=== PATIENT | female | born 1940 | race Caucasian/White ===

== ENCOUNTER 2019-09-22 11:08 | Emergency (ER) | payer OTHER ==
[2019-09-22] MEDS ORDERED: FLEET ENEMA ADULT PR ONE (12:19)
--- NOTE | 2019-09-22 12:50 | ER ---
Nurse's Notes [facility] Name: Diana Nava Age: 79 yrs Sex: Female : 1940 Arrival Date: 09/22/2019 Time: 11:09 Bed 17 Private MD: Diagnosis: Fecal impaction;Constipation Presentation: 09/22 11:11 Presenting complaint: Patient states: i have had back surgery on the and i have tw2 been taking hydrocodone, maybe twice a day, i had people at the house checking on us and havent been able to take a laxative and now i am bleeding some when i wipe, i am constipated and havent gone since Thursday i believe. Transition of care: patient was not received from another setting of care. Onset of symptoms was September 22, 2019. Risk Assessment: Do you want to hurt yourself or someone else? Patient reports no desire to harm self or others. Initial Sepsis Screen: Does the patient meet any 2 criteria? No. Patient's initial sepsis screen is negative. Does the patient have a suspected source of infection? No. Patient's initial sepsis screen is negative. Care prior to arrival: None. 11:11 Method Of Arrival: Ambulatory tw2 11:11 Acuity: [id number] 3 tw2 Triage Assessment: 11:13 General: Appears uncomfortable, Behavior is cooperative, appropriate for age. Pain: tw2 Complains of pain in abdomen. GI: Reports constipation. Historical: - Allergies: 11:14 Daypro; tw2 11:14 Lodine; tw2 11:14 Plendil; tw2 11:14 Prinivil; tw2 11:14 Procardia; tw2 - Home Meds: 11:27 aspirin 81 mg Oral TbEC 1 tab once daily [Active]; enalapril maleate 20 mg Oral tab 1 tw2 tab once daily [Active]; glimepiride 1 mg Oral tab 1 tab once daily [Active]; lansoprazole 30 mg Oral cpDR 1 cap once daily [Active]; levothyroxine 75 mcg tab 1 tab once daily [Active]; losartan-hydrochlorothiazide 50-12.5 mg Oral tab 1 tab once daily [Active]; metformin 500 mg Oral tr24 1 tab once daily [Active]; moduchol 650 mg daily [Active]; raloxifene 60 mg Oral tab 1 tab once daily [Active]; tolterodine 4 mg Oral cp24 1 cap once daily [Active]; Zetia 10 mg Oral tab 1 tab once daily [Active]; - PMHx: 11:14 Diabetes - NIDDM; Hyperlipidemia; Hypertension; tw2 - PSHx: 11:14 Hysterectomy; Cholecystectomy; hemeroidechtomy; back surgery; tw2 - Immunization history:: Adult Immunizations. - Social history:: Smoking status: . - Ebola Screening: : Patient denies travel to an Ebola-affected area in the 21 days before illness onset. Screenin:40 Abuse screen: Denies threats or abuse. Denies injuries from another. Nutritional ph screening: No deficits noted. Tuberculosis screening: No symptoms or risk factors identified. Fall Risk None identified. Assessment: 11:50 General: Appears in no apparent distress. comfortable, slender, well groomed, Behavior ph is calm, cooperative, appropriate for age. Pain: Complains of pain in buttocks and abdomen. Neuro: Level of Consciousness is awake, alert, obeys commands, Oriented to person, place, time, situation. Cardiovascular: Capillary refill < 3 seconds in bilateral fingers Patient's skin is warm and dry. Respiratory: Airway is patent Respiratory effort is even, unlabored, Respiratory pattern is regular, symmetrical. GI: Abdomen is round non-distended, Bowel sounds present X 4 quads. Abdomen is tender to palpation in abdomen diffusely Reports bloating, constipation, cramping, rectal bleeding, Patient currently denies nausea, vomiting. GI: Rectal exam: Bleeding noted, Hemorrhoids noted. Derm: Skin is intact, Skin is pink, warm \T\ dry. 12:15 Reassessment: Patient appears in no apparent distress at this time. Patient and/or ph family updated on plan of care and expected duration. Pain level reassessed. Patient is alert, oriented x 3, equal unlabored respirations, skin warm/dry/pink. At bedside to administer soap suds enema, flow of water impeded by stool noted in rectum, attempted to digitally remove stool, bleeding noted, ERP notified. 12:20 Reassessment: ERP at bedside to disimpact pt, able to remove moderate amount of stool, ph pt reports some relief in pain, fleet enema administered, pt now sitting on bedside commode. Vital Signs: 11:13 BP 150 / 89; Pulse 96; Resp 18; Temp 97.5(O); Pulse Ox 95% on R/A; Weight 60.78 kg (R); tw2 Height 5 ft. 5 in. (165.10 cm); Pain 10/10; 12:30 BP 138 / 89; Pulse 87; Resp 18; Temp 97.9; Pulse Ox 99% on R/A; Pain 4/10; ph 11:13 Body Mass Index 22.30 (60.78 kg, 165.10 cm) tw2 ED Course: 11:09 Patient arrived in ED. mr 11:13 Triage completed. tw2 11:13 Arm band placed on. tw2 11:20 Al Gomez PA is PHCP. jr8 11:20 Darrel Louie MD is Attending Physician. jr8 11:22 Kinga Zuñiga, RN is Primary Nurse. ph 12:15 Soap suds enema given. Patient tolerated well. ph 12:30 Fleets enema given. Patient tolerated well. ph 12:44 Patient has correct armband on for positive identification. Placed in gown. Bed in low ph position. Call light in reach. Side rails up X 1. 13:12 No provider procedures requiring assistance completed. Patient did not have IV access ph during this emergency room visit. Administered Medications: 12:20 Drug: Fleet Enema 133 ml Route: UT; ph 12:35 Follow up: Response: No adverse reaction ph Outcome: 12:50 Discharge ordered by . jr8 13:12 Patient left the ED. eb 13:12 Discharged to home ambulatory. ph 13:12 Condition: good 13:12 Discharge instructions given to patient, Instructed on discharge instructions, follow up and referral plans. medication usage, Demonstrated understanding of instructions, follow-up care, medications, Prescriptions given X 1. Signatures: JermaineMaryam mr Al Gmoez PA PA jr8 Kinga Zuñiga, RN RN ph Nakia Ford RN RN tw2 Porsche Busch
--- NOTE | 2019-09-22 12:51 | EDPHYS ---
Physician Documentation [facility] Name: Diana Nava Age: 79 yrs Sex: Female : 1940 Arrival Date: 09/22/2019 Time: 11:09 Bed 17 Private MD: Darrel Bustos HPI: 09/22 12:22 This 79 yrs old Female presents to ER via Ambulatory with complaints of jr8 Constipation. 12:22 Patient stated that she is on [place] for recent back surgery. Stated that she had not jr8 been taking her laxatives. Last normal stool was this past Thursday. Stated that she took some this morning but cannot go. Having a lot of rectal pressure. Denies abdominal pain, n/v, or fevers . Severity of symptoms: At their worst the symptoms were moderate. It is unknown whether or not the patient has had similar symptoms in the past. The patient has not recently seen a physician. Historical: - Allergies: 11:14 Daypro; tw2 11:14 Lodine; tw2 11:14 Plendil; tw2 11:14 Prinivil; tw2 11:14 Procardia; tw2 - Home Meds: 11:27 aspirin 81 mg Oral TbEC 1 tab once daily [Active]; enalapril maleate 20 mg Oral tab 1 tw2 tab once daily [Active]; glimepiride 1 mg Oral tab 1 tab once daily [Active]; lansoprazole 30 mg Oral cpDR 1 cap once daily [Active]; levothyroxine 75 mcg tab 1 tab once daily [Active]; losartan-hydrochlorothiazide 50-12.5 mg Oral tab 1 tab once daily [Active]; metformin 500 mg Oral tr24 1 tab once daily [Active]; moduchol 650 mg daily [Active]; raloxifene 60 mg Oral tab 1 tab once daily [Active]; tolterodine 4 mg Oral cp24 1 cap once daily [Active]; Zetia 10 mg Oral tab 1 tab once daily [Active]; - PMHx: 11:14 Diabetes - NIDDM; Hyperlipidemia; Hypertension; tw2 - PSHx: 11:14 Hysterectomy; Cholecystectomy; hemeroidechtomy; back surgery; tw2 - Immunization history:: Adult Immunizations. - Social history:: Smoking status: . - Ebola Screening: : Patient denies travel to an Ebola-affected area in the 21 days before illness onset. ROS: 12:22 Constitutional: Negative for fever, chills, and weight loss. jr8 12:22 Abdomen/GI: Positive for constipation, rectal bleeding, Negative for abdominal pain, nausea, vomiting, and diarrhea. Exam: 12:22 Eyes: Pupils equal round and reactive to light, extra-ocular motions intact. Lids and jr8 lashes normal. Conjunctiva and sclera are non-icteric and not injected. Cornea within normal limits. Periorbital areas with no swelling, redness, or edema. ENT: Nares patent. No nasal discharge, no septal abnormalities noted. Tympanic membranes are normal and external auditory canals are clear. Oropharynx with no redness, swelling, or masses, exudates, or evidence of obstruction, uvula midline. Mucous membranes moist. Neck: Trachea midline, no thyromegaly or masses palpated, and no cervical lymphadenopathy. Supple, full range of motion without nuchal rigidity, or vertebral point tenderness. No Meningismus. Cardiovascular: Regular rate and rhythm with a normal S1 and S2. No gallops, murmurs, or rubs. Normal PMI, no JVD. No pulse deficits. Respiratory: Lungs have equal breath sounds bilaterally, clear to auscultation and percussion. No rales, rhonchi or wheezes noted. No increased work of breathing, no retractions or nasal flaring. Back: No spinal tenderness. No costovertebral tenderness. Full range of motion. Skin: Warm, dry with normal turgor. Normal color with no rashes, no lesions, and no evidence of cellulitis. MS/ Extremity: Pulses equal, no cyanosis. Neurovascular intact. Full, normal range of motion. Neuro: Awake and alert, GCS 15, oriented to person, place, time, and situation. Cranial nerves II-XII grossly intact. Motor strength 5/5 in all extremities. Sensory grossly intact. Cerebellar exam normal. Normal gait. 12:22 Abdomen/GI: Inspection: abdomen appears normal, Bowel sounds: active, all quadrants, Palpation: abdomen is soft and non-tender, in all quadrants, mass, is not appreciated, rebound tenderness, is not appreciated, voluntary guarding, is not appreciated, involuntary guarding, is not appreciated, no appreciated organomegaly, Rectal exam: rectal tone normal, Stool: soft, hemorrhoid(s), external, with associated bleeding, tenderness, that is mild, fecal impaction, that is moderate, the exam is chaperoned by the nurse. Vital Signs: 11:13 BP 150 / 89; Pulse 96; Resp 18; Temp 97.5(O); Pulse Ox 95% on R/A; Weight 60.78 kg (R); tw2 Height 5 ft. 5 in. (165.10 cm); Pain 10/10; 12:30 BP 138 / 89; Pulse 87; Resp 18; Temp 97.9; Pulse Ox 99% on R/A; Pain 4/10; ph 11:13 Body Mass Index 22.30 (60.78 kg, 165.10 cm) tw2 MDM: 11:20 Patient medically screened. jr8 12:22 ED course: No more active rectal bleeding. Rectum disimpacted. Patient feeling much jr8 better. Soap abhijit enema being given now . 12:50 Data reviewed: vital signs, nurses notes, and as a result, I will discharge patient. jr8 Data interpreted: Pulse oximetry: on room air is 95 %. Interpretation: normal. 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 Response to treatment: the patient's symptoms have markedly improved after treatment. Administered Medications: 12:20 Drug: Fleet Enema 133 ml Route: [place]; ph 12:35 Follow up: Response: No adverse reaction ph Disposition: 09/22/19 12:50 Discharged to Home. Impression: Fecal impaction, Constipation. - Condition is Stable. - Discharge Instructions: Constipation, Adult. - Prescriptions for Miralax 17 gram/dose Oral - take 1 packet by ORAL route once daily dilute powder in 8 ounces of water or juice; 1 box. - Medication Reconciliation Form, Thank You Letter, Antibiotic Education, Prescription Opioid Use form. - Follow up: Private Physician; When: 2 - 3 days; Reason: Recheck today's complaints, Continuance of care, Re-evaluation by your physician. - Problem is new. - Symptoms have improved. Addendum: 09/26/2019 10:37 Co-signature as Attending Physician, Darrel Louie MD I agree with the assessment and c vera plan of care. Signatures: Darrel Louie MD MD cha Roszak, Josh, PA PA jr8 Kinga Zuñiga, RN RN Nakia Ford RN RN tw2 Porsche Busch Corrections: (The following items were deleted from the chart) 09/22 13:12 12:50 09/22/2019 12:50 Discharged to Home. Impression: Fecal impaction; Constipation. eb Condition is Stable. Forms are Medication Reconciliation Form, Thank You Letter, Antibiotic Education, Prescription Opioid Use. Follow up: Private Physician; When: 2 - 3 days; Reason: Recheck today's complaints, Continuance of care, Re-evaluation by your physician. Problem is new. Symptoms have improved. jr8
[2019-09-22 13:30] VITALS: BP 150/89; TEMP 97.5; O2SAT 95
== END 2019-09-22 13:12 | disposition home or self-care (01) ==
LOC: ER 11:08
DX: K56.41 Fecal impaction (principal); I10 Essential (primary) hypertension; E78.5 Hyperlipidemia, unspecified; E11.9 Type 2 diabetes mellitus without complications; Z79.82 Long term (current) use of aspirin; Z88.8 Allergy status to other drugs, medicaments and biological substances
CPT/HCPCS: 99284

== ENCOUNTER 2019-09-26 04:56 | Emergency (ER) | payer OTHER ==
[2019-09-26] MEDS ORDERED: LACTULOSE 20 GM/30 ML UCUP ONE (05:29)
--- NOTE | 2019-09-26 06:00 | ER ---
Nurse's Notes [facility] Name: Diana Nava Age: 79 yrs Sex: Female : 1940 Arrival Date: 09/26/2019 Time: 04:57 Bed 8 Private MD: Diagnosis: Constipation Presentation: 09/26 05:08 Presenting complaint: Patient states: Reports she had back surgery on the , was ea prescribed hydrocodone as pain reliever, reports she was seen in the ED for constipation and was prescribed Miralax. Pt reports she has been taking Miralax but has been unable to have a bowel movement since . Transition of care: patient was not received from another setting of care. Onset of symptoms was September 26, 2019. Risk Assessment: Do you want to hurt yourself or someone else? Patient reports no desire to harm self or others. Initial Sepsis Screen: Does the patient meet any 2 criteria? No. Patient's initial sepsis screen is negative. Does the patient have a suspected source of infection? No. Patient's initial sepsis screen is negative. Care prior to arrival: Medication(s) given: Miralax. 05:08 Method Of Arrival: Ambulatory ea 05:08 Acuity: [id number] 4 ea Triage Assessment: 05:12 General: Appears in no apparent distress. Behavior is calm, cooperative, appropriate ea for age. Neuro: No deficits noted. Level of Consciousness is awake, alert, obeys commands. Historical: - Allergies: 05:25 Daypro; ea 05:25 Lodine; ea 05:25 Plendil; ea 05:25 Prinivil; ea 05:25 Procardia; ea - Home Meds: 05:25 Zetia 10 mg Oral tab 1 tab once daily [Active]; Zetia 10 mg Oral tab 1 tab once daily ea [Active]; Zetia 10 mg Oral tab 1 tab once daily [Active]; Zetia 10 mg Oral tab 1 tab once daily [Active]; Zetia 10 mg Oral tab 1 tab once daily [Active]; Zetia 10 mg Oral tab 1 tab once daily [Active]; aspirin 81 mg Oral TbEC 1 tab once daily [Active]; aspirin 81 mg Oral TbEC 1 tab once daily [Active]; aspirin 81 mg Oral TbEC 1 tab once daily [Active]; aspirin 81 mg Oral TbEC 1 tab once daily [Active]; lansoprazole 30 mg Oral cpDR 1 cap once daily [Active]; raloxifene 60 mg Oral tab 1 tab once daily [Active]; - PMHx: 05:25 Hypertension; Hyperlipidemia; Diabetes - NIDDM; ea - PSHx: 05:25 back surgery; hemeroidechtomy; Cholecystectomy; Hysterectomy; ea - Immunization history:: Adult Immunizations up to date. - Social history:: Smoking status: Patient/guardian denies using tobacco. - Ebola Screening: : No symptoms or risks identified at this time. Screenin:09 Abuse screen: Denies threats or abuse. Denies injuries from another. Nutritional rr5 screening: No deficits noted. Tuberculosis screening: No symptoms or risk factors identified. Fall Risk None identified. Total Oneal Fall Scale indicates No Risk (0-24 pts). Assessment: 05:10 General: Appears in no apparent distress. uncomfortable, Behavior is calm, cooperative, rr5 appropriate for age. Pain: Denies pain. Neuro: Level of Consciousness is awake, alert, obeys commands, Oriented to person, place, time, situation. Cardiovascular: Capillary refill < 3 seconds Patient's skin is warm and dry. Respiratory: Airway is patent Respiratory effort is even, unlabored, Respiratory pattern is regular, symmetrical. GI: Abdomen is round Bowel sounds Abd is soft Reports constipated, last BM was . : No signs and/or symptoms were reported regarding the genitourinary system. EENT: No signs and/or symptoms were reported regarding the EENT system. Derm: Skin is intact, is healthy with good turgor, Skin temperature is warm. Musculoskeletal: Circulation, motion, and sensation intact. Capillary refill < 3 seconds. 06:07 Reassessment: Patient and/or family updated on plan of care and expected duration. Pain ea level reassessed. Patient is alert, oriented x 3, equal unlabored respirations, skin warm/dry/pink. Discharge instruction given to patient, verbalized the understanding of instruction. Pt left ED ambulatory accompanied by . . Pt tolerating well. Vital Signs: 05:11 BP 176 / 75; Pulse 85; Resp 16; Temp 97.8; Pulse Ox 100% ; Weight 60.78 kg; Height 5 ea ft. 5 in. (165.10 cm); 05:11 Body Mass Index 22.30 (60.78 kg, 165.10 cm) ea ED Course: 04:57 Patient arrived in ED. ds1 05:04 Todd Monique, RN is Primary Nurse. rr5 05:07 Alex Brewster MD is Attending Physician. tw4 05:11 Triage completed. ea 05:11 Arm band placed on right wrist. Patient placed in an exam room, on a stretcher, on ea pulse oximetry. 05:11 Patient has correct armband on for positive identification. Placed in gown. Bed in low ea position. Call light in reach. Side rails up X 1. 05:23 Served as a certified nurse during rectal exam. ea 06:10 IV discontinued, intact, bleeding controlled, No redness/swelling at site. Pressure ea dressing applied. Administered Medications: 05:31 Drug: Lactulose 20 grams Volume: 30 ml; Route: PO; ea 05:59 Follow up: Response: No adverse reaction ea Outcome: 05:59 Discharge ordered by . tw4 06:08 Discharged to home ambulatory, with family. ea 06:08 Condition: stable 06:08 Discharge instructions given to patient, Instructed on discharge instructions, follow up and referral plans. medication usage, Demonstrated understanding of instructions, follow-up care, medications, Prescriptions given X 1. 06:11 Patient left the ED. ea Signatures: Rosalee Souza ds1 Kamla Bassett, RN RN Alex Perry MD MD tw4 Todd Monique, RN RN rr5
--- NOTE | 2019-09-26 06:00 | EDPHYS ---
Physician Documentation [facility] Name: Diana Nava Age: 79 yrs Sex: Female : 1940 Arrival Date: 09/26/2019 Time: 04:57 Bed 8 Private MD: ED Physician Alex Brwester HPI: 09/26 05:46 This 79 yrs old Female presents to ER via Ambulatory with complaints of tw4 Constipation. 05:46 The patient presents to the emergency department with constipation. Onset: The tw4 symptoms/episode began/occurred today. Context: the patient has no known special context relating to the rectal area complaint(s). Modifying factors: The symptoms are alleviated by nothing, The symptoms are aggravated by nothing. Associate signs and symptoms: The patient has no apparent associated signs or symptoms. The patient has not experienced similar symptoms in the past. Historical: - Allergies: 05:25 Daypro; ea 05:25 Lodine; ea 05:25 Plendil; ea 05:25 Prinivil; ea 05:25 Procardia; ea - Home Meds: 05:25 Zetia 10 mg Oral tab 1 tab once daily [Active]; Zetia 10 mg Oral tab 1 tab once daily ea [Active]; Zetia 10 mg Oral tab 1 tab once daily [Active]; Zetia 10 mg Oral tab 1 tab once daily [Active]; Zetia 10 mg Oral tab 1 tab once daily [Active]; Zetia 10 mg Oral tab 1 tab once daily [Active]; aspirin 81 mg Oral TbEC 1 tab once daily [Active]; aspirin 81 mg Oral TbEC 1 tab once daily [Active]; aspirin 81 mg Oral TbEC 1 tab once daily [Active]; aspirin 81 mg Oral TbEC 1 tab once daily [Active]; lansoprazole 30 mg Oral cpDR 1 cap once daily [Active]; raloxifene 60 mg Oral tab 1 tab once daily [Active]; - PMHx: 05:25 Hypertension; Hyperlipidemia; Diabetes - NIDDM; ea - PSHx: 05:25 back surgery; hemeroidechtomy; Cholecystectomy; Hysterectomy; ea - Immunization history:: Adult Immunizations up to date. - Social history:: Smoking status: Patient/guardian denies using tobacco. - Ebola Screening: : No symptoms or risks identified at this time. ROS: 05:46 Constitutional: Negative for fever, chills, and weight loss, Eyes: Negative for injury, tw4 pain, redness, and discharge, Cardiovascular: Negative for chest pain, palpitations, and edema, Respiratory: Negative for shortness of breath, cough, wheezing, and pleuritic chest pain, Back: Negative for injury and pain, MS/Extremity: Negative for injury and deformity, Skin: Negative for injury, rash, and discoloration, Neuro: Negative for headache, weakness, numbness, tingling, and seizure. 05:46 Abdomen/GI: Positive for constipation, Negative for abdominal pain, nausea and vomiting, nausea, vomiting, and diarrhea, nausea, vomiting, diarrhea, anorexia, dysphagia, hematemesis, black/tarry stool, rectal pain, rectal bleeding, bowel incontinence, flatulence. Exam: 05:46 Constitutional: This is a well developed, well nourished patient who is awake, alert, tw4 and in no acute distress. Head/Face: Normocephalic, atraumatic. Chest/axilla: Normal chest wall appearance and motion. Nontender with no deformity. No lesions are appreciated. Cardiovascular: Regular rate and rhythm with a normal S1 and S2. No gallops, murmurs, or rubs. Normal PMI, no JVD. No pulse deficits. Respiratory: Lungs have equal breath sounds bilaterally, clear to auscultation and percussion. No rales, rhonchi or wheezes noted. No increased work of breathing, no retractions or nasal flaring. Abdomen/GI: Soft, non-tender, with normal bowel sounds. No distension or tympany. No guarding or rebound. No evidence of tenderness throughout. Back: No spinal tenderness. No costovertebral tenderness. Full range of motion. MS/ Extremity: Pulses equal, no cyanosis. Neurovascular intact. Full, normal range of motion. Neuro: Awake and alert, GCS 15, oriented to person, place, time, and situation. Cranial nerves II-XII grossly intact. Motor strength 5/5 in all extremities. Sensory grossly intact. Cerebellar exam normal. Normal gait. 05:58 Abdomen/GI: Rectal exam: is unremarkable, fecal impaction, is not appreciated. tw4 Vital Signs: 05:11 BP 176 / 75; Pulse 85; Resp 16; Temp 97.8; Pulse Ox 100% ; Weight 60.78 kg; Height 5 ea ft. 5 in. (165.10 cm); 05:11 Body Mass Index 22.30 (60.78 kg, 165.10 cm) ea MDM: 05:07 Patient medically screened. tw4 05:50 Differential diagnosis: hemorrhoids, fissure, abscess. Data reviewed: vital signs, tw4 nurses notes. Data interpreted: Pulse oximetry: Interpretation: normal. Counseling: I had a detailed discussion with the patient and/or guardian regarding: the historical points, exam findings, and any diagnostic results supporting the discharge/admit diagnosis. Special discussion: I discussed with the patient/guardian in detail that at this point there is no indication for admission to the hospital. It is understood, however, that if the symptoms persist or worsen the patient needs to return immediately for re-evaluation. Administered Medications: 05:31 Drug: Lactulose 20 grams Volume: 30 ml; Route: PO; ea 05:59 Follow up: Response: No adverse reaction ea Disposition: 09/26/19 05:59 Discharged to Home. Impression: Constipation. - Condition is Stable. - Discharge Instructions: Constipation, Adult. - Prescriptions for Lactulose 10 gram/15 mL Oral Solution - take 30 milliliters by ORAL route once daily; 300 milliliter. - Medication Reconciliation Form, Thank You Letter, Antibiotic Education, Prescription Opioid Use form. - Follow up: Private Physician; When: Upon discharge from the Emergency Department; Reason: Recheck today's complaints, Continuance of care. - Problem is new. - Symptoms have improved. Signatures: Dispatcher [employer] Kamla Peña RN RN ea Wadley, Terrence, MD MD tw4 Corrections: (The following items were deleted from the chart) 06:11 05:59 09/26/2019 05:59 Discharged to Home. Impression: Constipation. Condition is ea Stable. Forms are Medication Reconciliation Form, Thank You Letter, Antibiotic Education, Prescription Opioid Use. Follow up: Private Physician; When: Upon discharge from the Emergency Department; Reason: Recheck today's complaints, Continuance of care. Problem is new. Symptoms have improved. tw4
[2019-09-26 06:16] VITALS: BP 176/75; TEMP 97.8; O2SAT 100
== END 2019-09-26 06:11 | disposition home or self-care (01) ==
LOC: ER 04:56
DX: K59.00 Constipation, unspecified (principal); I10 Essential (primary) hypertension; E78.5 Hyperlipidemia, unspecified; E11.9 Type 2 diabetes mellitus without complications; Z79.82 Long term (current) use of aspirin; Z88.8 Allergy status to other drugs, medicaments and biological substances
CPT/HCPCS: 99284

== ENCOUNTER 2019-10-23 12:00 | Emergency (ER) | payer OTHER ==
--- OUTSIDE RECORDS SUMMARY | 2019-10-23 12:02 | XMS REPORT ---
:1940 Author Organization [facility] Address [address] [place] [address] [address] [place] [address] Care Team Providers Name Role Phone Unavailable Unavailable Unavailable Problems This patient has no known problems. Allergies, Adverse Reactions, Alerts This patient has no known allergies or adverse reactions. Medications This patient has no known medications.
--- NOTE | 2019-10-23 14:17 | RAD REPORT ---
EXAM DESCRIPTION: RAD - Abdomen 1 View (KUB) - 10/23/2019 1:33 pm CLINICAL HISTORY: Abdomen pain. FINDINGS: The bowel gas pattern is unremarkable. A large amount of stool is present throughout the colon. No significant abnormal calcifications seen. Cement has been placed into a T12 compression fracture
--- NOTE | 2019-10-23 15:16 | ER ---
Nurse's Notes [facility] Name: Diana Nava Age: 79 yrs Sex: Female : 1940 Arrival Date: 10/23/2019 Time: 12:04 Bed 5 Private MD: Diagnosis: Constipation, unspecified Presentation: 10/23 12:35 Presenting complaint: Patient states: "I'm constipated and I think i have a fecal ss impaction." Last BM was 1 week ago. Transition of care: patient was not received from another setting of care. Onset of symptoms was October 16, 2019. Risk Assessment: Do you want to hurt yourself or someone else? Patient reports no desire to harm self or others. Initial Sepsis Screen: Does the patient meet any 2 criteria? No. Patient's initial sepsis screen is negative. Does the patient have a suspected source of infection? No. Patient's initial sepsis screen is negative. Care prior to arrival: None. 12:35 Method Of Arrival: Ambulatory ss 12:35 Acuity: [id number] 3 ss Historical: - Allergies: 12:37 Daypro; ss 12:37 Lodine; ss 12:37 Plendil; ss 12:37 Prinivil; ss 12:37 Procardia; ss - Home Meds: 13:18 aspirin 81 mg Oral TbEC 1 tab once daily [Active]; enalapril maleate 20 mg Oral tab 1 tw2 tab once daily [Active]; glimepiride 1 mg Oral tab 1 tab once daily [Active]; lansoprazole 30 mg Oral cpDR 1 cap once daily [Active]; levothyroxine 75 mcg tab 1 tab once daily [Active]; losartan-hydrochlorothiazide 50-12.5 mg Oral tab 1 tab once daily [Active]; metformin 500 mg Oral tr24 1 tab once daily [Active]; moduchol 650 mg daily [Active]; raloxifene 60 mg Oral tab 1 tab once daily [Active]; tolterodine 4 mg Oral cp24 1 cap once daily [Active]; Zetia 10 mg Oral tab 1 tab once daily [Active]; - PMHx: 12:37 Diabetes - NIDDM; Hyperlipidemia; Hypertension; ss - PSHx: 12:37 back surgery; hemeroidectomy; Hysterectomy; Cholecystectomy; ss 13:18 hemeroidechtomy; tw2 - Immunization history:: Adult Immunizations up to date. - Social history:: Smoking status: Patient/guardian denies using tobacco. - Ebola Screening: : Patient denies exposure to infectious person Patient denies travel to an Ebola-affected area in the 21 days before illness onset. Screenin:04 Abuse screen: Denies threats or abuse. Denies injuries from another. Nutritional ca1 screening: No deficits noted. Tuberculosis screening: No symptoms or risk factors identified. Fall Risk None identified. Assessment: 13:04 General: Appears in no apparent distress. uncomfortable, Behavior is calm, cooperative, ca1 appropriate for age. Pain: Complains of pain in gluteal cleft Pain currently is 8 out of 10 on a pain scale. Quality of pain is described as pressure, Pain began this morning. Neuro: Level of Consciousness is awake, alert, obeys commands, Oriented to person, place, time, situation, Appropriate for age. Cardiovascular: Heart tones S1 S2 present Capillary refill < 3 seconds Patient's skin is warm and dry. Respiratory: Airway is patent Respiratory effort is even, unlabored, Respiratory pattern is regular, symmetrical, Breath sounds are clear bilaterally. GI: Abdomen is round non-distended, Bowel sounds present X 4 quads. Abd is soft and non tender X 4 quads. Reports constipation, since a week ago. Pt reported she had the same problem on giving because she was on hydrocodone. BUt after that she stopped taking the hydrocodone. At this time, she takes stool softener and Lactulose daily but still unable to defecate. : No deficits noted. No signs and/or symptoms were reported regarding the genitourinary system. EENT: No deficits noted. No signs and/or symptoms were reported regarding the EENT system. Derm: Skin is intact, is healthy with good turgor, Skin is pink, warm \\T\\ dry. Musculoskeletal: Circulation, motion, and sensation intact. Capillary refill < 3 seconds, Range of motion: intact in all extremities. 13:44 Reassessment: Patient appears in no apparent distress at this time. Patient is alert, ca1 oriented x 3, equal unlabored respirations, skin warm/dry/pink. Xray done. 15:31 Reassessment: Patient appears in no apparent distress at this time. Patient and/or tw2 family updated on plan of care and expected duration. Pain level reassessed. Patient is alert, oriented x 3, equal unlabored respirations, skin warm/dry/pink. Patient states feeling better. Patient states symptoms have improved. Vital Signs: 12:37 BP 165 / 74; Pulse 90; Resp 16; Temp 98.5(TE); Pulse Ox 97% on R/A; Weight 61.69 kg; ss Height 5 ft. 5 in. (165.10 cm); Pain 7/10; 13:44 BP 148 / 61; Pulse 83; Resp 17 S; Pulse Ox 99% on R/A; ca1 15:29 BP 157 / 69; Pulse 79; Resp 17; Pulse Ox 100% on R/A; tw2 12:37 Body Mass Index 22.63 (61.69 kg, 165.10 cm) ED Course: 12:04 Patient arrived in ED. as 12:36 Triage completed. ss 12:37 Arm band placed on right wrist. ss 12:56 Tom Quezada NP is PHCP. pm1 12:56 Darrel Louie MD is Attending Physician. pm1 12:57 Flaquita Richmond RN is Primary Nurse. ca1 13:04 Patient has correct armband on for positive identification. Bed in low position. Call ca1 light in reach. Side rails up X 1. Pulse ox on. NIBP on. Warm blanket given. 13:04 No provider procedures requiring assistance completed. ca1 13:33 XRAY Abdomen 1 View (KUB) In Process Unspecified. EDMS 15:16 digital disimpaction of stool at this time performed by FAITH DíazP, pt tolerated tw2 well, moderate amount of form stool removed, pt feels relief. 15:31 Patient did not have IV access during this emergency room visit. tw2 Administered Medications: No medications were administered Outcome: 15:15 Discharge ordered by MD. pm1 15:30 Discharged to home ambulatory. tw2 15:30 Condition: stable 15:30 Discharge instructions given to patient, Instructed on discharge instructions, follow up and referral plans. Demonstrated understanding of instructions, follow-up care, medications, Prescriptions given X 1. 15:31 Patient left the ED. tw2 Signatures: Dispatcher [employer] Lory Fenton Shelby, RN RN Tom Quezada NP WHEELCHAIR RENTAL CLERK pm1 Nakia Ford RN RN tw2 Acob, Flaquita, RN RN ca1
--- NOTE | 2019-10-23 15:17 | EDPHYS ---
Physician Documentation [facility] Name: Diana Nava Age: 79 yrs Sex: Female : 1940 Arrival Date: 10/23/2019 Time: 12:04 Bed 5 Private MD: SCOTTIE Physician Darrel Louie HPI: 10/23 13:20 This 79 yrs old Female presents to ER via Ambulatory with complaints of pm1 Constipation. 13:20 The patient presents with Constipation. Onset: The symptoms/episode began/occurred 1 pm1 week(s) ago. The symptoms do not radiate. Associated signs and symptoms: Pertinent negatives: nausea, vomiting, and diarrhea, chest pain, dysuria, fever, shortness of breath, abdominal pain. The symptoms are described as Pressure sensation and pain to rectal area. Modifying factors: The symptoms are alleviated by nothing, the symptoms are aggravated by nothing. Severity of pain: in the emergency department the pain is actually worse. The patient has experienced similar episodes in the past, several times. Patient with history of constipation due to use of narcotics from surgery. Patient no longer taking the pain medications. Has been using lactulose and Colace without improvement. Historical: - Allergies: 12:37 Daypro; ss 12:37 Lodine; ss 12:37 Plendil; ss 12:37 Prinivil; ss 12:37 Procardia; ss - Home Meds: 13:18 aspirin 81 mg Oral TbEC 1 tab once daily [Active]; enalapril maleate 20 mg Oral tab 1 tw2 tab once daily [Active]; glimepiride 1 mg Oral tab 1 tab once daily [Active]; lansoprazole 30 mg Oral cpDR 1 cap once daily [Active]; levothyroxine 75 mcg tab 1 tab once daily [Active]; losartan-hydrochlorothiazide 50-12.5 mg Oral tab 1 tab once daily [Active]; metformin 500 mg Oral tr24 1 tab once daily [Active]; moduchol 650 mg daily [Active]; raloxifene 60 mg Oral tab 1 tab once daily [Active]; tolterodine 4 mg Oral cp24 1 cap once daily [Active]; Zetia 10 mg Oral tab 1 tab once daily [Active]; - PMHx: 12:37 Diabetes - NIDDM; Hyperlipidemia; Hypertension; ss - PSHx: 12:37 back surgery; hemeroidectomy; Hysterectomy; Cholecystectomy; ss 13:18 hemeroidechtomy; tw2 - Immunization history:: Adult Immunizations up to date. - Social history:: Smoking status: Patient/guardian denies using tobacco. - Ebola Screening: : Patient denies exposure to infectious person Patient denies travel to an Ebola-affected area in the 21 days before illness onset. ROS: 13:20 Constitutional: Negative for fever, chills, and weight loss, Cardiovascular: Negative pm1 for chest pain, palpitations, and edema, Respiratory: Negative for shortness of breath, cough, wheezing, and pleuritic chest pain. 13:20 Back: Negative for injury and pain, : Negative for injury, bleeding, discharge, and swelling, MS/Extremity: Negative for injury and deformity, Skin: Negative for injury, rash, and discoloration, Neuro: Negative for headache, weakness, numbness, tingling, and seizure. 13:20 Abdomen/GI: Positive for constipation, Negative for abdominal pain, nausea, vomiting, and diarrhea. Exam: 13:20 Constitutional: This is a well developed, well nourished patient who is awake, alert, pm1 and in no acute distress. Head/Face: Normocephalic, atraumatic. Chest/axilla: Normal chest wall appearance and motion. Nontender with no deformity. No lesions are appreciated. Cardiovascular: Regular rate and rhythm with a normal S1 and S2. No gallops, murmurs, or rubs. Normal PMI, no JVD. No pulse deficits. Respiratory: Lungs have equal breath sounds bilaterally, clear to auscultation and percussion. No rales, rhonchi or wheezes noted. No increased work of breathing, no retractions or nasal flaring. 13:20 Back: No spinal tenderness. No costovertebral tenderness. Full range of motion. Skin: Warm, dry with normal turgor. Normal color with no rashes, no lesions, and no evidence of cellulitis. MS/ Extremity: Pulses equal, no cyanosis. Neurovascular intact. Full, normal range of motion. 13:20 Abdomen/GI: Inspection: abdomen appears normal, Bowel sounds: normal, Palpation: abdomen is soft and non-tender, mass, is not appreciated, rebound tenderness, is not appreciated. 13:20 Neuro: Orientation: is normal, Motor: is normal, moves all fours, Gait: is steady, at a normal pace, without difficulty. Vital Signs: 12:37 BP 165 / 74; Pulse 90; Resp 16; Temp 98.5(TE); Pulse Ox 97% on R/A; Weight 61.69 kg; ss Height 5 ft. 5 in. (165.10 cm); Pain 7/10; 13:44 BP 148 / 61; Pulse 83; Resp 17 S; Pulse Ox 99% on R/A; ca1 15:29 BP 157 / 69; Pulse 79; Resp 17; Pulse Ox 100% on R/A; tw2 12:37 Body Mass Index 22.63 (61.69 kg, 165.10 cm) ss Procedures: 15:14 Fecal disimpaction: digital disimpaction was performed, with a moderate amount of stool pm1 expressed. The patient tolerated the intervention well. MDM: 12:57 Patient medically screened. [facility] 13:25 Data reviewed: vital signs. Data interpreted: Pulse oximetry: on room air is 97 %. pm1 Interpretation: normal. 15:14 Counseling: I had a detailed discussion with the patient and/or guardian regarding: the pm1 historical points, exam findings, and any diagnostic results supporting the discharge/admit diagnosis, radiology results, the need for outpatient follow up, to return to the emergency department if symptoms worsen or persist or if there are any questions or concerns that arise at home. 10/23 13:15 Order name: XRAY Abdomen 1 View (KUB); Complete Time: 14:20 pm1 Administered Medications: No medications were administered Disposition: 10/23/19 15:15 Discharged to Home. Impression: Constipation, unspecified. - Condition is Stable. - Discharge Instructions: Constipation, Adult. - Prescriptions for Miralax 17 gram/dose Oral - take 1 packet by ORAL route once daily As needed dilute powder in 8 ounces of water or juice; 7 packet. - Medication Reconciliation Form, Thank You Letter, Antibiotic Education, Prescription Opioid Use form. - Follow up: Emergency Department; When: As needed; Reason: Worsening of condition. Follow up: Private Physician; When: 2 - 3 days; Reason: Recheck today's complaints, Continuance of care, Re-evaluation by your physician. - Problem is new. - Symptoms have improved. Addendum: 10/31/2019 11:05 Co-signature as Attending Physician, Darrel Louie MD I agree with the assessment and c vera plan of care. Signatures: Dispatcher [employer] EDMS Darrel Louie MD MD cha Smirch, Shelby, RN RN ss Tom Quezada, BATCH TESTER BATCH TESTER pm1 Nakia Ford RN RN tw2 Corrections: (The following items were deleted from the chart) 10/23 15:31 15:15 10/23/2019 15:15 Discharged to Home. Impression: Constipation, unspecified. tw2 Condition is Stable. Forms are Medication Reconciliation Form, Thank You Letter, Antibiotic Education, Prescription Opioid Use. Follow up: Emergency Department; When: As needed; Reason: Worsening of condition. Follow up: Private Physician; When: 2 - 3 days; Reason: Recheck today's complaints, Continuance of care, Re-evaluation by your physician. Problem is new. Symptoms have improved. pm1
[2019-10-23 15:41] VITALS: TEMP 98.5
[2019-10-23 15:44] VITALS: BP 157/69; O2SAT 100
== END 2019-10-23 15:31 | disposition home or self-care (01) ==
LOC: ER 12:00
DX: K59.00 Constipation, unspecified (principal); I10 Essential (primary) hypertension; E78.5 Hyperlipidemia, unspecified; E11.9 Type 2 diabetes mellitus without complications; Z79.82 Long term (current) use of aspirin; Z88.8 Allergy status to other drugs, medicaments and biological substances
CPT/HCPCS: 74018; 99283

== ENCOUNTER 2020-12-31 09:05 | Emergency (ER) | payer OTHER ==
--- OUTSIDE RECORDS SUMMARY | 2020-12-31 09:09 | XMS REPORT | Continuity of Care Document ---
:1940 Author Organization [facility] t Address [address] [place] [address] Care Team Providers Name Role Phone SARKIS Attending Clinician Unavailable Problems This patient has no known problems. Allergies, Adverse Reactions, Alerts This patient has no known allergies or adverse reactions. Medications This patient has no known medications. Procedures This patient has no known procedures. Encounters Start End Encounter Admission Attending Care Care Encounter Source Date/Time Date/Time Type Type Clinicians Facility Department ID 2019-11-01 2019-11-01 Outpatient SARKIS [facility] [id number] 00:00:00 00:00:00 [facility] [address] Results This patient has no known results.
--- NOTE | 2020-12-31 10:06 | RAD REPORT ---
EXAM DESCRIPTION: CT - Head Brain Wo Cont - 12/31/2020 9:55 am CLINICAL HISTORY: tremors COMPARISON: HEAD BRAIN W O CONTRAST dated 12/22/2009 TECHNIQUE: Axial 5 mm thick images of the head were obtained without IV contrast. All CT scans are performed using dose optimization technique as appropriate and may include automated exposure control or mA/KV adjustment according to patient size. FINDINGS: No intracranial hemorrhage, mass, edema or shift of mid-line structures. No acute cortical based infarction. No cortical edema or sulcal effacement seen. Patient has mild to moderate atrophy that has progressed since 2009. Chronic ischemic changes are present in the cerebral white matter are also mildly progressive. No abnormal extra-axial fluid collections. Ventricles are in proportion to the volume loss. Arterial calcifications are present. Mastoid air cells and visualized portions of the paranasal sinuses are clear. No acute bony findings. IMPRESSION: No hemorrhage, acute cortical infarction or other acute intracranial process identified. Mild to moderate atrophy and mild chronic ischemic changes showing progression from 2009. Chronic ischemic changes can mask nonhemorrhagic acute infarction. MR brain followup can be obtained if there is ongoing concern for acute ischemia.
[2020-12-31] MEDS ORDERED: NA CHLORIDE 0.9% 500 ML ONE (10:22)
[2020-12-31 10:42] LABS: Absolute Lymphocytes (CBC) 0.6 K/uL (0.7-4.9); Basophils % 0.2 % (0-1.3); Hematocrit 32.3 % (36.0-45.0); Lymphocytes % 21.8 % (15.3-44.8); MPV 9.3 fL (7.6-11.3); RBC Red Blood Cell Count 3.73 M/uL (3.86-4.86)
[2020-12-31 10:53] LABS: ALT/SGPT 18 U/L (12-78); AST/SGOT 17 U/L (15-37); Albumin 3.2 g/dL (3.4-5.0); Alkaline Phosphatase 30 U/L (45-117); BUN Blood Urea Nitrogen 14 mg/dL (7-18); Bicarbonate 31 mmol/L (21-32); Bilirubin Total 0.6 mg/dL (0.2-1.0); Glucose Level 85 mg/dL (74-106); Potassium 3.1 mmol/L (3.5-5.1); Sodium Level 146 mmol/L (136-145)
[2020-12-31 12:00] LABS: SARS-COV-2 RT PCR POSITIVE (NEGATIVE)
--- NOTE | 2020-12-31 12:01 | RAD REPORT ---
EXAM DESCRIPTION: RAD - Chest Single View - 12/31/2020 11:26 am CLINICAL HISTORY: COUGH COMPARISON: Portable November 2009 TECHNIQUE: AP portable chest image was obtained 12/31/2020 11:26 am . FINDINGS: Chronic interstitial lung disease is evident. No peripheral mass or consolidation identifi ed. No acute failure or volume overload. Heart and vasculature are normal. No measurable pleural effu coy and no pneumothorax. Skin fold artifact overlies the right apex. No acute bony abnormality seen. No acute aortic findings suspected. No worrisome change from comparison. IMPRESSION: No acute cardiopulmonary process.
--- NOTE | 2020-12-31 13:56 | EDPHYS ---
Physician Documentation [facility] Name: Diana Nava Age: 80 yrs Sex: Female : 1940 Arrival Date: 12/31/2020 Time: 09:24 Bed 14 Private MD: ED Physician Darrel Louie HPI: 12/31 09:53 This 80 yrs old Female presents to ER via EMS with complaints of "shakes". pm1 09:53 The patient's problem is reported as shaking. Onset: The symptoms/episode pm1 began/occurred yesterday. Duration: The episode is continuous. Context: Possible contributing factors include: onset after taking Delsym for her cough. The symptoms are alleviated by nothing. The symptoms are aggravated by nothing. Associated signs and symptoms: Pertinent positives: Cough, Pertinent negatives: abdominal pain, chest pain, shortness of breath, Fever. Severity of symptoms: in the emergency department the symptoms are unchanged. Patient's baseline: Neuro: alert and fully oriented, Motor: no deficits, Ambulation: walks without assistance, Speech: normal. The patient has not experienced similar symptoms in the past. Historical: - Allergies: 09:36 Daypro; ss 09:36 Lodine; ss 09:36 Plendil; ss 09:36 Prinivil; ss 09:36 Procardia; ss - PMHx: 09:36 Diabetes - NIDDM; Hyperlipidemia; Hypertension; ss - PSHx: 09:36 back surgery; hemeroidectomy; Hysterectomy; Cholecystectomy; hemeroidechtomy; ss - Immunization history:: Adult Immunizations up to date. - Social history:: Smoking status: Patient denies any tobacco usage or history of. ROS: 09:53 Constitutional: Negative for fever, chills, and weight loss, Neck: Negative for injury, pm1 pain, and swelling, Cardiovascular: Negative for chest pain, palpitations, and edema. 09:53 Abdomen/GI: Negative for abdominal pain, nausea, vomiting, diarrhea, and constipation, Back: Negative for injury and pain, MS/Extremity: Negative for injury and deformity, Skin: Negative for injury, rash, and discoloration. 09:53 Respiratory: Positive for cough, Negative for shortness of breath, sputum production. 09:53 Neuro: Positive for shaking to bilateral hands after taking delsym, Negative for altered mental status, dizziness, gait disturbance, headache, numbness, tingling, visual changes, weakness. Exam: 10:36 Radiologist reports: No acute changes pm1 10:36 Constitutional: This is a well developed, well nourished patient who is awake, alert, and in no acute distress. Head/Face: Normocephalic, atraumatic. 10:36 Back: No spinal tenderness. No costovertebral tenderness. Full range of motion. Skin: Warm, dry with normal turgor. Normal color with no rashes, no lesions, and no evidence of cellulitis. MS/ Extremity: Pulses equal, no cyanosis. Neurovascular intact. Full, normal range of motion. 10:36 Neck: Exam negative for acute changes, External neck: is normal, ROM/movement: is normal. 10:36 Cardiovascular: Exam negative for acute changes, Rate: normal, Rhythm: regular, Pulses: no pulse deficits are appreciated, Heart sounds: normal, Edema: is not appreciated. 10:36 Respiratory: Exam negative for acute changes, respiratory distress, shortness of breath, Breath sounds: are clear throughout. 10:36 Abdomen/GI: Exam negative for acute changes, Inspection: abdomen appears normal, Palpation: abdomen is soft and non-tender, in all quadrants. 10:36 Neuro: Exam negative for acute changes, Orientation: is normal, Mentation: is normal, Motor: is normal, moves all fours, Sensation: is normal, no obvious gross deficits. Vital Signs: 09:33 BP 172 / 71; Pulse 83; Resp 18; Temp 98.4(TE); Pulse Ox 98% on R/A; Pain 0/10; ss 11:35 BP 156 / 80; Pulse 79; Resp 15; Pulse Ox 99% on R/A; hb 13:03 BP 139 / 86; Pulse 82; Resp 16; Pulse Ox 95% on R/A; hb MDM: 09:24 Patient medically screened. kaylan 13:35 ED course: I discussed diagnosis and labs with patient and then with her daughter. pm1 Informed daughter that I have spoken to two hospitalist to see if she could be admitted to prevent exposure to her at home who is in hospice. Unfortunately she does not met criteria for admission and cannot be admitted. Daughter organized for her father's hospice care to assist patient with self quarantine at home and will pickle pumper the patient from the ER. 13:47 Data reviewed: vital signs. Data interpreted: Pulse oximetry: on room air is 98 %. pm1 Interpretation: normal. Counseling: I had a detailed discussion with the patient and/or guardian regarding: the historical points, exam findings, and any diagnostic results supporting the discharge/admit diagnosis, lab results, radiology results, the need for outpatient follow up, to return to the emergency department if symptoms worsen or persist or if there are any questions or concerns that arise at home. 12/31 09:39 Order name: Strep; Complete Time: 11:18 pm1 12/31 09:39 Order name: CBC with Diff; Complete Time: 11:08 pm1 12/31 09:39 Order name: CMP; Complete Time: 10:56 pm1 12/31 11:17 Order name: Throat Culture EDMS 12/31 09:39 Order name: CXR XRAY; Complete Time: 12:01 pm1 12/31 09:39 Order name: Droplet/Contact Precautions; Complete Time: 10:25 pm1 12/31 09:39 Order name: Labs collected and sent; Complete Time: 10:25 pm1 12/31 09:39 Order name: O2 Per Protocol; Complete Time: 10:25 pm1 12/31 09:39 Order name: EKG; Complete Time: 09:40 pm1 12/31 09:39 Order name: CT Head Brain wo Cont; Complete Time: 10:36 pm1 12/31 12:00 Order name: COVID-19/FLU A+B; Complete Time: 12:01 EDMS 12/31 09:39 Order name: EKG - Nurse/Tech; Complete Time: 10:25 pm1 Administered Medications: 10:25 Drug: NS 0.9% 500 ml Route: IV; Rate: bolus; Site: right antecubital; hb 11:00 Follow up: Response: No adverse reaction; IV Status: Completed infusion; IV Intake: hb 500ml Disposition: 19:59 Co-signature as Attending Physician, Darrel Louie MD I agree with the assessment and kaylan plan of care. Disposition: 12/31/20 13:55 Discharged to Home. Impression: Coronavirus infection, unspecified, Unspecified adverse effect of drug or medicament, Acute upper respiratory infection, unspecified. - Condition is Stable. - Discharge Instructions: COVID-19. - Medication Reconciliation Form, Thank You Letter, Antibiotic Education, Prescription Opioid Use form. - Follow up: Emergency Department; When: As needed; Reason: Worsening of condition. Follow up: Private Physician; When: 2 - 3 days; Reason: Recheck today's complaints, Continuance of care, Re-evaluation by your physician. - Problem is new. - Symptoms have improved. Signatures: Dispatcher [employer] EDKS Darrel Louie MD MD cha Smirch, Shelby, JENISE RN ss Tom Quezada, DESIGN AND SALES CONSULTANT DESIGN AND SALES CONSULTANT pm1 Nirali Gutierrez RN RN hb Corrections: (The following items were deleted from the chart) 11:00 09:40 Influenza Screen (A \\T\\ B)+BA.LAB.BRZ ordered. EDKS EDKS 11:00 09:40 CORONAVIRUS+MR.LAB.BRZ ordered. [facility] EDKS 13:56 13:55 12/31/2020 13:55 Discharged to Home. Impression: Coronavirus infection, pm1 unspecified; Unspecified adverse effect of drug or medicament. Condition is Stable. Forms are Medication Reconciliation Form, Thank You Letter, Antibiotic Education, Prescription Opioid Use. Follow up: Emergency Department; When: As needed; Reason: Worsening of condition. Follow up: Private Physician; When: 2 - 3 days; Reason: Recheck today's complaints, Continuance of care, Re-evaluation by your physician. Problem is new. Symptoms have improved. pm1 14:24 13:56 12/31/2020 13:55 Discharged to Home. Impression: Coronavirus infection, hb unspecified; Unspecified adverse effect of drug or medicament; Acute upper respiratory infection, unspecified. Condition is Stable. Forms are Medication Reconciliation Form, Thank You Letter, Antibiotic Education, Prescription Opioid Use. Follow up: Emergency Department; When: As needed; Reason: Worsening of condition. Follow up: Private Physician; When: 2 - 3 days; Reason: Recheck today's complaints, Continuance of care, Re-evaluation by your physician. Problem is new. Symptoms have improved. pm1
--- NOTE | 2020-12-31 13:56 | ER ---
Nurse's Notes [facility] Name: Diana Nava Age: 80 yrs Sex: Female : 1940 Arrival Date: 12/31/2020 Time: 09:24 Bed 14 Private MD: Diagnosis: Coronavirus infection, unspecified;Unspecified adverse effect of drug or medicament;Acute upper respiratory infection, unspecified Presentation: 12/31 09:33 Chief complaint: Patient states: tremors or "shakes" that began yesterday after taking ss Delsym for a cough. Denies fever. Coronavirus screen: Client denies travel out of the [place] in the last 14 days. Ebola Screen: Patient denies exposure to infectious person. Patient denies travel to an Ebola-affected area in the 21 days before illness onset. Initial Sepsis Screen: Does the patient meet any 2 criteria? No. Patient's initial sepsis screen is negative. Does the patient have a suspected source of infection? No. Patient's initial sepsis screen is negative. Risk Assessment: Do you want to hurt yourself or someone else? Patient reports no desire to harm self or others. Onset of symptoms was December 30, 2020. 09:33 Method Of Arrival: EMS: [facility] 09:33 Acuity: KRZYSZTOF 3 ss Historical: - Allergies: 09:36 Daypro; ss 09:36 Lodine; ss 09:36 Plendil; ss 09:36 Prinivil; ss 09:36 Procardia; ss - PMHx: 09:36 Diabetes - NIDDM; Hyperlipidemia; Hypertension; ss - PSHx: 09:36 back surgery; hemeroidectomy; Hysterectomy; Cholecystectomy; hemeroidechtomy; ss - Immunization history:: Adult Immunizations up to date. - Social history:: Smoking status: Patient denies any tobacco usage or history of. Screenin:26 Abuse screen: Denies threats or abuse. Denies injuries from another. Nutritional hb screening: No deficits noted. Tuberculosis screening: No symptoms or risk factors identified. Fall Risk Total Oneal Fall Scale indicates Low Risk Score (25-44 pts). Fall prevention measures have been instituted. Side Rails Up X 2 Frequent Obs/Assesments occuring As available Patient and Family Educated on Fall Prevention Program and strategies. Assessment: 10:11 General: Appears in no apparent distress. hb 10:11 Pain: Denies pain. Neuro: Level of Consciousness is awake, alert, obeys commands, hb Oriented to person, place, time, situation. Cardiovascular: Capillary refill < 3 seconds Patient's skin is warm and dry. Respiratory: Reports shortness of breath cough that is Respiratory effort is even, unlabored, Respiratory pattern is regular, symmetrical. GI: No signs and/or symptoms were reported involving the gastrointestinal system. : No signs and/or symptoms were reported regarding the genitourinary system. EENT: No signs and/or symptoms were reported regarding the EENT system. Derm: Skin is pink, warm \\T\\ dry. Musculoskeletal: No signs and/or symptoms reported regarding the musculoskeletal system. 11:25 Reassessment: Point of Contact: Natalie with [facility] [phone]. ss 11:35 Reassessment: Patient appears in no apparent distress at this time. Patient and/or hb family updated on plan of care and expected duration. Pain level reassessed. Patient is alert, oriented x 3, equal unlabored respirations, skin warm/dry/pink. 13:04 Reassessment: Patient appears in no apparent distress at this time. No changes from hb previously documented assessment. Patient and/or family updated on plan of care and expected duration. Pain level reassessed. Vital Signs: 09:33 BP 172 / 71; Pulse 83; Resp 18; Temp 98.4(TE); Pulse Ox 98% on R/A; Pain 0/10; ss 11:35 BP 156 / 80; Pulse 79; Resp 15; Pulse Ox 99% on R/A; hb 13:03 BP 139 / 86; Pulse 82; Resp 16; Pulse Ox 95% on R/A; hb ED Course: 09:24 Patient arrived in ED. ss 09:24 Tom Quezada, SHIELA is PHCP. pm1 09:24 Darrel Louie MD is Attending Physician. pm1 09:32 Nirali Gutierrez, JENISE is Primary Nurse. hb 09:35 Triage completed. ss 09:36 Arm band placed on right wrist. ss 09:43 pt daughter...[phone]. bd 09:55 CT Head Brain wo Cont In Process Unspecified. EDMS 10:19 Inserted saline lock: 20 gauge in right antecubital area, using aseptic technique. hb Blood collected. 10:20 Radiology exam delayed due to lab results not completed at this time. IV insertion sw attempt and/or patient not having appropriate IV at this time. ATTEMPTED CXR BUT RN STARTED IV AND LABS BEFORE WE COULD GET IN. 10:26 Patient has correct armband on for positive identification. Placed in gown. Bed in low hb position. Call light in reach. 11:26 CXR XRAY In Process Unspecified. EDMS Administered Medications: 10:25 Drug: NS 0.9% 500 ml Route: IV; Rate: bolus; Site: right antecubital; hb 11:00 Follow up: Response: No adverse reaction; IV Status: Completed infusion; IV Intake: hb 500ml Intake: 11:00 IV: 500ml; Total: 500ml. hb Outcome: 13:55 Discharge ordered by . pm1 14:24 Patient left the ED. hb Signatures: Dispatcher [employer] EDMS Aurora Ye Shelby, JENISE RN Crista Mccann Patrick, SHIELA [employer] pm1 Nriali Gutierrez RN RN hb
[2020-12-31 14:35] VITALS: TEMP 98.4
[2020-12-31 14:37] VITALS: BP 139/86; O2SAT 95
--- NOTE | 2021-01-02 05:07 | EKG ---
Test Date: 2020-12-31 Test Time: 10:16:54 Management Instructor: TANYA MEASUREMENT RESULTS: Intervals: Rate: 80 RI: 176 QRSD: 144 QT: 450 QTc: 519 [place]: P: 68 RI: 176 QRS: 0 T: 73 INTERPRETIVE STATEMENTS: Normal sinus rhythm Right bundle branch block Abnormal ECG Compared to ECG 03/19/2017 23:07:14 Right bundle-branch block now present Incomplete right bundle-branch block no longer present Prolonged QT interval no longer present Electronically Signed On 01-02-21 05:04:00 JAVA USER INTERFACE DEVELOPER by Alber Adamson
== END 2020-12-31 14:24 | disposition home or self-care (01) ==
LOC: ER 09:05
DX: U07.1 COVID-19 (principal); J98.8 Other specified respiratory disorders; T48.3X5A Adverse effect of antitussives, initial encounter; I10 Essential (primary) hypertension; Z88.5 Allergy status to narcotic agent; Z88.8 Allergy status to other drugs, medicaments and biological substances
CPT/HCPCS: 93005; 87070; 85025; 36415; 87081; 80053; 0240U; 70450; 71045; 96360; 99284; J7040

== ENCOUNTER 2021-12-18 16:25 | Emergency (ER) | payer OTHER ==
--- OUTSIDE RECORDS SUMMARY | 2021-12-18 16:28 | XMS REPORT | Continuity of Care Document ---
:1940 Author Organization [facility] t Address [address] [place] [address] Care Team Providers Name Role Phone Srinath Attending Clinician Unavailable SARKIS Attending Clinician Unavailable Problems This patient has no known problems. Allergies, Adverse Reactions, Alerts This patient has no known allergies or adverse reactions. Medications This patient has no known medications. Procedures This patient has no known procedures. Encounters Start End Encounter Admission Attending Care Care Encounter Source Date/Time Date/Time Type Type Clinicians Facility Department ID 2021-12-10 Outpatient Yo, [facility] [id number] [address] [facility] 2021-12-12 2021-12-12 ambulatory [facility] [id number] [facility] 2021-12-10 2021-12-10 ambulatory [facility] [id number] [facility] 2021-12-10 2021-12-10 ambulatory [facility] [id number] [facility] 2019-11-01 2019-11-01 Outpatient [facility] [id number] [place] 00:00:00 00:00:00 [facility] [address] Results This patient has no known results.
[2021-12-18] MEDS ORDERED: dexAMETHasone 4 MG/ML VIAL ONE (19:59)
[2021-12-18] MEDS ORDERED: MEPERIDINE HCL 25 MG/ML SYR ONE ×2 (20:00→20:08)
--- NOTE | 2021-12-18 20:36 | EDPHYS ---
Physician Documentation [facility] Name: Diana Nava Age: 81 yrs Sex: Female : 1940 Arrival Date: 12/18/2021 Time: 16:27 Bed 17 Private MD: ED Physician Amandeep Maldonado HPI: 12/18 20:08 This 81 yrs old Female presents to ER via Ambulatory with complaints of Leg Pain. rn 20:08 The patient presents with pain, that is chronic. The complaints affect the low back rn area, left leg. Onset: The symptoms/episode began/occurred years ago. Modifying factors: The symptoms are alleviated by remaining still, the symptoms are aggravated by movement. Associated signs and symptoms: Pertinent negatives fever, rash, swelling, warmth, weakness. Severity of symptoms: At their worst the symptoms were moderate, in the emergency department the symptoms are unchanged. The patient has experienced similar episodes in the past. The patient has been recently seen by a physician:. Pt reports pain to LLE for years, no trauma recently, worse over last 2 months, seen by new PCP, started on gabapentin, reports pain to left lower back with radiation down left leg. No fever/swelling/rash. No new changes. Has been told has nerve problems with sciatica.. Historical: - Allergies: 16:55 Daypro; ap3 16:55 Lodine; ap3 16:55 Plendil; ap3 16:55 Prinivil; ap3 16:55 Procardia; ap3 16:55 all calcium channel blockers; ap3 - PMHx: 16:55 Diabetes - NIDDM; Hyperlipidemia; Hypertension; ap3 - Immunization history:: Client reports receiving the 2nd dose of the Covid vaccine, Pneumococcal vaccine is up to date, Flu vaccine is up to date. - Social history:: Smoking status: Patient denies any tobacco usage or history of. - Family history:: not pertinent. - Hospitalizations: : No recent hospitalization is reported. ROS: 20:08 Constitutional: Negative for fever, chills, and weight loss, Eyes: Negative for injury, rn pain, redness, and discharge, Neck: Negative for injury, pain, and swelling, Cardiovascular: Negative for chest pain, palpitations, and edema, Respiratory: Negative for shortness of breath, cough, wheezing, and pleuritic chest pain, Abdomen/GI: Negative for abdominal pain, nausea, vomiting, diarrhea, and constipation, Back: + left lower back pain : Negative for injury, bleeding, discharge, and swelling, MS/Extremity: + left leg pain Skin: Negative for injury, rash, and discoloration, Neuro: Negative for headache, weakness, numbness, tingling, and seizure. Exam: 20:08 Constitutional: This is a well developed, well nourished patient who is awake, alert, rn rotated with pillow between legs. Head/Face: Normocephalic, atraumatic. Eyes: Periorbital areas with no swelling, redness, or edema. Cardiovascular: Regular rate and rhythm. No pulse deficits. Respiratory: No increased work of breathing, no retractions or nasal flaring. Abdomen/GI: Soft, non-tender Back: No spinal tenderness. Skin: Warm, dry, no cyanosis or rashes MS/ Extremity: Pulses equal, no cyanosis. Neurovascular intact. Equal circumference. Neuro: Awake and alert, GCS 15, oriented to person, place, time, and situation. Vital Signs: 16:52 BP 183 / 73; Pulse 81; Resp 17; Temp 98.8(TE); Pulse Ox 95% ; Weight 57.15 kg; Height 5 ap3 ft. 4 in. (162.56 cm); Pain 9/10; 20:05 BP 196 / 71; Pulse 65; Resp 16; Pulse Ox 97% ; Pain 6/10; al4 20:30 BP 199 / 78; Pulse 75; Resp 16; Pulse Ox 98% ; al4 16:52 Body Mass Index 21.63 (57.15 kg, 162.56 cm) ap3 MDM: 19:01 Patient medically screened. rn 20:33 Differential diagnosis: radiculopathy, neuropathy. Data reviewed: vital signs, nurses rn notes, old medical records, and as a result, I will discharge patient. Counseling: I had a detailed discussion with the patient and/or guardian regarding: the historical points, exam findings, and any diagnostic results supporting the discharge/admit diagnosis, the need for outpatient follow up, to return to the emergency department if symptoms worsen or persist or if there are any questions or concerns that arise at home. Response to treatment: the patient's symptoms have mildly improved after treatment, and as a result, I will discharge patient. Special discussion: I discussed with the patient/guardian in detail that at this point there is no indication for admission to the hospital. It is understood, however, that if the symptoms persist or worsen the patient needs to return immediately for re-evaluation. ED course: Reviewed patient's old medical records that daughter had with her, shows xrays and imaging consistent with chronic lower back problems. Has old t12 compression fracture. Will dc home with steroids for acute on chronic radiculopathy and told to f/u with pcp for titration of gabapentin if needed. . Administered Medications: 20:10 Drug: Decadron (dexamethasone) 10 mg Route: IM; Site: left gluteus; tk1 20:54 Follow up: Response: No adverse reaction al4 20:12 Drug: Demerol (meperidine) 12.5 mg Route: IM; Site: right gluteus; tk1 20:54 Follow up: Response: No adverse reaction; RASS: Alert and Calm (0) al4 Disposition Summary: 12/18/21 20:35 Discharge Ordered Location: Home rn Problem: chronic rn Symptoms: have improved rn Condition: Stable rn Diagnosis - Radiculopathy, lumbosacral region rn Followup: rn - With: Private Physician - When: As needed - Reason: Recheck today's complaints, Re-evaluation by your physician Discharge Instructions: - Discharge Summary Sheet rn - Lumbosacral Radiculopathy rn - Neuropathic Pain rn Forms: - Medication Reconciliation Form rn - Thank You Letter rn - Antibiotic safety intern - Prescription Opioid Use rn Prescriptions: - Medrol (Amandeep) 4 mg Oral Tablets, Dose Pack - take 1 tablet by ORAL route as directed - follow package instructions; 1 rn packet; Refills: 0, Product Selection Permitted Signatures: Amandeep Maldonado MD MD rn Prokisch, Amanda, RN RN andrew3 Tuyet Boo tk1 Gualberto Lni al4
--- NOTE | 2021-12-18 20:36 | ER ---
Nurse's Notes [facility] Name: Diana Nava Age: 81 yrs Sex: Female : 1940 Arrival Date: 12/18/2021 Time: 16:27 Bed 17 Private MD: Diagnosis: Radiculopathy, lumbosacral region Presentation: 12/18 16:52 Chief complaint: Patient states: she has lower back pain and left leg that that has ap3 progressively gotten worse over the last couple of months. She reports that she saw her PCP recently, and was prescribed gabapentin 100mg 1X at night, to which is giving no relief. Coronavirus screen: At this time, the client does not indicate any symptoms associated with coronavirus-19. Ebola Screen: No symptoms or risks identified at this time. No acute neurological deficit is noted. Initial Sepsis Screen: Does the patient meet any 2 criteria? No. Patient's initial sepsis screen is negative. Does the patient have a suspected source of infection? No. Patient's initial sepsis screen is negative. Risk Assessment: Do you want to hurt yourself or someone else? Patient reports no desire to harm self or others. Onset of symptoms was June 2021. 16:52 Method Of Arrival: Ambulatory ap3 16:52 Acuity: KRZYSZTOF 4 ap3 Triage Assessment: 16:56 General: Appears in no apparent distress. uncomfortable, Behavior is calm, cooperative. ap3 Pain: Complains of pain in low back area Pain radiates to right leg Pain currently is 9 out of 10 on a pain scale. Pain began gradually, over the last few months. Neuro: Reports. Cardiovascular: Patient's skin is warm and dry. Respiratory: Airway is patent Respiratory effort is even, unlabored, Respiratory pattern is regular, symmetrical. Historical: - Allergies: 16:55 Daypro; ap3 16:55 Lodine; ap3 16:55 Plendil; ap3 16:55 Prinivil; ap3 16:55 Procardia; ap3 16:55 all calcium channel blockers; ap3 - PMHx: 16:55 Diabetes - NIDDM; Hyperlipidemia; Hypertension; ap3 - Immunization history:: Client reports receiving the 2nd dose of the Covid vaccine, Pneumococcal vaccine is up to date, Flu vaccine is up to date. - Social history:: Smoking status: Patient denies any tobacco usage or history of. - Family history:: not pertinent. - Hospitalizations: : No recent hospitalization is reported. Screenin:57 Abuse screen: Denies threats or abuse. Nutritional screening: No deficits noted. ap3 Tuberculosis screening: No symptoms or risk factors identified. 17:34 Fall Risk None identified. bp Assessment: 17:34 General: SEE TRIAGE NOTE. bp 18:07 Reassessment: pt placed in the bed, pillow placed under left leg for comfort, call iw light within reach. 19:40 General: Appears in no apparent distress. uncomfortable, Behavior is calm, cooperative, al4 Reports pain on left leg that radiates from hip to foot. Pain: Pain currently is 6 out of 10 on a pain scale. Neuro: Level of Consciousness is awake, alert, obeys commands, Oriented to person, place, time, situation. Cardiovascular: Capillary refill < 3 seconds Patient's skin is warm and dry. Respiratory: Airway is patent Respiratory effort is even, unlabored, Respiratory pattern is regular, symmetrical. Musculoskeletal: Range of motion: intact in all extremities. 20:40 Reassessment: Patient and/or family updated on plan of care and expected duration. Pain al4 level reassessed. 20:52 Reassessment: discharge instructions and paperwork given and explained to patient and al4 daughter by JENISE Benz. Vital Signs: 16:52 BP 183 / 73; Pulse 81; Resp 17; Temp 98.8(TE); Pulse Ox 95% ; Weight 57.15 kg; Height 5 ap3 ft. 4 in. (162.56 cm); Pain 9/10; 20:05 BP 196 / 71; Pulse 65; Resp 16; Pulse Ox 97% ; Pain 6/10; al4 20:30 BP 199 / 78; Pulse 75; Resp 16; Pulse Ox 98% ; al4 16:52 Body Mass Index 21.63 (57.15 kg, 162.56 cm) ap3 ED Course: 16:27 Patient arrived in ED. am2 16:54 Triage completed. ap3 16:57 Arm band placed on right wrist. ap3 17:19 Juan Daniel Ellis, RN is Primary Nurse. bp 17:34 Patient has correct armband on for positive identification. Bed in low position. Call bp light in reach. Side rails up X2. Adult w/ patient. 19:01 Amandeep Maldonado MD is Attending Physician. rn 19:01 Primary Nurse role handed off by Juan Daniel Ellis, JENISE mw2 19:06 Juan Daniel Ellis RN is Primary Nurse. bp 20:52 No provider procedures requiring assistance completed. Patient did not have IV access al4 during this emergency room visit. Administered Medications: 20:10 Drug: Decadron (dexamethasone) 10 mg Route: IM; Site: left gluteus; tk1 20:54 Follow up: Response: No adverse reaction al4 20:12 Drug: Demerol (meperidine) 12.5 mg Route: IM; Site: right gluteus; tk1 20:54 Follow up: Response: No adverse reaction; RASS: Alert and Calm (0) al4 Outcome: 20:35 Discharge ordered by . rn 20:52 Discharged to home via wheelchair, with family. al4 20:52 Condition: stable 20:52 Discharge instructions given to patient, family, Instructed on discharge instructions, follow up and referral plans. Demonstrated understanding of instructions, follow-up care. 20:57 Patient left the ED. al4 Signatures: Ruthie Corrales, RN JENISE Amandeep Maldonado MD MD rn Moreno, Amanda am2 Peltier, Brian, RN RN Lilli Montes De Oca RN RN ap3 Dali Hirsch mw2 Gualberto Lin al4 Tuyet Boo tk1
[2021-12-18 21:23] VITALS: TEMP 98.8
[2021-12-18 21:25] VITALS: BP 199/78; O2SAT 98
== END 2021-12-18 20:57 | disposition home or self-care (01) ==
LOC: ER 16:25
DX: M54.17 Radiculopathy, lumbosacral region (principal); I10 Essential (primary) hypertension; Z88.8 Allergy status to other drugs, medicaments and biological substances
CPT/HCPCS: 96372; 99283; J1100; J2175 ×2

== ENCOUNTER 2022-05-19 05:58 | Observation (INO) | payer OTHER ==
[2022-05-16 15:03] LABS: Potassium 3.9 mmol/L (3.5-5.1)
[2022-05-16 15:06] LABS: Hematocrit 38.3 % (36.0-45.0); Lymphocytes % 13.1 % (15.3-44.8); MCV 89.4 fL (80-100); MPV 9.3 fL (7.6-11.3); RBC Red Blood Cell Count 4.29 M/uL (3.86-4.86)
[2022-05-16 15:07] LABS: SARS-CoV-2 Antigen Rapid Res Negative (Negative)
[2022-05-19] MEDS ORDERED: CEFAZOLIN SODIUM 1 GM/VIAL ONE (06:27)
[2022-05-19] MEDS ORDERED: Ringers Lactate 1,000 ML IV ONE (06:27)
[2022-05-19] MEDS ORDERED: NA CHLORIDE 0.9% 1,000 ML ONE (06:44)
[2022-05-19] MEDS ORDERED: THROMBIN 5000 UNITS/VIAL TOP ONE (06:53)
[2022-05-19] MEDS ORDERED: FENTANYL CITR 100 MCG/2 ML ONE ×2 (07:00→07:50)
[2022-05-19] MEDS ORDERED: ROCURONIUM 50 MG/5 ML VIAL IV ONE (07:00)
[2022-05-19] MEDS ORDERED: propofoL 200 MG/20 ML VIAL IV ONE ×2 (07:00→07:39)
[2022-05-19] MEDS ORDERED: LIDOCAINE 1% MPF 5 ML VIAL ONE (07:00)
[2022-05-19] MEDS ORDERED: SUCCINYLCHOLINE 20 MG/ML (10 ML) IV ONE (07:04)
[2022-05-19] MEDS ORDERED: DEPO-MEDROL 40 MG/ML IM ONE (07:26)
[2022-05-19] MEDS ORDERED: NS 0.9% VIAL 10 ML ONE ×2 (07:30→08:05)
[2022-05-19] MEDS ORDERED: dexAMETHasone 10 MG/ML VIAL ONE (07:58)
[2022-05-19] MEDS ORDERED: KETOROLAC 30 MG/ML INJ ONE (07:59)
[2022-05-19] MEDS ORDERED: ONDANSETRON 4 MG/2 ML VIAL ONE (08:04)
[2022-05-19] MEDS ORDERED: EPHEDRINE SULF 50 MG/ML VIAL ONE (08:05)
[2022-05-19] MEDS: HYDROMORPHONE HCL 1 MG/ML INJ ONE ×3 (09:09→09:22)
[2022-05-19] MEDS ORDERED: HYDRALAZINE HCL 20 MG/ML VIAL ONE (09:26)
--- NOTE | 2022-05-19 09:32 | EKG ---
Test Date: 2022-05-16 Test Time: 14:06:25 Pest Management Supervisor: AUTUMN MEASUREMENT RESULTS: Intervals: Rate: 70 [place]: 162 QRSD: 138 QT: 422 QTc: 455 [place]: P: 63 MN: 162 QRS: -59 T: 24 INTERPRETIVE STATEMENTS: Normal sinus rhythm Right bundle branch block Left anterior fascicular block Bifascicular block Moderate voltage criteria for LVH, may be normal variant Abnormal ECG Compared to ECG 12/31/2020 10:16:54 Left anterior fascicular block now present Bifascicular block now present Left ventricular hypertrophy now present Electronically Signed On 05-19-22 09:25:21 CDT by Alber Adamson
[2022-05-19] MEDS ORDERED: MORPHINE 2 MG/ML SYR IV PRN (11:22)
[2022-05-19] MEDS ORDERED: HYDROCODONE/APAP 5/325 MG TAB PO PRN (11:22)
--- NOTE | 2022-05-19 11:58 | RAD REPORT ---
EXAM DESCRIPTION: RAD - Fluoroscopy <1 Hour - 05/19/2022 11:28 am FINDINGS: There were 3 portable C-arm views submitted from fluoroscopic assisted spinal procedure. Fluoro time was less than 0.1 minutes. Cumulative dose was 0.562 mGy.
[2022-05-19] MEDS: Ringers Lactate 1,000 ML IV SCH (12:00)
--- OUTSIDE RECORDS SUMMARY | 2022-05-19 12:31 | XMS REPORT | Continuity of Care Document ---
:1940 Author Organization [facility] t Address [address] [place] [address] Care Team Providers Name Role Phone Srinath [...] Date/Time Type Type Clinicians Facility Department ID 2022-04-18 Outpatient Yo, [facility] [id number] Common 10:53:01 [facility] 2022-04-17 Outpatient Yo, [facility] [id number] Common 10:42:03 Kalie [facility] 2021-12-10 Outpatient Yo, [facility] [id number] Common 10:45:02 Kalie [facility] 2022-04-21 2022-04-21 ambulatory [facility] [id number] Common 00:00:00 00:00:00 [facility] 2022-04-21 2022-04-21 ambulatory [facility] [id number] Common 00:00:00 00:00:00 [facility] 2022-02-19 2022-02-19 ambulatory [facility] [id number] Common 00:00:00 00:00:00 [facility] 2022-02-04 2022-02-04 ambulatory [facility] [id number] Common 00:00:00 00:00:00 [facility] 2021-12-26 2021-12-26 ambulatory [facility] [id number] Common 00:00:00 00:00:00 [facility] 2021-12-17 2021-12-17 ambulatory [facility] [id number] Common 00:00:00 00:00:00 [facility] 2021-12-12 2021-12-12 ambulatory [facility] [id number] Common 00:00:00 00:00:00 [facility] 2021-12-10 2021-12-10 ambulatory [facility] [id number] Common 00:00:00 00:00:00 [facility] 2021-12-10 2021-12-10 ambulatory [facility] [id number] Common 00:00:00 00:00:00 [facility] 2019-11-01 2019-11-01 Outpatient [facility] [id number] [place] 00:00:00 00:00:00 [facility] [address] Results This patient has no known results.
[2022-05-19 14:12] VITALS: BMI 21.6
[2022-05-19] MEDS: CEFAZOLIN 1 GM in NA CHLORIDE 0.9% 50 ML IVPB SCH (18:23)
[2022-05-19] MEDS ORDERED: ONDANSETRON 4 MG/2 ML VIAL IV PRN (20:23)
[2022-05-19] MEDS ORDERED: POLYETHYL GLY 3350 17 GM/DOSE PO PRN (20:25)
--- NOTE | 2022-05-19 20:30 | P.HP ---
Certification for Inpatient Patient admitted to: Observation With expected LOS: <2 Midnights Practitioner: I am a practitioner with admitting privileges, knowledge of patient current condition, hospital course, and medical plan of care. Services: Services provided to patient in accordance with Admission requirements found in Title 42 Section 412.3 of the Code of Federal Regulations Patient History Date of Service: 05/19/22 Reason for admission: PT eval, monitor s/p L4-L5 decompression History of Present Illness: 81yo F, PMH: diet controlled DM2, HTN, hypothyroidism, osteoporosis Patient s/p L4-L5 decompression today and will be monitored due to hypertension, physical therapy eval. She has been having ~6 months of b/l lower leg weakness, unable to lift legs into bed on her own in a seated position. Underwent procedure without complications. Currently feeling ok, no nausea/vomiting, no shortness of breath, +flatus. Tolerating PO. Patient lives alone, has been having difficulty ambulating / lifting b/l legs. Allergies dextromethorphan [From Delsym Cough-Cold] Allergy (Verified 05/16/22 15:20) Unknown doxylamine [From Delsym Cough-Cold] Allergy (Verified 05/16/22 15:20) Unknown etodolac Allergy (Verified 05/16/22 15:20) Unknown felodipine [From Plendil] Allergy (Verified 05/16/22 15:20) Head/Body Aches lisinopril [From Prinivil] Allergy (Verified 05/16/22 15:20) Cough nifedipine [From Procardia] Allergy (Verified 05/16/22 15:20) Head/Body Aches oxaprozin [From Daypro] Allergy (Verified 05/16/22 15:20) Unknown epinephrine Adverse Reaction (Verified 05/16/22 15:20) Anxiety Home Medications: Ascorbic Acid [Vitamin C] 500 mg PO LUNCH 05/16/22 Aspirin [Aspirin EC 81 MG] 81 mg PO M,W,F 05/16/22 B Complex with Vitamin C [Super B-Complex & C] 1 each PO LUNCH 05/16/22 Biotin 5,000 mcg PO LUNCH 05/16/22 Carvedilol [Coreg] 3.125 mg PO BID 05/16/22 Cholecalciferol (Vitamin D3) [Vitamin D3] 125 mcg PO LUNCH 05/16/22 Docusate [Colace Cap] 100 mg PO BEDTIME 05/16/22 Lactobacillus Combo No.13 [Probiotic Pearls Complete] 1 each PO BEDTIME 05/16/22 Lansoprazole [Prevacid 24Hr] 15 mg PO DAILY 05/16/22 Levothyroxine [Synthroid] 75 mcg PO [id number] 05/16/22 Losartan Potassium [Cozaar] 50 mg PO BID 05/16/22 Magnesium Oxide [Magnesium] 400 mg PO BEDTIME 05/16/22 Moduchol 650 mg PO LUNCH 05/16/22 Polyethylene Glycol 3350 [Miralax] 17 gm PO PRN PRN 05/16/22 Potassium Chloride [Klor-Con 8] 8 meq PO DAILY 05/16/22 Raloxifene HCl 60 mg PO BEDTIME 05/16/22 Tramadol HCl [Ultram] 50 mg PO TIDP PRN 05/16/22 Trospium Chloride [Sanctura] 60 mg PO DAILY 05/16/22 Turmeric Root Extract [Turmeric] 500 mg PO LUNCH 05/16/22 Vit C/E/Zn/Coppr/Lutein/Zeaxan [Preservision Areds 2 Softgel] 1 each PO BID 05/16/22 hydroCHLOROthiazide [Hydrochlorothiazide] 25 mg PO DAILY 05/16/22 - Past Medical/Surgical History Has patient received pneumonia vaccine in the past: Yes Diabetic: Yes -: HTN -: Diabetic -: Hypothyroid -: L4-L5 decompression -: Hysterectomy -: Gall Bladder - Family History Family History: Reviewed- Non-Contributory - Social History Smoking Status: Never smoker Alcohol use: No CD- Drugs: No Caffeine use: No Place of Residence: Home Review of Systems 10-point ROS is otherwise unremarkable Physical Examination - Vital Signs Temperature: 98.4 F Blood Pressure: 184/77 Pulse: 76 Respirations: 16 Pulse Ox (%): 94 - Physical Exam General: Alert, In no apparent distress, Oriented x3 HEENT: Other (slight swelling and redness around eyes ) Neck: Supple, No LAD Respiratory: Clear to auscultation bilaterally, Normal air movement Cardiovascular: No edema, Regular rate/rhythm Gastrointestinal: Soft and benign, Non-distended, No tenderness Musculoskeletal: No contractures, No tenderness Integumentary: No rashes, No significant lesion Neurological: Normal speech, Normal affect, Other (hip abductors: 4 to 4+/5 bilaterally, right slightly stronger. intact sensation. 5/5 str plantar flexion/extension) Assessment and Plan - Advance Directives Does patient have a Living Will: No Does patient have a Durable POA for Healthcare: No Physician Review Additional Text: Problem List Lumbar spinal stenosis s/p L4-L5 decompression HTN DM2 - diet controlled hypothyroidism osteoporosis GERD discussed with Dr. Oreilly - ambulate as tolerated, diet as tolerated, pain control avoid DVT prophylaxis at least 48hrs, SCDs ordered PT consulted, patient may benefit from rehab, family prefer rehab confirm home meds and restart as appropriate - anti-hypertensives restart synthroid monitor overnight family updated at bedside swelling and markings around face due to goggles worn during procedure VTE: SCDs Dispo: home vs rehab - PT consulted Time Spent Managing Pts Care (In Minutes): 60
[2022-05-19] MEDS: DOCUSATE NA 100 MG CAP PO SCH (21:47)
[2022-05-19] MEDS: LOSARTAN POTASSIUM 50 MG TABLET PO SCH (21:50)
[2022-05-19] MEDS: carvediloL 3.125 MG TAB PO SCH (21:50)
[2022-05-20] MEDS: CEFAZOLIN 1 GM in NA CHLORIDE 0.9% 50 ML IVPB SCH ×2 (01:06→10:39)
[2022-05-20 04:22] LABS: Absolute Lymphocytes (CBC) 0.7 K/uL (0.7-4.9); Hematocrit 37.2 % (36.0-45.0); Lymphocytes % 5.6 % (15.3-44.8); MCV 90.6 fL (80-100); MPV 9.1 fL (7.6-11.3)
[2022-05-20 04:44] LABS: Potassium 3.6 mmol/L (3.5-5.1)
[2022-05-20] MEDS ORDERED: LEVOTHYROXINE SOD 0.075 MG TAB PO SCH (06:00)
[2022-05-20] MEDS: Ringers Lactate 1,000 ML IV SCH (06:15)
[2022-05-20] MEDS ORDERED: TRAMADOL HCL 50 MG TAB PO PRN (08:10)
[2022-05-20] MEDS ORDERED: POTASSIUM CL SA 10 MEQ TAB PO ONE (09:00)
[2022-05-20] MEDS ORDERED: PANTOPRAZOLE 40MG TABLET PO SCH (09:00)
[2022-05-20] MEDS ORDERED: hydroCHLOROthiazide 25 MG TAB PO SCH (09:00)
[2022-05-20] MEDS ORDERED: LANSOPRAZOLE 15 MG PO SCH (09:00)
[2022-05-20] MEDS ORDERED: HOME MED 1 EA UNK (Trospium Chloride [Sanctura] 20 MG Tablet) PO SCH (09:00)
[2022-05-20] MEDS ORDERED: OCUVITE (VIT A,C & E/LUTEIN/MINERAL) TABLET PO SCH (09:00)
[2022-05-20 09:20] VITALS: O2SAT 99
[2022-05-20] MEDS: DOCUSATE NA 100 MG CAP PO SCH (10:40)
[2022-05-20] MEDS: LOSARTAN POTASSIUM 50 MG TABLET PO SCH (10:41)
[2022-05-20] MEDS: carvediloL 3.125 MG TAB PO SCH (10:41)
[2022-05-20] MEDS ORDERED: BIOTIN 5000 MCG PO SCH (12:00)
[2022-05-20] MEDS ORDERED: VITAMIN B COMPLEX 1 CAP PO SCH (12:00)
[2022-05-20] MEDS ORDERED: VITAMIN D 5,000 UNIT CAP PO SCH (12:00)
--- NOTE | 2022-05-20 14:00 | P.PN ---
Subjective Date of Service: 05/20/22 Chief Complaint: PT eval, monitor s/p L4-L5 decompression Patient has no new complaint. She reports minimal pain with movement and has not utilized IV morphine. Per reports, she ambulated with a walker in the hallway yesterday. Physical Examination - Vital Signs Temperature: 99.6 F Blood Pressure: 147/65 Pulse: 66 Respirations: 18 Pulse Ox (%): 95 - Studies Laboratory Data (last 24 hrs) 05/20/22 04:06: Sodium 138, Potassium 3.6, BUN 20 H, Creatinine 0.70, Glucose 179 H 05/20/22 04:06: WBC 12.3 H D, Hgb 12.4, Hct 37.2, Plt Count 179 Assessment And Plan - Plan Physical Exam General: Alert, In no apparent distress, Oriented x3 Neck: Supple Respiratory: Clear to auscultation bilaterally, Normal air movement Cardiovascular: No edema, Regular rate/rhythm Gastrointestinal: Soft and benign, Non-distended, No tenderness Musculoskeletal: No tenderness Integumentary: No rashes. Neurological: Normal speech, Normal affect, 5/5 str plantar flexion/extension) Assessment and Plan Problem List Lumbar spinal stenosis s/p L4-L5 decompression HTN DM2 - diet controlled hypothyroidism osteoporosis GERD Continue ambulate as tolerated, diet as tolerated, pain control avoid DVT prophylaxis at least 48hrs per surgeon. SCDs ordered Continue PT. Consulted Inpatient Rehab. confirm home meds and restart as appropriate Blood sugar readings within normal range. VTE: SCDs Dispo: home vs rehab - PT consulted
--- NOTE | 2022-05-20 14:15 | P.DS ---
Admission Date: 05/19/22 Discharge Date: 05/20/22 Disposition: TRANSFER TO INPATIENT REHAB Discharge Condition: FAIR Reason for Admission: PT eval, monitor s/p L4-L5 decompression Brief History of Present Illness: 81yo F, PMH: diet controlled DM2, HTN, hypothyroidism, osteoporosis had L4-L5 decompression. Patient was kept inpatient for monitoring for hypertension, and noted to have physical therapy eval. She was experiencing b/l lower leg weakness prior to the surgery. She lives alone, had been having difficulty ambulating. Hospital Course: Diagnosis Lumbar spinal stenosis s/p L4-L5 decompression HTN DM2 - diet controlled hypothyroidism osteoporosis GERD Patient placed under observation on the medical floor, pain treated with IV morphine and oral [place]. Patient had minimal pain with movement and hardly utilized the pain medications. Her blood pressure was significantly elevated but this has improved on her home antihypertensives. Patient seen by PT and per report ambulated in the hallway with a walker. She has been accepted to inpatient rehab. She is clinically stable for transfer. Vital Signs/Physical Exam: Temp Pulse Resp BP Pulse Ox 99.6 F 66 18 147/65 H 95 05/20/22 14:06 05/20/22 14:06 05/20/22 14:06 05/20/22 14:06 05/20/22 14:06 General: Alert, In no apparent distress, Oriented x3 HEENT: Mucous membr. moist/pink Neck: JVD not distended Respiratory: Clear to auscultation bilaterally, Normal air movement Cardiovascular: No edema, Regular rate/rhythm, Normal S1 S2 Gastrointestinal: Soft and benign, Non-distended, No tenderness Musculoskeletal: No swelling Integumentary: No rashes Neurological: Normal strength at 5/5 x4 extr Laboratory Data at Discharge: WBC 12.3 K/uL (4.3-10.9) H D 05/20/22 04:06 Hgb 12.4 g/dL (12.0-15.0) 05/20/22 04:06 Hct 37.2 % (36.0-45.0) 05/20/22 04:06 Plt Count 179 K/uL (152-406) 05/20/22 04:06 Sodium 138 mmol/L (136-145) 05/20/22 04:06 Potassium 3.6 mmol/L (3.5-5.1) 05/20/22 04:06 BUN 20 mg/dL (7-18) H 05/20/22 04:06 Creatinine 0.70 mg/dL (0.55-1.3) 05/20/22 04:06 Glucose 179 mg/dL (74-106) H 05/20/22 04:06 Home Medications: Ascorbic Acid [Vitamin C*] 500 mg PO LUNCH 05/16/22 B Complex with Vitamin C [Super B-Complex & C] 1 each PO LUNCH 05/16/22 Biotin 5,000 mcg PO LUNCH 05/16/22 Carvedilol [Coreg] 3.125 mg PO BID 05/16/22 Cholecalciferol (Vitamin D3) [Vitamin D3] 125 mcg PO LUNCH 05/16/22 Lactobacillus Combo No.13 [Probiotic Pearls Complete] 1 each PO BEDTIME 05/16/22 Levothyroxine [Synthroid*] 75 mcg PO [id number] 05/16/22 Losartan Potassium [Cozaar*] 50 mg PO BID 05/16/22 Magnesium Oxide [Magnesium] 400 mg PO BEDTIME 05/16/22 Moduchol 650 mg PO LUNCH 05/16/22 Polyethylene Glycol 3350 [Miralax] 17 gm PO PRN PRN 05/16/22 Potassium Chloride [Klor-Con 8] 8 meq PO DAILY 05/16/22 Raloxifene HCl 60 mg PO BEDTIME 05/16/22 Trospium Chloride [Sanctura] 60 mg PO DAILY 05/16/22 Turmeric Root Extract [Turmeric] 500 mg PO LUNCH 05/16/22 Vit C/E/Zn/Coppr/Lutein/Zeaxan [Preservision Areds 2 Softgel] 1 each PO BID 05/16/22 hydroCHLOROthiazide [Hydrochlorothiazide] 25 mg PO DAILY 05/16/22 Docusate [Colace Cap*] 100 mg PO BID cap 05/20/22 Hydrocodone 5/APAP 325 [[place] 5/325*] 1 tab PO Q4H PRN tab 05/20/22 Pantoprazole [Protonix Tab*] 40 mg PO DAILY tab 05/20/22 Diet: ADA Activity: Weight bearing as tolerated
[2022-05-20 16:19] VITALS: BP 110/53; TEMP 97.9
[2022-05-20] MEDS ORDERED: MAGNESIUM OXIDE 400 MG TAB PO SCH (21:00)
[2022-05-20] MEDS ORDERED: RALOXIFENE HCL 60 MG TAB PO SCH (21:00)
== END 2022-05-20 17:30 ==
LOC: OR 05:58 → 2ND 11:17 → UNDODISOB 05-20 16:26
PROVIDERS: ADMIT Hospitalist; ATTEND Internal Medicine
PROC: 00NY0ZZ Release Lumbar Spinal Cord, Open Approach (ICD-10-PCS; principal; 2022-05-19 07:00)
DX: M48.062 Spinal stenosis, lumbar region with neurogenic claudication (principal); I10 Essential (primary) hypertension; E11.9 Type 2 diabetes mellitus without complications; M81.0 Age-related osteoporosis without current pathological fracture; E03.9 Hypothyroidism, unspecified; R53.1 Weakness; K21.9 Gastro-esophageal reflux disease without esophagitis; Z79.82 Long term (current) use of aspirin; Z79.899 Other long term (current) drug therapy; Z88.8 Allergy status to other drugs, medicaments and biological substances; Z90.710 Acquired absence of both cervix and uterus; Z90.49 Acquired absence of other specified parts of digestive tract; Z20.822 Contact with and (suspected) exposure to COVID-19
CPT/HCPCS: 36415; 76000; 80048; 82947; 85025; 87811; 93005; 94760; 97110; 97116; 97161; 97530; G0378; G0379; J0330; J0360; J0690; J1030; J1100; J1170; J2405; J2704; J3010; J7030; J7120

== ENCOUNTER 2022-05-20 14:04 | Inpatient (IN) | payer OTHER ==
--- NOTE | 2022-05-20 15:22 | R.PREADM ---
PRE-ADMISSION SCREENING FORM SCREENING DATE AND TIME 05/20/2022 14:12 (CDT) ANTICIPATED REHAB ADMISSION DATE 05/22/2022 REFERRING FACILITY [facility] REFERRAL DATE AND TIME 05/20/2022 14:12 (CDT) ACUTE ADMIT DATE 05/19/2022 Previous Rehabilitation(s): Y. OP PT since 11/2021 REFERRING PHYSICIAN [facility] RE[facility]AB FAC[facility] PHYSICIAN REVIEWER Dr. Nabeel Fisher M.D. MR# [id number] NAME HERIBERTO GARCIA ADDRESS [address] [facility] [place]IP [phone] DATE OF 1940 AGE 81 SSN# [id number] GENDER female MARITAL STATUS unknown race ADMIT FROM 02 [facility] PRE-HOSPITAL LIVING SETTING 01 - Home (private home/apt. board/care, assisted living, fdc, transitional living) HOME TYPE AND DETAILS Type of home: single family house # of levels in the residence: 1 # of steps within the residence: 0 # of steps to enter the residence: 1 PRE-HOSPITAL LIVING WITH Family/Relatives FAMILY SUPPORT Yes PHONE PRIMARY FAMILY CONTACT ON ADM.? no IS PRIMARY FAMILY CONTACT AUTH. REP.? no PHONE 1ST CONTACT ON ADM. no IS 1ST CONTACT AUTH. REP.? no PHONE 2ND CONTACT ON ADM.? no PATIENT EMPLOYMENT STATUS Retired (for age) PATIENT EMPLOYER No Employer PAYOR INFORMATION: 1ST PAYOR NAME MEDICARE 1ST PAYOR PHONE 1ST PAYOR INJURY/ILLNESS DUE TO ACCIDENT? No ANOTHER DEMOCRAT RESPONSIBLE? No PRIMARY REHAB/ACUTE DIAGNOSIS: Spinal stenosis, lumbar region (M48.06) ONSET DATE 05/19/2022 REHAB IMPAIRMENT CATEGORY (NEELIMA): 05 Nontraumatic spinal cord injury (NTSCI) MEETS 60% rule PRIMARY DIAGNOSIS-RELATED SURGERIES: Spine lumbar L4-L5 decompression COMORBID REHAB/ACUTE DIAGNOSES: - Non-Tiered Essential (primary) hypertension (I10) Type 2 diabetes mellitus without complications (E11.9) Hypothyroidism, unspecified (E03.9) INTERVENTIONS: - Hypertension Assess/ Monitor patient B/P and treat with prescribed medications Implement healthy diet Increase physical activity - Pain Assess/Monitor pt pain and treat with prescribed pain medications Anticipate the need for pain medication for optimal pain managment Educate pt on relaxation techniques and deep breathing Non pharmacological pain management Monitor for headaches - Type 2 Diabetes Assess LE for temperature, pulses, color, and sensation. Assess for signs of hyperglycemia. Monitor blood glucose and effectiveness of medications/Insulin Monitor pt BP Weight daily. - Hypothyroidism Administer medications as indicated Daily weights Implement proper diet Promote proper diet - S/p L4-L5 decompression Aggressive PT/OT RISK FOR COMPLICATIONS: - DVT Active and Passive ROM exercises Administer medications per MD order Assist patient with frequent position changes Elevate BLE - Skin Breakdown Encourage ambulation as tolerated Repositioning q 2 hours Use of pillows or foam wedges while in bed - Pain Assess pt for pain and Administer prescribed pain medication as needed Assist patient with frequent position changes at least every 2 hours Educate patient on relaxation and deep breathing techniques Anticipate the need for pain medication for optimal pain managment - Falls Maintain call light within patient reach for easy access to nursing assistance Provide assistance getting out of bed and with ambulation Provide assistive devices - Stroke Assess/ Monitor patient blood pressure Assess/ Monitor and maintain patient pain level SUMMARY OF ACUTE HOSPITALIZATION: Pt. is a 81 yo female of unknown race. On 05/19/2022 she was admitted to [facility] with diagnosis Spinal stenosis, lumbar region (M48.06). 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 Pre-morbidly, Pt. was independent/mod-I in Locomotion and Self-Care; and she had good Endurance, Duval sfers Control, and Balance. Currently, she has deficits of Locomotion, Endurance, Self-Care, Transfers Control, and Balance. Pt. is now referred to [facility] for acute in-patient rehabilitation in order to maximize patient's functional independence in activities of daily living, strength, ROM, and mobi lity. Patient has realistic goal of being discharged at assistance level 6-Nesha to reside at Home with Fam michelle/Relatives. PAST MEDICAL HISTORY Essential (primary) hypertension (I10) Hypothyroidism, unspecified (E03.9) Type 2 diabetes mellitus without complications (E11.9) osteoporosis Age-related cataract (H25) hemorrhoids PAST SURGICAL HISTORY: Hysterectomy gall bladder removal Epidural steroid injections x2 MEDICATION ALLERGIES: delsym cough and cold etodolac plendil prinivil procardia daypro epinephrine ENVIRONMENTAL ALLERGIES: - Substance Allergies None Known - Other Allergies None Known CODE STATUS: Full code WEIGHT/HEIGHT/BMI: WEIGHT 126 lbs HEIGHT 5' 4" BMI 21.6 DIET: - Diet Type Regular - Diet - Solid Texture Regular - Diet - Liquid Texture Regular - Tube Feed N/A None REVIEW OF SYSTEMS: - Gen Alert and awake Lying in bed No apparent distress Oriented to: person, time, and place - Vital Signs Temperature: 99.6 F SBP/DBP: 147/65 Pulse: 66 Resp: 18 Vital signs stable, afebrile - CVS RRR VITAL SIGNS Temperature: 99.6 F SBP/DBP: 147/65 Pulse: 66 Resp: 18 Vital signs stable, afebrile 05/20/22 MEDICATIONS/TREATMENT: Other- See attached MAR (Medication Administration Record). CURRENT SPHINCTER CONTROL: Pre-hospital bladder status: unspecified # of bladder accidents in the last 7 days prior to screenin Pre-hospital bowel status: unspecified # of bowel accidents in the last 7 days prior to screenin Last Bowel Movement Date: 05/20/2022 CURRENT LOCOMOTION STATUS: distance walked 180 feet distance walked 70 feet DETAILED CURRENT FUNCTIONAL STATUS: - Bladder accident frequency: 7-Ind - No accidents in the past 7 days - Bowel accident frequency: 7-Ind - No accidents in the past 7 days - Walking score based on distance walked: 0(N/A) score based on distance walked: 2(50-149ft) score based on distance walked: 3(>=150ft) - Wheelchair score based on distance traveled: 0(N/A) QI SCORES: - Self-Care A. Eating 05-Setup or clean-up assistance B. Oral hygiene 05-Setup or clean-up assistance C. Toileting hygiene 02-Substantial/maximal assistance E. Shower/bathe self 02-Substantial/maximal assistance F. Upper body dressing 03-Partial/moderate assistance G. Lower body dressing 02-Substantial/maximal assistance H. Putting on/taking off footwear 02-Substantial/maximal assistance - Mobility A. Roll left and right 02-Substantial/maximal assistance B. Sit to lying 02-Substantial/maximal assistance C. Lying to sitting on side of bed 02-Substantial/maximal assistance D. Sit to stand 02-Substantial/maximal assistance E. Chair/[id number] transfer 02-Substantial/maximal assistance F. Toilet transfer 02-Substantial/maximal assistance G. Car transfer 88-Not attempted due to medical condition or safety concerns I. Walk 10 feet 03-Partial/moderate assistance J. Walk 50 feet with two turns 03-Partial/moderate assistance K. Walk 150 feet 03-Partial/moderate assistance L. Walking 10 feet on uneven surfaces 88-Not attempted due to medical condition or safety concerns M. 1 step (curb) 88-Not attempted due to medical condition or safety concerns N. 4 steps 88-Not attempted due to medical condition or safety concerns O. 12 steps 88-Not attempted due to medical condition or safety concerns P. Picking up object 88-Not attempted due to medical condition or safety concerns R. Wheel 50 feet with two turns 09-Not applicable S. Wheel 150 feet 09-Not applicable - Bladder and Bowel Bladder continence 2-Incontinent less than daily Bowel continence 1-Occasionally incontinent - Endurance Fair - Balance Fair - Safety Awareness Fair CURRENT FUNC. DEFICITS: Self-Care, Mobility, Endurance, Balance, and Safety Awareness CURRENT / PREVIOUS ASSISTIVE DEVICES: Rolling Walker Shower Chair HISTORY OF FALLS. HAS THE PATIENT HAD TWO OR MORE FALLS IN THE PAST YEAR OR ANY FALL WITH INJURY IN T HE PAST YEAR?: No PRIOR SURGERY. DID THE PATIENT HAVE MAJOR SURGERY DURING THE 100 DAYS PRIOR TO ADMISSION?: Yes THERAPY NOTES FROM ACUTE CARE: Attached. SPECIAL NEEDS: - Safety Concerns Skin breakdown and Fall precautions needed due to skin breakdown risk and Poor balance PRECAUTIONS: - Fall Precaution Bed alarm TABS alarm Wheel chair alarm - DVT Risk due to restricted mobility and age - Skin Breakdown Risk due to restricted mobility and age - Back Precaution No flexion, extension or excessive rotation - Spine Precaution Log roll technique when transferring OOB (out of bed) No twisting of back PATIENT NEEDS ACTIVE AND ONGOING THERAPEUTIC INTERVENTION OF MULTIPLE THERAPY DISCIPLINES, INCLUDING: - Orthotics/Prosthetics Orthotic Evaluation. Splinting/Casting. - Dietary and Nutrition Adequate Nutrition. Nutritional Education. Nutritional Supplements. - Occupational Therapy Cognitive Retraining. Patient needs Occupational Therapy for a daily minimum of 1.5 hours at least 5 out of 7 days, to improve Activities of Daily Living, including: Eating, Grooming, Bathing, Dressing, Toileting, Toilet Transfers, Community Reintegration, Higher functional activities, Adaptive Equipme nt, Splinting, Household Tasks, and Other activities as determined. Visual Perceptual Training. - Physical Therapy Patient needs Physical Therapy for a daily minimum of 1.5 hours at least 5 out of 7 days, to improve: Mobility, Strengthening, Transfers, Stretching, ROM, Endurance, Ability to manage stairs, Gait, and Balance. PATIENT NEEDS CLOSE MEDICAL SUPERVISION BY A REHABILITATION PHYSICIAN FOR: Coordination of Treatment Team Diabetes Management Medical and Co-Morbidity Management Pain Management Post-Op Complications Wound Care PATIENT REQUIRES 24X7 REHAB NURSING FOR MEDICAL AND FUNCTIONAL MGT. OF THE FOLLOWING DEFICITS: Patient requires 24x7 Rehabilitation Nursing for: Pain Issues, Identifying and preventing risk factor s, Monitoring and reporting current medical conditions, Assisting with ambulation and transfer, Meghan ting with all ADL-s, Teaching patients about disease process and medications, Family teaching, Provid ing safe environment, Bowel and Bladder Issues, Skin Integrity, and Medication Management PATIENT REQUIRES INTENSIVE, COORDINATED INTERDISCIPLINARY APPROACH TO REHAB: Patient needs Dietary and Nutrition Services for: Adequate Nutrition, Nutritional Supplements, and Nu tritional Education Patient needs Can Reconditioner and/or Case Management for: Discharge Planning, Arranging Home Equipmen t or Services, and Family Interventions PATIENT REHAB POTENTIAL: Landon GARCIA is able and expected to receive 3 hours of individualized therapy daily on at least 5 of ever y 7 days Landon VIDALESs prognosis for significant practical improvement within a reasonable period of time appears Good Expected level of measurable improvement will be of a practical value to Landon GARCIA's functional capacit y or adaptations to impairments Has a viable Discharge Plan Medically appropriate; condition is sufficiently stable to participate in intensive rehab program DISCHARGE PLAN: - Estimated Length of Stay (days) 16. - Consensus on plan Discharge plan has been discussed with primary caregiver. Patient/Family is in agreement with the alcira n. Primary caregiver is in agreement with the plan. - Patient/Family Goals Return home independently. - Planned Living Setting Upon Discharge Home, to live with Family/Relatives. Transitional Living. RECOMMENDED CARE LEVEL: IRF RECOMMENDATION DETAILS: Recommended Admission to Comprehensive Rehabilitation Program to Increase Functional [place] SCREENER'S COMPLETENESS CONFIRMATION: - Screening Confirmation The patient data collection on this preadmission screening form is finished PHYSICIANS REVIEW AND ADMISSION DETERMINATION Admit - Based on my review of the Pre-Admission Screening results, in my medical judgment and experie nce, I concur with the findings and recommend admission to [facility], as this patient requires an IRF level of care. SIGNATURE PANEL: Clinical Liaison - [electronically] signed by Vilma Mathews on 05/20/2022 at 15:02 (CDT) Physician Reviewer - [electronically] signed by Dr. Nabeel Fisher M.D. on 05/20/2022 at 15:21 (CDT )
--- OUTSIDE RECORDS SUMMARY | 2022-05-20 16:29 | XMS REPORT | Continuity of Care Document ---
:1940 Author Organization [facility] t Address [address] [place] [place] [address] Care Team Providers Name Role Phone Srinath [...] Department ID 2022-04-18 Outpatient Yo, STLMLC STLMLC [id number] Common 10:53:01 [facility] 2022-04-17 Outpatient Yo, STLMLC STLMLC [id number] Common 10:42:03 [facility] 2021-12-10 Outpatient Yo, STLMLC STLMLC [id number] Common 10:45:02 [facility] 2022-04-21 2022-04-21 ambulatory STLMLC STLMLC [id number] Common 00:00:00 00:00:00 [facility] 2022-04-21 2022-04-21 ambulatory STLMLC STLMLC [id number] Common 00:00:00 00:00:00 [facility] 2022-02-19 2022-02-19 ambulatory STLMLC STLMLC [id number] Common 00:00:00 00:00:00 [facility] 2022-02-04 2022-02-04 ambulatory STLMLC STLMLC [id number] Common 00:00:00 00:00:00 [facility] 2021-12-26 2021-12-26 ambulatory STLMLC STLMLC [id number] Common 00:00:00 00:00:00 [facility] 2021-12-17 2021-12-17 ambulatory STLMLC STLMLC [id number] Common 00:00:00 00:00:00 [facility] 2021-12-12 2021-12-12 ambulatory STLMLC STLMLC [id number] Common 00:00:00 00:00:00 [facility] 2021-12-10 2021-12-10 ambulatory STLMLC STLMLC [id number] Common 00:00:00 00:00:00 [facility] 2021-12-10 2021-12-10 ambulatory STLMLC STLMLC [id number] Common 00:00:00 00:00:00 [facility] 2019-11-01 2019-11-01 Outpatient [facility] [id number] 00:00:00 00:00:00 [facility] [address] Results This patient has no known results.
[2022-05-20 18:37] VITALS: BMI 21.6
[2022-05-20] MEDS ORDERED: HYDROCODONE/APAP 5/325 MG TAB PO PRN (18:37)
[2022-05-20] MEDS ORDERED: ONDANSETRON 4 MG (ODT) TAB PO PRN (19:00)
[2022-05-20] MEDS ORDERED: MELATONIN 3 MG TABLET PO PRN (19:28)
[2022-05-20] MEDS ORDERED: PRESERVISION AREDS PO SCH (20:00)
[2022-05-20] MEDS: DOCUSATE NA 100 MG CAP PO SCH (20:42)
[2022-05-20] MEDS: MAGNESIUM OXIDE 400 MG TAB PO SCH (20:42)
[2022-05-20] MEDS: LOSARTAN POTASSIUM 50 MG TABLET PO SCH (20:42)
[2022-05-20] MEDS: APIXABAN 2.5 MG TABLET PO SCH (20:44)
[2022-05-20] MEDS: OCUVITE (VIT A,C & E/LUTEIN/MINERAL) TABLET PO SCH (20:55)
[2022-05-20] MEDS: RALOXIFENE HCL 60 MG TAB PO SCH (20:55)
[2022-05-20] MEDS: PROBIOTIC PO SCH (20:58)
[2022-05-21 02:07] LABS: Urine Bilirubin Negative (Negative); Urine Blood Negative (Negative); Urine Clarity Clear (Clear); Urine Color Yellow (Yellow); Urine Glucose Negative (Negative); Urine Protein Negative (Negative); Urine Urobilinogen 0.2 mg/dL (0.2-1.0)
[2022-05-21 02:10] LABS: Urine Bacteria <20 /HPF (<20); Urine RBC None Seen /HPF (None Seen)
[2022-05-21 04:50] LABS: Absolute Lymphocytes (CBC) 0.9 K/uL (0.7-4.9); Hematocrit 34.5 % (36.0-45.0); Lymphocytes % 11.3 % (15.3-44.8); MCV 91.3 fL (80-100); MPV 9.4 fL (7.6-11.3); RBC Red Blood Cell Count 3.77 M/uL (3.86-4.86)
[2022-05-21 04:53] LABS: Potassium 3.8 mmol/L (3.5-5.1)
[2022-05-21 04:55] LABS: Albumin 2.6 g/dL (3.4-5.0)
[2022-05-21 05:02] LABS: Prealbumin 14.1 mg/dL (20-40)
[2022-05-21] MEDS: LEVOTHYROXINE SOD 0.075 MG TAB PO SCH (05:30)
[2022-05-21] MEDS: carvediloL 3.125 MG TAB PO SCH ×2 (05:31→17:18)
[2022-05-21] MEDS: OCUVITE (VIT A,C & E/LUTEIN/MINERAL) TABLET PO SCH ×2 (08:00→20:00)
[2022-05-21] MEDS: DOCUSATE NA 100 MG CAP PO SCH (08:11)
[2022-05-21] MEDS: PANTOPRAZOLE 40MG TABLET PO SCH (08:11)
[2022-05-21] MEDS: ACETAMINOPHEN 500 MG TAB PO PRN (08:12)
[2022-05-21] MEDS: hydroCHLOROthiazide 25 MG TAB PO SCH (08:13)
[2022-05-21] MEDS: LOSARTAN POTASSIUM 50 MG TABLET PO SCH ×2 (08:13→20:08)
[2022-05-21] MEDS: POTASSIUM CL SA 10 MEQ TAB PO SCH (08:13)
[2022-05-21] MEDS: APIXABAN 2.5 MG TABLET PO SCH ×4 (08:14→20:36)
[2022-05-21] MEDS: ASCORBIC ACID 500 MG TABLET PO SCH (11:36)
[2022-05-21] MEDS: VITAMIN B COMPLEX 1 CAP PO SCH (11:36)
[2022-05-21] MEDS: TROSPIUM CHLORIDE 60 MG PO SCH (11:37)
[2022-05-21] MEDS: HOME MED 1 EA UNK (Biotin 5,000 MCG) PO SCH (11:38)
[2022-05-21] MEDS: [UNRECOGNIZED DRUG - OTHER] PO SCH (11:38)
[2022-05-21] MEDS: Turmeric Root Extract 500 MG PO SCH (11:39)
[2022-05-21] MEDS: VITAMIN D 5,000 UNIT CAP PO SCH (11:39)
[2022-05-21] MEDS ORDERED: B COMPLEX PO SCH (12:00)
[2022-05-21] MEDS ORDERED: VIT C PO SCH (12:00)
[2022-05-21] MEDS ORDERED: BISACODYL 10 MG RECTAL SUPP PR PRN (18:23)
[2022-05-21] MEDS ORDERED: DOCUSATE NA 100 MG CAP PO PRN (18:24)
--- NOTE | 2022-05-21 19:33 | R.HP ---
HISTORY AND PHYSICAL FACILITY: [facility] ENCOUNTER DATE AND TIME: 05/21/2022 19:28 (CDT) MR#: [id number] NAME HERIBERTO GARCIA ADDRESS: [address] [place] [address]: [place] [address]IP [id number] PHONE: DATE OF : 1940 AGE: 81 SSN# [id number] GENDER: Female DEXTERITY Unknown dexterity MARITAL STATUS Unknown race PRE-HOSPITAL LIVING SETTING 01 - Home (private home/apt. board/care, assisted living, intermediate, transitional living) PRE-HOSPITAL LIVING WITH Family/Relatives ENCOUNTER PHYSICIAN: Dr. Nabeel Fisher M.D. REFERRING DOCTOR: Bk Damon DATE OF ADMISSION: 05/20/2022 16:23 (CDT) REFERRING FACILITY [facility] HOME TYPE AND DETAILS: Type of home: single family house # of levels in the residence: 1 # of steps within the residence: 0 # of steps to enter the residence: 1 ONSET DATE: 05/19/2022 PRIMARY DIAGNOSIS-RELATED SURGERIES: Spine lumbar L4-L5 decompression SECONDARY/COMORBID DIAGNOSES (TIERED): - Non-Tiered Essential (primary) hypertension (I10) Type 2 diabetes mellitus without complications (E11.9) Hypothyroidism, unspecified (E03.9) HISTORY OF PRESENT ILLNESS (HPI): Pt. is a 81 yo female of unknown race. On 05/19/2022 she was admitted to [facility] with diagnosis Spinal stenosis, lumbar region (M48.06). 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 Pre-morbidly, Pt. was independent/mod-I in Locomotion and Self-Care; and she had good Endurance, Duval sfers Control, and Balance. Currently, she has deficits of Locomotion, Endurance, Self-Care, Transfers Control, and Balance. Pt. is now referred to [facility] for acute in-patient rehabilitation in order to maximize patient's functional independence in activities of daily living, strength, ROM, and mobi lity. Patient has realistic goal of being discharged at assistance level 6-Nesha to reside at Home with Fam michelle/Relatives. MEDICATION ALLERGIES: delsym cough and cold etodolac plendil prinivil procardia daypro epinephrine ENVIRONMENTAL ALLERGIES: - Substance Allergies None Known - Other Allergies None Known PAST MEDICAL HISTORY: Essential (primary) hypertension (I10) Hypothyroidism, unspecified (E03.9) Type 2 diabetes mellitus without complications (E11.9) osteoporosis Age-related cataract (H25) hemorrhoids PAST SURGICAL HISTORY: Hysterectomy gall bladder removal Epidural steroid injections x2 SOCIAL HISTORY: - Home Living Family/Relatives REVIEW OF SYSTEMS: - Gen No Chills Fatigue No Fever - Eyes No Double Vision No itchiness - ENMT No Difficulty Swallowing - CVS No Chest Discomfort No Chest Pain Fatigue No Weight Gain - Resp No Cough No Shortness of Breath - GI Continent No Abdominal Pain No Constipation No Diarrhea - Continent No Kidney Pain No Painful Urination No Urinary Urgency - MSK Joint Pain Muscle Cramps Stiffness - Skin No Itching No Rash No Suspicious Lesions - Neuro No Coordination Difficulty No Difficulty with Concentration No Memory Loss No Seizures Weakness - Psych No Anxiety No Depression No HIV Exposure No Persistent Infections No Seasonal Allergies - Endo No Cold/Heat Intolerance No Excessive Hunger No Excessive Thirst No Excessive Urination PHYSICAL EXAM - Gen Alert and awake Lying in bed No apparent distress Oriented to: person, time, and place - Skin No skin breakdown. Normacephalic - Eyes No abnormalities - ENMT No abnormalities - Neck No abnormalities - CVS RRR - Chest No abnormalities - Resp Clear to auscultation - Abd Soft - GI Non distended Deferred - No abnormalities - Ext Mild bilateral lower extremity edema. - MSK 4/5 weakness in both lower extremities. - Neuro No focal deficits - Psych No abnormalities VITAL SIGNS Temperature: 97.6 F SBP/DBP: 103/41 Pulse: 75 Resp: 18 NURSING: - Shower allowing shower - Lab Results blood Sugar Check ACHS - Bladder care per protocol - Skin care per protocol PRECAUTIONS: - Fall Precaution Bed alarm TABS alarm Wheel chair alarm - DVT Risk due to restricted mobility and age - Skin Breakdown Risk due to restricted mobility and age - Back Precaution No flexion, extension or excessive rotation - Spine Precaution Log roll technique when transferring OOB (out of bed) No twisting of back ACTIVITIES OOB only with supervision QI SCORES: - Self-Care A. Eating 05-Setup or clean-up assistance B. Oral hygiene 05-Setup or clean-up assistance C. Toileting hygiene 02-Substantial/maximal assistance E. Shower/bathe self 02-Substantial/maximal assistance F. Upper body dressing 03-Partial/moderate assistance G. Lower body dressing 02-Substantial/maximal assistance H. Putting on/taking off footwear 02-Substantial/maximal assistance - Mobility A. Roll left and right 02-Substantial/maximal assistance B. Sit to lying 02-Substantial/maximal assistance C. Lying to sitting on side of bed 02-Substantial/maximal assistance D. Sit to stand 02-Substantial/maximal assistance E. Chair/ptq-lg-[id number] transfer 02-Substantial/maximal assistance F. Toilet transfer 02-Substantial/maximal assistance G. Car transfer 88-Not attempted due to medical condition or safety concerns I. Walk 10 feet 03-Partial/moderate assistance J. Walk 50 feet with two turns 03-Partial/moderate assistance K. Walk 150 feet 03-Partial/moderate assistance L. Walking 10 feet on uneven surfaces 88-Not attempted due to medical condition or safety concerns M. 1 step (curb) 88-Not attempted due to medical condition or safety concerns N. 4 steps 88-Not attempted due to medical condition or safety concerns O. 12 steps 88-Not attempted due to medical condition or safety concerns P. Picking up object 88-Not attempted due to medical condition or safety concerns R. Wheel 50 feet with two turns 09-Not applicable S. Wheel 150 feet 09-Not applicable - Bladder and Bowel Bladder continence 2-Incontinent less than daily Bowel continence 1-Occasionally incontinent - Endurance Fair - Balance Fair - Safety Awareness Fair CURRENT FUNC. DEFICITS: Self-Care, Mobility, Endurance, Balance, and Safety Awareness MEDICATIONS: - Other See attached MAR (Medication Administration Record) ASSESSMENT: Pt. is a 81 yo female of unknown race.On 05/19/2022 she was admitted to [facility] with di agnosis Spinal stenosis, lumbar region (M48.06).Her impairment category is Spinal Cord Dysfunction 04 - Other Non-traumatic Spinal Cord Dysfunction (04.130).Pre-morbidly, Pt. was independent/mod-I in L ocomotion and Self-Care; and she had good Endurance, Transfers Control, and Balance.Currently, she vera s deficits of Locomotion, Endurance, Self-Care, Transfers Control, and Balance.Pt. is now referred to [facility] for acute in-patient rehabilitation in order to maximize patient's functional independence in activities of daily living, strength, ROM, and mobility.- Rehab Goal Patient has realistic goal of being discharged at assistance level 6-Nesha to reside at Home with Fam michelle/Relatives. - Physical Therapy Gait dysfunction - to improve, our physical therapists will perform initial evaluation of pt's status upon admission and devise an individualized program for Gait Training, and Wheel Chair mobility Inability to transfer - to improve, our physical therapists will perform initial evaluation of pt's s tatus upon admission and devise an individualized program for Bed mobility Need for home safety evaluation - to improve, our physical therapists will perform initial evaluation of pt's status upon admission and devise an individualized program for Home Evaluation Need in caregiver upon discharge - to improve, our physical therapists will perform initial evaluatio n of pt's status upon admission and devise an individualized program for Caregiver Training New precaution - to improve, our physical therapists will perform initial evaluation of pt's status [place] admission and devise an individualized program for Patient precaution education Edema - to improve, our physical therapists will perform initial evaluation of pt's status upon admi ssion and devise an individualized program for Elevation Training, and Lymphedema Therapy Poor balance - to improve, our physical therapists will perform initial evaluation of pt's status upo n admission and devise an individualized program for Balance Training Poor endurance - to improve, our physical therapists will perform initial evaluation of pt's status [place] admission and devise an individualized program for Endurance Training Weakness - to improve, our physical therapists will perform initial evaluation of pt's status upon ad mission and devise an individualized program for Aquatic Therapy, Neuromuscular Reeducation, and Stre ngthening Achieving independence - to improve, our physical therapists will perform initial evaluation of pt's status upon admission and devise an individualized program for Community Reintegration Activities - Occupational Therapy ADL deficits - to improve, our occupation therapists will perform initial evaluation of pt's status u [place] admission and devise an individualized program for Bathing, Bed mobility, Community Reintegration , Cooking, Dressing, Eating, Fine Motor Skills, Grooming, Homemaking, Kitchen Mobility, Laundry, Amanda ent Education, Safety Awareness, Splinting - Positioning, Transfers(Toilet, Tub, Shower), and Wheel C hair Management Need for customer care assistant - to improve, our occupation therapists will perform initial evaluation of pt's s tatus upon admission and devise an individualized program for Caregiver Training Weakness - to improve, our occupation therapists will perform initial evaluation of pt's status upon admission and devise an individualized program for Aquatic Therapy, Balance, Endurance, UE ROM, and U E strengthening MEDICAL PLAN: - Diet Type Start Regular - Diet - Liquid Texture Start Regular - Tube Feed Start N/A - Lab Results blood Sugar Check ACHS - Bladder care per protocol - DVT Risk due to restricted mobility and age - Skin Breakdown Risk due to restricted mobility and age - Back Precaution No flexion, extension or excessive rotation - Spine Precaution Log roll technique when transferring OOB (out of bed) No twisting of back - Fall Precaution Bed alarm TABS alarm Wheel chair alarm - Skin care per protocol - Other See attached MAR (Medication Administration Record) - Diet - Solid Texture Regular - Shower shower DISCHARGE PLAN: - Estimated Length of Stay (days) 16. - Consensus on plan Discharge plan has been discussed with primary caregiver. Patient/Family is in agreement with the alcira n. Primary caregiver is in agreement with the plan. - Patient/Family Goals Return home independently. - Planned Living Setting Upon Discharge Home, to live with Family/Relatives. Transitional Living. SIGNATURE PANEL: (CDT)
--- NOTE | 2022-05-21 19:35 | PAPE ---
POST ADMISSION PHYSICIAN EVALUATION PATIENT: [facility] MR# [id number] REFERRING DOCTOR Bk Damon EVALUATION DATE AND TIME 05/21/2022 19:32 (CDT) NAME HERIBERTO GARCIA DATE OF 1940 AGE 81 PHONE N# [id number] GENDER female EVALUATING PHYSICIAN Dr. Nabeel Fisher M.D. ADMISSION DIAGNOSIS: Spinal stenosis, lumbar region (M48.06) ONSET DATE 05/19/2022 SECONDARY/COMORBID DIAGNOSES TIERED: - Non-Tiered Essential (primary) hypertension (I10) Type 2 diabetes mellitus without complications (E11.9) Hypothyroidism, unspecified (E03.9) POST-ADMISSION FUNCTIONAL/MEDICAL STATUS: - Bladder Same accident frequency: 7-Ind - No accidents in the past 7 days - Bowel Same accident frequency: 7-Ind - No accidents in the past 7 days - Walking Same score based on distance walked: 0(N/A) Same score based on distance walked: 2(50-149ft) Same score based on distance walked: 3(>=150ft) - Wheelchair Same score based on distance traveled: 0(N/A) STATUS CHANGE EVALUATION: No change in Functional or Medical Status is identified compared with Pre-Admission screening. PATIENT NEEDS CLOSE MEDICAL SUPERVISION BY A REHABILITATION PHYSICIAN FOR: Coordination of Treatment Team Diabetes Management Medical and Co-Morbidity Management Pain Management Post-Op Complications Wound Care PATIENT REQUIRES 24X7 REHAB NURSING FOR MEDICAL AND FUNCTIONAL MGT. OF THE FOLLOWING DEFICITS: Patient requires 24x7 Rehabilitation Nursing for: Pain Issues, Identifying and preventing risk factor s, Monitoring and reporting current medical conditions, Assisting with ambulation and transfer, Meghan ting with all ADL-s, Teaching patients about disease process and medications, Family teaching, Provid ing safe environment, Bowel and Bladder Issues, Skin Integrity, and Medication Management PATIENT REQUIRES INTENSIVE, COORDINATED INTERDISCIPLINARY APPROACH TO REHAB: Patient needs Dietary and Nutrition Services for: Adequate Nutrition, Nutritional Supplements, and Nu tritional Education Patient needs Lockstitch Sleeve Setter and/or Case Management for: Discharge Planning, Arranging Home Equipmen t or Services, and Family Interventions LIST OF IDENTIFIED AND POTENTIAL PROBLEMS: Alteration in leisure activities Bladder, Incontinence Blood Pressure, Hypertension/hypotension Issues Bowel, Incontinence Diabetes, Hyperglycemia/hypoglycemia Issues Falls, Actual or Potential Infection, Actual or Potential Mobility Impaired Pain, Alteration in Comfort Self Care Deficit Skin Integrity, Actual or Potential Urinary Tract Infection (UTI), Actual or Potential RISK FOR COMPLICATIONS - DVT Active and Passive ROM exercises. Administer medications per MD order. Assist patient with frequent p osition changes. Elevate BLE. - Skin Breakdown Encourage ambulation as tolerated. Repositioning q 2 hours. Use of pillows or foam wedges while in be d. - Pain Assess pt for pain and Administer prescribed pain medication as needed. Assist patient with frequent position changes at least every 2 hours. Educate patient on relaxation and deep breathing techniques. Anticipate the need for pain medication for optimal pain managment. - Falls Maintain call light within patient reach for easy access to nursing assistance. Provide assistance ge tting out of bed and with ambulation. Provide assistive devices. - Stroke Assess/ Monitor patient blood pressure. Assess/ Monitor and maintain patient pain level. INTERVENTIONS - Hypertension Assess/ Monitor patient B/P and treat with prescribed medications. Implement healthy diet. Increase p hysical activity. - Pain Assess/Monitor pt pain and treat with prescribed pain medications. Anticipate the need for pain medic ation for optimal pain managment. Educate pt on relaxation techniques and deep breathing. Non pharmac ological pain management. Monitor for headaches. - Type 2 Diabetes Assess LE for temperature, pulses, color, and sensation. Assess for signs of hyperglycemia. Monitor b lood glucose and effectiveness of medications/Insulin. Monitor pt BP. Weight daily. - Hypothyroidism Administer medications as indicated. Daily weights. Implement proper diet. Promote proper diet. - S/p L4-L5 decompression Aggressive PT/OT. PATIENT COULD BE AT RISK FOR COMPLICATIONS FROM ADVERSE MEDICAL CONDITIONS DUE TO HIS/HER COMORBIDITI ES AND THE RIGORS OF THE INTENSIVE REHABILLITATION PROGRAM. METHODS OR INTERVENTIONS TO AVOID COMPLIC ATIONS INCLUDE: - Bleeding Assess lab values and manage abnormalities. Nursing to teach precautions for anti-coagulation therapy . Wound to be assessed every shift. - Infection Clinical staff to assess and manage the signs and symptoms of infection including fever, redness, war mth, etc. - Urinary Tract Infection - Falls Patient will be evaluated for Fall Precautions and will be placed on Fall Precautions as indicated pe r protocol. - Skin Breakdown Nursing will assess skin daily using assessment tool and will place on Skin Breakdown Precautions as indicated per protocol. - Pain Clinical staff may employ non-medication methods such as massage, distraction, decrease stimulus, etc . as needed. Clinical staff will assess patient's pain level every shift per protocol to assess and e nsure pain management effectiveness. Medications will be given and the pain level re-assessed. PRELIMINARY PLAN OF CARE: - Physical Therapy Patient needs Physical Therapy for a daily minimum of 1.5 hours at least 5 out of 7 days, to improve: Mobility, Strengthening, Transfers, Stretching, ROM, Endurance, Ability to manage stairs, Gait, and Balance. - Rehabilitation Nursing Patient requires 24x7 Rehabilitation Nursing for: Pain Issues, Identifying and preventing risk factor s, Monitoring and reporting current medical conditions, Assisting with ambulation and transfer, Meghan ting with all ADL-s, Teaching patients about disease process and medications, Family teaching, Provid ing safe environment, Bowel and Bladder Issues, Skin Integrity, and Medication Management. Patient needs Lockstitch Sleeve Setter and/or Case Management for: Discharge Planning, Arranging Home Equipmen t or Services, and Family Interventions. - Dietary and Nutrition Services Patient needs Dietary and Nutrition Services for: Adequate Nutrition, Nutritional Supplements, and Nu tritional Education. - Occupational Therapy Patient needs Occupational Therapy for a daily minimum of 1.5 hours at least 5 out of 7 days, to impr ove Activities of Daily Living, including: Eating, Grooming, Bathing, Dressing, Toileting, Toilet Tra nsfers, Community Reintegration, Higher functional activities, Adaptive Equipment, Splinting, Househo ld Tasks, and Other activities as determined. QI SCORES: - Self-Care A. Eating 05-Setup or clean-up assistance B. Oral hygiene 05-Setup or clean-up assistance C. Toileting hygiene 02-Substantial/maximal assistance E. Shower/bathe self 02-Substantial/maximal assistance F. Upper body dressing 03-Partial/moderate assistance G. Lower body dressing 02-Substantial/maximal assistance H. Putting on/taking off footwear 02-Substantial/maximal assistance - Mobility A. Roll left and right 02-Substantial/maximal assistance B. Sit to lying 02-Substantial/maximal assistance C. Lying to sitting on side of bed 02-Substantial/maximal assistance D. Sit to stand 02-Substantial/maximal assistance E. Chair/[id number]-bh-zbevf transfer 02-Substantial/maximal assistance F. Toilet transfer 02-Substantial/maximal assistance G. Car transfer 88-Not attempted due to medical condition or safety concerns I. Walk 10 feet 03-Partial/moderate assistance J. Walk 50 feet with two turns 03-Partial/moderate assistance K. Walk 150 feet 03-Partial/moderate assistance L. Walking 10 feet on uneven surfaces 88-Not attempted due to medical condition or safety concerns M. 1 step (curb) 88-Not attempted due to medical condition or safety concerns N. 4 steps 88-Not attempted due to medical condition or safety concerns O. 12 steps 88-Not attempted due to medical condition or safety concerns P. Picking up object 88-Not attempted due to medical condition or safety concerns R. Wheel 50 feet with two turns 09-Not applicable S. Wheel 150 feet 09-Not applicable - Bladder and Bowel Bladder continence 2-Incontinent less than daily Bowel continence 1-Occasionally incontinent - Endurance Fair - Balance Fair - Safety Awareness Fair POTENTIAL FUNCTIONAL GOALS FOR PATIENT TO ACHIEVE BY DISCHARGE: - Safety Precaution Patient will remain free from falls or injury at time of discharge. - Bed Mobility Patient will perform bed mobility at 4-Johana level of assistance. - Transfers Patient will complete transfers from bed to chair at 4-Johana level of assistance. - Mobility Patient will ambulate 150 ft with 4-Johana level of assistance with RW. PATIENT REHAB POTENTIAL Landon GARCIA is able and expected to receive 3 hours of individualized therapy daily on at least 5 of ever y 7 days Landon GARCIA's prognosis for significant practical improvement within a reasonable period of time appears Good Expected level of measurable improvement will be of a practical value to Landon GARCIA's functional capacit y or adaptations to impairments Has a viable Discharge Plan Medically appropriate; condition is sufficiently stable to participate in intensive rehab program DISCHARGE PLAN: - Estimated Length of Stay (days) 16. - Consensus on plan Discharge plan has been discussed with primary caregiver. Patient/Family is in agreement with the alcira n. Primary caregiver is in agreement with the plan. - Patient/Family Goals Return home independently. - Planned Living Setting Upon Discharge Home, to live with Family/Relatives. Transitional Living. CONCLUSION ON REHABILITATION NECESSITY: I have evaluated patient's pre-admission functional status and, comparing it to the patient's post-ad mission functional status now, I conclude that the pre-admission assessment was accurate. Patient's c ondition on admission supports the medical necessity of admission to [facility]. It is safe to proceed with patient's therapy program. SIGNATURE PANEL: (CDJose Enrique)
[2022-05-21] MEDS: RALOXIFENE HCL 60 MG TAB PO SCH ×3 (20:07→20:36)
[2022-05-21] MEDS: MAGNESIUM OXIDE 400 MG TAB PO SCH (20:08)
[2022-05-21] MEDS: PROBIOTIC PO SCH (20:09)
[2022-05-21] MEDS: DOCUSATE NA/SENNA CONC 1 TAB PO SCH (20:10)
[2022-05-22] MEDS: carvediloL 3.125 MG TAB PO SCH ×2 (05:05→17:28)
[2022-05-22] MEDS: LEVOTHYROXINE SOD 0.075 MG TAB PO SCH (05:35)
[2022-05-22 06:09] LABS: Hematocrit 37.8 % (36.0-45.0); Lymphocytes % 14.3 % (15.3-44.8); MCV 91.1 fL (80-100); RBC Red Blood Cell Count 4.15 M/uL (3.86-4.86)
[2022-05-22 06:25] LABS: Potassium 3.6 mmol/L (3.5-5.1)
[2022-05-22 06:26] LABS: Albumin 2.8 g/dL (3.4-5.0); Prealbumin 13.5 mg/dL (20-40)
[2022-05-22] MEDS: PANTOPRAZOLE 40MG TABLET PO SCH (06:58)
[2022-05-22] MEDS: LOSARTAN POTASSIUM 50 MG TABLET PO SCH ×2 (06:59→19:35)
[2022-05-22] MEDS: hydroCHLOROthiazide 25 MG TAB PO SCH (06:59)
[2022-05-22] MEDS: HOME MED 1 EA UNK (Biotin 5,000 MCG) PO SCH (08:05)
[2022-05-22] MEDS: TROSPIUM CHLORIDE 60 MG PO SCH (08:05)
[2022-05-22] MEDS: POTASSIUM CL SA 10 MEQ TAB PO SCH (08:06)
[2022-05-22] MEDS: CRANBERRY FRUIT EXTRACT 200 MG CAP PO SCH ×2 (08:06→19:35)
[2022-05-22] MEDS: APIXABAN 2.5 MG TABLET PO SCH ×2 (08:06→19:35)
[2022-05-22] MEDS: OCUVITE (VIT A,C & E/LUTEIN/MINERAL) TABLET PO SCH ×2 (09:48→19:34)
[2022-05-22] MEDS: Turmeric Root Extract 500 MG PO SCH (11:44)
[2022-05-22] MEDS: [UNRECOGNIZED DRUG - OTHER] PO SCH (11:44)
[2022-05-22] MEDS: ASCORBIC ACID 500 MG TABLET PO SCH (11:47)
[2022-05-22] MEDS: VITAMIN D 5,000 UNIT CAP PO SCH (11:47)
[2022-05-22] MEDS: VITAMIN B COMPLEX 1 CAP PO SCH (11:47)
[2022-05-22] MEDS: POLYETHYL GLY 3350 17 GM/DOSE PO PRN (13:03)
--- NOTE | 2022-05-22 17:23 | R.PN ---
PROGRESS NOTES ENCOUNTER DATE AND TIME: 05/22/2022 17:09 (CDT) NAME HERIBERTO GARCIA DATE OF : 1940 DATE OF ADMISSION: 05/20/2022 16:23 (CDT) Spinal stenosis, lumbar region (M48.06)CHIEF COMPLAINT: Spinal stenosis s/p decompression SUBJECTIVE: Pt denied any Shortness of Breath. Pt denied any depression. CBC with differential is normal. BMP is essentially normal. Glucose 116 to 188, prealbumin 13.5. Wheelchair mobilized 150' with moderate assistance. Blood pressures dropped significantly to 68/40 wi th pulse 82 and 101/43 with pulse 84 when sitting. VITAL SIGNS Temperature: 97.4 F SBP/DBP: 76 to 113/41 to 52 Pulse: 79 Resp: 16 MEDICATION ALLERGIES: delsym cough and cold etodolac plendil prinivil procardia daypro epinephrine ENVIRONMENTAL ALLERGIES: - Substance Allergies None Known - Other Allergies None Known NURSING: - Shower allowing shower - Lab Results blood Sugar Check ACHS - Bladder care per protocol - Skin care per protocol PRECAUTIONS: - Fall Precaution Bed alarm TABS alarm Wheel chair alarm - DVT Risk due to restricted mobility and age - Skin Breakdown Risk due to restricted mobility and age - Back Precaution No flexion, extension or excessive rotation - Spine Precaution Log roll technique when transferring OOB (out of bed) No twisting of back ACTIVITIES OOB only with supervision THERAPIES: - Orthotics/Prosthetics Orthotic Evaluation. Splinting/Casting. - Dietary and Nutrition Adequate Nutrition. Nutritional Education. Nutritional Supplements. - Occupational Therapy Cognitive Retraining. Patient needs Occupational Therapy for a daily minimum of 1.5 hours at least 5 out of 7 days, to improve Activities of Daily Living, including: Eating, Grooming, Bathing, Dressing, Toileting, Toilet Transfers, Community Reintegration, Higher functional activities, Adaptive Equipme nt, Splinting, Household Tasks, and Other activities as determined. Visual Perceptual Training. - Physical Therapy Patient needs Physical Therapy for a daily minimum of 1.5 hours at least 5 out of 7 days, to improve: Mobility, Strengthening, Transfers, Stretching, ROM, Endurance, Ability to manage stairs, Gait, and Balance. PHYSICAL EXAM - Gen Alert and awake Lying in bed No apparent distress Oriented to: person, time, and place - Skin No skin breakdown. Normacephalic - Eyes No abnormalities - ENMT No abnormalities - Neck No abnormalities - CVS RRR - Chest No abnormalities - Resp Clear to auscultation - Abd Soft - GI Non distended Deferred - No abnormalities - Ext Mild bilateral lower extremity edema. - MSK 4/5 weakness in both lower extremities. - Neuro No focal deficits - Psych No abnormalities ASSESSMENT: Pt. is a 81 yo female of unknown race.On 05/19/2022 she was admitted to [facility] with di agnosis Spinal stenosis, lumbar region (M48.06).Her impairment category is Spinal Cord Dysfunction 04 - Other Non-traumatic Spinal Cord Dysfunction (04.130).Pre-morbidly, Pt. was independent/mod-I in L ocomotion and Self-Care; and she had good Endurance, Transfers Control, and Balance.Currently, she vera s deficits of Locomotion, Endurance, Self-Care, Transfers Control, and Balance.Pt. is now referred to [facility] for acute in-patient rehabilitation in order to maximize patient's functional independence in activities of daily living, strength, ROM, and mobility.- Rehab Goal Patient has realistic goal of being discharged at assistance level 6-Nesha to reside at Home with Fam michelle/Relatives. MDM/PLAN: - Physical Therapy Gait dysfunction - to improve, our physical therapists will perform initial evaluation of pt's statu s upon admission and devise an individualized program for Gait Training, and Wheel Chair mobility Inability to transfer - to improve, our physical therapists will perform initial evaluation of pt's status upon admission and devise an individualized program for Bed mobility Need for home safety evaluation - to improve, our physical therapists will perform initial evaluatio n of pt's status upon admission and devise an individualized program for Home Evaluation Need in caregiver upon discharge - to improve, our physical therapists will perform initial evaluati on of pt's status upon admission and devise an individualized program for Caregiver Training New precaution - to improve, our physical therapists will perform initial evaluation of pt's status upon admission and devise an individualized program for Patient precaution education Edema - to improve, our physical therapists will perform initial evaluation of pt's status upon admis coy and devise an individualized program for Elevation Training, and Lymphedema Therapy Poor balance - to improve, our physical therapists will perform initial evaluation of pt's status up on admission and devise an individualized program for Balance Training Poor endurance - to improve, our physical therapists will perform initial evaluation of pt's status upon admission and devise an individualized program for Endurance Training Weakness - to improve, our physical therapists will perform initial evaluation of pt's status upon a dmission and devise an individualized program for Aquatic Therapy, Neuromuscular Reeducation, and Str engthening Achieving independence - to improve, our physical therapists will perform initial evaluation of pt's status upon admission and devise an individualized program for Community Reintegration Activities - Occupational Therapy ADL deficits - to improve, our occupation therapists will perform initial evaluation of pt's status upon admission and devise an individualized program for Bathing, Bed mobility, Community Reintegratio n, Cooking, Dressing, Eating, Fine Motor Skills, Grooming, Homemaking, Kitchen Mobility, Laundry, Pat ient Education, Safety Awareness, Splinting - Positioning, Transfers(Toilet, Tub, Shower), and Wheel Chair Management Need for acute care certified nursing assistant - to improve, our occupation therapists will perform initial evaluation of pt's status upon admission and devise an individualized program for Caregiver Training Weakness - to improve, our occupation therapists will perform initial evaluation of pt's status upon admission and devise an individualized program for Aquatic Therapy, Balance, Endurance, UE ROM, and UE strengthening - Other See attached MAR (Medication Administration Record) - Diet Type Continue Regular - Diet - Liquid Texture Continue Regular - Tube Feed Continue N/A - Lab Results blood Sugar Check ACHS - Bladder care per protocol - DVT Risk due to restricted mobility and age - Skin Breakdown Risk due to restricted mobility and age - Back Precaution No flexion, extension or excessive rotation - Spine Precaution Log roll technique when transferring OOB (out of bed) No twisting of back - Fall Precaution Bed alarm TABS alarm Wheel chair alarm - Skin care per protocol - Diet - Solid Texture Continue Regular - Shower allowing shower FUNCTIONAL STATUS: UPDATED AT WEEKLY TEAM CONFERENCE - Bladder Same accident frequency: 7-Ind - No accidents in the past 7 days - Bowel Same accident frequency: 7-Ind - No accidents in the past 7 days - Walking Same score based on distance walked: 0(N/A) Same score based on distance walked: 2(50-149ft) Same score based on distance walked: 3(>=150ft) - Wheelchair Same score based on distance traveled: 0(N/A) FUNCTIONAL STATUS: - Self-Care A. Eating Ind B. Grooming sup C. Bathing modA D. Dressing - Upper sup E. Dressing - Lower Johana F. Toileting Johana - Sphincter Control G. Bladder control Nesha H. Bowel control Nesha - Transfers Control I. Bed/Chair/Wheelchair Johana J. Toilet Johana K. Tub/Shower Joahna - Locomotion L. Walk/Wheelchair (B) modA M. Stairs Dep - Communication N. Comprehension (B) Nesha O. Expression (B) Nesha - Social Cognition P. Social Interaction Nesha Q. Problem Solving Nesha R. Memory Nesha - Endurance Fair - Balance Fair - Safety Awareness Good QI SCORES: - Self-Care A. Eating 05-Setup or clean-up assistance B. Oral hygiene 05-Setup or clean-up assistance C. Toileting hygiene 02-Substantial/maximal assistance E. Shower/bathe self 02-Substantial/maximal assistance F. Upper body dressing 03-Partial/moderate assistance G. Lower body dressing 02-Substantial/maximal assistance H. Putting on/taking off footwear 02-Substantial/maximal assistance - Mobility A. Roll left and right 02-Substantial/maximal assistance B. Sit to lying 02-Substantial/maximal assistance C. Lying to sitting on side of bed 02-Substantial/maximal assistance D. Sit to stand 02-Substantial/maximal assistance E. Chair/[id number] transfer 02-Substantial/maximal assistance F. Toilet transfer 02-Substantial/maximal assistance G. Car transfer 88-Not attempted due to medical condition or safety concerns I. Walk 10 feet 03-Partial/moderate assistance J. Walk 50 feet with two turns 03-Partial/moderate assistance K. Walk 150 feet 03-Partial/moderate assistance L. Walking 10 feet on uneven surfaces 88-Not attempted due to medical condition or safety concerns M. 1 step (curb) 88-Not attempted due to medical condition or safety concerns N. 4 steps 88-Not attempted due to medical condition or safety concerns O. 12 steps 88-Not attempted due to medical condition or safety concerns P. Picking up object 88-Not attempted due to medical condition or safety concerns R. Wheel 50 feet with two turns 09-Not applicable S. Wheel 150 feet 09-Not applicable - Bladder and Bowel Bladder continence 2-Incontinent less than daily Bowel continence 1-Occasionally incontinent - Endurance Fair - Balance Fair - Safety Awareness Fair CURRENT [facility]. DEFICITS: Self-Care, Mobility, Endurance, Balance, and Safety Awareness SIGNATURE PANEL: (CDT)
[2022-05-22] MEDS: DOCUSATE NA/SENNA CONC 1 TAB PO SCH (19:34)
[2022-05-22] MEDS: RALOXIFENE HCL 60 MG TAB PO SCH (19:34)
[2022-05-22] MEDS: MAGNESIUM OXIDE 400 MG TAB PO SCH (19:34)
[2022-05-22] MEDS: PROBIOTIC PO SCH (19:35)
[2022-05-22] MEDS: DOCUSATE NA 100 MG CAP PO SCH (19:35)
[2022-05-23] MEDS: LEVOTHYROXINE SOD 0.075 MG TAB PO SCH (05:35)
[2022-05-23] MEDS: carvediloL 3.125 MG TAB PO SCH ×2 (05:35→17:18)
[2022-05-23] MEDS: hydroCHLOROthiazide 25 MG TAB PO SCH (07:54)
[2022-05-23] MEDS: POTASSIUM CL SA 10 MEQ TAB PO SCH (07:54)
[2022-05-23] MEDS: PANTOPRAZOLE 40MG TABLET PO SCH (07:55)
[2022-05-23] MEDS: APIXABAN 2.5 MG TABLET PO SCH ×2 (07:55→19:40)
[2022-05-23] MEDS: ACETAMINOPHEN 500 MG TAB PO PRN ×2 (07:55→20:14)
[2022-05-23] MEDS: OCUVITE (VIT A,C & E/LUTEIN/MINERAL) TABLET PO SCH ×2 (07:56→19:41)
[2022-05-23] MEDS: HOME MED 1 EA UNK (Biotin 5,000 MCG) PO SCH (07:56)
[2022-05-23] MEDS: CRANBERRY FRUIT EXTRACT 200 MG CAP PO SCH ×2 (07:56→19:40)
[2022-05-23] MEDS: LOSARTAN POTASSIUM 50 MG TABLET PO SCH ×2 (07:56→19:40)
[2022-05-23] MEDS: DOCUSATE NA 100 MG CAP PO SCH ×2 (07:56→19:41)
[2022-05-23] MEDS: TROSPIUM CHLORIDE 60 MG PO SCH (07:57)
--- NOTE | 2022-05-23 09:36 | P.RH.PN ---
Estimated Length of Stay: 12 Expected Discharge Date: 06/01/22 Discharge Disposition Plan: Home Family Support: Yes Jail Goal: Mobility, Transfers, Self Care Vital Signs: Last Vital Signs Temp 97.6 F 05/23/22 07:52 Pulse 84 05/23/22 07:54 Resp 16 05/23/22 07:52 BP 134/94 H 05/23/22 07:54 Pulse Ox 97 05/23/22 07:52 Laboratory: Laboratory Last Values WBC 6.7 K/uL (4.3-10.9) D 05/22/22 05:47 RBC 4.15 M/uL (3.86-4.86) 05/22/22 05:47 Hgb 12.7 g/dL (12.0-15.0) 05/22/22 05:47 Hct 37.8 % (36.0-45.0) 05/22/22 05:47 MCV 91.1 fL (80-100) 05/22/22 05:47 MCH 30.7 pg (27.0-35.0) 05/22/22 05:47 MCHC 33.7 g/dL (32.0-36.0) 05/22/22 05:47 RDW 13.3 % (12.1-15.2) 05/22/22 05:47 Plt Count 147 K/uL (152-406) L 05/22/22 05:47 MPV 9.0 fL (7.6-11.3) 05/22/22 05:47 Neutrophils % 75.8 % (41.7-73.7) H 05/22/22 05:47 Lymphocytes % 14.3 % (15.3-44.8) L 05/22/22 05:47 Monocytes % 9.7 % (3.3-12.3) 05/22/22 05:47 Eosinophils % 0.1 % (0-4.4) 05/22/22 05:47 Basophils % 0.1 % (0-1.3) 05/22/22 05:47 Absolute Neutrophils 5.1 K/uL (1.8-8.0) 05/22/22 05:47 Absolute Lymphocytes 1.0 K/uL (0.7-4.9) 05/22/22 05:47 Absolute Monocytes 0.6 K/uL (0.1-1.3) 05/22/22 05:47 Absolute Eosinophils 0.0 K/uL (0-0.5) 05/22/22 05:47 Absolute Basophils 0.0 K/uL (0-0.5) 05/22/22 05:47 Sodium 137 mmol/L (136-145) 05/22/22 05:47 Potassium 3.6 mmol/L (3.5-5.1) 05/22/22 05:47 Chloride 106 mmol/L (98-107) 05/22/22 05:47 Carbon Dioxide 28 mmol/L (21-32) 05/22/22 05:47 Anion Gap 6.6 mEq/L (5.0-15.0) 05/22/22 05:47 BUN 19 mg/dL (7-18) H 05/22/22 05:47 Creatinine 0.57 mg/dL (0.55-1.3) 05/22/22 05:47 Est GFR (CKD-EPI) 90 ml/min (=/>90) 05/22/22 05:47 Glucose 147 mg/dL (74-106) H 05/22/22 05:47 POC Glucose 133 mg/dL (65-120) H 05/23/22 07:02 Calcium 8.8 mg/dL (8.5-10.1) 05/22/22 05:47 Magnesium 2.0 mg/dL (1.8-2.4) 05/22/22 05:47 Albumin 2.8 g/dL (3.4-5.0) L 05/22/22 05:47 Prealbumin 13.5 mg/dL (20-40) L 05/22/22 05:47 Urine Color Yellow (Yellow) 05/21/22 02:03 Urine Clarity Clear (Clear) 05/21/22 02:03 Urine pH 7.0 (5.0-7.0) 05/21/22 02:03 Ur Specific Jbphh 1.020 (1.005-1.030) 05/21/22 02:03 Glucose (UA)(Auto) Negative (Negative) 05/21/22 02:03 Urine Ketones Negative (Negative) 05/21/22 02:03 Urine Blood Negative (Negative) 05/21/22 02:03 Urine Nitrite Negative (Negative) 05/21/22 02:03 Urine Bilirubin Negative (Negative) 05/21/22 02:03 Urine Urobilinogen 0.2 mg/dL (0.2-1.0) 05/21/22 02:03 Ur Leukocyte Esterase Negative (Negative) 05/21/22 02:03 Urine RBC None seen /HPF (None Seen) 05/21/22 02:03 Urine Red Cell Clumps Cancelled 05/21/22 01:50 Urine WBC <5 /HPF (<5) 05/21/22 02:03 Urine WBC Clumps Cancelled 05/21/22 01:50 Ur Squamous Epith Cells <5 /HPF (None Seen) 05/21/22 02:03 U Non-Squamous Epi Cells Cancelled 05/21/22 01:50 Ur Transition Epith Cell Cancelled 05/21/22 01:50 Ur Renal Epithelial Cell Cancelled 05/21/22 01:50 Calcium Carbonate Cryst Cancelled 05/21/22 01:50 Calcium Oxalate Crystal Cancelled 05/21/22 01:50 Leucine Crystals Cancelled 05/21/22 01:50 Cystine Crystals Cancelled 05/21/22 01:50 Uric Acid Crystals Cancelled 05/21/22 01:50 Triple Phos Crystals Cancelled 05/21/22 01:50 Tyrosine Crystals Cancelled 05/21/22 01:50 Unidentified Crystals Cancelled 05/21/22 01:50 Amorphous Crystals Cancelled 05/21/22 01:50 Urine Bacteria <20 /HPF (<20) 05/21/22 02:03 Hyaline Casts Cancelled 05/21/22 01:50 Granular Casts Cancelled 05/21/22 01:50 Waxy Casts Cancelled 05/21/22 01:50 RBC Casts Cancelled 05/21/22 01:50 WBC Casts Cancelled 05/21/22 01:50 Urine Mucus Cancelled 05/21/22 01:50 Urine Trichomonas Cancelled 05/21/22 01:50 Ur Yeast w Hyphae Cancelled 05/21/22 01:50 Urine Yeast (Budding) Few /HPF (None Seen) H 05/21/22 02:03 Urine Sperm Cancelled 05/21/22 01:50 Ur Oval Fat Bodies Cancelled 05/21/22 01:50 Urine Total Protein Negative (Negative) 05/21/22 02:03 Urine Ascorbic Acid Cancelled 05/21/22 01:50 Urine Fat Cancelled 05/21/22 01:50 Weight: 126 lb Wound Present: Yes Closed Surgical Incision Present: Yes Negative Pressure Wound Therapy Present: No Physician Update: Bed mobility max hayde, transfering min hayde. Gait 1000' with min hayde. Toilet min hayde, mod hayde for shower transfer. Min hayde upper and max hayde lower body dressing. Labs reviewed. Summary: Patient's care plan and roasterman goals have been reviewed and revised as necessary. Please see the Rehabilitation Signature page for all necessary signatures.
[2022-05-23] MEDS: VITAMIN D 5,000 UNIT CAP PO SCH (12:00)
[2022-05-23] MEDS: [UNRECOGNIZED DRUG - OTHER] PO SCH (12:00)
[2022-05-23] MEDS: Turmeric Root Extract 500 MG PO SCH (12:00)
[2022-05-23] MEDS: ASCORBIC ACID 500 MG TABLET PO SCH (12:16)
[2022-05-23] MEDS: VITAMIN B COMPLEX 1 CAP PO SCH (12:16)
--- NOTE | 2022-05-23 14:46 | RAD REPORT ---
EXAM DESCRIPTION: RAD - Barium Swallow Modified - 05/23/2022 2:33 pm CLINICAL HISTORY: dysphagia COMPARISON: No comparisons TECHNIQUE: The patient was given liquid, semi-solid and solid forms of barium. Lateral view fluorosc opic imaging was performed in conjunction with speech pathology service. FINDINGS: PHARYNGEAL RESIDUE: VALLECULAR- THIN, WHOLE PILL WITH THIN BY STRAW. PYRIFORM - THIN OTHER : REDUCED EPIGLOTTIC DEFLECTION, THIN POSTERIOR PHARYNGEAL WALL. OSTEOPHYTE BETWEEN C5-C6. MODE RATE DYSMOTILITY AT INFERIOR REGION OF ESOPHAGUS Total fluoroscopy time: 1 minutes 43 seconds
[2022-05-23] MEDS: MAGNESIUM OXIDE 400 MG TAB PO SCH (19:40)
[2022-05-23] MEDS: PROBIOTIC PO SCH (19:41)
[2022-05-23] MEDS: RALOXIFENE HCL 60 MG TAB PO SCH (19:41)
[2022-05-23] MEDS: DOCUSATE NA/SENNA CONC 1 TAB PO SCH (19:41)
[2022-05-24] MEDS: carvediloL 3.125 MG TAB PO SCH ×2 (05:06→18:28)
[2022-05-24] MEDS: LEVOTHYROXINE SOD 0.075 MG TAB PO SCH (05:06)
[2022-05-24] MEDS: POTASSIUM CL SA 10 MEQ TAB PO SCH (07:47)
[2022-05-24] MEDS: CRANBERRY FRUIT EXTRACT 200 MG CAP PO SCH ×2 (07:48→20:09)
[2022-05-24] MEDS: APIXABAN 2.5 MG TABLET PO SCH ×2 (07:48→20:09)
[2022-05-24] MEDS: DOCUSATE NA 100 MG CAP PO SCH ×2 (07:48→20:00)
[2022-05-24] MEDS: hydroCHLOROthiazide 25 MG TAB PO SCH (07:48)
[2022-05-24] MEDS: PANTOPRAZOLE 40MG TABLET PO SCH (07:49)
[2022-05-24] MEDS: LOSARTAN POTASSIUM 50 MG TABLET PO SCH ×2 (07:49→20:00)
[2022-05-24] MEDS: ACETAMINOPHEN 500 MG TAB PO PRN (07:49)
[2022-05-24] MEDS: OCUVITE (VIT A,C & E/LUTEIN/MINERAL) TABLET PO SCH (08:00)
[2022-05-24] MEDS: TROSPIUM CHLORIDE 60 MG PO SCH (10:04)
[2022-05-24] MEDS: HOME MED 1 EA UNK (Biotin 5,000 MCG) PO SCH (10:04)
[2022-05-24] MEDS: Turmeric Root Extract 500 MG PO SCH (12:00)
[2022-05-24] MEDS: [UNRECOGNIZED DRUG - OTHER] PO SCH (12:00)
[2022-05-24] MEDS: VITAMIN D 5,000 UNIT CAP PO SCH (12:00)
[2022-05-24] MEDS: ASCORBIC ACID 500 MG TABLET PO SCH (12:10)
[2022-05-24] MEDS: VITAMIN B COMPLEX 1 CAP PO SCH (12:10)
[2022-05-24] MEDS: MAGNESIUM OXIDE 400 MG TAB PO SCH (20:09)
[2022-05-24] MEDS: RALOXIFENE HCL 60 MG TAB PO SCH (20:09)
[2022-05-24] MEDS: PROBIOTIC PO SCH (20:10)
[2022-05-25] MEDS: LEVOTHYROXINE SOD 0.075 MG TAB PO SCH (05:30)
[2022-05-25] MEDS: carvediloL 3.125 MG TAB PO SCH ×2 (05:30→16:59)
[2022-05-25] MEDS: TROSPIUM CHLORIDE 60 MG PO SCH (07:18)
[2022-05-25] MEDS: PANTOPRAZOLE 40MG TABLET PO SCH (07:18)
[2022-05-25] MEDS: ACETAMINOPHEN 500 MG TAB PO PRN ×2 (07:47→22:30)
[2022-05-25] MEDS: LOSARTAN POTASSIUM 50 MG TABLET PO SCH ×2 (08:00→20:09)
[2022-05-25] MEDS: POTASSIUM CL SA 10 MEQ TAB PO SCH (08:36)
[2022-05-25] MEDS: CRANBERRY FRUIT EXTRACT 200 MG CAP PO SCH ×2 (08:36→20:09)
[2022-05-25] MEDS: HOME MED 1 EA UNK (Biotin 5,000 MCG) PO SCH (08:36)
[2022-05-25] MEDS: APIXABAN 2.5 MG TABLET PO SCH ×2 (08:37→20:10)
[2022-05-25] MEDS: hydroCHLOROthiazide 25 MG TAB PO SCH (08:37)
[2022-05-25] MEDS: DOCUSATE NA 100 MG CAP PO SCH ×2 (08:38→20:10)
[2022-05-25] MEDS: TRAMADOL HCL 50 MG TAB PO PRN (10:32)
[2022-05-25] MEDS: Turmeric Root Extract 500 MG PO SCH (12:00)
[2022-05-25] MEDS: [UNRECOGNIZED DRUG - OTHER] PO SCH (12:00)
[2022-05-25] MEDS: ASCORBIC ACID 500 MG TABLET PO SCH (12:45)
[2022-05-25] MEDS: VITAMIN B COMPLEX 1 CAP PO SCH (12:45)
[2022-05-25] MEDS: VITAMIN D 5,000 UNIT CAP PO SCH (12:45)
[2022-05-25] MEDS: LIDOCAINE 4% PATCH TOP SCH (13:29)
[2022-05-25] MEDS: MAGNESIUM OXIDE 400 MG TAB PO SCH (20:11)
[2022-05-25] MEDS: PROBIOTIC PO SCH (20:11)
[2022-05-25] MEDS: RALOXIFENE HCL 60 MG TAB PO SCH (20:11)
[2022-05-26] MEDS: TRAMADOL HCL 50 MG TAB PO PRN (01:19)
[2022-05-26] MEDS: HYDROCODONE/APAP 5/325 MG TAB PO PRN (02:55)
[2022-05-26] MEDS: LEVOTHYROXINE SOD 0.075 MG TAB PO SCH (05:13)
[2022-05-26] MEDS: carvediloL 3.125 MG TAB PO SCH ×2 (05:13→17:30)
[2022-05-26] MEDS: DOCUSATE NA 100 MG CAP PO SCH ×2 (08:00→20:31)
[2022-05-26] MEDS: hydroCHLOROthiazide 25 MG TAB PO SCH (08:43)
[2022-05-26] MEDS: LOSARTAN POTASSIUM 50 MG TABLET PO SCH ×2 (08:43→20:31)
[2022-05-26] MEDS: POTASSIUM CL SA 10 MEQ TAB PO SCH (08:43)
[2022-05-26] MEDS: LIDOCAINE 4% PATCH TOP SCH (08:43)
[2022-05-26] MEDS: TROSPIUM CHLORIDE 60 MG PO SCH (08:44)
[2022-05-26] MEDS: APIXABAN 2.5 MG TABLET PO SCH ×2 (08:44→20:32)
[2022-05-26] MEDS: CRANBERRY FRUIT EXTRACT 200 MG CAP PO SCH ×2 (08:44→20:31)
[2022-05-26] MEDS: PANTOPRAZOLE 40MG TABLET PO SCH (08:44)
[2022-05-26] MEDS: HOME MED 1 EA UNK (Biotin 5,000 MCG) PO SCH (08:44)
--- NOTE | 2022-05-26 11:47 | RAD REPORT ---
EXAM DESCRIPTION: RAD - Lumbar Spine 3 Views - 05/26/2022 11:26 am CLINICAL HISTORY: Back pain FINDINGS: Mild anterior subluxation L4 on L5 unchanged from December 2021 Bones are osteoporotic. Mild spondylosis. Cement has been placed into an old compression fracture T12. No acute fracture. No dislocation
[2022-05-26] MEDS: ASCORBIC ACID 500 MG TABLET PO SCH (11:51)
[2022-05-26] MEDS: VITAMIN B COMPLEX 1 CAP PO SCH (11:51)
[2022-05-26] MEDS: VITAMIN D 5,000 UNIT CAP PO SCH (11:51)
[2022-05-26] MEDS: [UNRECOGNIZED DRUG - OTHER] PO SCH (11:52)
[2022-05-26] MEDS: Turmeric Root Extract 500 MG PO SCH (11:52)
--- NOTE | 2022-05-26 12:59 | RAD REPORT ---
EXAM DESCRIPTION: RAD - Hip Left 1 View - 05/26/2022 7:30 am CLINICAL HISTORY: Left hip pain FINDINGS: No fracture or dislocation is seen. The bones are osteoporotic. Moderate osteoarthritis left hip. 13 millimeter lucency overlies the medial left femoral head. This could represent a subchondral cyst or metastasis. Further evaluation with MRI may be helpful
[2022-05-26] MEDS: ACETAMINOPHEN 500 MG TAB PO PRN ×2 (15:18→21:50)
--- NOTE | 2022-05-26 17:40 | R.PN ---
PROGRESS NOTES ENCOUNTER DATE AND TIME: 05/26/2022 17:33 (CDT) NAME HERIBERTO GARCIA DATE OF : 1940 DATE OF ADMISSION: 05/20/2022 16:23 (CDT) Spinal stenosis, lumbar region (M48.06)CHIEF COMPLAINT: Spinal stenosis s/p decompression SUBJECTIVE: Pt denied any Shortness of Breath. Pt denied any depression. CBC with differential is normal. BMP is essentially normal. Glucose 116 to 188, prealbumin 13.5. Ambulated 1000' with standby assistance. VITAL SIGNS Temperature: 98.0 F SBP/DBP: 100/50 Pulse: 81 Resp: 16 She still has very wide changes in SBP from 208 to 125, and pulse 78 to 82, changing from lying to st anding. MEDICATION ALLERGIES: delsym cough and cold etodolac plendil prinivil procardia daypro epinephrine ENVIRONMENTAL ALLERGIES: - Substance Allergies None Known - Other Allergies None Known NURSING: - Shower allowing shower - Lab Results blood Sugar Check ACHS - Bladder care per protocol - Skin care per protocol PRECAUTIONS: - Fall Precaution Bed alarm TABS alarm Wheel chair alarm - DVT Risk due to restricted mobility and age - Skin Breakdown Risk due to restricted mobility and age - Back Precaution No flexion, extension or excessive rotation - Spine Precaution Log roll technique when transferring OOB (out of bed) No twisting of back ACTIVITIES OOB only with supervision THERAPIES: - Orthotics/Prosthetics Orthotic Evaluation. Splinting/Casting. - Dietary and Nutrition Adequate Nutrition. Nutritional Education. Nutritional Supplements. - Occupational Therapy Cognitive Retraining. Patient needs Occupational Therapy for a daily minimum of 1.5 hours at least 5 out of 7 days, to improve Activities of Daily Living, including: Eating, Grooming, Bathing, Dressing, Toileting, Toilet Transfers, Community Reintegration, Higher functional activities, Adaptive Equipme nt, Splinting, Household Tasks, and Other activities as determined. Visual Perceptual Training. - Physical Therapy Patient needs Physical Therapy for a daily minimum of 1.5 hours at least 5 out of 7 days, to improve: Mobility, Strengthening, Transfers, Stretching, ROM, Endurance, Ability to manage stairs, Gait, and Balance. PHYSICAL EXAM - Gen Alert and awake Lying in bed No apparent distress Oriented to: person, time, and place - Skin No skin breakdown. Normacephalic - Eyes No abnormalities - ENMT No abnormalities - Neck No abnormalities - CVS RRR - Chest No abnormalities - Resp Clear to auscultation - Abd Soft - GI Non distended Deferred - No abnormalities - Ext Mild bilateral lower extremity edema. - MSK 4/5 weakness in both lower extremities. - Neuro No focal deficits - Psych No abnormalities ASSESSMENT: Pt. is a 81 yo female of unknown race.On 05/19/2022 she was admitted to [facility] with di agnosis Spinal stenosis, lumbar region (M48.06).Her impairment category is Spinal Cord Dysfunction 04 - Other Non-traumatic Spinal Cord Dysfunction (04.130).Pre-morbidly, Pt. was independent/mod-I in L ocomotion and Self-Care; and she had good Endurance, Transfers Control, and Balance.Currently, she vera s deficits of Locomotion, Endurance, Self-Care, Transfers Control, and Balance.Pt. is now referred to [facility] for acute in-patient rehabilitation in order to maximize patient's functional independence in activities of daily living, strength, ROM, and mobility.- Rehab Goal Patient has realistic goal of being discharged at assistance level 6-Nesha to reside at Home with Fam michelle/Relatives. MDM/PLAN: - Physical Therapy Gait dysfunction - to improve, our physical therapists will perform initial evaluation of pt's statu s upon admission and devise an individualized program for Gait Training, and Wheel Chair mobility Inability to transfer - to improve, our physical therapists will perform initial evaluation of pt's status upon admission and devise an individualized program for Bed mobility Need for home safety evaluation - to improve, our physical therapists will perform initial evaluatio n of pt's status upon admission and devise an individualized program for Home Evaluation Need in caregiver upon discharge - to improve, our physical therapists will perform initial evaluati on of pt's status upon admission and devise an individualized program for Caregiver Training New precaution - to improve, our physical therapists will perform initial evaluation of pt's status upon admission and devise an individualized program for Patient precaution education Edema - to improve, our physical therapists will perform initial evaluation of pt's status upon admi ssion and devise an individualized program for Elevation Training, and Lymphedema Therapy Poor balance - to improve, our physical therapists will perform initial evaluation of pt's status up on admission and devise an individualized program for Balance Training Poor endurance - to improve, our physical therapists will perform initial evaluation of pt's status upon admission and devise an individualized program for Endurance Training Weakness - to improve, our physical therapists will perform initial evaluation of pt's status upon a dmission and devise an individualized program for Aquatic Therapy, Neuromuscular Reeducation, and Str engthening Achieving independence - to improve, our physical therapists will perform initial evaluation of pt's status upon admission and devise an individualized program for Community Reintegration Activities - Occupational Therapy ADL deficits - to improve, our occupation therapists will perform initial evaluation of pt's status upon admission and devise an individualized program for Bathing, Bed mobility, Community Reintegratio n, Cooking, Dressing, Eating, Fine Motor Skills, Grooming, Homemaking, Kitchen Mobility, Laundry, Pat ient Education, Safety Awareness, Splinting - Positioning, Transfers(Toilet, Tub, Shower), and Wheel Chair Management Need for small animal caretaker - to improve, our occupation therapists will perform initial evaluation of pt's status upon admission and devise an individualized program for Caregiver Training Weakness - to improve, our occupation therapists will perform initial evaluation of pt's status upon admission and devise an individualized program for Aquatic Therapy, Balance, Endurance, UE ROM, and UE strengthening - Other See attached MAR (Medication Administration Record) - Diet Type Continue Regular - Diet - Liquid Texture Continue Regular - Tube Feed Continue N/A - Lab Results blood Sugar Check ACHS - Bladder care per protocol - DVT Risk due to restricted mobility and age - Skin Breakdown Risk due to restricted mobility and age - Back Precaution No flexion, extension or excessive rotation - Spine Precaution Log roll technique when transferring OOB (out of bed) No twisting of back - Fall Precaution Bed alarm TABS alarm Wheel chair alarm - Skin care per protocol - Diet - Solid Texture Continue Regular - Shower allowing shower FUNCTIONAL STATUS: UPDATED AT WEEKLY TEAM CONFERENCE - Bladder Same accident frequency: 7-Ind - No accidents in the past 7 days - Bowel Same accident frequency: 7-Ind - No accidents in the past 7 days - Walking Same score based on distance walked: 0(N/A) Same score based on distance walked: 2(50-149ft) Same score based on distance walked: 3(>=150ft) - Wheelchair Same score based on distance traveled: 0(N/A) FUNCTIONAL STATUS: - Self-Care A. Eating Ind B. Grooming sup C. Bathing modA D. Dressing - Upper sup E. Dressing - Lower Johana F. Toileting Johana - Sphincter Control G. Bladder control Nesha H. Bowel control Nesha - Transfers Control I. Bed/Chair/Wheelchair Johana J. Toilet Johana K. Tub/Shower Johana - Locomotion L. Walk/Wheelchair (B) modA M. Stairs Dep - Communication N. Comprehension (B) Nesha O. Expression (B) Nesha - Social Cognition P. Social Interaction Nesha Q. Problem Solving Nesha R. Memory Nesha - Endurance Fair - Balance Fair - Safety Awareness Good QI SCORES: - Self-Care A. Eating 05-Setup or clean-up assistance B. Oral hygiene 05-Setup or clean-up assistance C. Toileting hygiene 02-Substantial/maximal assistance E. Shower/bathe self 02-Substantial/maximal assistance F. Upper body dressing 03-Partial/moderate assistance G. Lower body dressing 02-Substantial/maximal assistance H. Putting on/taking off footwear 02-Substantial/maximal assistance - Mobility A. Roll left and right 02-Substantial/maximal assistance B. Sit to lying 02-Substantial/maximal assistance C. Lying to sitting on side of bed 02-Substantial/maximal assistance D. Sit to stand 02-Substantial/maximal assistance E. Chair/[id number] transfer 02-Substantial/maximal assistance F. Toilet transfer 02-Substantial/maximal assistance G. Car transfer 88-Not attempted due to medical condition or safety concerns I. Walk 10 feet 03-Partial/moderate assistance J. Walk 50 feet with two turns 03-Partial/moderate assistance K. Walk 150 feet 03-Partial/moderate assistance L. Walking 10 feet on uneven surfaces 88-Not attempted due to medical condition or safety concerns M. 1 step (curb) 88-Not attempted due to medical condition or safety concerns N. 4 steps 88-Not attempted due to medical condition or safety concerns O. 12 steps 88-Not attempted due to medical condition or safety concerns P. Picking up object 88-Not attempted due to medical condition or safety concerns R. Wheel 50 feet with two turns 09-Not applicable S. Wheel 150 feet 09-Not applicable - Bladder and Bowel Bladder continence 2-Incontinent less than daily Bowel continence 1-Occasionally incontinent - Endurance Fair - Balance Fair - Safety Awareness Fair CURRENT [facility]. DEFICITS: Self-Care, Mobility, Endurance, Balance, and Safety Awareness SIGNATURE PANEL: (CDT)
[2022-05-26] MEDS: DOCUSATE NA/SENNA CONC 1 TAB PO PRN (20:31)
[2022-05-26] MEDS: RALOXIFENE HCL 60 MG TAB PO SCH (20:32)
[2022-05-26] MEDS: MAGNESIUM OXIDE 400 MG TAB PO SCH (20:32)
[2022-05-26] MEDS: PROBIOTIC PO SCH (20:32)
[2022-05-27] MEDS: HYDROCODONE/APAP 5/325 MG TAB PO PRN ×3 (00:55→19:15)
[2022-05-27] MEDS: TRAMADOL HCL 50 MG TAB PO PRN (01:55)
[2022-05-27] MEDS: LEVOTHYROXINE SOD 0.075 MG TAB PO SCH (06:20)
[2022-05-27] MEDS: carvediloL 3.125 MG TAB PO SCH ×2 (06:20→17:37)
[2022-05-27] MEDS: PANTOPRAZOLE 40MG TABLET PO SCH (07:39)
[2022-05-27] MEDS: TROSPIUM CHLORIDE 60 MG PO SCH (07:39)
[2022-05-27] MEDS: LOSARTAN POTASSIUM 50 MG TABLET PO SCH ×2 (08:00→20:59)
[2022-05-27] MEDS: DOCUSATE NA 100 MG CAP PO SCH ×2 (08:20→20:59)
[2022-05-27] MEDS: CRANBERRY FRUIT EXTRACT 200 MG CAP PO SCH ×2 (08:20→20:59)
[2022-05-27] MEDS: MAGNESIUM OXIDE 400 MG TAB PO SCH ×2 (08:21→20:59)
[2022-05-27] MEDS: POTASSIUM CL SA 10 MEQ TAB PO SCH (08:21)
[2022-05-27] MEDS: HOME MED 1 EA UNK (Biotin 5,000 MCG) PO SCH (08:21)
[2022-05-27] MEDS: APIXABAN 2.5 MG TABLET PO SCH ×2 (08:21→20:59)
[2022-05-27] MEDS: hydroCHLOROthiazide 25 MG TAB PO SCH (08:21)
[2022-05-27] MEDS: LIDOCAINE 4% PATCH TOP SCH (10:23)
[2022-05-27] MEDS: [UNRECOGNIZED DRUG - OTHER] PO SCH (12:00)
[2022-05-27] MEDS: Turmeric Root Extract 500 MG PO SCH (12:00)
[2022-05-27] MEDS: VITAMIN D 5,000 UNIT CAP PO SCH (12:02)
[2022-05-27] MEDS: VITAMIN B COMPLEX 1 CAP PO SCH (12:02)
[2022-05-27] MEDS: ASCORBIC ACID 500 MG TABLET PO SCH (12:02)
--- NOTE | 2022-05-27 12:08 | RAD REPORT ---
EXAM DESCRIPTION: MRI - Hip Left Wo Cont - 05/27/2022 10:14 am CLINICAL HISTORY: pain L hip COMPARISON: Hip Left 1 View dated 05/26/2022 TECHNIQUE: Multi planer imaging of the pelvis and left hip joint performed using T1 weighted, T2 fat saturation, proton density fat saturation and T2 stir sequencing. FINDINGS: No sacral ala abnormality identifiable. No abnormal edema or other abnormality of the SI j oints. Imaged portions of the bony pelvis shows scattered fatty marrow degenerative change. No fractu re or pathologic finding of the bony pelvis. No AVN or focal femoral head abnormality. Degenerative marginal spurs are present at each femoral hea d and each acetabulum. Labrum degenerative changes are present. No focal femoral head abnormality see n. The focal lucency suspected on the 05/26/2022 left hip film is a summation artifact. No joint effu coy is present. No periarticular mass or hematoma. Skeletal musculature shows no thickening or edema . No urinary bladder abnormality seen. No pelvic floor mass or abnormal fluid collection. IMPRESSION: Mild to moderate severity for age, symmetric bilateral hip joint degenerative change. No focal left hip joint or periarticular abnormality identifiable. There is no left femoral head foca l abnormality. The plain film finding on the May 26 left hip examination is a summation artifact.
[2022-05-27] MEDS: POLYETHYL GLY 3350 17 GM/DOSE PO PRN (13:53)
[2022-05-27] MEDS: LIDOCAINE 4% PATCH TOP ONE (13:53)
--- NOTE | 2022-05-27 17:48 | R.PN ---
PROGRESS NOTES ENCOUNTER DATE AND TIME: 05/27/2022 17:44 (CDT) NAME HERIBERTO GARCIA DATE OF : 1940 DATE OF ADMISSION: 05/20/2022 16:23 (CDT) Spinal stenosis, lumbar region (M48.06)CHIEF COMPLAINT: Spinal stenosis s/p decompression SUBJECTIVE: Pt denied any Shortness of Breath. Pt denied any depression. CBC with differential is normal. BMP is essentially normal. Glucose 114, prealbumin 13.5. Ambulated 1000' with standby assistance. Left hip MRI 05/27/22 show mild to moderate bilateral hip joint degeneration. No evidence of a mass or cyst as suggested by hip x-ray. Discussed with the patient and her daughter. VITAL SIGNS Temperature: 98.0 F SBP/DBP: 147/65 Pulse: 81 Resp: 16 She still has very wide changes in SBP from 208 to 125, and pulse 78 to 82, changing from lying to st anding. MEDICATION ALLERGIES: delsym cough and cold etodolac plendil prinivil procardia daypro epinephrine ENVIRONMENTAL ALLERGIES: - Substance Allergies None Known - Other Allergies None Known NURSING: - Shower allowing shower - Lab Results blood Sugar Check ACHS - Bladder care per protocol - Skin care per protocol PRECAUTIONS: - Fall Precaution Bed alarm TABS alarm Wheel chair alarm - DVT Risk due to restricted mobility and age - Skin Breakdown Risk due to restricted mobility and age - Back Precaution No flexion, extension or excessive rotation - Spine Precaution Log roll technique when transferring OOB (out of bed) No twisting of back ACTIVITIES OOB only with supervision THERAPIES: - Orthotics/Prosthetics Orthotic Evaluation. Splinting/Casting. - Dietary and Nutrition Adequate Nutrition. Nutritional Education. Nutritional Supplements. - Occupational Therapy Cognitive Retraining. Patient needs Occupational Therapy for a daily minimum of 1.5 hours at least 5 out of 7 days, to improve Activities of Daily Living, including: Eating, Grooming, Bathing, Dressing, Toileting, Toilet Transfers, Community Reintegration, Higher functional activities, Adaptive Equipme nt, Splinting, Household Tasks, and Other activities as determined. Visual Perceptual Training. - Physical Therapy Patient needs Physical Therapy for a daily minimum of 1.5 hours at least 5 out of 7 days, to improve: Mobility, Strengthening, Transfers, Stretching, ROM, Endurance, Ability to manage stairs, Gait, and Balance. PHYSICAL EXAM - Gen Alert and awake Lying in bed No apparent distress Oriented to: person, time, and place - Skin No skin breakdown. Normacephalic - Eyes No abnormalities - ENMT No abnormalities - Neck No abnormalities - CVS RRR - Chest No abnormalities - Resp Clear to auscultation - Abd Soft - GI Non distended Deferred - No abnormalities - Ext Mild bilateral lower extremity edema. - MSK 4/5 weakness in both lower extremities. - Neuro No focal deficits - Psych No abnormalities ASSESSMENT: Pt. is a 81 yo female of unknown race.On 05/19/2022 [facility] Spinal stenosis, lumbar region (M48.06).Her impairment category is Spinal Cord Dysfunction 04 - Other Non-traumatic Spinal Cord Dysfunction (04.130).Pre-morbidly, Pt. was independent/mod-I in L ocomotion and Self-Care; and she had good Endurance, Transfers Control, and Balance.Currently, she vera s deficits of Locomotion, Endurance, Self-Care, Transfers Control, and Balance.Pt. is now referred to [facility] for acute in-patient rehabilitation in order to maximize patient's functional independence in activities of daily living, strength, ROM, and mobility.- Rehab Goal Patient has realistic goal of being discharged at assistance level 6-Nesha to reside at Home with Fam michelle/Relatives. MDM/PLAN: - Physical Therapy Gait dysfunction - to improve, our physical therapists will perform initial evaluation of pt's statu s upon admission and devise an individualized program for Gait Training, and Wheel Chair mobility Inability to transfer - to improve, our physical therapists will perform initial evaluation of pt's status upon admission and devise an individualized program for Bed mobility Need for home safety evaluation - to improve, our physical therapists will perform initial evaluatio n of pt's status upon admission and devise an individualized program for Home Evaluation Need in caregiver upon discharge - to improve, our physical therapists will perform initial evaluati on of pt's status upon admission and devise an individualized program for Caregiver Training New precaution - to improve, our physical therapists will perform initial evaluation of pt's status upon admission and devise an individualized program for Patient precaution education Edema - to improve, our physical therapists will perform initial evaluation of pt's status upon admi ssion and devise an individualized program for Elevation Training, and Lymphedema Therapy Poor balance - to improve, our physical therapists will perform initial evaluation of pt's status up on admission and devise an individualized program for Balance Training Poor endurance - to improve, our physical therapists will perform initial evaluation of pt's status upon admission and devise an individualized program for Endurance Training Weakness - to improve, our physical therapists will perform initial evaluation of pt's status upon a dmission and devise an individualized program for Aquatic Therapy, Neuromuscular Reeducation, and Str engthening Achieving independence - to improve, our physical therapists will perform initial evaluation of pt's status upon admission and devise an individualized program for Community Reintegration Activities - Occupational Therapy ADL deficits - to improve, our occupation therapists will perform initial evaluation of pt's status upon admission and devise an individualized program for Bathing, Bed mobility, Community Reintegratio n, Cooking, Dressing, Eating, Fine Motor Skills, Grooming, Homemaking, Kitchen Mobility, Laundry, Pat ient Education, Safety Awareness, Splinting - Positioning, Transfers(Toilet, Tub, Shower), and Wheel Chair Management Need for acute care nurse practitioner - to improve, our occupation therapists will perform initial evaluation of pt's status upon admission and devise an individualized program for Caregiver Training Weakness - to improve, our occupation therapists will perform initial evaluation of pt's status upon admission and devise an individualized program for Aquatic Therapy, Balance, Endurance, UE ROM, and UE strengthening - Other See attached MAR (Medication Administration Record) - Diet Type Continue Regular - Diet - Liquid Texture Continue Regular - Tube Feed Continue N/A - Lab Results blood Sugar Check ACHS - Bladder care per protocol - DVT Risk due to restricted mobility and age - Skin Breakdown Risk due to restricted mobility and age - Back Precaution No flexion, extension or excessive rotation - Spine Precaution Log roll technique when transferring OOB (out of bed) No twisting of back - Fall Precaution Bed alarm TABS alarm Wheel chair alarm - Skin care per protocol - Diet - Solid Texture Continue Regular - Shower allowing shower FUNCTIONAL STATUS: UPDATED AT WEEKLY TEAM CONFERENCE - Bladder Same accident frequency: 7-Ind - No accidents in the past 7 days - Bowel Same accident frequency: 7-Ind - No accidents in the past 7 days - Walking Same score based on distance walked: 0(N/A) Same score based on distance walked: 2(50-149ft) Same score based on distance walked: 3(>=150ft) - Wheelchair Same score based on distance traveled: 0(N/A) FUNCTIONAL STATUS: - Self-Care A. Eating Ind B. Grooming sup C. Bathing modA D. Dressing - Upper sup E. Dressing - Lower Johana F. Toileting Johana - Sphincter Control G. Bladder control Nesha H. Bowel control Nesha - Transfers Control I. Bed/Chair/Wheelchair Johana J. Toilet Johana K. Tub/Shower Johana - Locomotion L. Walk/Wheelchair (B) modA M. Stairs Dep - Communication N. Comprehension (B) Nesha O. Expression (B) Nesha - Social Cognition P. Social Interaction Nesha Q. Problem Solving Nesha R. Memory Nesha - Endurance Fair - Balance Fair - Safety Awareness Good QI SCORES: - Self-Care A. Eating 05-Setup or clean-up assistance B. Oral hygiene 05-Setup or clean-up assistance C. Toileting hygiene 02-Substantial/maximal assistance E. Shower/bathe self 02-Substantial/maximal assistance F. Upper body dressing 03-Partial/moderate assistance G. Lower body dressing 02-Substantial/maximal assistance H. Putting on/taking off footwear 02-Substantial/maximal assistance - Mobility A. Roll left and right 02-Substantial/maximal assistance B. Sit to lying 02-Substantial/maximal assistance C. Lying to sitting on side of bed 02-Substantial/maximal assistance D. Sit to stand 02-Substantial/maximal assistance E. Chair/[id number] transfer 02-Substantial/maximal assistance F. Toilet transfer 02-Substantial/maximal assistance G. Car transfer 88-Not attempted due to medical condition or safety concerns I. Walk 10 feet 03-Partial/moderate assistance J. Walk 50 feet with two turns 03-Partial/moderate assistance K. Walk 150 feet 03-Partial/moderate assistance L. Walking 10 feet on uneven surfaces 88-Not attempted due to medical condition or safety concerns M. 1 step (curb) 88-Not attempted due to medical condition or safety concerns N. 4 steps 88-Not attempted due to medical condition or safety concerns O. 12 steps 88-Not attempted due to medical condition or safety concerns P. Picking up object 88-Not attempted due to medical condition or safety concerns R. Wheel 50 feet with two turns 09-Not applicable S. Wheel 150 feet 09-Not applicable - Bladder and Bowel Bladder continence 2-Incontinent less than daily Bowel continence 1-Occasionally incontinent - Endurance Fair - Balance Fair - Safety Awareness Fair CURRENT [facility]. DEFICITS: Self-Care, Mobility, Endurance, Balance, and Safety Awareness SIGNATURE PANEL: (CDT)
[2022-05-27] MEDS: RALOXIFENE HCL 60 MG TAB PO SCH (20:59)
[2022-05-27] MEDS: PROBIOTIC PO SCH (21:00)
[2022-05-28] MEDS: HYDROCODONE/APAP 5/325 MG TAB PO PRN (01:47)
[2022-05-28 04:50] LABS: Absolute Lymphocytes (CBC) 1.3 K/uL (0.7-4.9); Hematocrit 32.6 % (36.0-45.0); Lymphocytes % 21.8 % (15.3-44.8); MCV 90.4 fL (80-100); MPV 8.8 fL (7.6-11.3); RBC Red Blood Cell Count 3.61 M/uL (3.86-4.86)
[2022-05-28] MEDS: carvediloL 3.125 MG TAB PO SCH ×2 (05:09→17:39)
[2022-05-28 05:16] LABS: Albumin 2.8 g/dL (3.4-5.0); Magnesium 1.9 mg/dL (1.8-2.4); Potassium 3.6 mmol/L (3.5-5.1); Prealbumin 13.3 mg/dL (20-40)
[2022-05-28] MEDS: PANTOPRAZOLE 40MG TABLET PO SCH (07:13)
[2022-05-28] MEDS: LEVOTHYROXINE SOD 0.075 MG TAB PO SCH (07:13)
[2022-05-28] MEDS: LOSARTAN POTASSIUM 50 MG TABLET PO SCH ×2 (08:00→19:29)
[2022-05-28] MEDS: CRANBERRY FRUIT EXTRACT 200 MG CAP PO SCH ×2 (08:26→19:29)
[2022-05-28] MEDS: APIXABAN 2.5 MG TABLET PO SCH ×2 (08:26→19:29)
[2022-05-28] MEDS: LIDOCAINE 4% PATCH TOP SCH (08:26)
[2022-05-28] MEDS: DOCUSATE NA 100 MG CAP PO SCH ×2 (08:27→19:30)
[2022-05-28] MEDS: MAGNESIUM OXIDE 400 MG TAB PO SCH ×2 (08:28→19:29)
[2022-05-28] MEDS: POTASSIUM CL SA 10 MEQ TAB PO SCH (08:28)
[2022-05-28] MEDS: hydroCHLOROthiazide 25 MG TAB PO SCH (08:30)
[2022-05-28] MEDS: TROSPIUM CHLORIDE 60 MG PO SCH (08:31)
[2022-05-28] MEDS: HOME MED 1 EA UNK (Biotin 5,000 MCG) PO SCH (08:31)
[2022-05-28] MEDS: Turmeric Root Extract 500 MG PO SCH (12:00)
[2022-05-28] MEDS: [UNRECOGNIZED DRUG - OTHER] PO SCH (12:00)
[2022-05-28] MEDS: LIDOCAINE 4% PATCH TOP ONE (14:00)
[2022-05-28] MEDS: VITAMIN B COMPLEX 1 CAP PO SCH (14:29)
[2022-05-28] MEDS: ASCORBIC ACID 500 MG TABLET PO SCH (14:29)
[2022-05-28] MEDS: VITAMIN D 5,000 UNIT CAP PO SCH (14:29)
[2022-05-28] MEDS ORDERED: BACLOFEN 10 MG TAB PO PRN (18:01)
[2022-05-28] MEDS: RALOXIFENE HCL 60 MG TAB PO SCH (19:28)
[2022-05-28] MEDS: DOCUSATE NA/SENNA CONC 1 TAB PO PRN (19:29)
[2022-05-28] MEDS: PROBIOTIC PO SCH (19:30)
--- NOTE | 2022-05-28 20:23 | R.PN ---
PROGRESS NOTES ENCOUNTER DATE AND TIME: 05/28/2022 18:06 (CDT) NAME HERIBERTO GARCIA DATE OF : 1940 DATE OF ADMISSION: 05/20/2022 16:23 (CDT) Spinal stenosis, lumbar region (M48.06)CHIEF COMPLAINT: Spinal stenosis s/p decompression SUBJECTIVE: Pt denied any Shortness of Breath. Pt denied any depression. CBC with differential is essentially normal. BMP is essentially normal. Glucose 158, prealbumin 13.3. Ambulated 250' with standby assistance using a rollator. Left hip MRI 05/27/22 show mild to moderate bilateral hip joint degeneration. No evidence of a mass or cyst as suggested by hip x-ray. Discussed with the patient and her daughter. VITAL SIGNS Temperature: 98.3 F SBP/DBP: 138/63 Pulse: 71 Resp: 16 She still has very wide changes in SBP from 201 to 58, and pulse 68 to 732, changing from lying to st anding. MEDICATION ALLERGIES: delsym cough and cold etodolac plendil prinivil procardia daypro epinephrine ENVIRONMENTAL ALLERGIES: - Substance Allergies None Known - Other Allergies None Known NURSING: - Shower allowing shower - Lab Results blood Sugar Check ACHS - Bladder care per protocol - Skin care per protocol PRECAUTIONS: - Fall Precaution Bed alarm TABS alarm Wheel chair alarm - DVT Risk due to restricted mobility and age - Skin Breakdown Risk due to restricted mobility and age - Back Precaution No flexion, extension or excessive rotation - Spine Precaution Log roll technique when transferring OOB (out of bed) No twisting of back ACTIVITIES OOB only with supervision THERAPIES: - Orthotics/Prosthetics Orthotic Evaluation. Splinting/Casting. - Dietary and Nutrition Adequate Nutrition. Nutritional Education. Nutritional Supplements. - Occupational Therapy Cognitive Retraining. Patient needs Occupational Therapy for a daily minimum of 1.5 hours at least 5 out of 7 days, to improve Activities of Daily Living, including: Eating, Grooming, Bathing, Dressing, Toileting, Toilet Transfers, Community Reintegration, Higher functional activities, Adaptive Equipme nt, Splinting, Household Tasks, and Other activities as determined. Visual Perceptual Training. - Physical Therapy Patient needs Physical Therapy for a daily minimum of 1.5 hours at least 5 out of 7 days, to improve: Mobility, Strengthening, Transfers, Stretching, ROM, Endurance, Ability to manage stairs, Gait, and Balance. PHYSICAL EXAM - Gen Alert and awake Lying in bed No apparent distress Oriented to: person, time, and place - Skin No skin breakdown. Normacephalic - Eyes No abnormalities - ENMT No abnormalities - Neck No abnormalities - CVS RRR - Chest No abnormalities - Resp Clear to auscultation - Abd Soft - GI Non distended Deferred - No abnormalities - Ext Mild bilateral lower extremity edema. - MSK 4/5 weakness in both lower extremities. - Neuro No focal deficits - Psych No abnormalities ASSESSMENT: Pt. is a 81 yo female of unknown race.On 05/19/2022 she was admitted to [facility] with di agnosis Spinal stenosis, lumbar region (M48.06).Her impairment category is Spinal Cord Dysfunction 04 - Other Non-traumatic Spinal Cord Dysfunction (04.130).Pre-morbidly, Pt. was independent/mod-I in L ocomotion and Self-Care; and she had good Endurance, Transfers Control, and Balance.Currently, she vera s deficits of Locomotion, Endurance, Self-Care, Transfers Control, and Balance.Pt. is now referred to [facility] for acute in-patient rehabilitation in order to maximize patient's functional independence in activities of daily living, strength, ROM, and mobility.- Rehab Goal Patient has realistic goal of being discharged at assistance level 6-Nesha to reside at Home with Fam michelle/Relatives. MDM/PLAN: - Physical Therapy Gait dysfunction - to improve, our physical therapists will perform initial evaluation of pt's statu s upon admission and devise an individualized program for Gait Training, and Wheel Chair mobility Inability to transfer - to improve, our physical therapists will perform initial evaluation of pt's status upon admission and devise an individualized program for Bed mobility Need for home safety evaluation - to improve, our physical therapists will perform initial evaluatio n of pt's status upon admission and devise an individualized program for Home Evaluation Need in caregiver upon discharge - to improve, our physical therapists will perform initial evaluati on of pt's status upon admission and devise an individualized program for Caregiver Training New precaution - to improve, our physical therapists will perform initial evaluation of pt's status upon admission and devise an individualized program for Patient precaution education Edema - to improve, our physical therapists will perform initial evaluation of pt's status upon admi ssion and devise an individualized program for Elevation Training, and Lymphedema Therapy Poor balance - to improve, our physical therapists will perform initial evaluation of pt's status up on admission and devise an individualized program for Balance Training Poor endurance - to improve, our physical therapists will perform initial evaluation of pt's status upon admission and devise an individualized program for Endurance Training Weakness - to improve, our physical therapists will perform initial evaluation of pt's status upon a dmission and devise an individualized program for Aquatic Therapy, Neuromuscular Reeducation, and Str engthening Achieving independence - to improve, our physical therapists will perform initial evaluation of pt's status upon admission and devise an individualized program for Community Reintegration Activities - Occupational Therapy ADL deficits - to improve, our occupation therapists will perform initial evaluation of pt's status upon admission and devise an individualized program for Bathing, Bed mobility, Community Reintegratio n, Cooking, Dressing, Eating, Fine Motor Skills, Grooming, Homemaking, Kitchen Mobility, Laundry, Pat ient Education, Safety Awareness, Splinting - Positioning, Transfers(Toilet, Tub, Shower), and Wheel Chair Management Need for healthcare analyst - to improve, our occupation therapists will perform initial evaluation of pt's status upon admission and devise an individualized program for Caregiver Training Weakness - to improve, our occupation therapists will perform initial evaluation of pt's status upon admission and devise an individualized program for Aquatic Therapy, Balance, Endurance, UE ROM, and UE strengthening - Other See attached MAR (Medication Administration Record) - Diet Type Continue Regular - Diet - Liquid Texture Continue Regular - Tube Feed Continue N/A - Lab Results blood Sugar Check ACHS - Bladder care per protocol - DVT Risk due to restricted mobility and age - Skin Breakdown Risk due to restricted mobility and age - Back Precaution No flexion, extension or excessive rotation - Spine Precaution Log roll technique when transferring OOB (out of bed) No twisting of back - Fall Precaution Bed alarm TABS alarm Wheel chair alarm - Skin care per protocol - Diet - Solid Texture Continue Regular - Shower allowing shower FUNCTIONAL STATUS: UPDATED AT WEEKLY TEAM CONFERENCE - Bladder Same accident frequency: 7-Ind - No accidents in the past 7 days - Bowel Same accident frequency: 7-Ind - No accidents in the past 7 days - Walking Same score based on distance walked: 0(N/A) Same score based on distance walked: 2(50-149ft) Same score based on distance walked: 3(>=150ft) - Wheelchair Same score based on distance traveled: 0(N/A) FUNCTIONAL STATUS: - Self-Care A. Eating Ind B. Grooming sup C. Bathing modA D. Dressing - Upper sup E. Dressing - Lower Johana F. Toileting Johana - Sphincter Control G. Bladder control Nesha H. Bowel control Nesha - Transfers Control I. Bed/Chair/Wheelchair Johana J. Toilet Johana K. Tub/Shower Johana - Locomotion L. Walk/Wheelchair (B) modA M. Stairs Dep - Communication N. Comprehension (B) Nesha O. Expression (B) Nesha - Social Cognition P. Social Interaction Nesha Q. Problem Solving Nesha R. Memory Nesha - Endurance Fair - Balance Fair - Safety Awareness Good QI SCORES: - Self-Care A. Eating 05-Setup or clean-up assistance B. Oral hygiene 05-Setup or clean-up assistance C. Toileting hygiene 02-Substantial/maximal assistance E. Shower/bathe self 02-Substantial/maximal assistance F. Upper body dressing 03-Partial/moderate assistance G. Lower body dressing 02-Substantial/maximal assistance H. Putting on/taking off footwear 02-Substantial/maximal assistance - Mobility A. Roll left and right 02-Substantial/maximal assistance B. Sit to lying 02-Substantial/maximal assistance C. Lying to sitting on side of bed 02-Substantial/maximal assistance D. Sit to stand 02-Substantial/maximal assistance E. Chair/[id number] transfer 02-Substantial/maximal assistance F. Toilet transfer 02-Substantial/maximal assistance G. Car transfer 88-Not attempted due to medical condition or safety concerns I. Walk 10 feet 03-Partial/moderate assistance J. Walk 50 feet with two turns 03-Partial/moderate assistance K. Walk 150 feet 03-Partial/moderate assistance L. Walking 10 feet on uneven surfaces 88-Not attempted due to medical condition or safety concerns M. 1 step (curb) 88-Not attempted due to medical condition or safety concerns N. 4 steps 88-Not attempted due to medical condition or safety concerns O. 12 steps 88-Not attempted due to medical condition or safety concerns P. Picking up object 88-Not attempted due to medical condition or safety concerns R. Wheel 50 feet with two turns 09-Not applicable S. Wheel 150 feet 09-Not applicable - Bladder and Bowel Bladder continence 2-Incontinent less than daily Bowel continence 1-Occasionally incontinent - Endurance Fair - Balance Fair - Safety Awareness Fair [facility]RENT [facility]. DEFICITS: Self-Care, Mobility, Endurance, Balance, and Safety Awareness SIGNATURE PANEL: (CDT)
[2022-05-29] MEDS: carvediloL 3.125 MG TAB PO SCH ×2 (06:08→17:23)
[2022-05-29] MEDS: LEVOTHYROXINE SOD 0.075 MG TAB PO SCH (06:09)
--- NOTE | 2022-05-29 09:42 | P.RH.PN ---
Estimated Length of Stay: 12 Expected Discharge Date: 06/01/22 Discharge Disposition Plan: Home Family Support: Yes Jail Goal: Mobility, Transfers, Self Care Vital Signs: Last Vital Signs Temp 98.6 F 05/29/22 08:18 Pulse 76 05/29/22 08:18 Resp 16 05/29/22 08:18 BP 180/75 H 05/29/22 08:18 Pulse Ox 96 05/29/22 08:18 Laboratory: Laboratory Last Values WBC 6.0 K/uL (4.3-10.9) 05/28/22 04:27 RBC 3.61 M/uL (3.86-4.86) L 05/28/22 04:27 Hgb 11.0 g/dL (12.0-15.0) L 05/28/22 04:27 Hct 32.6 % (36.0-45.0) L 05/28/22 04:27 MCV 90.4 fL (80-100) 05/28/22 04:27 MCH 30.5 pg (27.0-35.0) 05/28/22 04:27 MCHC 33.7 g/dL (32.0-36.0) 05/28/22 04:27 RDW 13.5 % (12.1-15.2) 05/28/22 04:27 Plt Count 164 K/uL (152-406) 05/28/22 04:27 MPV 8.8 fL (7.6-11.3) 05/28/22 04:27 Neutrophils % 66.1 % (41.7-73.7) 05/28/22 04:27 Lymphocytes % 21.8 % (15.3-44.8) 05/28/22 04:27 Monocytes % 11.4 % (3.3-12.3) 05/28/22 04:27 Eosinophils % 0.5 % (0-4.4) 05/28/22 04:27 Basophils % 0.2 % (0-1.3) 05/28/22 04:27 Absolute Neutrophils 4.0 K/uL (1.8-8.0) 05/28/22 04:27 Absolute Lymphocytes 1.3 K/uL (0.7-4.9) 05/28/22 04:27 Absolute Monocytes 0.7 K/uL (0.1-1.3) 05/28/22 04:27 Absolute Eosinophils 0.0 K/uL (0-0.5) 05/28/22 04:27 Absolute Basophils 0.0 K/uL (0-0.5) 05/28/22 04:27 Sodium 133 mmol/L (136-145) L 05/28/22 04:27 Potassium 3.6 mmol/L (3.5-5.1) 05/28/22 04:27 Chloride 100 mmol/L (98-107) 05/28/22 04:27 Carbon Dioxide 30 mmol/L (21-32) 05/28/22 04:27 Anion Gap 6.6 mEq/L (5.0-15.0) 05/28/22 04:27 BUN 18 mg/dL (7-18) 05/28/22 04:27 Creatinine 0.64 mg/dL (0.55-1.3) 05/28/22 04:27 Est GFR (CKD-EPI) 88 ml/min (=/>90) L 05/28/22 04:27 Glucose 132 mg/dL (74-106) H 05/28/22 04:27 POC Glucose 130 mg/dL (65-120) H 05/29/22 08:04 Calcium 8.5 mg/dL (8.5-10.1) 05/28/22 04:27 Magnesium 1.9 mg/dL (1.8-2.4) 05/28/22 04:27 Albumin 2.8 g/dL (3.4-5.0) L 05/28/22 04:27 Prealbumin 13.3 mg/dL (20-40) L 05/28/22 04:27 Urine Color Yellow (Yellow) 05/21/22 02:03 Urine Clarity Clear (Clear) 05/21/22 02:03 Urine pH 7.0 (5.0-7.0) 05/21/22 02:03 Ur Specific [place] 1.020 (1.005-1.030) 05/21/22 02:03 Glucose (UA)(Auto) Negative (Negative) 05/21/22 02:03 Urine Ketones Negative (Negative) 05/21/22 02:03 Urine Blood Negative (Negative) 05/21/22 02:03 Urine Nitrite Negative (Negative) 05/21/22 02:03 Urine Bilirubin Negative (Negative) 05/21/22 02:03 Urine Urobilinogen 0.2 mg/dL (0.2-1.0) 05/21/22 02:03 Ur Leukocyte Esterase Negative (Negative) 05/21/22 02:03 Urine RBC None seen /HPF (None Seen) 05/21/22 02:03 Urine Red Cell Clumps Cancelled 05/21/22 01:50 Urine WBC <5 /HPF (<5) 05/21/22 02:03 Urine WBC Clumps Cancelled 05/21/22 01:50 Ur Squamous Epith Cells <5 /HPF (None Seen) 05/21/22 02:03 U Non-Squamous Epi Cells Cancelled 05/21/22 01:50 Ur Transition Epith Cell Cancelled 05/21/22 01:50 Ur Renal Epithelial Cell Cancelled 05/21/22 01:50 Calcium Carbonate Cryst Cancelled 05/21/22 01:50 Calcium Oxalate Crystal Cancelled 05/21/22 01:50 Leucine Crystals Cancelled 05/21/22 01:50 Cystine Crystals Cancelled 05/21/22 01:50 Uric Acid Crystals Cancelled 05/21/22 01:50 Triple Phos Crystals Cancelled 05/21/22 01:50 Tyrosine Crystals Cancelled 05/21/22 01:50 Unidentified Crystals Cancelled 05/21/22 01:50 Amorphous Crystals Cancelled 05/21/22 01:50 Urine Bacteria <20 /HPF (<20) 05/21/22 02:03 Hyaline Casts Cancelled 05/21/22 01:50 Granular Casts Cancelled 05/21/22 01:50 Waxy Casts Cancelled 05/21/22 01:50 RBC Casts Cancelled 05/21/22 01:50 WBC Casts Cancelled 05/21/22 01:50 Urine Mucus Cancelled 05/21/22 01:50 Urine Trichomonas Cancelled 05/21/22 01:50 Ur Yeast w Hyphae Cancelled 05/21/22 01:50 Urine Yeast (Budding) Few /HPF (None Seen) H 05/21/22 02:03 Urine Sperm Cancelled 05/21/22 01:50 Ur Oval Fat Bodies Cancelled 05/21/22 01:50 Urine Total Protein Negative (Negative) 05/21/22 02:03 Urine Ascorbic Acid Cancelled 05/21/22 01:50 Urine Fat Cancelled 05/21/22 01:50 SARS-CoV-2 Rap RNA(RT-PCR) Negative (NEGATIVE) 05/23/22 11:15 Weight: 124 lb 8 oz Wound Present: Yes Closed Surgical Incision Present: Yes Negative Pressure Wound Therapy Present: No Physician Update: Labs reviewed and are stable. Mod hayde with rolling, supine tosit SBA, max hayde with transfers. 1050' with walker min hayde. Up and down 3 steps with mod hayde. Shower transfers CGA, bathing as well, lower body CGA. Mod hayde with toileting. Swallow delay and delayed oral phase of swallowing. May discharge Thursday next week. Functional Improvement: Patient has progressed well w/ short-term goals, and continues to progress toward long-term goals, however continues to exhibit difficulty w/ bed mobility, and [place] w/ sit <> stand transfers. Summary: Patient's care plan and technician terminal and repeater goals have been reviewed and revised as necessary. Please see the Rehabilitation Signature page for all necessary signatures.
[2022-05-29] MEDS: LIDOCAINE 4% PATCH TOP SCH (10:03)
[2022-05-29] MEDS: MAGNESIUM OXIDE 400 MG TAB PO SCH ×2 (10:04→20:13)
[2022-05-29] MEDS: POTASSIUM CL SA 10 MEQ TAB PO SCH (10:04)
[2022-05-29] MEDS: CRANBERRY FRUIT EXTRACT 200 MG CAP PO SCH ×2 (10:04→20:13)
[2022-05-29] MEDS: APIXABAN 2.5 MG TABLET PO SCH ×2 (10:04→20:14)
[2022-05-29] MEDS: PANTOPRAZOLE 40MG TABLET PO SCH (10:04)
[2022-05-29] MEDS: hydroCHLOROthiazide 25 MG TAB PO SCH (10:05)
[2022-05-29] MEDS: TROSPIUM CHLORIDE 60 MG PO SCH (10:05)
[2022-05-29] MEDS: HOME MED 1 EA UNK (Biotin 5,000 MCG) PO SCH (10:05)
[2022-05-29] MEDS: DOCUSATE NA 100 MG CAP PO SCH ×2 (10:05→20:14)
[2022-05-29] MEDS ORDERED: FLEET ENEMA ADULT PR PRN (10:53)
[2022-05-29] MEDS: ACETAMINOPHEN 500 MG TAB PO PRN ×2 (10:55→20:48)
[2022-05-29] MEDS: Turmeric Root Extract 500 MG PO SCH (12:00)
[2022-05-29] MEDS: [UNRECOGNIZED DRUG - OTHER] PO SCH (12:00)
[2022-05-29] MEDS: VITAMIN B COMPLEX 1 CAP PO SCH (13:23)
[2022-05-29] MEDS: ASCORBIC ACID 500 MG TABLET PO SCH (13:23)
[2022-05-29] MEDS: VITAMIN D 5,000 UNIT CAP PO SCH (13:23)
[2022-05-29] MEDS: DOCUSATE NA/SENNA CONC 1 TAB PO PRN (20:13)
[2022-05-29] MEDS: LOSARTAN POTASSIUM 50 MG TABLET PO SCH (20:13)
[2022-05-29] MEDS: PROBIOTIC PO SCH (20:14)
[2022-05-29] MEDS: RALOXIFENE HCL 60 MG TAB PO SCH (20:14)
[2022-05-29] MEDS: GLUCERNA SHAKE 237 ML CAN PO SCH (20:21)
[2022-05-30] MEDS: carvediloL 3.125 MG TAB PO SCH ×2 (06:09→17:08)
[2022-05-30] MEDS: LEVOTHYROXINE SOD 0.075 MG TAB PO SCH (06:09)
[2022-05-30] MEDS: hydroCHLOROthiazide 25 MG TAB PO SCH ×2 (08:00→09:02)
[2022-05-30] MEDS: APIXABAN 2.5 MG TABLET PO SCH ×2 (08:21→20:26)
[2022-05-30] MEDS: PANTOPRAZOLE 40MG TABLET PO SCH (08:39)
[2022-05-30] MEDS: HOME MED 1 EA UNK (Biotin 5,000 MCG) PO SCH (08:59)
[2022-05-30] MEDS: TROSPIUM CHLORIDE 60 MG PO SCH (08:59)
[2022-05-30] MEDS: CRANBERRY FRUIT EXTRACT 200 MG CAP PO SCH ×2 (09:00→20:26)
[2022-05-30] MEDS: LIDOCAINE 4% PATCH TOP SCH (09:00)
[2022-05-30] MEDS: DOCUSATE NA 100 MG CAP PO SCH ×2 (09:01→20:00)
[2022-05-30] MEDS: MAGNESIUM OXIDE 400 MG TAB PO SCH ×2 (09:02→20:27)
[2022-05-30] MEDS: POTASSIUM CL SA 10 MEQ TAB PO SCH (09:02)
[2022-05-30] MEDS: GLUCERNA SHAKE 237 ML CAN PO SCH ×2 (09:03→20:27)
[2022-05-30] MEDS: ACETAMINOPHEN 500 MG TAB PO PRN ×2 (09:07→20:27)
[2022-05-30] MEDS: Turmeric Root Extract 500 MG PO SCH (12:00)
[2022-05-30] MEDS: [UNRECOGNIZED DRUG - OTHER] PO SCH (12:00)
[2022-05-30] MEDS: VITAMIN D 5,000 UNIT CAP PO SCH (12:00)
[2022-05-30] MEDS: VITAMIN B COMPLEX 1 CAP PO SCH (12:31)
[2022-05-30] MEDS: ASCORBIC ACID 500 MG TABLET PO SCH (12:31)
[2022-05-30] MEDS: RALOXIFENE HCL 60 MG TAB PO SCH (20:26)
[2022-05-30] MEDS: LOSARTAN POTASSIUM 50 MG TABLET PO SCH (20:27)
[2022-05-30] MEDS: PROBIOTIC PO SCH (20:28)
[2022-05-31] MEDS: clonazePAM 0.5 MG TAB PO PRN ×2 (01:04→19:51)
[2022-05-31] MEDS: carvediloL 3.125 MG TAB PO SCH ×2 (05:36→17:17)
[2022-05-31] MEDS: LEVOTHYROXINE SOD 0.075 MG TAB PO SCH (05:36)
[2022-05-31] MEDS: LIDOCAINE 4% PATCH TOP SCH (06:59)
[2022-05-31] MEDS: PANTOPRAZOLE 40MG TABLET PO SCH (06:59)
[2022-05-31] MEDS: TROSPIUM CHLORIDE 60 MG PO SCH (06:59)
[2022-05-31] MEDS: hydroCHLOROthiazide 25 MG TAB PO SCH (07:40)
[2022-05-31] MEDS: DOCUSATE NA 100 MG CAP PO SCH ×3 (08:00→19:54)
[2022-05-31] MEDS: HOME MED 1 EA UNK (Biotin 5,000 MCG) PO SCH (08:04)
[2022-05-31] MEDS: APIXABAN 2.5 MG TABLET PO SCH ×2 (08:05→19:52)
[2022-05-31] MEDS: CRANBERRY FRUIT EXTRACT 200 MG CAP PO SCH ×2 (08:05→19:51)
[2022-05-31] MEDS: MAGNESIUM OXIDE 400 MG TAB PO SCH ×2 (08:06→19:52)
[2022-05-31] MEDS: POTASSIUM CL SA 10 MEQ TAB PO SCH (08:06)
[2022-05-31] MEDS: GLUCERNA SHAKE 237 ML CAN PO SCH ×2 (08:06→19:50)
[2022-05-31] MEDS: [UNRECOGNIZED DRUG - OTHER] PO SCH (12:00)
[2022-05-31] MEDS: Turmeric Root Extract 500 MG PO SCH (12:00)
[2022-05-31] MEDS: VITAMIN B COMPLEX 1 CAP PO SCH (12:35)
[2022-05-31] MEDS: ASCORBIC ACID 500 MG TABLET PO SCH (12:35)
[2022-05-31] MEDS: VITAMIN D 5,000 UNIT CAP PO SCH (12:36)
[2022-05-31] MEDS: LOSARTAN POTASSIUM 50 MG TABLET PO SCH (19:51)
[2022-05-31] MEDS: RALOXIFENE HCL 60 MG TAB PO SCH (19:51)
[2022-05-31] MEDS: PROBIOTIC PO SCH (19:55)
[2022-05-31] MEDS: ACETAMINOPHEN 500 MG TAB PO PRN (21:09)
[2022-06-01] MEDS: carvediloL 3.125 MG TAB PO SCH ×2 (05:21→16:48)
[2022-06-01] MEDS: LEVOTHYROXINE SOD 0.075 MG TAB PO SCH (05:21)
[2022-06-01] MEDS: TROSPIUM CHLORIDE 60 MG PO SCH (07:09)
[2022-06-01] MEDS: PANTOPRAZOLE 40MG TABLET PO SCH (07:09)
[2022-06-01] MEDS: LIDOCAINE 4% PATCH TOP SCH (07:10)
[2022-06-01] MEDS: hydroCHLOROthiazide 25 MG TAB PO SCH (07:26)
[2022-06-01] MEDS: HOME MED 1 EA UNK (Biotin 5,000 MCG) PO SCH (08:14)
[2022-06-01] MEDS: POTASSIUM CL SA 10 MEQ TAB PO SCH (08:15)
[2022-06-01] MEDS: GLUCERNA SHAKE 237 ML CAN PO SCH ×2 (08:15→20:25)
[2022-06-01] MEDS: MAGNESIUM OXIDE 400 MG TAB PO SCH ×2 (08:15→20:25)
[2022-06-01] MEDS: CRANBERRY FRUIT EXTRACT 200 MG CAP PO SCH ×2 (08:15→20:24)
[2022-06-01] MEDS: APIXABAN 2.5 MG TABLET PO SCH ×2 (08:15→20:25)
[2022-06-01] MEDS: DOCUSATE NA 100 MG CAP PO SCH ×2 (08:15→20:25)
[2022-06-01] MEDS: ACETAMINOPHEN 500 MG TAB PO PRN ×2 (11:29→20:24)
[2022-06-01] MEDS: ASCORBIC ACID 500 MG TABLET PO SCH (11:30)
[2022-06-01] MEDS: VITAMIN B COMPLEX 1 CAP PO SCH (11:30)
[2022-06-01] MEDS: VITAMIN D 5,000 UNIT CAP PO SCH (11:30)
[2022-06-01] MEDS: Turmeric Root Extract 500 MG PO SCH (12:00)
[2022-06-01] MEDS: [UNRECOGNIZED DRUG - OTHER] PO SCH (12:00)
[2022-06-01] MEDS: LOSARTAN POTASSIUM 50 MG TABLET PO SCH (20:24)
[2022-06-01] MEDS: RALOXIFENE HCL 60 MG TAB PO SCH (20:24)
[2022-06-02] MEDS: carvediloL 3.125 MG TAB PO SCH ×2 (05:36→17:26)
[2022-06-02] MEDS: LEVOTHYROXINE SOD 0.075 MG TAB PO SCH (05:36)
[2022-06-02] MEDS: PANTOPRAZOLE 40MG TABLET PO SCH (07:37)
[2022-06-02] MEDS: APIXABAN 2.5 MG TABLET PO SCH ×2 (07:38→20:45)
[2022-06-02] MEDS: DOCUSATE NA 100 MG CAP PO SCH ×2 (07:39→20:45)
[2022-06-02] MEDS: CRANBERRY FRUIT EXTRACT 200 MG CAP PO SCH ×2 (07:39→20:44)
[2022-06-02] MEDS: LIDOCAINE 4% PATCH TOP SCH (07:39)
[2022-06-02] MEDS: POTASSIUM CL SA 10 MEQ TAB PO SCH (07:39)
[2022-06-02] MEDS: MAGNESIUM OXIDE 400 MG TAB PO SCH ×2 (07:39→20:45)
[2022-06-02] MEDS: HOME MED 1 EA UNK (Biotin 5,000 MCG) PO SCH (09:08)
[2022-06-02] MEDS: TROSPIUM CHLORIDE 60 MG PO SCH (09:08)
[2022-06-02] MEDS: GLUCERNA SHAKE 237 ML CAN PO SCH ×2 (09:09→20:46)
[2022-06-02] MEDS: hydroCHLOROthiazide 25 MG TAB PO SCH (09:09)
[2022-06-02] MEDS: VITAMIN D 5,000 UNIT CAP PO SCH (12:00)
[2022-06-02] MEDS: ACETAMINOPHEN 500 MG TAB PO PRN ×2 (12:20→21:17)
[2022-06-02] MEDS: ASCORBIC ACID 500 MG TABLET PO SCH (13:37)
[2022-06-02] MEDS: VITAMIN B COMPLEX 1 CAP PO SCH (13:37)
--- NOTE | 2022-06-02 17:17 | R.PN ---
PROGRESS NOTES ENCOUNTER DATE AND TIME: 06/02/2022 17:13 (CDT) NAME HERIBERTO GARCIA DATE OF : 1940 DATE OF ADMISSION: 05/20/2022 16:23 (CDT) Spinal stenosis, lumbar region (M48.06)CHIEF COMPLAINT: Spinal stenosis s/p decompression SUBJECTIVE: Pt denied any Shortness of Breath. Pt denied any depression. CBC with differential is essentially normal. BMP is essentially normal. Glucose 105 to 153. prealbumi n 13.3. Ambulated 750' with modified independence using a rollator. Up and down 15 steps with modified indepe ndence. Left hip MRI 05/27/22 show mild to moderate bilateral hip joint degeneration. No evidence of a mass or cyst as suggested by hip x-ray. Discussed with the patient and her daughter. To be discharged home in the AM. VITAL SIGNS Temperature: 98.3 F SBP/DBP: 121/53 Pulse: 70 Resp: 15 MEDICATION ALLERGIES: delsym cough and cold etodolac plendil prinivil procardia daypro epinephrine ENVIRONMENTAL ALLERGIES: - Substance Allergies None Known - Other Allergies None Known NURSING: - Shower allowing shower - Lab Results blood Sugar Check ACHS - Bladder care per protocol - Skin care per protocol PRECAUTIONS: - Fall Precaution Bed alarm TABS alarm Wheel chair alarm - DVT Risk due to restricted mobility and age - Skin Breakdown Risk due to restricted mobility and age - Back Precaution No flexion, extension or excessive rotation - Spine Precaution Log roll technique when transferring OOB (out of bed) No twisting of back ACTIVITIES OOB only with supervision THERAPIES: - Orthotics/Prosthetics Orthotic Evaluation. Splinting/Casting. - Dietary and Nutrition Adequate Nutrition. Nutritional Education. Nutritional Supplements. - Occupational Therapy Cognitive Retraining. Patient needs Occupational Therapy for a daily minimum of 1.5 hours at least 5 out of 7 days, to improve Activities of Daily Living, including: Eating, Grooming, Bathing, Dressing, Toileting, Toilet Transfers, Community Reintegration, Higher functional activities, Adaptive Equipme nt, Splinting, Household Tasks, and Other activities as determined. Visual Perceptual Training. - Physical Therapy Patient needs Physical Therapy for a daily minimum of 1.5 hours at least 5 out of 7 days, to improve: Mobility, Strengthening, Transfers, Stretching, ROM, Endurance, Ability to manage stairs, Gait, and Balance. PHYSICAL EXAM - Gen Alert and awake Lying in bed No apparent distress Oriented to: person, time, and place - Skin No skin breakdown. Normacephalic - Eyes No abnormalities - ENMT No abnormalities - Neck No abnormalities - CVS RRR - Chest No abnormalities - Resp Clear to auscultation - Abd Soft - GI Non distended Deferred - No abnormalities - Ext Mild bilateral lower extremity edema. - MSK 4/5 weakness in both lower extremities. - Neuro No focal deficits - Psych No abnormalities ASSESSMENT: Pt. 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 was independent/mod-I in L ocomotion and Self-Care; and she had good Endurance, Transfers Control, and Balance.Currently, she vera s deficits of Locomotion, Endurance, Self-Care, Transfers Control, and Balance.Pt. is now referred to [facility] for acute in-patient rehabilitation in order to maximize patient's functional independence in activities of daily living, strength, ROM, and mobility.- Rehab Goal Patient has realistic goal of being discharged at assistance level 6-Nesha to reside at Home with Fam michelle/Relatives. MDM/PLAN: - Physical Therapy Gait dysfunction - to improve, our physical therapists will perform initial evaluation of pt's statu s upon admission and devise an individualized program for Gait Training, and Wheel Chair mobility Inability to transfer - to improve, our physical therapists will perform initial evaluation of pt's status upon admission and devise an individualized program for Bed mobility Need for home safety evaluation - to improve, our physical therapists will perform initial evaluatio n of pt's status upon admission and devise an individualized program for Home Evaluation Need in caregiver upon discharge - to improve, our physical therapists will perform initial evaluati on of pt's status upon admission and devise an individualized program for Caregiver Training New precaution - to improve, our physical therapists will perform initial evaluation of pt's status upon admission and devise an individualized program for Patient precaution education Edema - to improve, our physical therapists will perform initial evaluation of pt's status upon admi ssion and devise an individualized program for Elevation Training, and Lymphedema Therapy Poor balance - to improve, our physical therapists will perform initial evaluation of pt's status up on admission and devise an individualized program for Balance Training Poor endurance - to improve, our physical therapists will perform initial evaluation of pt's status upon admission and devise an individualized program for Endurance Training Weakness - to improve, our physical therapists will perform initial evaluation of pt's status upon a dmission and devise an individualized program for Aquatic Therapy, Neuromuscular Reeducation, and Str engthening Achieving independence - to improve, our physical therapists will perform initial evaluation of pt's status upon admission and devise an individualized program for Community Reintegration Activities - Occupational Therapy ADL deficits - to improve, our occupation therapists will perform initial evaluation of pt's status upon admission and devise an individualized program for Bathing, Bed mobility, Community Reintegratio n, Cooking, Dressing, Eating, Fine Motor Skills, Grooming, Homemaking, Kitchen Mobility, Laundry, Pat ient Education, Safety Awareness, Splinting - Positioning, Transfers(Toilet, Tub, Shower), and Wheel Chair Management Need for critical care cns - to improve, our occupation therapists will perform initial evaluation of pt's status upon admission and devise an individualized program for Caregiver Training Weakness - to improve, our occupation therapists will perform initial evaluation of pt's status upon admission and devise an individualized program for Aquatic Therapy, Balance, Endurance, UE ROM, and UE strengthening - Other See attached MAR (Medication Administration Record) - Diet Type Continue Regular - Diet - Liquid Texture Continue Regular - Tube Feed Continue N/A - Lab Results blood Sugar Check ACHS - Bladder care per protocol - DVT Risk due to restricted mobility and age - Skin Breakdown Risk due to restricted mobility and age - Back Precaution No flexion, extension or excessive rotation - Spine Precaution Log roll technique when transferring OOB (out of bed) No twisting of back - Fall Precaution Bed alarm TABS alarm Wheel chair alarm - Skin care per protocol - Diet - Solid Texture Continue Regular - Shower allowing shower FUNCTIONAL STATUS: UPDATED AT WEEKLY TEAM CONFERENCE - Bladder Same accident frequency: 7-Ind - No accidents in the past 7 days - Bowel Same accident frequency: 7-Ind - No accidents in the past 7 days - Walking Same score based on distance walked: 0(N/A) Same score based on distance walked: 2(50-149ft) Same score based on distance walked: 3(>=150ft) - Wheelchair Same score based on distance traveled: 0(N/A) FUNCTIONAL STATUS: - Self-Care A. Eating Ind B. Grooming sup C. Bathing modA D. Dressing - Upper sup E. Dressing - Lower Johana F. Toileting Johana - Sphincter Control G. Bladder control Nesha H. Bowel control Nesha - Transfers Control I. Bed/Chair/Wheelchair Johana J. Toilet Johana K. Tub/Shower Johana - Locomotion L. Walk/Wheelchair (B) modA M. Stairs Dep - Communication N. Comprehension (B) eNsha O. Expression (B) Nesha - Social Cognition P. Social Interaction Nesha Q. Problem Solving Nesha R. Memory Nesha - Endurance Fair - Balance Fair - Safety Awareness Good QI SCORES: - Self-Care A. Eating 05-Setup or clean-up assistance B. Oral hygiene 05-Setup or clean-up assistance C. Toileting hygiene 02-Substantial/maximal assistance E. Shower/bathe self 02-Substantial/maximal assistance F. Upper body dressing 03-Partial/moderate assistance G. Lower body dressing 02-Substantial/maximal assistance H. Putting on/taking off footwear 02-Substantial/maximal assistance - Mobility A. Roll left and right 02-Substantial/maximal assistance B. Sit to lying 02-Substantial/maximal assistance C. Lying to sitting on side of bed 02-Substantial/maximal assistance D. Sit to stand 02-Substantial/maximal assistance E. Chair/[id number] transfer 02-Substantial/maximal assistance F. Toilet transfer 02-Substantial/maximal assistance G. Car transfer 88-Not attempted due to medical condition or safety concerns I. Walk 10 feet 03-Partial/moderate assistance J. Walk 50 feet with two turns 03-Partial/moderate assistance K. Walk 150 feet 03-Partial/moderate assistance L. Walking 10 feet on uneven surfaces 88-Not attempted due to medical condition or safety concerns M. 1 step (curb) 88-Not attempted due to medical condition or safety concerns N. 4 steps 88-Not attempted due to medical condition or safety concerns O. 12 steps 88-Not attempted due to medical condition or safety concerns P. Picking up object 88-Not attempted due to medical condition or safety concerns R. Wheel 50 feet with two turns 09-Not applicable S. Wheel 150 feet 09-Not applicable - Bladder and Bowel Bladder continence 2-Incontinent less than daily Bowel continence 1-Occasionally incontinent - Endurance Fair - Balance Fair - Safety Awareness Fair CURRENT [facility]. DEFICITS: Self-Care, Mobility, Endurance, Balance, and Safety Awareness SIGNATURE PANEL: (CDT)
[2022-06-02] MEDS: RALOXIFENE HCL 60 MG TAB PO SCH (20:44)
[2022-06-02] MEDS: LOSARTAN POTASSIUM 50 MG TABLET PO SCH (20:44)
[2022-06-03] MEDS: TRAMADOL HCL 50 MG TAB PO PRN (00:26)
[2022-06-03] MEDS: carvediloL 3.125 MG TAB PO SCH (05:34)
[2022-06-03] MEDS: LEVOTHYROXINE SOD 0.075 MG TAB PO SCH (05:34)
[2022-06-03 07:09] VITALS: TEMP 97.9
[2022-06-03] MEDS: PANTOPRAZOLE 40MG TABLET PO SCH (08:24)
[2022-06-03] MEDS: CRANBERRY FRUIT EXTRACT 200 MG CAP PO SCH (08:24)
[2022-06-03] MEDS: APIXABAN 2.5 MG TABLET PO SCH (08:25)
[2022-06-03] MEDS: ACETAMINOPHEN 500 MG TAB PO PRN (08:25)
[2022-06-03] MEDS: TROSPIUM CHLORIDE 60 MG PO SCH (08:26)
[2022-06-03] MEDS: HOME MED 1 EA UNK (Biotin 5,000 MCG) PO SCH (08:26)
[2022-06-03] MEDS: MAGNESIUM OXIDE 400 MG TAB PO SCH (08:26)
[2022-06-03] MEDS: POTASSIUM CL SA 10 MEQ TAB PO SCH (08:26)
[2022-06-03] MEDS: LIDOCAINE 4% PATCH TOP SCH (08:30)
[2022-06-03 08:36] VITALS: BP 131/62
[2022-06-03] MEDS: hydroCHLOROthiazide 25 MG TAB PO SCH (08:36)
[2022-06-03] MEDS: GLUCERNA SHAKE 237 ML CAN PO SCH (09:31)
[2022-06-03] MEDS: DOCUSATE NA 100 MG CAP PO SCH (09:31)
[2022-06-03] MEDS: ASCORBIC ACID 500 MG TABLET PO SCH (12:29)
[2022-06-03] MEDS: VITAMIN D 5,000 UNIT CAP PO SCH (12:29)
[2022-06-03] MEDS: VITAMIN B COMPLEX 1 CAP PO SCH (12:29)
--- NOTE | 2022-06-03 20:37 | R.PN ---
PROGRESS NOTES ENCOUNTER DATE AND TIME: 06/03/2022 20:34 (CDT) NAME HERIBERTO GARCIA DATE OF : 1940 DATE OF ADMISSION: 05/20/2022 16:23 (CDT) Spinal stenosis, lumbar region (M48.06)CHIEF COMPLAINT: Spinal stenosis s/p decompression SUBJECTIVE: Pt denied any Shortness of Breath. Pt denied any depression. CBC with differential is essentially normal. BMP is essentially normal. Glucose 114. prealbumin 13.3. Ambulated 1000' with modified independence using a rollator. Left hip MRI 05/27/22 show mild to moderate bilateral hip joint degeneration. No evidence of a mass or cyst as suggested by hip x-ray. Discussed with the patient and her daughter. To be discharged home today. VITAL SIGNS Temperature: 97.9 F SBP/DBP: 131/62 Pulse: 67 Resp: 16 MEDICATION ALLERGIES: delsym cough and cold etodolac plendil prinivil procardia daypro epinephrine ENVIRONMENTAL ALLERGIES: - Substance Allergies None Known - Other Allergies None Known NURSING: - Shower allowing shower - Lab Results blood Sugar Check ACHS - Bladder care per protocol - Skin care per protocol PRECAUTIONS: - Fall Precaution Bed alarm TABS alarm Wheel chair alarm - DVT Risk due to restricted mobility and age - Skin Breakdown Risk due to restricted mobility and age - Back Precaution No flexion, extension or excessive rotation - Spine Precaution Log roll technique when transferring OOB (out of bed) No twisting of back ACTIVITIES OOB only with supervision THERAPIES: - Orthotics/Prosthetics Orthotic Evaluation. Splinting/Casting. - Dietary and Nutrition Adequate Nutrition. Nutritional Education. Nutritional Supplements. - Occupational Therapy Cognitive Retraining. Patient needs Occupational Therapy for a daily minimum of 1.5 hours at least 5 out of 7 days, to improve Activities of Daily Living, including: Eating, Grooming, Bathing, Dressing, Toileting, Toilet Transfers, Community Reintegration, Higher functional activities, Adaptive Equipme nt, Splinting, Household Tasks, and Other activities as determined. Visual Perceptual Training. - Physical Therapy Patient needs Physical Therapy for a daily minimum of 1.5 hours at least 5 out of 7 days, to improve: Mobility, Strengthening, Transfers, Stretching, ROM, Endurance, Ability to manage stairs, Gait, and Balance. PHYSICAL EXAM - Gen Alert and awake Lying in bed No apparent distress Oriented to: person, time, and place - Skin No skin breakdown. Normacephalic - Eyes No abnormalities - ENMT No abnormalities - Neck No abnormalities - CVS RRR - Chest No abnormalities - Resp Clear to auscultation - Abd Soft - GI Non distended Deferred - No abnormalities - Ext Mild bilateral lower extremity edema. - MSK 4/5 weakness in both lower extremities. - Neuro No focal deficits - Psych No abnormalities ASSESSMENT: Pt. 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 was independent/mod-I in L ocomotion and Self-Care; and she had good Endurance, Transfers Control, and Balance.Currently, she vera s deficits of Locomotion, Endurance, Self-Care, Transfers Control, and Balance.Pt. is now referred to [facility] for acute in-patient rehabilitation in order to maximize patient's functional independence in activities of daily living, strength, ROM, and mobility.- Rehab Goal Patient has realistic goal of being discharged at assistance level 6-Nesha to reside at Home with Fam michelle/Relatives. MDM/PLAN: - Physical Therapy Gait dysfunction - to improve, our physical therapists will perform initial evaluation of pt's statu s upon admission and devise an individualized program for Gait Training, and Wheel Chair mobility Inability to transfer - to improve, our physical therapists will perform initial evaluation of pt's status upon admission and devise an individualized program for Bed mobility Need for home safety evaluation - to improve, our physical therapists will perform initial evaluatio n of pt's status upon admission and devise an individualized program for Home Evaluation Need in caregiver upon discharge - to improve, our physical therapists will perform initial evaluati on of pt's status upon admission and devise an individualized program for Caregiver Training New precaution - to improve, our physical therapists will perform initial evaluation of pt's status upon admission and devise an individualized program for Patient precaution education Edema - to improve, our physical therapists will perform initial evaluation of pt's status upon admi ssion and devise an individualized program for Elevation Training, and Lymphedema Therapy Poor balance - to improve, our physical therapists will perform initial evaluation of pt's status up on admission and devise an individualized program for Balance Training Poor endurance - to improve, our physical therapists will perform initial evaluation of pt's status upon admission and devise an individualized program for Endurance Training Weakness - to improve, our physical therapists will perform initial evaluation of pt's status upon a dmission and devise an individualized program for Aquatic Therapy, Neuromuscular Reeducation, and Str engthening Achieving independence - to improve, our physical therapists will perform initial evaluation of pt's status upon admission and devise an individualized program for Community Reintegration Activities - Occupational Therapy ADL deficits - to improve, our occupation therapists will perform initial evaluation of pt's status upon admission and devise an individualized program for Bathing, Bed mobility, Community Reintegratio n, Cooking, Dressing, Eating, Fine Motor Skills, Grooming, Homemaking, Kitchen Mobility, Laundry, Pat ient Education, Safety Awareness, Splinting - Positioning, Transfers(Toilet, Tub, Shower), and Wheel Chair Management Need for caretaker grounds - to improve, our occupation therapists will perform initial evaluation of pt's status upon admission and devise an individualized program for Caregiver Training Weakness - to improve, our occupation therapists will perform initial evaluation of pt's status upon admission and devise an individualized program for Aquatic Therapy, Balance, Endurance, UE ROM, and UE strengthening - Other See attached MAR (Medication Administration Record) - Diet Type Continue Regular - Diet - Liquid Texture Continue Regular - Tube Feed Continue N/A - Lab Results blood Sugar Check ACHS - Bladder care per protocol - DVT Risk due to restricted mobility and age - Skin Breakdown Risk due to restricted mobility and age - Back Precaution No flexion, extension or excessive rotation - Spine Precaution Log roll technique when transferring OOB (out of bed) No twisting of back - Fall Precaution Bed alarm TABS alarm Wheel chair alarm - Skin care per protocol - Diet - Solid Texture Continue Regular - Shower allowing shower FUNCTIONAL STATUS: UPDATED AT WEEKLY TEAM CONFERENCE - Bladder Same accident frequency: 7-Ind - No accidents in the past 7 days - Bowel Same accident frequency: 7-Ind - No accidents in the past 7 days - Walking Same score based on distance walked: 0(N/A) Same score based on distance walked: 2(50-149ft) Same score based on distance walked: 3(>=150ft) - Wheelchair Same score based on distance traveled: 0(N/A) FUNCTIONAL STATUS: - Self-Care A. Eating Ind B. Grooming sup C. Bathing modA D. Dressing - Upper sup E. Dressing - Lower Johana F. Toileting Johana - Sphincter Control G. Bladder control Nesha H. Bowel control Nesha - Transfers Control I. Bed/Chair/Wheelchair Johana J. Toilet Johana K. Tub/Shower Johana - Locomotion L. Walk/Wheelchair (B) modA M. Stairs Dep - Communication N. Comprehension (B) Nesha O. Expression (B) Nesha - Social Cognition P. Social Interaction Nesha Q. Problem Solving Nesha R. Memory Nesha - Endurance Fair - Balance Fair - Safety Awareness Good QI SCORES: - Self-Care A. Eating 05-Setup or clean-up assistance B. Oral hygiene 05-Setup or clean-up assistance C. Toileting hygiene 02-Substantial/maximal assistance E. Shower/bathe self 02-Substantial/maximal assistance F. Upper body dressing 03-Partial/moderate assistance G. Lower body dressing 02-Substantial/maximal assistance H. Putting on/taking off footwear 02-Substantial/maximal assistance - Mobility A. Roll left and right 02-Substantial/maximal assistance B. Sit to lying 02-Substantial/maximal assistance C. Lying to sitting on side of bed 02-Substantial/maximal assistance D. Sit to stand 02-Substantial/maximal assistance E. Chair/[id number] transfer 02-Substantial/maximal assistance F. Toilet transfer 02-Substantial/maximal assistance G. Car transfer 88-Not attempted due to medical condition or safety concerns I. Walk 10 feet 03-Partial/moderate assistance J. Walk 50 feet with two turns 03-Partial/moderate assistance K. Walk 150 feet 03-Partial/moderate assistance L. Walking 10 feet on uneven surfaces 88-Not attempted due to medical condition or safety concerns M. 1 step (curb) 88-Not attempted due to medical condition or safety concerns N. 4 steps 88-Not attempted due to medical condition or safety concerns O. 12 steps 88-Not attempted due to medical condition or safety concerns P. Picking up object 88-Not attempted due to medical condition or safety concerns R. Wheel 50 feet with two turns 09-Not applicable S. Wheel 150 feet 09-Not applicable - Bladder and Bowel Bladder continence 2-Incontinent less than daily Bowel continence 1-Occasionally incontinent - Endurance Fair - Balance Fair - Safety Awareness Fair CURRENT [facility]. DEFICITS: Self-Care, Mobility, Endurance, Balance, and Safety Awareness SIGNATURE PANEL: (CDT)
== END 2022-06-03 13:15 | disposition home health service (06) | DRG 561 ==
LOC: 5TH 16:23
PROVIDERS: ADMIT Psychiatry & Neurology Neurology with Special Qualifications in Child Neurology; ATTEND Psychiatry & Neurology Neurology with Special Qualifications in Child Neurology
DX: Z47.89 Encounter for other orthopedic aftercare (principal); I10 Essential (primary) hypertension; E03.9 Hypothyroidism, unspecified; E11.9 Type 2 diabetes mellitus without complications; M81.0 Age-related osteoporosis without current pathological fracture; R68.89 Other general symptoms and signs; M16.0 Bilateral primary osteoarthritis of hip; Z20.822 Contact with and (suspected) exposure to COVID-19
CPT/HCPCS: 36415; 72100; 74230; 76000; 80048; 81001; 82040; 82947; 83735; 84134; 85025; 87086; 87088; 87811; 92611; 93005; 94760; 97110; 97116; 97161; 97165; 97530; 97542; G0378; G0379; J0330; J0360; J0690; J1030; J1100; J1170; J2001; J2405; J2704; J3010; J7030; J7120; U0003

== ENCOUNTER 2022-07-18 15:56 | Emergency (ER) | payer OTHER ==
--- OUTSIDE RECORDS SUMMARY | 2022-07-18 16:01 | XMS REPORT | Continuity of Care Document ---
:[address] [facility] [place], [place] Address 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 Met [facility]odi carotid carotid 2 bruits bruits 00:00: Hospita 00 l Essential Essential Disease Active Met hodi hypertensi hypertensi 01-27 st on on 00:00: Hospita 00 l Allergies, Adverse Reactions, Alerts Allergy Allergy Status Severity Reaction(s) Onset Inactive Treating Comm ents Source Name Type Date Date Clinician Epinephr Propensi Active Other (See 2018-10 Me thodi ine ty to Comments) 2 adverse 00:00: Hospita reaction 00 l s to drug Lisinopr Propensi Active Method i il ty to 01-27 adverse 00:00: Hospita reaction 00 l s to drug Nifedipi Propensi Active Method i ne ty to 01-27 st adverse 00:00: Hospita reaction 00 l s to drug Oxaprozi Propensi Active Method i n ty to 01-27 st adverse 00:00: Hospita reaction 00 l s to drug Etodolac Propensi Active Method i ty to 01-27 st adverse 00:00: Hospita reaction 00 l s to drug Family History Family Member Diagnosis Comments Start Date Stop Date Source Natural father Coronary [facility] Natural mother [facility] Social History Social Habit Start Date Stop Date Quantity Comments Source Tobacco use and 2019-11-01 2019-11-01 Smokeless tobacco [facility] exposure 00:00:00 00:00:00 non-user Hospital Alcohol intake 2019-11-01 2019-11-01 Current [facility] 00:00:00 00:00:00 non-drinker of Hospital alcohol (finding) Sex Ass[birth year] At [birth year] [facility] 00:00:00 00:00:00 Hospital Smoking Status Start Date Stop Date Source Never smoked tobacco [facility] Medications Ordered Filled Start Stop Current Ordering Indication Dosage Frequency Signature Comments Components Source Medication Medication Date Date Medication? Clinician (SIG) Name Name hydroCHLORO Yes TAKE 1/2 Me thodi thiazide 2-[address] (HYDRODIURI 00:00: MOUTH Hospi ta L) 25 MG 00 TWICE A l tablet DAY losartan Yes TAKE 1/2 Metho di (COZAAR) 2-[address] 100 MG 00:00: MOUTH Hospita tablet 00 TWICE A l DAY enalapril Yes TAKE 1 Method i (VASOTEC) 2-[address] 20 MG 00:00: MOUTH Hospita tablet 00 EVERY DAY l ezetimibe Yes TAKE 1 Method i (ZETIA) 10 1-[address] mg tablet 00:00: MOUTH Hospita 00 EVERY DAY l losartan 2020-10- No TAKE 1/2 Meth bola (COZAAR) 2-02 02-[address] 100 MG 00:00: 00:00 MOUTH Hospita tablet 00 :00 TWICE A l DAY hydroCHLORO 2021-1 2022- No TAKE 1/2 M ethodi thiazide 11-[address] (HYDRODIURI 00:00: 00:00 MOUTH [facility]osp [facility] L) 25 MG 00 :00 TWICE A l tablet DAY enalapril 2020-10- No TAKE 1 Metho di (VASOTEC) 11-[address] 20 MG 00:00: 00:00 MOUTH Hospita tablet 00 :00 EVERY DAY l ezetimibe 2020-10- No TAKE 1 Metho di (ZETIA) 10 0-20 01-[address] mg tablet 00:00: 00:00 MOUTH Hospit a 00 :00 EVERY DAY l losartan 2020- No TAKE 1/2 Meth bola (COZAAR) 05-[address] 100 MG 00:00: 00:00 MOUTH Hospita tablet 00 :00 TWICE A l DAY hydroCHLORO 2020- No TAKE 1/2 M ethodi thiazide 05-[address] (HYDRODIURI 00:00: 00:00 MOUTH [facility]osp [facility] L) 25 MG 00 :00 TWICE A l tablet DAY enalapril 2020- No TAKE 1 Metho di (VASOTEC) 04-[address] 20 MG 00:00: 00:00 MOUTH Hospita tablet 00 :00 EVERY DAY l ezetimibe 2020- No TAKE 1 Metho di (ZETIA) 10 6-23 10-[address] mg tablet 00:00: 00:00 MOUTH Hospit a 00 :00 EVERY DAY l raloxifene 2019-0 Yes 60mg QD Take 60 mg M ethodi (EVISTA) [address] mg tablet 10:16: daily. Hospit a 55 l aspirin 2020-0 Yes 81mg Q2D Take 81 mg Meth bola (ECOTRIN) -[address] 81 MG 10:16: every Hospita enteric 55 other day. l coated tablet docosahexan 2019-0 Yes Take by Met hodi oic 1-[address] acid/epa 10:16: Hospita (FISH OIL 55 l ORAL) potassium 2018-10 Yes 8meq Take 8 mEq Me thodi chloride 1-[address] (KLOR-CON) 00:00: Hospita 8 MEQ CR 00 l tablet trospium 60 2017- Yes QD Take by Met hodi mg 1-[address] capsule,ext 00:00: daily. Hosp edward[facility] ended 00 l release 24hr glimepiride 2016- Yes 1mg QD Take 1 mg M ethodi (AMARYL) 2 3-[address] MG tablet 00:00: once Hospita 00 daily. l lansoprazol Yes 30mg QD Take 30 mg Methodi e 2-[address] (PREVACID) 00:00: once Hospita 30 MG 00 daily. l capsule levothyroxi Yes 75ug QD Take 75 Met hodi ne 1-[address] (SYNTHROID, 00:00: mouth once Hospita LEVOXYL) 75 00 daily. l mcg tablet Procedures This patient has no known procedures. Plan of Care Planned Activity Planned Date Details Comments Source Future Scheduled 2022-06-24 HEPATITIS B VACCINES Met [facility] Test 13:15:48 (1 of 3 - 3-dose series) [code = HEPATITIS B VACCINES (1 of 3 - 3-dose series)] Future Scheduled 2022-06-24 COVID-19 VACCINE (#1) [facility] Test 13:15:48 [code = COVID-19 VACCINE (#1)] Future Scheduled 2022-06-24 SHINGLES VACCINES (1 Met [facility] Test 13:15:48 of 2) [code = SHINGLES VACCINES (1 of 2)] Future Scheduled 2022-06-24 65+ [facility]AL [facility] Test 13:15:48 VACCINE (1 - PCV) [code = 65+ PNEUMOCOCCAL VACCINE (1 - PCV)] Future Scheduled 2022-06-24 INFLUENZA VACCINE Method [facility] Test 13:15:48 [code = INFLUENZA VACCINE] Encounters Start End Encounter Admission Attending Care Care Encounter Source Date/Time Date/Time Type Type Clinicians Facility Department ID 2022-07-[address] [facility] [id number] Common 09:36:02 Kalie [facility] 2022-04-[address] [facility] [id number] Common 10:53:01 Kalie [facility] 2022-04-17 Outpatient Yo, STLMLC STLMLC [id number] Common 10:42:03 Kalie [facility] 2021-12-10 Outpatient Yo, STLMLC STLMLC [id number] Common 10:45:02 Kalie [facility] 2022-06-09 2022-06-09 ambulatory STLMLC STLMLC [id number] Common 00:00:00 00:00:00 [facility] 2022-04-21 2022-04-21 ambulatory STLMLC STLMLC [id number] Common 00:00:00 00:00:00 [facility] 2022-04-21 2022-04-21 ambulatory STLMLC STLMLC [id number] Common 00:00:00 00:00:00 [facility] 2022-02-19 2022-02-19 ambulatory STLMLC STLMLC [id number] Common 00:00:00 00:00:00 [facility] 2022-02-04 2022-02-04 ambulatory STLMLC STLMLC [id number] Common 00:00:00 00:00:00 [facility] 2021-12-26 2021-12-26 ambulatory STLMLC STLMLC [id number] Common 00:00:00 00:00:00 [facility] 2021-12-17 2021-12-17 ambulatory STLMLC STLMLC [id number] Common 00:00:00 00:00:00 [facility] 2021-12-12 2021-12-12 ambulatory STLMLC STLMLC [id number] Common 00:00:00 00:00:00 [facility] 2021-12-10 2021-12-10 ambulatory STLMLC STLMLC [id number] Common 00:00:00 00:00:00 [facility] 2021-12-10 2021-12-10 ambulatory STLMLC STLMLC [id number] Common 00:00:00 00:00:00 [facility] 2021-11-30 2021-11-30 Refill Robins, 1.2.840.1 [id number] Methodi 00:00:00 00:00:[address] 3.430.2.7 Hospit a .3.550163 l .8 2021-11-26 2021-11-26 Travel 1.2.840.1 [id number] Methodi 00:00:00 00:00:[address] 3.430.2.7 0.2.7.3.698 Ho spita .3.047154 084.8 l .8 2021-11-14 2021-11-14 Refill Robins, 1.2.840.1 [id number] Methodi 00:00:00 00:00:[address] 3.430.2.7 Hospit a .3.958822 l .8 2021-09-26 2021-09-26 Refill Robins, 1.2.840.1 [id number] Methodi 00:00:00 00:00:[address] 3.430.2.7 Hospit a .3.423178 l .8 2021-09-16 2021-09-16 Refill Robins, 1.2.840.1 [id number] Methodi 00:00:00 00:00:[address] 3.430.2.7 Hospit a .3.685389 l .8 2021-08-14 2021-08-14 Refill Robins, 1.2.840.1 [id number] Methodi 00:00:00 00:00:[address] 3.430.2.7 Hospit a .3.222570 l .8 2019-11-01 2019-11-01 [facility] [place], [facility] [id number] [address] [place] [address] 00:00:00 00:00:00 RONNIE [address] Results This patient has no known results.
[2022-07-18 16:29] LABS: Absolute Lymphocytes (CBC) 1.1 K/uL (0.7-4.9); Hematocrit 36.9 % (36.0-45.0); Lymphocytes % 24.6 % (15.3-44.8); MCV 89.3 fL (80-100); MPV 8.1 fL (7.6-11.3); RBC Red Blood Cell Count 4.13 M/uL (3.86-4.86)
[2022-07-18 16:46] LABS: Potassium 3.2 mmol/L (3.5-5.1)
--- NOTE | 2022-07-18 17:38 | RAD REPORT ---
EXAM DESCRIPTION: US - Extrem Venous W Compress Nixon - 07/18/2022 5:30 pm CLINICAL HISTORY: SWELLING Bilateral leg edema and swelling. COMPARISON: <Comparisons> TECHNIQUE: Real-time sonographic interrogation of the left and right lower extremity deep venous sys tems was performed. FINDINGS: Normal compressibility, flow augmentation, phasic flow and spontaneous flow is identified in both the left and right lower extremity deep venous systems. IMPRESSION: No sonographic evidence of left or right lower extremity deep venous thrombosis.
--- NOTE | 2022-07-18 17:54 | RAD REPORT ---
EXAM DESCRIPTION: RAD - Chest Single View - 07/18/2022 5:45 pm CLINICAL HISTORY: SWELLING Chest pain. COMPARISON: Chest Single View dated 12/31/2020; Abdomen 1 View (KUB) dated 10/23/2019; CHEST SINGLE EW dated 12/22/2009; ABDOMEN ACUTE SERIES dated 10/13/2003 FINDINGS: Portable technique limits examination quality. The lungs are grossly clear. The heart is normal in size. No displaced fractures. IMPRESSION: No acute intrathoracic process suspected.
--- NOTE | 2022-07-18 18:29 | ER ---
Nurse's Notes [facility] Name: Diaan Nava Age: 82 yrs Sex: Female : 1940 Arrival Date: 07/18/2022 Time: 16:00 Bed 14 Private MD: Diagnosis: Lymphedema, not elsewhere classified;Essential (primary) hypertension Presentation: 07/18 16:00 Chief complaint: Patient states: Pt arrived via [facility] reporting BLE leg swelling kb3 xseveral days and elevated BP. Pt denies SOB, CP. States she has been instructed by PCP to take an extra dose of lasix x5 days and is currently doing that now. Per EMS, family reports leg swelling has improved since yesterday. 16:00 Coronavirus screen: Vaccine status: Patient reports receiving the 2nd dose of the covid kb3 vaccine. Client denies travel out of the [place] in the last 14 days. At this time, the client does not indicate any symptoms associated with coronavirus-19. Ebola Screen: Patient negative for fever greater than or equal to 101.5 degrees Fahrenheit, and additional compatible Ebola Virus Disease symptoms Patient denies exposure to infectious person. Patient denies travel to an Ebola-affected area in the 21 days before illness onset. No symptoms or risks identified at this time. 16:00 Method Of Arrival: EMS: [facility] kb3 16:11 Initial Sepsis Screen: Does the patient meet any 2 criteria? No. Patient's initial kb3 sepsis screen is negative. Does the patient have a suspected source of infection? No. Patient's initial sepsis screen is negative. Risk Assessment: Do you want to hurt yourself or someone else? Patient reports no desire to harm self or others. Onset of symptoms was July 18, 2022 at 12:00. 16:11 Acuity: [id number] 3 kb3 Triage Assessment: 16:40 General: Appears in no apparent distress. comfortable, Behavior is calm, cooperative. kb3 Pain: Denies pain. Historical: - Allergies: 16:40 all calcium channel blockers; kb3 16:40 Daypro; kb3 16:40 Lodine; kb3 16:40 Plendil; kb3 16:40 Prinivil; kb3 16:40 Procardia; kb3 - Home Meds: 16:40 aspirin 81 mg Oral TbEC 1 tab M-W- [Active]; lansoprazole 15 mg oral cpDR 1 cap once kb3 daily [Active]; levothyroxine 75 mcg tab 1 tab once daily [Active]; moduchol 650 mg daily [Active]; raloxifene 60 mg Oral tab 1 tab once daily [Active]; Zetia 10 mg Oral tab 1 tab once daily [Active]; Klor-Con 8mEq daily [Active]; losartan 50 mg oral tab 1 tab 2 times per day [Active]; hydrochlorothiazide 25 mg Oral tab 1 tab once daily [Active]; trospium 60 mg oral cp24 1 cap once daily [Active]; Super B/C oral cap 1 cap daily [Active]; biotin 5,000 mcg oral TbDi 1 tab daily [Active]; Vitamin C 500 mg Oral tab 500 mg daily [Active]; magnesium oxide 400 mg magnesium Oral tab 400 mg daily [Active]; Probiotic oral 1 tab daily [Active]; Colace 100 mg oral cap 1 cap once daily [Active]; Miralax 17 gram/dose Oral powd 17 g as needed [Active]; turmeric 500 mg oral 1 tab daily [Active]; carvedilol 3.125 mg oral tab 1 tab 2 times per day [Active]; AREDS2 1 cap daily [Active]; - PMHx: 16:40 Diabetes - NIDDM; Hyperlipidemia; Hypertension; kb3 - Immunization history:: Adult Immunizations up to date, Client reports receiving the 2nd dose of the Covid vaccine, Last tetanus immunization: unknown. - Social history:: Smoking status: Patient denies any tobacco usage or history of. - Family history:: not pertinent. - Hospitalizations: : No recent hospitalization is reported. Screenin:15 Abuse screen: Denies threats or abuse. Denies injuries from another. Nutritional kb3 screening: No deficits noted. Tuberculosis screening: No symptoms or risk factors identified. Fall Risk Fall in past 12 months (25 points). Secondary diagnosis (15 points) impaired mobility, Recent back surgery. IV access (20 points). Ambulatory Aid- Crutches/Cane/Walker (15 pts). Gait- Weak (10 pts.). Mental Status- Oriented to own ability (0 pts). Total Oneal Fall Scale indicates High Risk Score (45 or more points). Fall prevention measures have been instituted. Side Rails Up X 2 Placed Close to Nursing Station Frequent Obs/Assessments Occuring Family Present and informed to notify staff if the need to leave the bedside As available patient and family educated on Fall Prevention Program and Strategies. Assessment: 16:15 General: See triage note. kb3 17:21 General: US Tech at bedside. kb3 Vital Signs: 16:11 BP 202 / 70; Pulse 70; Resp 18; Temp 98; Pulse Ox 98% on R/A; Weight 56.25 kg; Height 5 kb3 ft. 3 in. (160.02 cm); Pain 0/10; 17:00 BP 179 / 79; Pulse 69; Resp 20; Pulse Ox 99% on R/A; kb3 16:11 Body Mass Index 21.97 (56.25 kg, 160.02 cm) kb3 ED Course: 16:00 Patient arrived in ED. eb 16:06 Amandeep Maldonado MD is Attending Physician. rn 16:15 Patient has correct armband on for positive identification. Placed in gown. Bed in low kb3 position. Call light in reach. Side rails up X2. Adult w/ patient. Client placed on continuous cardiac and pulse oximetry monitoring. NIBP monitoring applied. Warm blanket given. Pillow given. 16:15 No provider procedures requiring assistance completed. Maintain EMS IV. Dressing kb3 intact. Good blood return noted. Site clean \T\ dry. Gauge \T\ site: 20G RAC. 16:36 Taylor Carrizales, RN is Primary Nurse. kb3 16:40 Triage completed. kb3 16:40 Arm band placed on left wrist. kb3 18:19 RAD In Process Unspecified. EDMS 18:22 US In Process Unspecified. EDMS 19:05 IV discontinued, intact, bleeding controlled, No redness/swelling at site. kb3 Administered Medications: 18:33 Drug: Lasix (furosemide) 40 mg Route: IVP; Site: right antecubital; kb3 18:53 Follow up: Response: No adverse reaction kb3 Medication: 16:15 VIS not applicable for this client. kb3 Outcome: 18:29 Discharge ordered by . 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 medication usage, Demonstrated understanding of instructions, follow-up care, medications, Prescriptions given X 1. 19:06 Patient left the ED. kb3 Signatures: Dispatcher [employer] EDMS Amandeep Maldonado MD MD rn Botello, Elizabeth eb Bradberry, Kelly RN RN kb3 Corrections: (The following items were deleted from the chart) 16:50 16:40 Home Meds: enalapril maleate 20 mg Oral tab 1 tab once daily; kb3 kb3 16:50 16:40 Home Meds: glimepiride 1 mg Oral tab 1 tab once daily; kb3 kb3 16:50 16:40 Home Meds: losartan-hydrochlorothiazide 50-12.5 mg Oral tab 1 tab once daily; kb3 kb3 16:50 16:40 Home Meds: metformin 500 mg Oral tr24 1 tab once daily; kb3 kb3 16:50 16:40 Home Meds: tolterodine 4 mg Oral cp24 1 cap once daily; kb3 kb3
--- NOTE | 2022-07-18 18:29 | EDPHYS ---
Physician Documentation [facility] Name: Diana Nava Age: 82 yrs Sex: Female : 1940 Arrival Date: 07/18/2022 Time: 16:00 Bed 14 Private MD: ED Physician Amandeep Maldonado HPI: 07/18 17:14 This 82 yrs old Female presents to ER via EMS with complaints of leg swelling. rn 17:14 Reports sent by home health provider for high blood pressure and leg swelling. Reports rn getting physical therapy following surgery for lumbar compression fracture. Reports has had leg swelling in past but only prescribed lasix for 5 days at a time. Not taking lasix at this time. No chest pain/sob. . Onset: The symptoms/episode began/occurred at an unknown time. Severity of symptoms: At their worst the symptoms were mild in the emergency department the symptoms are unchanged. The patient has experienced similar episodes in the past. The patient has not recently seen a physician. Historical: - Allergies: 16:40 all calcium channel blockers; kb3 16:40 Daypro; kb3 16:40 Lodine; kb3 16:40 Plendil; kb3 16:40 Prinivil; kb3 16:40 Procardia; kb3 - Home Meds: 16:40 aspirin 81 mg Oral TbEC 1 tab -- [Active]; lansoprazole 15 mg oral cpDR 1 cap once kb3 daily [Active]; levothyroxine 75 mcg tab 1 tab once daily [Active]; moduchol 650 mg daily [Active]; raloxifene 60 mg Oral tab 1 tab once daily [Active]; Zetia 10 mg Oral tab 1 tab once daily [Active]; Klor-Con 8mEq daily [Active]; losartan 50 mg oral tab 1 tab 2 times per day [Active]; hydrochlorothiazide 25 mg Oral tab 1 tab once daily [Active]; trospium 60 mg oral cp24 1 cap once daily [Active]; Super B/C oral cap 1 cap daily [Active]; biotin 5,000 mcg oral TbDi 1 tab daily [Active]; Vitamin C 500 mg Oral tab 500 mg daily [Active]; magnesium oxide 400 mg magnesium Oral tab 400 mg daily [Active]; Probiotic oral 1 tab daily [Active]; Colace 100 mg oral cap 1 cap once daily [Active]; Miralax 17 gram/dose Oral powd 17 g as needed [Active]; turmeric 500 mg oral 1 tab daily [Active]; carvedilol 3.125 mg oral tab 1 tab 2 times per day [Active]; AREDS2 1 cap daily [Active]; - PMHx: 16:40 Diabetes - NIDDM; Hyperlipidemia; Hypertension; kb3 - Immunization history:: Adult Immunizations up to date, Client reports receiving the 2nd dose of the Covid vaccine, Last tetanus immunization: unknown. - Social history:: Smoking status: Patient denies any tobacco usage or history of. - Family history:: not pertinent. - Hospitalizations: : No recent hospitalization is reported. ROS: 17:14 Constitutional: Negative for fever, chills, and weight loss, Eyes: Negative for injury, rn pain, redness, and discharge, Neck: Negative for injury, pain, and swelling, Cardiovascular: Negative for chest pain, palpitations Respiratory: Negative for shortness of breath, cough, wheezing, and pleuritic chest pain, Abdomen/GI: Negative for abdominal pain, nausea, vomiting, diarrhea, and constipation, MS/Extremity: + lower ext swelling and edema Skin: Negative for injury, rash, and discoloration, Neuro: Negative for headache, weakness, numbness, tingling, and seizure. Exam: 17:14 Constitutional: This is a well developed, well nourished patient who is awake, alert, rn and in no acute distress. Head/Face: Normocephalic, atraumatic. Cardiovascular: Regular rate and rhythm. No pulse deficits. Respiratory: No increased work of breathing, no retractions or nasal flaring. Abdomen/GI: Soft, non-tender Skin: Warm, dry MS/ Extremity: Pulses equal, no cyanosis. 2+ pitting edema bilateral lower ext. Neuro: Awake and alert, GCS 15 Vital Signs: 16:11 BP 202 / 70; Pulse 70; Resp 18; Temp 98; Pulse Ox 98% on R/A; Weight 56.25 kg; Height 5 kb3 ft. 3 in. (160.02 cm); Pain 0/10; 17:00 BP 179 / 79; Pulse 69; Resp 20; Pulse Ox 99% on R/A; kb3 16:11 Body Mass Index 21.97 (56.25 kg, 160.02 cm) kb3 MDM: 16:06 Patient medically screened. rn 18:27 Differential Diagnosis lymphedema, DVT, CHF, renal failure. Data reviewed: vital signs, rn nurses notes, lab test result(s), radiologic studies, ultrasound, and as a result, I will discharge patient. Counseling: I had a detailed discussion with the patient and/or guardian regarding: the historical points, exam findings, and any diagnostic results supporting the discharge/admit diagnosis, lab results, radiology results, the need for outpatient follow up, to return to the emergency department if symptoms worsen or persist or if there are any questions or concerns that arise at home. Special discussion: I discussed with the patient/guardian in detail that at this point there is no indication for admission to the hospital. It is understood, however, that if the symptoms persist or worsen the patient needs to return immediately for re-evaluation. Based on the history and exam findings, there is no indication for further emergent testing or inpatient evaluation. I discussed with the patient/guardian the need to see the primary care provider for further evaluation of the symptoms. ED course: Neg u/s for DVT, no renal failure. Home health provider here and states swelling actually not bad, has improved and her other doctors haven't been concerned even when was more swollen than this. Will send home with 3 days of lasix and pcp f/u which she already has scheduled. Given return precautions and had long discussion regarding BP management. . 07/18 16:07 Order name: CBC with Diff rn 07/18 16:07 Order name: Basic Metabolic Panel rn 07/18 16:07 Order name: BNP rn 07/18 16:33 Order name: CBC with Automated Diff; Complete Time: 18:02 EDID 07/18 16:47 Order name: Basic Metabolic Panel; Complete Time: 18:02 EDMS 07/18 16:47 Order name: NT PRO-BNP; Complete Time: 18:02 EDID 07/18 16:07 Order name: IV Start; Complete Time: 16:53 rn 07/18 16:07 Order name: XRAY Chest (1 view) rn 07/18 16:07 Order name: Cardiac monitoring; Complete Time: 16:52 rn 07/18 16:07 Order name: O2 Sat Monitoring; Complete Time: 16:52 rn 07/18 16:08 Order name: Extrem Venous W Compression Nixon US rn 07/18 17:39 Order name: US EDMS 07/18 17:55 Order name: [facility] EDMS Administered Medications: 18:33 Drug: Lasix (furosemide) 40 mg Route: IVP; Site: right antecubital; kb3 18:53 Follow up: Response: No adverse reaction kb3 Disposition Summary: 07/18/22 18:29 Discharge Ordered Location: Home rn Problem: an ongoing problem rn Symptoms: have improved rn Condition: Stable rn Diagnosis - Lymphedema, not elsewhere classified rn - Essential (primary) hypertension rn Followup: rn - With: Private Physician - When: As needed - Reason: Recheck today's complaints, Re-evaluation by your physician Discharge Instructions: - Discharge Summary Sheet rn - Hypertension, Adult rn - Lymphedema rn - How to Take Your Blood Pressure, [id number] rn - Managing Your Hypertension rn Forms: - Medication Reconciliation Form rn - Thank You Letter 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 - Prescription Opioid Use rn Prescriptions: - Lasix 20 mg Oral Tablet - take 1 tablet by ORAL route once daily for 3 days; 3 tablet; Refills: 0, rn Product Selection Permitted Signatures: Dispatcher [employer] EDMS Amandeep Maldonado MD MD rn Bradberry, Kelly, RN RN kb3 Corrections: (The following items were deleted from the chart) 16:50 16:40 Home Meds: enalapril maleate 20 mg Oral tab 1 tab once daily; kb3 kb3 16:50 16:40 Home Meds: glimepiride 1 mg Oral tab 1 tab once daily; kb3 kb3 16:50 16:40 Home Meds: losartan-hydrochlorothiazide 50-12.5 mg Oral tab 1 tab once daily; kb3 kb3 16:50 16:40 Home Meds: metformin 500 mg Oral tr24 1 tab once daily; kb3 kb3 16:50 16:40 Home Meds: tolterodine 4 mg Oral cp24 1 cap once daily; kb3 kb3
[2022-07-18] MEDS ORDERED: FUROSEMIDE 40 MG/4 ML VIAL ONE (18:37)
[2022-07-20 08:47] VITALS: TEMP 98
[2022-07-20 08:49] VITALS: BP 179/79; O2SAT 99
== END 2022-07-18 19:06 | disposition home or self-care (01) ==
LOC: ER 15:56
DX: I89.0 Lymphedema, not elsewhere classified (principal); I10 Essential (primary) hypertension; E11.9 Type 2 diabetes mellitus without complications
CPT/HCPCS: 85025; 80048; 36415; 83880; 71045; 93970; 96374; 99284; J1940

== ENCOUNTER 2023-01-15 10:51 | Emergency (ER) | payer OTHER ==
--- OUTSIDE RECORDS SUMMARY | 2023-01-15 10:58 | XMS REPORT | Continuity of Care Document ---
:[address] [facility] t Address 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 1-07 st sterolemia sterolemia 00:00: Ho spita 00 l Bilateral Bilateral Disease Active 2017-10 Met hodi carotid carotid 2-11 st bruits bruits 00:00: Hospita 00 l Essential Essential Disease Active Met hodi hypertensi hypertensi 4-04 st on on 00:00: Hospita 00 l [id number] Sciatica, Problem Comm on left side [facility] [id number] Mild major Problem Com mon depression Spirit [facility] Hypothyroi Hypothyroi Problem C ommon dism dism, Spirit unspecifie - [facility] d type [facility] [id number] Overactive Problem Co mmon bladder [facility] [id number] Neuropathy Problem Co mmon [facility] Mixed Mixed Problem Common hyperlipid hyperlipid Sp gladys emia emia [facility] [id number] Gastroesop Problem Co mmon hageal Spirit reflux - [facility] disease 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 diabetes with mellitus [facility] Hypertensi Hypertensi Problem C ommon ve heart ve heart Spirit disease disease - [facility] without without St congestive heart 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 pain [facility] Allergies, Adverse Reactions, Alerts Allergy Allergy Status Severity Reaction(s) Onset Inactive Treating Comm ents Source Name Type Date Date Clinician Dann Castellanosi Active Other (See 2018-10 Me thodi ine ty to Comments) 12-02 adverse 00:00: Hospita reaction 00 l s to drug Oxaprozi Propensi Active Method i n ty to 01-27 adverse 00:00: Hospita reaction 00 l s to drug Etodolac Propensi Active Method i ty to 01-27 adverse 00:00: Hospita reaction 00 l s to drug Lisinopr Propensi Active Method i il ty to 01-27 adverse 00:00: Hospita reaction 00 l s to drug Nifedipi Propensi Active Method i ne ty to 01-27 adverse 00:00: Hospita reaction 00 l s to drug [id number] Drug Active Unknown Common allergy [facility] epinephr epinephr Active Unknown Commo n ine ine [facility] etodolac etodolac Active Unknown Commo n Spirit - [facility] calcium calcium Active Unknown Common channel channel Spirit jace jace - [facility] Family History Family Member Diagnosis Comments Start Date Stop Date Source Natural father Coronary artery [facility] Natural mother Heart attack [facility] Paternal grandfather Heart attack [facility] Social History Social Habit Start Date Stop Date Quantity Comments Source History of Common Spirit - Tobacco Use [facility] Tobacco use and 2019-11-01 2019-11-01 Smokeless tobacco [facility] exposure 00:00:00 00:00:00 non-user Hospital Alcohol intake 2019-11-01 2019-11-01 Current [facility] 00:00:00 00:00:00 non-drinker of Hospital alcohol (finding) Sex Assigned At [birth year] [facility] 00:[facility]:00 [facility]:00 Hospital Smoking Status Start Date Stop Date Source Never Smoker [facility] Medications Ordered Filled Start Stop Current Ordering Indication Dosage Frequency Signature Comments Components Source Medication Medication Date Date Medication? Clinician (SIG) Name Name Lasix 20 MG Lasix 20 MG 2021-0 No 1{table QD Lasix 20 8-15 t} MG 00:00: 00 Lasix 20 MG Lasix 20 MG 2021-0 No 1{table QD Lasix 20 8-15 t} MG 00:00: 00 Lasix 20 MG Lasix 20 MG 2021-0 No 1{table QD Lasix 20 8-15 t} MG 00:00: 00 Carvedilol Carvedilol 2021-0 No 1{table BID Carvedilol 3.125 MG 3.125 MG 4-27 t_with_ 3.125 MG 00:00: food} 00 Solumedrol Solumedrol 2021-0 No 40mg C ommon 40mg/1ml 40mg/1ml 3 Spirit 00:00: - [facility] Ketorolac Ketorolac 2021-0 No 30mg Com mon 15mg 15mg 12-26 Spirit 00:00: - [facility] Solumedrol Solumedrol 2021-0 No 40mg C ommon 40mg/1ml 40mg/1ml 3 Spirit 00:00: - [facility] Ketorolac Ketorolac 2022-0 No 30mg Com mon 15mg 15mg 12-26 Spirit 00:00: - [facility] Solumedrol Solumedrol 2-0 No 40mg C ommon 40mg/1ml 40mg/1ml 12-26 Spirit 00:00: - [facility] Ketorolac Ketorolac 2-0 No 30mg Com mon 15mg 15mg 12-26 Spirit 00:00: - [facility] Solumedrol Solumedrol 2-0 No 40mg C ommon 40mg/1ml 40mg/1ml 12-26 Spirit 00:00: - [facility] Ketorolac Ketorolac 2-0 No 30mg Com mon 15mg 15mg 12-26 Spirit 00:00: - [facility] Solumedrol Solumedrol 2-0 No 40mg C ommon 40mg/1ml 40mg/1ml 12-26 Spirit 00:00: - [facility] Ketorolac Ketorolac 2-0 No 30mg Com mon 15mg 15mg 12-26 Spirit 00:00: - [facility] Solumedrol Solumedrol 2-0 No 40mg C ommon 40mg/1ml 40mg/1ml 12-26 Spirit 00:00: - [facility] Ketorolac Ketorolac 2-0 No 30mg Com mon 15mg 15mg 12-26 Spirit 00:00: - [facility] Solumedrol Solumedrol 2-0 No 40mg C ommon 40mg/1ml 40mg/1ml 12-26 Spirit 00:00: - [facility] Ketorolac Ketorolac 2-0 No 30mg Com mon 15mg 15mg 12-26 Spirit 00:00: - [facility] Solumedrol Solumedrol 2-0 No 40mg C ommon 40mg/1ml 40mg/1ml 3 Spirit 00:00: - [facility] Ketorolac Ketorolac 2-0 No 30mg Com mon 15mg 15mg 3 Spirit 00:00: - [facility] Solumedrol Solumedrol 2-0 No 40mg C ommon 40mg/1ml 40mg/1ml 12-26 Spirit 00:00: - [facility] Ketorolac Ketorolac 2-0 No 30mg Com mon 15mg 15mg 12-26 Spirit 00:00: - [facility] Solumedrol Solumedrol 2-0 No 40mg C ommon 40mg/1ml 40mg/1ml 12-26 Spirit 00:00: - [facility] Ketorolac Ketorolac 2-0 No 30mg Com mon 15mg 15mg 12-26 Spirit 00:00: - [facility] Solumedrol Solumedrol 2-0 No 40mg C ommon 40mg/1ml 40mg/1ml 12-26 Spirit 00:00: - [facility] Ketorolac Ketorolac 2-0 No 30mg Com mon 15mg 15mg 12-26 Spirit 00:00: - [facility] Solumedrol Solumedrol 2-0 No 40mg C ommon 40mg/1ml 40mg/1ml 12-26 Spirit 00:00: - [facility] Ketorolac Ketorolac 2-0 No 30mg Com mon 15mg 15mg 12-26 Spirit 00:00: - [facility] Solumedrol Solumedrol 2-0 No 40mg C ommon 40mg/1ml 40mg/1ml 12-26 Spirit 00:00: - CHI 00 [facility] Ketorolac Ketorolac 2-0 No 30mg Com mon 15mg 15mg 12-26 Spirit 00:00: - [facility] Ciprofloxac Ciprofloxac 2021-0 2021- No 2{drops 6xD Ciprofloxa in HCl 0.3 in HCl 0.3 12-2608 _into_a mark HCl % % 00:00: 00:00 ffected 0.3 % 00 :00 _eye} hydroCHLORO 2021-0 Yes TAKE 1/2 Me thodi thiazide 2-07 [...] MOUTH Hospita tablet 00 EVERY DAY l hydroCHLORO Yes TAKE 1/2 Me thodi thiazide [...] 00:00: MOUTH Hospita 00 EVERY DAY l ezetimibe Yes TAKE 1 Method i (ZETIA) 10 1-[address] mg tablet 00:00: MOUTH Hospita 00 EVERY DAY l losartan 2020-10- No TAKE 1/2 Meth bola (COZAAR) 11-[address] 100 MG 00:00: 00:00 MOUTH Hospita tablet 00 :00 TWICE A l DAY hydroCHLORO 2020-10- No TAKE 1/2 M ethodi thiazide 11-27 [...] 2020- No TAKE 1 Metho di (VASOTEC) 04-[address] 20 MG 00:00: 00:00 MOUTH Hospita tablet 00 :00 EVERY DAY l ezetimibe 2020- No TAKE 1 Metho di (ZETIA) 10 04-17 10-[address] mg tablet 00:00: 00:00 MOUTH Hospit a 00 :00 EVERY DAY l raloxifene 2020-0 Yes 60mg QD Take 60 mg M ethodi (EVISTA) 60 1-[address] mg tablet 10:16: daily. Hospit a 55 l aspirin 2020-0 Yes 81mg Q2D Take 81 mg Meth bola (ECOTRIN) 1-[address] 81 MG 10:16: every Hospita enteric 55 other day. l coated tablet docosahexan 2020-0 Yes Take by Met hodi oic 1-[address] acid/epa 10:16: Hospita (FISH OIL 55 l ORAL) raloxifene 2020-0 Yes 60mg QD Take 60 mg M ethodi (EVISTA) 60 1-[address] mg tablet 10:16: daily. Hospit a 55 l aspirin 2020-0 Yes 81mg Q2D Take 81 mg Meth bola (ECOTRIN) 1-[address] 81 MG 10:16: every Hospita enteric 55 other day. l coated tablet docosahexan 2020-0 Yes Take by Met hodi oic 1-[address] acid/epa 10:16: Hospita (FISH OIL 55 l ORAL) potassium 2018-10 Yes 8meq Take 8 mEq Me thodi chloride 1-[address] (KLOR-CON) 00:00: Hospita 8 MEQ CR 00 l tablet potassium 2018-10 Yes 8meq Take 8 mEq Me th[facility] chloride 1-[address] (KLOR-CON) 00:00: Hospita 8 MEQ CR 00 l tablet trospium 60 2017-10 Yes QD Take by Met hodi mg 1-[address] capsule,ext 00:00: daily. Hosp edwardo ended 00 l release 24hr trospium 60 2017- Yes QD Take by Met hodi mg 1-[address] capsule,ext 00:00: daily. Hosp edwardo ended 00 l release 24hr glimepiride 2017-0 Yes 1mg QD Take 1 mg M ethodi (AMARYL) 2 3-[address] MG tablet 00:00: once Hospita 00 daily. l glimepiride 2017-0 Yes 1mg QD Take 1 mg M ethodi (AMARYL) 2 3-[address] MG tablet 00:00: once Hospita 00 daily. l lansoprazol 2017-0 Yes 30mg QD Take 30 mg Methodi e 2-[address] (PREVACID) 00:00: once Hospita 30 MG 00 daily. l capsule lansoprazol 2017-0 Yes 30mg QD Take 30 mg Methodi e 2-[address] (PREVACID) 00:00: once Hospita 30 MG 00 daily. l capsule levothyroxi 2017-0 Yes 75ug QD Take 75 Met hodi ne 1-[address] (SYNTHROID, 00:00: mouth once Hospita LEVOXYL) 75 00 daily. l mcg tablet levothyroxi 2017-0 Yes 75ug QD Take 75 Met hodi ne 1-[address] (SYNTHROID, 00:00: mouth once Hospita LEVOXYL) 75 00 daily. l mcg tablet Biotin 5000 Biotin 5000 No 1{table QD Biotin MCG MCG t} 5000 MCG Tylenol Tylenol No 1{table QID Tylenol Extra Extra t_as_ne Extra Strength Strength eded} Strength 500 MG 500 MG 500 MG Myrbetriq Myrbetriq No 1{table QD Myrbetriq 25 MG 25 MG t} 25 MG Vitamin D3 Vitamin D3 No Vitamin D3 125 MCG 125 MCG 125 MCG (5000 UT) (5000 UT) (5000 UT) Baclofen 5 Baclofen 5 No 1{table BID Baclofen 5 MG MG t_as_ne MG eded} Lidocaine 4 Lidocaine 4 No Lidocaine % % 4 % Klor-Con 8 Klor-Con 8 No Klor-Con 8 MEQ MEQ MEQ Losartan Losartan No Losartan Potassium Potassium Potassium 100 MG 100 MG 100 MG Gabapentin Gabapentin No Gabapentin 300 MG 300 MG 300 MG Carvedilol Carvedilol No Carvedilol 3.125 MG 3.125 MG 3.125 MG Raloxifene Raloxifene No Raloxifene HCl 60 MG HCl 60 MG HCl 60 MG DULoxetine DULoxetine No 1{capsu QD DULoxetine HCl 20 MG HCl 20 MG le} HCl 20 MG Vitamin C Vitamin C No Vitamin C 500 MG 500 MG 500 MG hydroCHLORO hydroCHLORO No 1{table QD hydroCHLOR thiazide 25 thiazide 25 t_in_th Othiazide MG MG e_morni 25 MG ng} Aspirin 81 Aspirin 81 No 1{table QD Aspirin 81 MG MG t} MG Colace 100 Colace 100 No 1{capsu BID Colace 100 MG MG le_as_n MG eeded} Fish Oil Fish Oil No 1{capsu QD Fish Oil 1000 MG 1000 MG le} 1000 MG Turmeric Turmeric No Turmeric 500 MG 500 MG 500 MG Super B Super B No Super B Complex/Vit Complex/Vit Complex/Vi avelar C - avelar C - tamin C - Lasix 20 MG Lasix 20 MG No QD Lasix 20 MG Levothyroxi Levothyroxi No Levothyrox ne Sodium ne Sodium ine Sodium 75 MCG 75 MCG 75 MCG Eliquis 2.5 Eliquis 2.5 No 1{table BID Eliquis MG MG t} 2.5 MG Magnesium Magnesium No Magnesium 400 MG 400 MG 400 MG Fish Oil Fish Oil No 1{capsu QD Fish Oil 1000 MG 1000 MG le} 1000 MG Losartan Losartan No Losartan Potassium Potassium Potassium 100 MG 100 MG 100 MG Aspirin 81 Aspirin 81 No 1{table QD Aspirin 81 MG MG t} MG Super B Super B No Super B Complex/Vit Complex/Vit Complex/Vi avelar C - avelar C - tamin C - Colace 100 Colace 100 No 1{capsu QD Colace 100 MG MG le_as_n MG eeded} Tylenol Tylenol No 1{table QID Tylenol Extra Extra t_as_ne Extra Strength Strength eded} Strength 500 MG 500 MG 500 MG Klor-Con 8 Klor-Con 8 No Klor-Con 8 MEQ MEQ MEQ Ezetimibe Ezetimibe No Ezetimibe 10 MG 10 MG 10 MG Trospium Trospium No Trospium Chloride ER Chloride ER Chloride 60 MG 60 MG ER 60 MG Glimepiride Glimepiride No 1{table QD Glimepirid 1 MG 1 MG t_with_ e [address]_or_t he_firs t_main_ meal_of _the_da y} Vitamin C Vitamin C No Vitamin C 500 MG 500 MG 500 MG Levothyroxi Levothyroxi No Levothyrox ne Sodium ne Sodium ine Sodium 75 MCG 75 MCG 75 MCG Biotin 5000 Biotin 5000 No 1{table QD Biotin MCG MCG t} 5000 MCG Enalapril Enalapril No Enalapril Maleate 20 Maleate 20 Maleate 20 MG MG MG Lansoprazol Lansoprazol No 1{capsu QD Lansoprazo e 15 MG e 15 MG le_befo le 15 MG re_a_me al} Gabapentin Gabapentin No 1{capsu Gabapentin 100 MG 100 MG le} 100 MG Turmeric Turmeric No Turmeric 500 MG 500 MG 500 MG hydroCHLORO hydroCHLORO No hydroCHLOR thiazide 25 thiazide 25 Othiazide MG MG 25 MG Raloxifene Raloxifene No Raloxifene HCl 60 MG HCl 60 MG HCl 60 MG Vitamin D3 Vitamin D3 No Vitamin D3 125 MCG 125 MCG 125 MCG (5000 UT) (5000 UT) (5000 UT) Magnesium Magnesium No Magnesium 400 MG 400 MG 400 MG Fish Oil Fish Oil No 1{capsu QD Fish Oil 1000 MG 1000 MG le} 1000 MG Losartan Losartan No Losartan Potassium Potassium Potassium 100 MG 100 MG 100 MG Aspirin 81 Aspirin 81 No 1{table QD Aspirin 81 MG MG t} MG Super B Super B No Super B Complex/Vit Complex/Vit Complex/Vi avelar C - avelar C - tamin C - Colace 100 Colace 100 No 1{capsu QD Colace 100 MG MG le_as_n MG eeded} Tylenol Tylenol No 1{table QID Tylenol Extra Extra t_as_ne Extra Strength Strength eded} Strength 500 MG 500 MG 500 MG Klor-Con 8 Klor-Con 8 No Klor-Con 8 MEQ MEQ MEQ Ezetimibe Ezetimibe No Ezetimibe 10 MG 10 MG 10 MG Trospium Trospium No Trospium Chloride ER Chloride ER Chloride 60 MG 60 MG ER 60 MG Glimepiride Glimepiride No 1{table QD Glimepirid 1 MG 1 MG t_with_ e [address]_or_t he_firs t_main_ meal_of _the_da y} Vitamin C Vitamin C No Vitamin C 500 MG 500 MG 500 MG Levothyroxi Levothyroxi No Levothyrox ne Sodium ne Sodium ine Sodium 75 MCG 75 MCG 75 MCG Biotin 5000 Biotin 5000 No 1{table QD Biotin MCG MCG t} 5000 MCG Enalapril Enalapril No Enalapril Maleate 20 Maleate 20 Maleate 20 MG MG MG Lansoprazol Lansoprazol No 1{capsu QD Lansoprazo e 15 MG e 15 MG le_befo le 15 MG re_a_me al} Gabapentin Gabapentin No 1{capsu Gabapentin 100 MG 100 MG le} 100 MG Turmeric Turmeric No Turmeric 500 MG 500 MG 500 MG hydroCHLORO hydroCHLORO No hydroCHLOR thiazide 25 thiazide 25 Othiazide MG MG 25 MG Raloxifene Raloxifene No Raloxifene HCl 60 MG HCl 60 MG HCl 60 MG Vitamin D3 Vitamin D3 No Vitamin D3 125 MCG 125 MCG 125 MCG (5000 UT) (5000 UT) (5000 UT) Magnesium Magnesium No Magnesium 400 MG 400 MG 400 MG Fish Oil Fish Oil No 1{capsu QD Fish Oil 1000 MG 1000 MG le} 1000 MG Losartan Losartan No Losartan Potassium Potassium Potassium 100 MG 100 MG 100 MG Aspirin 81 Aspirin 81 No 1{table QD Aspirin 81 MG MG t} MG Super B Super B No Super B Complex/Vit Complex/Vit Complex/Vi avelar C - avelar C - tamin C - Colace 100 Colace 100 No 1{capsu QD Colace 100 MG MG le_as_n MG eeded} Tylenol Tylenol No 1{table QID Tylenol Extra Extra t_as_ne Extra Strength Strength eded} Strength 500 MG 500 MG 500 MG Klor-Con 8 Klor-Con 8 No Klor-Con 8 MEQ MEQ MEQ Ezetimibe Ezetimibe No Ezetimibe 10 MG 10 MG 10 MG Trospium Trospium No Trospium Chloride ER Chloride ER Chloride 60 MG 60 MG ER 60 MG Glimepiride Glimepiride No 1{table QD Glimepirid 1 MG 1 MG t_with_ e [address]_or_t he_firs t_main_ meal_of _the_da y} Vitamin C Vitamin C No Vitamin C 500 MG 500 MG 500 MG Levothyroxi Levothyroxi No Levothyrox ne Sodium ne Sodium ine Sodium 75 MCG 75 MCG 75 MCG Biotin 5000 Biotin 5000 No 1{table QD Biotin MCG MCG t} 5000 MCG Enalapril Enalapril No Enalapril Maleate 20 Maleate 20 Maleate 20 MG MG MG Lansoprazol Lansoprazol No 1{capsu QD Lansoprazo e 15 MG e 15 MG le_befo le 15 MG re_a_me al} Gabapentin Gabapentin No 1{capsu Gabapentin 100 MG 100 MG le} 100 MG Turmeric Turmeric No Turmeric 500 MG 500 MG 500 MG hydroCHLORO hydroCHLORO No hydroCHLOR thiazide 25 thiazide 25 Othiazide MG MG 25 MG Raloxifene Raloxifene No Raloxifene HCl 60 MG HCl 60 MG HCl 60 MG Vitamin D3 Vitamin D3 No Vitamin D3 125 MCG 125 MCG 125 MCG (5000 UT) (5000 UT) (5000 UT) Magnesium Magnesium No Magnesium 400 MG 400 MG 400 MG Fish Oil Fish Oil No 1{capsu QD Fish Oil 1000 MG 1000 MG le} 1000 MG Losartan Losartan No Losartan Potassium Potassium Potassium 100 MG 100 MG 100 MG Aspirin 81 Aspirin 81 No 1{table QD Aspirin 81 MG MG t} MG Super B Super B No Super B Complex/Vit Complex/Vit Complex/Vi avelar C - avelar C - tamin C - Colace 100 Colace 100 No 1{capsu QD Colace 100 MG MG le_as_n MG eeded} Tylenol Tylenol No 1{table QID Tylenol Extra Extra t_as_ne Extra Strength Strength eded} Strength 500 MG 500 MG 500 MG Klor-Con 8 Klor-Con 8 No Klor-Con 8 MEQ MEQ MEQ Ezetimibe Ezetimibe No Ezetimibe 10 MG 10 MG 10 MG Trospium Trospium No Trospium Chloride ER Chloride ER Chloride 60 MG 60 MG ER 60 MG Glimepiride Glimepiride No 1{table QD Glimepirid 1 MG 1 MG t_with_ e [address]_or_t he_firs t_main_ meal_of _the_da y} Vitamin C Vitamin C No Vitamin C 500 MG 500 MG 500 MG Levothyroxi Levothyroxi No Levothyrox ne Sodium ne Sodium ine Sodium 75 MCG 75 MCG 75 MCG Biotin 5000 Biotin 5000 No 1{table QD Biotin MCG MCG t} 5000 MCG Enalapril Enalapril No Enalapril Maleate 20 Maleate 20 Maleate 20 MG MG MG Lansoprazol Lansoprazol No 1{capsu QD Lansoprazo e 15 MG e 15 MG le_befo le 15 MG re_a_me al} Gabapentin Gabapentin No 1{capsu Gabapentin 100 MG 100 MG le} 100 MG Turmeric Turmeric No Turmeric 500 MG 500 MG 500 MG hydroCHLORO hydroCHLORO No hydroCHLOR thiazide 25 thiazide 25 Othiazide MG MG 25 MG Raloxifene Raloxifene No Raloxifene HCl 60 MG HCl 60 MG HCl 60 MG Vitamin D3 Vitamin D3 No Vitamin D3 125 MCG 125 MCG 125 MCG (5000 UT) (5000 UT) (5000 UT) Magnesium Magnesium No Magnesium 400 MG 400 MG 400 MG Aspirin 81 Aspirin 81 No 1{table QD Aspirin 81 MG MG t} MG Colace 100 Colace 100 No 1{capsu QD Colace 100 MG MG le_as_n MG eeded} Raloxifene Raloxifene No Raloxifene HCl 60 MG HCl 60 MG HCl 60 MG Losartan Losartan No Losartan Potassium Potassium Potassium 100 MG 100 MG 100 MG Levothyroxi Levothyroxi No Levothyrox ne Sodium ne Sodium ine Sodium 75 MCG 75 MCG 75 MCG Trospium Trospium No Trospium Chloride ER Chloride ER Chloride 60 MG 60 MG ER 60 MG Fish Oil Fish Oil No 1{capsu QD Fish Oil 1000 MG 1000 MG le} 1000 MG hydroCHLORO hydroCHLORO No hydroCHLOR thiazide 25 thiazide 25 Othiazide MG MG 25 MG Turmeric Turmeric No Turmeric 500 MG 500 MG 500 MG Lansoprazol Lansoprazol No 1{capsu QD Lansoprazo e 15 MG e 15 MG le_befo le 15 MG re_a_me al} Gabapentin Gabapentin No 1{capsu Gabapentin 300 MG 300 MG le} 300 MG Vitamin C Vitamin C No Vitamin C 500 MG 500 MG 500 MG Tylenol Tylenol No 1{table QID Tylenol Extra Extra t_as_ne Extra Strength Strength eded} Strength 500 MG 500 MG 500 MG Super B Super B No Super B Complex/Vit Complex/Vit Complex/Vi avelar C - avelar C - tamin C - Magnesium Magnesium No Magnesium 400 MG 400 MG 400 MG Klor-Con 8 Klor-Con 8 No Klor-Con 8 MEQ MEQ MEQ Vitamin D3 Vitamin D3 No Vitamin D3 125 MCG 125 MCG 125 MCG (5000 UT) (5000 UT) (5000 UT) Biotin 5000 Biotin 5000 No 1{table QD Biotin MCG MCG t} 5000 MCG Levothyroxi Levothyroxi No Levothyrox ne Sodium ne Sodium ine Sodium 75 MCG 75 MCG 75 MCG Aspirin 81 Aspirin 81 No 1{table QD Aspirin 81 MG MG t} MG Fish Oil Fish Oil No 1{capsu QD Fish Oil 1000 MG 1000 MG le} 1000 MG Gabapentin Gabapentin No 1{capsu Gabapentin 300 MG 300 MG le} 300 MG Raloxifene Raloxifene No Raloxifene HCl 60 MG HCl 60 MG HCl 60 MG Vitamin C Vitamin C No Vitamin C 500 MG 500 MG 500 MG hydroCHLORO hydroCHLORO No hydroCHLOR thiazide 25 thiazide 25 Othiazide MG MG 25 MG Trospium Trospium No Trospium Chloride ER Chloride ER Chloride 60 MG 60 MG ER 60 MG Turmeric Turmeric No Turmeric 500 MG 500 MG 500 MG Magnesium Magnesium No Magnesium 400 MG 400 MG 400 MG Lansoprazol Lansoprazol No 1{capsu QD Lansoprazo e 15 MG e 15 MG le_befo le 15 MG re_a_me al} Vitamin D3 Vitamin D3 No Vitamin D3 125 MCG 125 MCG 125 MCG (5000 UT) (5000 UT) (5000 UT) Biotin 5000 Biotin 5000 No 1{table QD Biotin MCG MCG t} 5000 MCG Losartan Losartan No Losartan Potassium Potassium Potassium 100 MG 100 MG 100 MG Tylenol Tylenol No 1{table QID Tylenol Extra Extra t_as_ne Extra Strength Strength eded} Strength 500 MG 500 MG 500 MG Klor-Con 8 Klor-Con 8 No Klor-Con 8 MEQ MEQ MEQ Super B Super B No Super B Complex/Vit Complex/Vit Complex/Vi avelar C - avelar C - tamin C - Colace 100 Colace 100 No 1{capsu QD Colace 100 MG MG le_as_n MG eeded} Magnesium Magnesium No Magnesium 400 MG 400 MG 400 MG traMADol traMADol No 1{table TID traMADol HCl 50 MG HCl 50 MG t_as_ne HCl 50 MG eded} Trospium Trospium No QD Trospium Chloride ER Chloride ER Chloride 60 MG 60 MG ER 60 MG Fish Oil Fish Oil No 1{capsu QD Fish Oil 1000 MG 1000 MG le} 1000 MG Raloxifene Raloxifene No Raloxifene HCl 60 MG HCl 60 MG HCl 60 MG hydroCHLORO hydroCHLORO No 1{table QD hydroCHLOR thiazide 25 thiazide 25 t_in_th Othiazide MG MG e_morni 25 MG ng} Super B Super B No Super B Complex/Vit Complex/Vit Complex/Vi avelar C - avelar C - tamin C - Losartan Losartan No Losartan Potassium Potassium Potassium 100 MG 100 MG 100 MG Gabapentin Gabapentin No 1{capsu Gabapentin 300 MG 300 MG le} 300 MG Biotin 5000 Biotin 5000 No 1{table QD Biotin MCG MCG t} 5000 MCG Colace 100 Colace 100 No 1{capsu QD Colace 100 MG MG le_as_n MG eeded} Aspirin 81 Aspirin 81 No 1{table QD Aspirin 81 MG MG t} MG Tylenol Tylenol No 1{table QID Tylenol Extra Extra t_as_ne Extra Strength Strength eded} Strength 500 MG 500 MG 500 MG Vitamin C Vitamin C No Vitamin C 500 MG 500 MG 500 MG Vitamin D3 Vitamin D3 No Vitamin D3 125 MCG 125 MCG 125 MCG (5000 UT) (5000 UT) (5000 UT) Levothyroxi Levothyroxi No Levothyrox ne Sodium ne Sodium ine Sodium 75 MCG 75 MCG 75 MCG Klor-Con 8 Klor-Con 8 No Klor-Con 8 MEQ MEQ MEQ Lansoprazol Lansoprazol No 1{capsu QD Lansoprazo e 15 MG e 15 MG le_befo le 15 MG re_a_me al} Turmeric Turmeric No Turmeric 500 MG 500 MG 500 MG Vitamin C Vitamin C No Vitamin C 500 MG 500 MG 500 MG Tylenol Tylenol No 1{table QID Tylenol Extra Extra t_as_ne Extra Strength Strength eded} Strength 500 MG 500 MG 500 MG Aspirin 81 Aspirin 81 No 1{table QD Aspirin 81 MG MG t} MG Gabapentin Gabapentin No 1{capsu Gabapentin 300 MG 300 MG le} 300 MG Lansoprazol Lansoprazol No 1{capsu QD Lansoprazo e 15 MG e 15 MG le_befo le 15 MG re_a_me al} traMADol traMADol No 1{table TID traMADol HCl 50 MG HCl 50 MG t_as_ne HCl 50 MG eded} Klor-Con 8 Klor-Con 8 No Klor-Con 8 MEQ MEQ MEQ Biotin 5000 Biotin 5000 No 1{table QD Biotin MCG MCG t} 5000 MCG Magnesium Magnesium No Magnesium 400 MG 400 MG 400 MG Losartan Losartan No Losartan Potassium Potassium Potassium 100 MG 100 MG 100 MG Super B Super B No Super B Complex/Vit Complex/Vit Complex/Vi avelar C - avelar C - tamin C - Levothyroxi Levothyroxi No Levothyrox ne Sodium ne Sodium ine Sodium 75 MCG 75 MCG 75 MCG Trospium Trospium No QD Trospium Chloride ER Chloride ER Chloride 60 MG 60 MG ER 60 MG Carvedilol Carvedilol No 1{table BID Carvedilol 3.125 MG 3.125 MG t_with_ 3.125 MG food} Raloxifene Raloxifene No Raloxifene HCl 60 MG HCl 60 MG HCl 60 MG hydroCHLORO hydroCHLORO No 1{table QD hydroCHLOR thiazide 25 thiazide 25 t_in_th Othiazide MG MG e_morni 25 MG ng} Colace 100 Colace 100 No 1{capsu QD Colace 100 MG MG le_as_n MG eeded} Vitamin D3 Vitamin D3 No Vitamin D3 125 MCG 125 MCG 125 MCG (5000 UT) (5000 UT) (5000 UT) Fish Oil Fish Oil No 1{capsu QD Fish Oil 1000 MG 1000 MG le} 1000 MG Turmeric Turmeric No Turmeric 500 MG 500 MG 500 MG Vitamin C Vitamin C No Vitamin C 500 MG 500 MG 500 MG Tylenol Tylenol No 1{table QID Tylenol Extra Extra t_as_ne Extra Strength Strength eded} Strength 500 MG 500 MG 500 MG Aspirin 81 Aspirin 81 No 1{table QD Aspirin 81 MG MG t} MG Gabapentin Gabapentin No 1{capsu Gabapentin 300 MG 300 MG le} 300 MG Lansoprazol Lansoprazol No 1{capsu QD Lansoprazo e 15 MG e 15 MG le_befo le 15 MG re_a_me al} traMADol traMADol No 1{table TID traMADol HCl 50 MG HCl 50 MG t_as_ne HCl 50 MG eded} Klor-Con 8 Klor-Con 8 No Klor-Con 8 MEQ MEQ MEQ Biotin 5000 Biotin 5000 No 1{table QD Biotin MCG MCG t} 5000 MCG Magnesium Magnesium No Magnesium 400 MG 400 MG 400 MG Losartan Losartan No Losartan Potassium Potassium Potassium 100 MG 100 MG 100 MG Super B Super B No Super B Complex/Vit Complex/Vit Complex/Vi avelar C - avelar C - tamin C - Levothyroxi Levothyroxi No Levothyrox ne Sodium ne Sodium ine Sodium 75 MCG 75 MCG 75 MCG Trospium Trospium No QD Trospium Chloride ER Chloride ER Chloride 60 MG 60 MG ER 60 MG Carvedilol Carvedilol No 1{table BID Carvedilol 3.125 MG 3.125 MG t_with_ 3.125 MG food} Raloxifene Raloxifene No Raloxifene HCl 60 MG HCl 60 MG HCl 60 MG hydroCHLORO hydroCHLORO No 1{table QD hydroCHLOR thiazide 25 thiazide 25 t_in_th Othiazide MG MG e_morni 25 MG ng} Colace 100 Colace 100 No 1{capsu QD Colace 100 MG MG le_as_n MG eeded} Vitamin D3 Vitamin D3 No Vitamin D3 125 MCG 125 MCG 125 MCG (5000 UT) (5000 UT) (5000 UT) Fish Oil Fish Oil No 1{capsu QD Fish Oil 1000 MG 1000 MG le} 1000 MG Turmeric Turmeric No Turmeric 500 MG 500 MG 500 MG Colace 100 Colace 100 No 1{capsu BID Colace 100 MG MG le_as_n MG eeded} Vitamin D3 Vitamin D3 No Vitamin D3 125 MCG 125 MCG 125 MCG (5000 UT) (5000 UT) (5000 UT) Turmeric Turmeric No Turmeric 500 MG 500 MG 500 MG Biotin 5000 Biotin 5000 No 1{table QD Biotin MCG MCG t} 5000 MCG Baclofen 5 Baclofen 5 No 1{table BID Baclofen 5 MG MG t_as_ne MG eded} Vitamin C Vitamin C No Vitamin C 500 MG 500 MG 500 MG Levothyroxi Levothyroxi No Levothyrox ne Sodium ne Sodium ine Sodium 75 MCG 75 MCG 75 MCG Gabapentin Gabapentin No Gabapentin 300 MG 300 MG 300 MG Carvedilol Carvedilol No Carvedilol 3.125 MG 3.125 MG 3.125 MG Losartan Losartan No 1{table BID Losartan Potassium Potassium t} Potassium 50 MG 50 MG 50 MG Lidocaine 4 Lidocaine 4 No Lidocaine % % 4 % Klor-Con 8 Klor-Con 8 No Klor-Con 8 MEQ MEQ MEQ Tylenol Tylenol No 1{table QID Tylenol Extra Extra t_as_ne Extra Strength Strength eded} Strength 500 MG 500 MG 500 MG Fish Oil Fish Oil No 1{capsu QD Fish Oil 1000 MG 1000 MG le} 1000 MG Trospium Trospium No QD Trospium Chloride ER Chloride ER Chloride 60 MG 60 MG ER 60 MG Magnesium Magnesium No Magnesium 400 MG 400 MG 400 MG Eliquis 2.5 Eliquis 2.5 No 1{table BID Eliquis MG MG t} 2.5 MG Aspirin 81 Aspirin 81 No 1{table QD Aspirin 81 MG MG t} MG Raloxifene Raloxifene No Raloxifene HCl 60 MG HCl 60 MG HCl 60 MG Losartan Losartan No Losartan Potassium Potassium Potassium 100 MG 100 MG 100 MG hydroCHLORO hydroCHLORO No 1{table QD hydroCHLOR thiazide 25 thiazide 25 t_in_th Othiazide MG MG e_morni 25 MG ng} Super B Super B No Super B Complex/Vit Complex/Vit Complex/Vi avelar C - avelar C - tamin C - Colace 100 Colace 100 No 1{capsu BID Colace 100 MG MG le_as_n MG eeded} Losartan Losartan No Losartan Potassium Potassium Potassium 100 MG 100 MG 100 MG Colace 100 Colace 100 No 1{capsu BID Colace 100 MG MG le_as_n MG eeded} Turmeric Turmeric No Turmeric 500 MG 500 MG 500 MG Biotin 5000 Biotin 5000 No 1{table QD Biotin MCG MCG t} 5000 MCG Baclofen 5 Baclofen 5 No 1{table BID Baclofen 5 MG MG t_as_ne MG eded} Turmeric Turmeric No Turmeric 500 MG 500 MG 500 MG Vitamin C Vitamin C No Vitamin C 500 MG 500 MG 500 MG Levothyroxi Levothyroxi No Levothyrox ne Sodium ne Sodium ine Sodium 75 MCG 75 MCG 75 MCG Gabapentin Gabapentin No Gabapentin 300 MG 300 MG 300 MG Carvedilol Carvedilol No Carvedilol 3.125 MG 3.125 MG 3.125 MG Magnesium Magnesium No Magnesium 400 MG 400 MG 400 MG Lidocaine 4 Lidocaine 4 No Lidocaine % % 4 % Klor-Con 8 Klor-Con 8 No Klor-Con 8 MEQ MEQ MEQ Super B Super B No Super B Complex/Vit Complex/Vit Complex/Vi avelar C - avelar C - tamin C - Fish Oil Fish Oil No 1{capsu QD Fish Oil 1000 MG 1000 MG le} 1000 MG Trospium Trospium No QD Trospium Chloride ER Chloride ER Chloride 60 MG 60 MG ER 60 MG Biotin 5000 Biotin 5000 No 1{table QD Biotin MCG MCG t} 5000 MCG Tylenol Tylenol No 1{table QID Tylenol Extra Extra t_as_ne Extra Strength Strength eded} Strength 500 MG 500 MG 500 MG Eliquis 2.5 Eliquis 2.5 No 1{table BID Eliquis MG MG t} 2.5 MG Aspirin 81 Aspirin 81 No 1{table QD Aspirin 81 MG MG t} MG Raloxifene Raloxifene No Raloxifene HCl 60 MG HCl 60 MG HCl 60 MG hydroCHLORO hydroCHLORO No 1{table QD hydroCHLOR thiazide 25 thiazide 25 t_in_th Othiazide MG MG e_morni 25 MG ng} Vitamin D3 Vitamin D3 No Vitamin D3 125 MCG 125 MCG 125 MCG (5000 UT) (5000 UT) (5000 UT) Biotin 5000 Biotin 5000 No 1{table QD Biotin MCG MCG t} 5000 MCG Baclofen 5 Baclofen 5 No 1{table BID Baclofen 5 MG MG t_as_ne MG eded} Tylenol Tylenol No 1{table QID Tylenol Extra Extra t_as_ne Extra Strength Strength eded} Strength 500 MG 500 MG 500 MG Myrbetriq Myrbetriq No 1{table QD Myrbetriq 25 MG 25 MG t} 25 MG Vitamin D3 Vitamin D3 No Vitamin D3 125 MCG 125 MCG 125 MCG (5000 UT) (5000 UT) (5000 UT) Baclofen 5 Baclofen 5 No 1{table BID Baclofen 5 MG MG t_as_ne MG eded} Lidocaine 4 Lidocaine 4 No Lidocaine % % 4 % Klor-Con 8 Klor-Con 8 No Klor-Con 8 MEQ MEQ MEQ Losartan Losartan No Losartan Potassium Potassium Potassium 100 MG 100 MG 100 MG Gabapentin Gabapentin No Gabapentin 300 MG 300 MG 300 MG Carvedilol Carvedilol No Carvedilol 3.125 MG 3.125 MG 3.125 MG Raloxifene Raloxifene No Raloxifene HCl 60 MG HCl 60 MG HCl 60 MG DULoxetine DULoxetine No 1{capsu QD DULoxetine HCl 20 MG HCl 20 MG le} HCl 20 MG Vitamin C Vitamin C No Vitamin C 500 MG 500 MG 500 MG hydroCHLORO hydroCHLORO No 1{table QD hydroCHLOR thiazide 25 thiazide 25 t_in_th Othiazide MG MG e_morni 25 MG ng} Aspirin 81 Aspirin 81 No 1{table QD Aspirin 81 MG MG t} MG Colace 100 Colace 100 No 1{capsu BID Colace 100 MG MG le_as_n MG eeded} Fish Oil Fish Oil No 1{capsu QD Fish Oil 1000 MG 1000 MG le} 1000 MG Turmeric Turmeric No Turmeric 500 MG 500 MG 500 MG Super B Super B No Super B Complex/Vit Complex/Vit Complex/Vi avelar C - avelar C - tamin C - Lasix 20 MG Lasix 20 MG No QD Lasix 20 MG Levothyroxi Levothyroxi No Levothyrox ne Sodium ne Sodium ine Sodium 75 MCG 75 MCG 75 MCG Vitamin C Vitamin C No Vitamin C 500 MG 500 MG 500 MG Eliquis 2.5 Eliquis 2.5 No 1{table BID Eliquis MG MG t} 2.5 MG Magnesium Magnesium No Magnesium 400 MG 400 MG 400 MG Biotin 5000 Biotin 5000 No 1{table QD Biotin MCG MCG t} 5000 MCG Tylenol Tylenol No 1{table QID Tylenol Extra Extra t_as_ne Extra Strength Strength eded} Strength 500 MG 500 MG 500 MG Myrbetriq Myrbetriq No 1{table QD Myrbetriq 25 MG 25 MG t} 25 MG Vitamin D3 Vitamin D3 No Vitamin D3 125 MCG 125 MCG 125 MCG (5000 UT) (5000 UT) (5000 UT) Baclofen 5 Baclofen 5 No 1{table BID Baclofen 5 MG MG t_as_ne MG eded} Levothyroxi Levothyroxi No Levothyrox ne Sodium ne Sodium ine Sodium 75 MCG 75 MCG 75 MCG Lidocaine 4 Lidocaine 4 No Lidocaine % % 4 % Klor-Con 8 Klor-Con 8 No Klor-Con 8 MEQ MEQ MEQ Losartan Losartan No Losartan Potassium Potassium Potassium 100 MG 100 MG 100 MG Gabapentin Gabapentin No Gabapentin 300 MG 300 MG 300 MG Carvedilol Carvedilol No Carvedilol 3.125 MG 3.125 MG 3.125 MG Raloxifene Raloxifene No Raloxifene HCl 60 MG HCl 60 MG HCl 60 MG DULoxetine DULoxetine No 1{capsu QD DULoxetine HCl 20 MG HCl 20 MG le} HCl 20 MG Vitamin C Vitamin C No Vitamin C 500 MG 500 MG 500 MG hydroCHLORO hydroCHLORO No 1{table QD hydroCHLOR thiazide 25 thiazide 25 t_in_th Othiazide MG MG e_morni 25 MG ng} Aspirin 81 Aspirin 81 No 1{table QD Aspirin 81 MG MG t} MG Gabapentin Gabapentin No Gabapentin 300 MG 300 MG 300 MG Colace 100 Colace 100 No 1{capsu BID Colace 100 MG MG le_as_n MG eeded} Fish Oil Fish Oil No 1{capsu QD Fish Oil 1000 MG 1000 MG le} 1000 MG Turmeric Turmeric No Turmeric 500 MG 500 MG 500 MG Super B Super B No Super B Complex/Vit Complex/Vit Complex/Vi avelar C - avelar C - tamin C - Lasix 20 MG Lasix 20 MG No QD Lasix 20 MG Levothyroxi Levothyroxi No Levothyrox ne Sodium ne Sodium ine Sodium 75 MCG 75 MCG 75 MCG Eliquis 2.5 Eliquis 2.5 No 1{table BID Eliquis MG MG t} 2.5 MG Magnesium Magnesium No Magnesium 400 MG 400 MG 400 MG Carvedilol Carvedilol No Carvedilol 3.125 MG 3.125 MG 3.125 MG Tylenol Tylenol No 1{table QID Tylenol Extra Extra t_as_ne Extra Strength Strength eded} Strength 500 MG 500 MG 500 MG Magnesium Magnesium No Magnesium 400 MG 400 MG 400 MG Magnesium Magnesium No Magnesium 400 MG 400 MG 400 MG DULoxetine DULoxetine No 1{capsu QD DULoxetine HCl 20 MG HCl 20 MG le} HCl 20 MG Aspirin 81 Aspirin 81 No 1{table QD Aspirin 81 MG MG t} MG Biotin 5000 Biotin 5000 No 1{table QD Biotin MCG MCG t} 5000 MCG Vitamin C Vitamin C No Vitamin C 500 MG 500 MG 500 MG Super B Super B No Super B Complex/Vit Complex/Vit Complex/Vi avelar C - avelar C - tamin C - Eliquis 2.5 Eliquis 2.5 No 1{table BID Eliquis MG MG t} 2.5 MG Klor-Con 8 Klor-Con 8 No Klor-Con 8 MEQ MEQ MEQ Gabapentin Gabapentin No Gabapentin 300 MG 300 MG 300 MG Colace 100 Colace 100 No 1{capsu BID Colace 100 MG MG le_as_n MG eeded} Vitamin D3 Vitamin D3 No Vitamin D3 125 MCG 125 MCG 125 MCG (5000 UT) (5000 UT) (5000 UT) Lidocaine 4 Lidocaine 4 No Lidocaine % % 4 % Lidocaine 4 Lidocaine 4 No Lidocaine % % 4 % Myrbetriq Myrbetriq No 1{table QD Myrbetriq 25 MG 25 MG t} 25 MG Lasix 20 MG Lasix 20 MG No QD Lasix 20 MG Baclofen 5 Baclofen 5 No 1{table BID Baclofen 5 MG MG t_as_ne MG eded} Losartan Losartan No 1{table BID Losartan Potassium Potassium t} Potassium 50 MG 50 MG 50 MG Carvedilol Carvedilol No Carvedilol 3.125 MG 3.125 MG 3.125 MG hydroCHLORO hydroCHLORO No 1{table QD hydroCHLOR thiazide 25 thiazide 25 t_in_th Othiazide MG MG e_morni 25 MG ng} Fish Oil Fish Oil No 1{capsu QD Fish Oil 1000 MG 1000 MG le} 1000 MG Raloxifene Raloxifene No Raloxifene HCl 60 MG HCl 60 MG HCl 60 MG Levothyroxi Levothyroxi No Levothyrox ne Sodium ne Sodium ine Sodium 75 MCG 75 MCG 75 MCG Klor-Con 8 Klor-Con 8 No Klor-Con 8 MEQ MEQ MEQ Turmeric Turmeric No Turmeric 500 MG 500 MG 500 MG Super B Super B No Super B Complex/Vit Complex/Vit Complex/Vi avelar C - avelar C - tamin C - Fish Oil Fish Oil No 1{capsu QD Fish Oil 1000 MG 1000 MG le} 1000 MG Trospium Trospium No QD Trospium Chloride ER Chloride ER Chloride 60 MG 60 MG ER 60 MG Tylenol Tylenol No 1{table QID Tylenol Extra Extra t_as_ne Extra Strength Strength eded} Strength 500 MG 500 MG 500 MG Eliquis 2.5 Eliquis 2.5 No 1{table BID Eliquis MG MG t} 2.5 MG Aspirin 81 Aspirin 81 No 1{table QD Aspirin 81 MG MG t} MG Raloxifene Raloxifene No Raloxifene HCl 60 MG HCl 60 MG HCl 60 MG hydroCHLORO hydroCHLORO No 1{table QD hydroCHLOR thiazide 25 thiazide 25 t_in_th Othiazide MG MG e_morni 25 MG ng} Vitamin D3 Vitamin D3 No Vitamin D3 125 MCG 125 MCG 125 MCG (5000 UT) (5000 UT) (5000 UT) Biotin 5000 Biotin 5000 No 1{table QD Biotin MCG MCG t} 5000 MCG Tylenol Tylenol No 1{table QID Tylenol Extra Extra t_as_ne Extra Strength Strength eded} Strength 500 MG 500 MG 500 MG Myrbetriq Myrbetriq No 1{table QD Myrbetriq 25 MG 25 MG t} 25 MG Vitamin D3 Vitamin D3 No Vitamin D3 125 MCG 125 MCG 125 MCG (5000 UT) (5000 UT) (5000 UT) Baclofen 5 Baclofen 5 No 1{table BID Baclofen 5 MG MG t_as_ne MG eded} Lidocaine 4 Lidocaine 4 No Lidocaine % % 4 % Klor-Con 8 Klor-Con 8 No Klor-Con 8 MEQ MEQ MEQ Losartan Losartan No Losartan Potassium Potassium Potassium 100 MG 100 MG 100 MG Gabapentin Gabapentin No Gabapentin 300 MG 300 MG 300 MG Carvedilol Carvedilol No Carvedilol 3.125 MG 3.125 MG 3.125 MG Raloxifene Raloxifene No Raloxifene HCl 60 MG HCl 60 MG HCl 60 MG DULoxetine DULoxetine No 1{capsu QD DULoxetine HCl 20 MG HCl 20 MG le} HCl 20 MG Vitamin C Vitamin C No Vitamin C 500 MG 500 MG 500 MG hydroCHLORO hydroCHLORO No 1{table QD hydroCHLOR thiazide 25 thiazide 25 t_in_th Othiazide MG MG e_morni 25 MG ng} Aspirin 81 Aspirin 81 No 1{table QD Aspirin 81 MG MG t} MG Colace 100 Colace 100 No 1{capsu BID Colace 100 MG MG le_as_n MG eeded} Fish Oil Fish Oil No 1{capsu QD Fish Oil 1000 MG 1000 MG le} 1000 MG Turmeric Turmeric No Turmeric 500 MG 500 MG 500 MG Super B Super B No Super B Complex/Vit Complex/Vit Complex/Vi avelar C - avelar C - tamin C - Lasix 20 MG Lasix 20 MG No QD Lasix 20 MG Levothyroxi Levothyroxi No Levothyrox ne Sodium ne Sodium ine Sodium 75 MCG 75 MCG 75 MCG Eliquis 2.5 Eliquis 2.5 No 1{table BID Eliquis MG MG t} 2.5 MG Magnesium Magnesium No Magnesium 400 MG 400 MG 400 MG Immunizations Ordered Immunization Filled Immunization Date Status Commen ts Source Name Name FLUZONE HIGH DOSE FLUZONE HIGH DOSE 2021-07-25 [facility]pleted [facility] OVER 65 11:13:00 - [facility] FLUZONE HIGH DOSE FLUZONE HIGH DOSE 2021-07-25 Completed [facility] OVER 65 OVER 65 11:13:00 - [facility] FLUZONE HIGH DOSE FLUZONE HIGH DOSE 2021-07-25 Completed [facility] OVER 65 OVER 65 11:13:00 - [facility] FLUZONE HIGH DOSE FLUZONE HIGH DOSE 2021-07-25 Completed [facility] OVER 65 OVER 65 11:13:00 - [facility] FLUZONE HIGH DOSE FLUZONE HIGH DOSE 2021-07-25 Completed [facility] OVER 65 OVER 65 11:13:00 - [facility] FLUZONE HIGH DOSE FLUZONE HIGH DOSE 2021-07-25 Completed [facility] OVER 65 OVER 65 11:13:00 - [facility] FLUZONE HIGH DOSE FLUZONE HIGH DOSE 2021-07-25 Completed [facility] OVER 65 OVER 65 11:13:00 - [facility] FLUZONE HIGH DOSE FLUZONE HIGH DOSE 2021-07-25 Completed [facility] OVER 65 OVER 65 11:13:00 - [facility] FLUZONE HIGH DOSE FLUZONE HIGH DOSE 2021-07-25 Completed [facility] OVER 65 OVER 65 11:13:00 - [facility] FLUZONE HIGH DOSE FLUZONE HIGH DOSE 2021-07-25 Completed [facility] OVER 65 OVER 65 11:13:00 - [facility] FLUZONE HIGH DOSE FLUZONE HIGH DOSE 2021-07-25 Completed [facility] OVER 65 OVER 65 11:13:00 - [facility] FLUZONE HIGH DOSE FLUZONE HIGH DOSE 2021-07-25 Completed [facility] OVER 65 OVER 65 11:13:00 - [facility] FLUZONE HIGH DOSE FLUZONE HIGH DOSE 2021-07-25 Completed [facility] OVER 65 OVER 65 11:13:00 [facility] FLUZONE HIGH DOSE FLUZONE HIGH DOSE 2021-07-25 Completed [facility] OVER 65 OVER 65 11:13:00 [facility] FLUZONE HIGH DOSE FLUZONE HIGH DOSE 2021-07-25 Completed [facility] OVER 65 OVER 65 11:13:00 - [facility] FLUZONE HIGH DOSE FLUZONE HIGH DOSE 2021-07-25 Completed [facility] OVER 65 OVER 65 11:13:00 - [facility] FLUZONE HIGH DOSE FLUZONE HIGH DOSE 2021-07-25 Completed [facility] OVER 65 OVER 65 11:13:00 [facility] Vital Signs Vital Name Observation Time Observation Value Comments Source height 2022-09-22 11:40:00 63 [in_i] [facility] weight 2022-09-22 11:40:00 117.4 [lb_av] [facility] temperature 2022-09-22 11:40:00 98.1 [degF] [facility] bmi 2022-09-22 11:40:00 20.79 kg/m2 [facility] oximetry 2022-09-22 11:40:00 97 % [facility] respiratory rate 2022-09-22 11:40:00 16 /min Comm on [facility] blood pressure 2022-09-22 11:40:00 136 mm[Hg] [facility] - systolic [facility] blood pressure 2022-09-22 11:40:00 63 mm[Hg] [facility] - diastolic [facility] height 2022-06-09 14:20:00 63 [in_i] [facility] weight 2022-06-09 14:20:00 123.6 [lb_av] [facility] temperature 2022-06-09 14:20:00 97.8 [degF] [facility] bmi 2022-06-09 14:20:00 21.89 kg/m2 [facility] oximetry 2022-06-09 14:20:00 97 % [facility] respiratory rate 2022-06-09 14:20:00 18 /min Comm on [facility] blood pressure 2022-06-09 14:20:00 142 mm[Hg] [facility] - systolic [facility] blood pressure 2022-06-09 14:20:00 64 mm[Hg] [facility] - diastolic [facility] height 2022-04-21 10:00:00 64 [in_i] [facility] weight 2022-04-21 10:00:00 124.0 [lb_av] [facility] temperature 2022-04-21 10:00:00 98.8 [degF] [facility] bmi 2022-04-21 10:00:00 21.28 kg/m2 [facility] oximetry 2022-04-21 10:00:00 98 % [facility] respiratory rate 2022-04-21 10:00:00 16 /min Comm on [facility] blood pressure 2022-04-21 10:00:00 134 mm[Hg] [facility] - systolic [facility] blood pressure 2022-04-21 10:00:00 61 mm[Hg] [facility] diastolic [facility] height 2022-02-19 10:20:00 64 [in_i] [facility] weight 2022-02-19 10:20:00 123.8 [lb_av] [facility] temperature 2022-02-19 10:20:00 97.9 [degF] [facility] bmi 2022-02-19 10:20:00 21.25 kg/m2 [facility] oximetry 2022-02-19 10:20:00 97 % [facility] respiratory rate 2022-02-19 10:20:00 16 /min Comm on [facility] height 2021-12-26 10:40:00 64 [in_i] [facility] weight 2021-12-26 10:40:00 124.6 [lb_av] [facility] temperature 2021-12-26 10:40:00 97.3 [degF] [facility] bmi 2021-12-26 10:40:00 21.39 kg/m2 [facility] oximetry 2021-12-26 10:40:00 100 % [facility] respiratory rate 2021-12-26 10:40:00 16 /min Comm on [facility] blood pressure 2021-12-26 10:40:00 116 mm[Hg] [facility] - systolic [facility] blood pressure 2021-12-26 10:40:00 58 mm[Hg] [facility] diastolic [facility] height 2021-12-10 10:40:00 64 [in_i] [facility] weight 2021-12-10 10:40:00 126.2 [lb_av] [facility] temperature 2021-12-10 10:40:00 97.2 [degF] [facility] bmi 2021-12-10 10:40:00 21.66 kg/m2 [facility] oximetry 2021-12-10 10:40:00 98 % [facility] respiratory rate 2021-12-10 10:40:00 16 /min [facility] on [facility] blood pressure 2021-12-10 10:40:00 136 mm[Hg] [facility] systolic [facility] blood pressure 2021-12-10 10:40:00 68 mm[Hg] [facility] diastolic [facility] Procedures Procedure Date / Time Performed Performing Clinician [facility] e NM BRAIN SPECT W I 123 2022-09-25 20:58:00 [facility] Planned Activity Planned Date Details Comments Source Future Scheduled 2022-11-28 SHINGLES VACCINES (1 [facility] Test 12:15:25 of 2) [code = SHINGLES VACCINES (1 of 2)] Future Scheduled 2022-11-28 65+ PNEUMOCOCCAL [facility] Test 12:15:25 VACCINE (1 - PCV) [code = 65+ PNEUMOCOCCAL VACCINE (1 - PCV)] Future Scheduled 2022-11-28 COVID-19 VACCINE (4 - Me [facility] Test 12:15:25 Booster for Pfizer series) [code = COVID-19 VACCINE (4 - Booster for Pfizer series)] Future Scheduled 2022-06-24 HEPATITIS B VACCINES [facility] Test 13:15:48 (1 of 3 - 3-dose series) [code = HEPATITIS B VACCINES (1 of 3 - 3-dose series)] Future Scheduled 2022-06-24 COVID-19 VACCINE (#1) [facility] Test 13:15:48 [code = COVID-19 VACCINE (#1)] Future Scheduled 2022-06-24 SHINGLES VACCINES (1 [facility] Test 13:15:48 of 2) [code = SHINGLES VACCINES (1 of 2)] Future Scheduled 2022-06-24 65+ PNEUMOCOCCAL [facility] Test 13:15:48 VACCINE (1 - PCV) [code = 65+ PNEUMOCOCCAL VACCINE (1 - PCV)] Future Scheduled 2022-06-24 INFLUENZA VACCINE [facility] Test 13:15:48 [code = INFLUENZA VACCINE] Encounters Start End Encounter Admission Attending Care Care Encounter Source Date/Time Date/Time Type Type Clinicians Facility Department ID 2022-12-17 Outpatient Yo, [facility] [id number] Common 11:14:02 [facility] 2022-12-15 Outpatient Yo, [facility] [id number] Common 09:36:01 [facility] 2022-09-19 Outpatient Yo, [facility] [id number] Common 12:55:00 Kalie [facility] 2022-09-17 Outpatient Yo, [facility] [id number] Common 13:36:01 Kalie [facility] 2022-07-31 Outpatient Yo, [facility] [id number] Common 10:14:01 Kalie [facility] 2022-07-22 Outpatient Yo, [facility] [id number] Common 16:28:02 Kalie [facility] 2022-07-04 Outpatient Yo, [facility] [id number] Common 09:36:02 [facility] 2022-04-18 Outpatient Yo, [facility] [id number] Common 10:53:01 [facility] 2022-04-17 Outpatient Yo, [facility] [id number] Common 10:42:03 [facility] 2021-12-10 Outpatient Yo, [facility] [id number] Common 10:45:02 [facility] 2022-09-25 2022-09-25 [facility], [id number] [facility] 14:20:14 23:59:00 Encounter Nabeel Mcelroy [id number] 3.430.2.7 Hospit a .3.065275 l .8 2022-09-25 2022-09-25 [facility] [id number] [facility] 09:19:45 14:19:00 Encounter Nabeel Mcelroy [id number] 3.430.2.7 Hospit a .[id number] l .8 2022-09-25 2022-09-25 [facility] [id number] [place] [address] 00:00:00 00:00:00 NABEEL 457 Method i 2022-09-25 2022-09-25 [facility] [id number] [place] [address] 00:00:00 00:00:[address] [facility] 2022-09-25 2022-09-25 Travel [id number] [facility] 00:00:00 00:00:[id number] 3.430.2.7 0.2.7.3.698 Ho spita .[id number] 084.8 l .8 2022-09-22 2022-09-22 OFFICE [facility] [id number] Co [facility]mon 00:00:00 00:00:00 [facility] - CHI LEVEL 4 [facility] 2022-08-23 2022-08-23 [facility] [place], Valeriy.2.840.1 [id number] [facility] 00:00:00 00:00:00 Orders Nabeel Mcelroy [id number] 3.430.2.7 Hospit a .3.479248 l .8 2022-08-04 2022-08-04 OFFICE [facility] [id number] Co [facility]mon 00:00:00 00:00:00 [facility] PT - CHI LEVEL 5 [facility] 2022-07-22 2022-07-22 (TEL) ST[facility] [id number] Co mmon 00:00:00 00:00:00 [facility] 2022-07-18 2022-07-18 (TEL) STLMLC ST[facility] [id number] Co mmon 00:00:00 00:00:00 [facility] 2022-06-09 2022-06-09 OFFICE [facility] [id number] Co mmon 00:00:00 00:00:00 [facility] - CHI LEVEL 5 [facility] 2022-04-21 2022-04-21 OFFICE [facility] [id number] Co mmon 00:00:00 00:00:00 [facility] - CHI LEVEL 4 [facility] 2022-04-21 2022-04-21 (MCR WELL) [facility]C [facility] [id number] [facility] 00:00:00 00:00:00 [facility] 2022-02-19 2022-02-19 OFFICE STLMLC STLMLC [id number] [facility] m[facility] 00:00:00 00:00:00 [facility] - CHI LEVEL 4 [facility] 2022-02-04 2022-02-04 (TEL) STLMLC STLMLC [id number] Co [facility] 00:00:00 00:00:00 [facility] 2021-12-26 2021-12-26 OFFICE STLMLC STLMLC [id number] Co mmon 00:00:00 00:00:00 VISIT [facility] PT - CHI LEVEL 5 [facility] 2021-12-17 2021-12-17 (TEL) STLMLC STLMLC [id number] Co mmon 00:00:00 00:00:00 [facility] 2021-12-12 2021-12-12 (TEL) STLMLC STLMLC [id number] Co mmon 00:00:00 00:00:00 [facility] 2021-12-10 2021-12-10 OFFICE STLMLC STLMLC [id number] Co mmon 00:00:00 00:00:00 VISIT [facility] PT LEVEL 5 [facility] 2021-12-10 2021-12-10 (TEL) STLMLC STLMLC [id number] Co mmon 00:00:00 00:00:00 [facility] 2021-11-30 2021-11-30 [place], 1.2.840.1 [id number] Methodi 00:00:00 00:00:[id number] 3.430.2.7 Hospit a .3.900854 l .8 2021-11-26 2021-11-26 Travel 1.2.840.1 [id number] Methodi 00:00:00 00:00:[address] 3.430.2.7 0.2.7.3.698 Ho spita .3.516097 084.8 l .8 2021-11-14 2021-11-14 [place] 1.2.840.1 [id number] Methodi 00:00:00 00:00:[address] 3.430.2.7 Hospit a .3.765374 l .8 2021-09-26 2021-09-26 [place] 1.2.840.1 [id number] Methodi 00:00:00 00:00:[address] 3.430.2.7 Hospit a .3.038321 l .8 2021-09-16 2021-09-16 Refill Sarkis, 1.2.840.1 [id number] Methodi 00:00:00 00:00:[address] 3.430.2.7 Hospit a .3.271125 l .8 2021-08-14 2021-08-14 Refill Sarkis, 1.2.840.1 [id number] Methodi 00:00:00 00:00:[address] 3.430.2.7 Hospit a .3.940014 l .8 2019-11-01 2019-11-01 Outpatient [facility] [id number] [address] [place] [address] 00:00:00 00:00:[address] NEGAR [address] Results This patient has no known results.
[2023-01-15] MEDS ORDERED: DIAZEPAM 5 MG TABLET ONE (12:10)
--- NOTE | 2023-01-15 14:15 | RAD REPORT ---
EXAM DESCRIPTION: CT - Spine Lumbar Wo Con - 01/15/2023 1:57 pm CLINICAL HISTORY: Radiculopathy. LOWER BACK PAIN COMPARISON: Spine Lumbar W/Wo Cont dated 11/17/2022 TECHNIQUE: Axial noncontrast CT imaging of the lumbar spine was performed with coronal and sagittal re-formatted images. All CT scans are performed using dose optimization technique as appropriate and may include automated exposure control or mA/KV adjustment according to patient size. FINDINGS: T12 kyphoplasty. Grade 1/2 anterolisthesis of L4 on L5. This results in some uncovering of the disc in conjunction with facet and ligamentum flavum hypertrophy. Central spinal stenosis is mil d over there is severe right neural foraminal narrowing with superimpose right foramina disc protrusi on. No acute fractures identified. Prior posterior decompression at L4-5 . Paraspinal tissues are normal in thickness. No paraspinal abscess or hematoma seen. Cholecystectomy. Atherosclerosis. Intervertebral disc disease assessment is inherently limited by CT. Within these limitations, no high -grade canal stenosis suspected. IMPRESSION: Right foraminal disc protrusion at L4-5 compresses the exiting right L4 nerve root and c ould explain a right-sided radiculopathy. This may be either new or worsened since 11/17/2022 MRI. A repeat lumbar spine MRI could further assess.
[2023-01-15] MEDS ORDERED: dexAMETHasone 10 MG/ML VIAL ONE (14:33)
--- NOTE | 2023-01-15 14:41 | ER ---
Nurse's Notes [facility] Name: Diana Nava Age: 82 yrs Sex: Female : 1940 Arrival Date: 01/15/2023 Time: 10:56 Bed 12 Private MD: Kalie Yo Diagnosis: Radiculopathy, lumbar region Presentation: 01/15 11:17 Chief complaint: Patient states: "my right hip has been hurting". Pt's daughter states aa5 "she had PT on Thursday and she noticed her right hip hurting on Thursday". Pt states "I have sciatica on my left but it's never been on my right". 11:17 Onset of symptoms was December 2022. aa5 11:17 Acuity: [id number] 3 aa5 11:17 Coronavirus screen: At this time, the client does not indicate any symptoms associated aa5 with coronavirus-19. Ebola Screen: Patient denies travel to an Ebola-affected area in the 21 days before illness onset. Initial Sepsis Screen: Does the patient meet any 2 criteria? No. Patient's initial sepsis screen is negative. Does the patient have a suspected source of infection? No. Patient's initial sepsis screen is negative. Risk Assessment: Do you want to hurt yourself or someone else? Patient reports no desire to harm self or others. 11:17 Method Of Arrival: Wheelchair aa5 Historical: - Allergies: 11:00 all calcium channel blockers; ss 11:00 Daypro; ss 11:00 Lodine; ss 11:00 Plendil; ss 11:00 Prinivil; ss 11:00 Procardia; - Home Meds: 11:25 AREDS2 1 cap twice a day [Active]; levothyroxine 75 mcg capsule once [Active]; Klor-Con aa5 8mEq daily [Active]; losartan 50 mg Oral tab 1 tab 2 times per day [Active]; hydrochlorothiazide 25 mg Oral tab 1 tab once daily [Active]; raloxifene 60 mg Oral tab 1 tab once daily [Active]; Myrbetriq 25 mg oral Tablet, Extended Release 24 hr [Active]; lansoprazole 15 mg Oral cpDR 1 cap once daily [Active]; 11:29 moduchol 650mg daily [Active]; Vitamin D3 125 mcg (5,000 unit) oral tablet once aa5 [Active]; super B complex with Vitamin C [Active]; Biotin 5000mcg daily [Active]; vitamin C 500mg daily [Active]; magnesium oxide 400 mg magnesium Oral tab 400 mg daily [Active]; probiotics daily [Active]; Colace 100 mg oral capsule daily [Active]; Miralax Oral PRN [Active]; carvedilol 3.125 mg Oral tab 1 tab 2 times per day [Active]; Furosemide 10mg daily Oral [Active]; tramadol 50mg [Active]; corvodopa/levodopa 25mg daily [Active]; pregabalin 75 mg Oral capsule once [Active]; 12:00 aspirin 81 mg Oral TbEC 1 tab -- [Active]; biotin 5,000 mcg Oral TbDi 1 tab daily eh3 [Active]; enalapril maleate 20 mg Oral tab 1 tab once daily [Active]; glimepiride 1 mg Oral tab 1 tab once daily [Active]; levothyroxine 75 mcg tab 1 tab once daily [Active]; losartan-hydrochlorothiazide 50-12.5 mg Oral tab 1 tab once daily [Active]; metformin 500 mg Oral tr24 1 tab once daily [Active]; Miralax 17 gram/dose Oral powd 17 g as needed [Active]; moduchol 650 mg daily [Active]; Probiotic Oral 1 tab daily [Active]; Super B/C Oral cap 1 cap daily [Active]; tolterodine 4 mg Oral cp24 1 cap once daily [Active]; trospium 60 mg Oral cp24 1 cap once daily [Active]; turmeric 500 mg Oral 1 tab daily [Active]; Vitamin C 500 mg Oral tab 500 mg daily [Active]; Zetia 10 mg Oral tab 1 tab once daily [Active]; - PMHx: 11:00 Diabetes - NIDDM; Hyperlipidemia; Hypertension; ss 11:21 Back pain; Parkinson's disease; aa5 11:25 thyroid problem; leg swelling; aa5 - PSHx: 11:21 Back sx; aa5 - Immunization history:: Adult Immunizations unknown. - Social history:: Smoking status: Patient denies any tobacco usage or history of. Screenin:00 [facility] ED Fall Risk Assessment (Adult) Score/Fall Risk Level 3 or more points = High eh3 Risk Oriented to surroundings, Maintained a safe environment, Educated pt \\T\\ family on fall prevention, incl call for assistance when getting out of bed, Assessed \\T\\ reinforced patient's understanding of fall precautions, Provided non-skid footwear, Hourly rounding (assess needs \\T\\ fall precautionary measures) done, Used ambulatory aids as needed (educated on \\T\\ assisted with), Utilized family, sitter, or virtual power shovel operator as indicated. Abuse screen: Denies threats or abuse. Denies injuries from another. Nutritional screening: No deficits noted. Tuberculosis screening: No symptoms or risk factors identified. Assessment: 12:00 General: Appears in no apparent distress. uncomfortable, Behavior is calm, cooperative, eh3 appropriate for age. Pain: Complains of pain in right hip. Neuro: Level of Consciousness is awake, alert, obeys commands, Oriented to person, place, time, situation. Cardiovascular: Capillary refill < 3 seconds Patient's skin is warm and dry. Respiratory: Airway is patent Respiratory effort is even, unlabored, Respiratory pattern is regular, symmetrical. GI: No signs and/or symptoms were reported involving the gastrointestinal system. Abdomen is round non-distended. : No signs and/or symptoms were reported regarding the genitourinary system. EENT: No signs and/or symptoms were reported regarding the EENT system. Derm: No signs and/or symptoms reported regarding the dermatologic system. Skin is pink, warm \\T\\ dry. Musculoskeletal: Circulation, motion, and sensation intact. Range of motion: limited in left knee, left ankle, right hip, right knee and right ankle. 13:00 Reassessment: Patient appears in no apparent distress at this time. Patient and/or eh3 family updated on plan of care and expected duration. Pain level reassessed. Patient is alert, oriented x 3, equal unlabored respirations, skin warm/dry/pink. Ambulated with assistance to bathroom, complained of pain in right hip, stated she could not move her left foot, pt tolerated ambulation poorly. Transferred to bed with assistance x2, tolerated poorly and complained of pain in right hip and sacrum, transferred back to wheelchair with assistance, stated wheelchair was more comfortable. 14:00 Reassessment: Patient appears in no apparent distress at this time. Patient and/or eh3 family updated on plan of care and expected duration. Pain level reassessed. Patient is alert, oriented x 3, equal unlabored respirations, skin warm/dry/pink. 14:28 Reassessment: engineering technical writer notified nursing staff of skin tear sustained to R elbow during ss transfer to CT table. Pt states that she simply stood from wheelchair, while transferring to CT table and the friction from the sheet tore her skin. SHIELA Ramires notified. Wound has been cleaned with NS, dressed with steri strips x2, Non adherent dressing and SABRINA wrap. Pt tolerated well and verbalizes understanding of wound care. Vital Signs: 11:17 BP 150 / 59; Pulse 64; Resp 16 S; Temp 98.4(TE); Pulse Ox 99% on R/A; aa5 13:00 BP 137 / 63; Pulse 58; Resp 16; Pulse Ox 97% on R/A; eh3 14:00 BP 169 / 72; Pulse 57; Resp 16; Pulse Ox 100% on R/A; eh3 ED Course: 10:56 Patient arrived in ED. mr 10:56 [facility] snw 10:56 Min Rivera MD is Attending Physician. snw 10:56 Kalie Yo is Private Physician. mr 11:17 Arm band placed on. aa5 11:20 Triage completed. aa5 12:00 Patient has correct armband on for positive identification. Call light in reach. Adult eh3 w/ patient. Pulse ox on. NIBP on. Door closed. Noise minimized. 12:03 Thea Zuñiga, JENISE is Primary Nurse. eh3 13:59 CT Lumbar Spine Wo Con In Process Unspecified. EDMS 15:00 No provider procedures requiring assistance completed. Patient did not have IV access eh3 during this emergency room visit. Administered Medications: 11:30 CANCELLED (Inappropriate at this time): NS 0.9% IV 1000 ml IV at 1 bolus Per protocol; snw 1000 mL bolus 11:30 CANCELLED (Inappropriate at this time): Famotidine IVP 20 mg IVP once; dilute with 10 snw mL 0.9% NaCl; give over 2 minutes 11:30 CANCELLED (Inappropriate at this time): Decadron - Dexamethasone IVP 10 mg IVP once snw 12:09 Drug: Diazepam PO 5 mg Route: PO; eh3 13:00 Follow up: Response: Pain is decreased 3 14:30 Drug: Decadron - Dexamethasone IVP 10 mg Route: IVP; Site: Other; 3 15:01 Follow up: Response: Pain is decreased 3 Medication: 14:28 VIS not applicable for this client. ss Outcome: 14:41 Discharge ordered by . snw 15:00 Discharged to home with crutches, with family. 3 15:00 Condition: stable 15:00 Discharge instructions given to patient, family, Instructed on discharge instructions, follow up and referral plans. medication usage, Demonstrated understanding of instructions, follow-up care, medications, Prescriptions given X 2. 15:01 Patient left the ED. 3 Signatures: Dispatcher [employer] EDMS Keyla Swartz, CELESTINE-C SOLUTION DESIGN ENGINEER-Csnw JermaineMaryam mr Jaimes, Joanna, RN RN aa5 Shawna Boyer RN RN ss Thea Zuñiga RN RN 3 Corrections: (The following items were deleted from the chart) 11:23 11:17 Chief complaint: Patient states: "my right hip has been hurting". Pt's daughter aa5 states "she had PT on Thursday and she noticed her right hip hurting on Thursday". Pt states "I have sciatica on my left but it's never been on my right" aa5
--- NOTE | 2023-01-15 14:41 | EDPHYS ---
Physician Documentation [facility] Name: Diana Nava Age: 82 yrs Sex: Female : 1940 Arrival Date: 01/15/2023 Time: 10:56 Bed 12 Private MD: Kalie Yo ED Physician Min Rivera HPI: 01/15 14:59 This 82 yrs old Female presents to ER via Wheelchair with complaints of Hip Pain, Leg snw Pain. 14:59 The patient or guardian reports pain. that occurred at home, sustained from new type of snw transfer for patient in PT. Onset: The symptoms/episode began/occurred acutely. Associated signs and symptoms: Loss of consciousness: the patient experienced no loss of consciousness. The patient has experienced similar episodes in the past, a few times, on the left but never on the right. sees Ortho, Neuro, and pain management. Historical: - Allergies: 11:00 all calcium channel blockers; ss 11:00 Daypro; ss 11:00 Lodine; ss 11:00 Plendil; ss 11:00 Prinivil; ss 11:00 Procardia; ss - Home Meds: 11:25 AREDS2 1 cap twice a day [Active]; levothyroxine 75 mcg capsule once [Active]; Klor-Con aa5 8mEq daily [Active]; losartan 50 mg Oral tab 1 tab 2 times per day [Active]; hydrochlorothiazide 25 mg Oral tab 1 tab once daily [Active]; raloxifene 60 mg Oral tab 1 tab once daily [Active]; Myrbetriq 25 mg oral Tablet, Extended Release 24 hr [Active]; lansoprazole 15 mg Oral cpDR 1 cap once daily [Active]; 11:29 moduchol 650mg daily [Active]; Vitamin D3 125 mcg (5,000 unit) oral tablet once aa5 [Active]; super B complex with Vitamin C [Active]; Biotin 5000mcg daily [Active]; vitamin C 500mg daily [Active]; magnesium oxide 400 mg magnesium Oral tab 400 mg daily [Active]; probiotics daily [Active]; Colace 100 mg oral capsule daily [Active]; Miralax Oral PRN [Active]; carvedilol 3.125 mg Oral tab 1 tab 2 times per day [Active]; Furosemide 10mg daily Oral [Active]; tramadol 50mg [Active]; corvodopa/levodopa 25mg daily [Active]; pregabalin 75 mg Oral capsule once [Active]; 12:00 aspirin 81 mg Oral TbEC 1 tab [Active]; biotin 5,000 mcg Oral TbDi 1 tab daily eh3 [Active]; enalapril maleate 20 mg Oral tab 1 tab once daily [Active]; glimepiride 1 mg Oral tab 1 tab once daily [Active]; levothyroxine 75 mcg tab 1 tab once daily [Active]; losartan-hydrochlorothiazide 50-12.5 mg Oral tab 1 tab once daily [Active]; metformin 500 mg Oral tr24 1 tab once daily [Active]; Miralax 17 gram/dose Oral powd 17 g as needed [Active]; moduchol 650 mg daily [Active]; Probiotic Oral 1 tab daily [Active]; Super B/C Oral cap 1 cap daily [Active]; tolterodine 4 mg Oral cp24 1 cap once daily [Active]; trospium 60 mg Oral cp24 1 cap once daily [Active]; turmeric 500 mg Oral 1 tab daily [Active]; Vitamin C 500 mg Oral tab 500 mg daily [Active]; Zetia 10 mg Oral tab 1 tab once daily [Active]; - PMHx: 11:00 Diabetes - NIDDM; Hyperlipidemia; Hypertension; ss 11:21 Back pain; Parkinson's disease; aa5 11:25 thyroid problem; leg swelling; aa5 - PSHx: 11:21 Back sx; aa5 - Immunization history:: Adult Immunizations unknown. - Social history:: Smoking status: Patient denies any tobacco usage or history of. ROS: 12:38 Constitutional: Negative for fever, chills, and weight loss, Eyes: Negative for injury, snw pain, redness, and discharge, ENT: Negative for injury, pain, and discharge, Neck: Negative for injury, pain, and swelling, Cardiovascular: Negative for chest pain, palpitations, and edema, Respiratory: Negative for shortness of breath, cough, wheezing, and pleuritic chest pain, Abdomen/GI: Negative for abdominal pain, nausea, vomiting, diarrhea, and constipation, : Negative for injury, bleeding, discharge, and swelling, MS/Extremity: Negative for injury and deformity, Skin: Negative for injury, rash, and discoloration, Neuro: Negative for headache, weakness, numbness, tingling, and seizure, Psych: Negative for depression, anxiety, suicide ideation, homicidal ideation, and hallucinations. 12:38 Back: Positive for pt with chronic low back pain, has been doing a different type of twisting transfer with PT over the past two to three visits. Notes right thigh, back pain since, Pt states chronic back pain is usually left sided. Exam: 12:37 Constitutional: This is a well developed, well nourished patient who is awake, alert, snw and in no acute distress. Head/Face: Normocephalic, atraumatic. Eyes: Pupils equal round and reactive to light, extra-ocular motions intact. Lids and lashes normal. Conjunctiva and sclera are non-icteric and not injected. Cornea within normal limits. Periorbital areas with no swelling, redness, or edema. ENT: Nares patent. No nasal discharge, no septal abnormalities noted. Tympanic membranes are normal and external auditory canals are clear. Oropharynx with no redness, swelling, or masses, exudates, or evidence of obstruction, uvula midline. Mucous membranes moist. Neck: Trachea midline, no thyromegaly or masses palpated, and no cervical lymphadenopathy. Supple, full range of motion without nuchal rigidity, or vertebral point tenderness. No Meningismus. Chest/axilla: Normal chest wall appearance and motion. Nontender with no deformity. No lesions are appreciated. Cardiovascular: Regular rate and rhythm with a normal S1 and S2. No gallops, murmurs, or rubs. Normal PMI, no JVD. No pulse deficits. Respiratory: Lungs have equal breath sounds bilaterally, clear to auscultation and percussion. No rales, rhonchi or wheezes noted. No increased work of breathing, no retractions or nasal flaring. Back: No spinal tenderness. No costovertebral tenderness. Full range of motion. Skin: Warm, dry with normal turgor. Normal color with no rashes, no lesions, and no evidence of cellulitis. MS/ Extremity: Pulses equal, no cyanosis. Neurovascular intact. Full, normal range of motion. Neuro: Awake and alert, GCS 15, oriented to person, place, time, and situation. Cranial nerves II-XII grossly intact. Motor strength 5/5 in all extremities. Sensory grossly intact. Cerebellar exam normal. Normal gait. Psych: Awake, alert, with orientation to person, place and time. Behavior, mood, and affect are within normal limits. 12:37 Abdomen/GI: Inspection: abdomen appears normal, Bowel sounds: normal, Palpation: mild abdominal tenderness, moderate abdominal tenderness, in the proximal to right iliac crest. Vital Signs: 11:17 BP 150 / 59; Pulse 64; Resp 16 S; Temp 98.4(TE); Pulse Ox 99% on R/A; aa5 13:00 BP 137 / 63; Pulse 58; Resp 16; Pulse Ox 97% on R/A; eh3 14:00 BP 169 / 72; Pulse 57; Resp 16; Pulse Ox 100% on R/A; eh3 MDM: 11:20 Patient medically screened. snw 14:54 Differential diagnosis: bursitis, arthritis, radiculopathy. Data reviewed: vital signs, snw nurses notes, radiologic studies, CT scan. Historians other than the Patient: Daughter/Son: . Care significantly affected by the following Social Determinants of Health: unable to undergo a surgical procedure, Daughter lives 2.5 hours away. Counseling: I had a detailed discussion with the patient and/or guardian regarding: the historical points, exam findings, and any diagnostic results supporting the discharge/admit diagnosis, the presence of at least one elevated blood pressure reading (>120/80) during this emergency department visit, radiology results, the need for outpatient follow up, for definitive care, to return to the emergency department if symptoms worsen or persist or if there are any questions or concerns that arise at home. Special discussion: I have referred the patient to see his PCP for further evaluation of high blood pressure. Based on the history and exam findings, there is no indication for further emergent testing or inpatient evaluation. I discussed with the patient/guardian the need to see the neurologist for further evaluation of the symptoms. I discussed with the patient/guardian the need to see the orthopedic surgeon for further evaluation of the symptoms. I discussed with the patient/guardian the need to see the primary care provider for further evaluation of the symptoms. 01/15 11:06 Order name: Urinalysis w/ reflexes snw 01/15 13:27 Order name: CT Lumbar Spine Wo Con; Complete Time: 14:20 snw Administered Medications: 11:30 CANCELLED (Inappropriate at this time): NS 0.9% IV 1000 ml IV at 1 bolus Per protocol; snw 1000 mL bolus 11:30 CANCELLED (Inappropriate at this time): Famotidine IVP 20 mg IVP once; dilute with 10 snw mL 0.9% NaCl; give over 2 minutes 11:30 CANCELLED (Inappropriate at this time): Decadron - Dexamethasone IVP 10 mg IVP once snw 12:09 Drug: Diazepam PO 5 mg Route: PO; eh3 13:00 Follow up: Response: Pain is decreased eh3 14:30 Drug: Decadron - Dexamethasone IVP 10 mg Route: IVP; Site: Other; 3 15:01 Follow up: Response: Pain is decreased 3 Disposition: 15:26 I reviewed the patient's care provided by the Advanced Practice Provider and agree with jr11 the diagnosis and treatment plan. Disposition Summary: 01/15/23 14:41 Discharge Ordered Location: Home snw Condition: Stable snw Diagnosis - Radiculopathy, lumbar region snw Followup: snw - With: Emergency Department - When: As needed - Reason: Worsening of condition Followup: snw - With: Private Physician - When: 2 - 3 days - Reason: Recheck today's complaints, Continuance of care, Re-evaluation by your physician Discharge Instructions: - Discharge Summary Sheet snw - Radicular Pain snw - Form - Physical Therapy Referral snw Forms: - Medication Reconciliation Form snw - Thank You Letter snw - Antibiotic Education snw - Prescription Opioid Use snw Signatures: Dispatcher [employer] EDMS Keyla Swartz, CELESTINE-C MECHANICAL FIELD ENGINEER-Csnw Joanna Jaimes, RN RN aa5 Shawna Boyer RN RN ss Rosillo, Jose, MD MD [email or web address] Thea Zuñiga RN RN 3 Corrections: (The following items were deleted from the chart) 11:30 11:06 NS 0.9% IV 1000 ml IV at 1 bolus Per protocol; 1000 mL bolus ordered. snw snw 11:30 11:06 Famotidine IVP 20 mg IVP once; dilute with 10 mL 0.9% NaCl; give over 2 minutes snw ordered. snw 11:30 11:06 Decadron - Dexamethasone IVP 10 mg IVP once ordered. snw snw 11:31 11:06 IV Saline Lock ordered. [facility] 11:06 Labs collected and sent ordered. [facility] 11:07 CBC+H.LAB.BRZ ordered. EDMS EDMS 11:07 COMPREHENSIVE METABOLIC PANEL+C.LAB.BRZ ordered. EDMS EDMS 11:07 LIPASE+C.LAB.BRZ ordered. EDMS EDMS 11:07 Test, Urine+UC.LAB.BRZ ordered. EDMS EDMS
[2023-01-15 15:04] LABS: Specific Gravity 1.014 (1.005-1.030); Urine Bilirubin NEGATIVE (Negative); Urine Blood Negative (Negative); Urine Clarity Clear (Clear); Urine Color Light-Yellow (Yellow); Urine Glucose NEGATIVE (Negative); Urine Protein NEGATIVE (Negative); Urine Urobilinogen Normal (Normal); Urine pH 6.5 (5.0-7.0)
[2023-01-15 17:06] VITALS: TEMP 98.4
[2023-01-15 17:07] VITALS: BP 137/63; O2SAT 97
== END 2023-01-15 15:01 | disposition home or self-care (01) ==
LOC: ER 10:51
DX: M54.16 Radiculopathy, lumbar region (principal); E11.9 Type 2 diabetes mellitus without complications; E78.5 Hyperlipidemia, unspecified; I10 Essential (primary) hypertension; G20 Parkinson's disease; Z91.09 Other allergy status, other than to drugs and biological substances; Z88.8 Allergy status to other drugs, medicaments and biological substances
CPT/HCPCS: 81003; 72131; J1100

== ENCOUNTER 2024-03-03 18:29 | Emergency (ER) | payer OTHER ==
[2024-03-03] MEDS ORDERED: LACTULOSE 20 GM/30 ML UCUP ONE (19:42)
[2024-03-03] MEDS ORDERED: NA CHLORIDE 0.9% 500 ML ONE (19:42)
[2024-03-03] MEDS ORDERED: ONDANSETRON 4 MG/2 ML VIAL ONE (19:42)
[2024-03-03 19:47] LABS: Absolute Lymphocytes (CBC) 0.6 K/uL (0.7-4.9); Absolute Monocytes 0.6 K/uL (0.1-1.3); Absolute Neutrophil 9.7 K/uL (1.8-8.0); Basophils % 0.3 % (0-1.3); Eosinophils % 0.1 % (0-4.4); Hematocrit 37.4 % (36.0-45.0); Hemoglobin 12.5 g/dL (12.0-15.0); Lymphocytes % 5.5 % (15.3-44.8); MCH 30.6 pg (27.0-35.0); MCHC 33.4 g/dL (32.0-36.0); MCV 91.8 fL (80-100); MPV 9.4 fL (7.6-11.3); Monocytes % 5.2 % (3.3-12.3); Neutrophils % 88.9 % (41.7-73.7); Platelets 148 thou/uL (152-406); RBC Red Blood Cell Count 4.08 M/uL (3.86-4.86); Red Cell Distribution Width 13.4 % (12.1-15.2)
[2024-03-03 19:49] LABS: Specific Gravity 1.026 (1.005-1.030); Sqamous Epithelial <5 /HPF (None Seen); Urine Bacteria None Seen /HPF (<20); Urine Bilirubin NEGATIVE (Negative); Urine Blood Negative (Negative); Urine Clarity Clear (Clear); Urine Color Yellow (Yellow); Urine Crystals Unidentified Few /HPF (None Seen); Urine Culture Reflex Order NOT NEEDED; Urine Glucose NEGATIVE (Negative); Urine Ketones 1+ (Negative); Urine Micro Reflex YN NO BILL MICROSCOPIC; Urine Mucus 1+ /HPF (None Seen); Urine Nitrite NEGATIVE (Negative); Urine Protein TRACE (Negative); Urine RBC <5 /HPF (None Seen); Urine Urobilinogen 2+ (Normal); Urine WBC <5 /HPF (<5); Urine Yeast (Budding) Trace /HPF (None Seen)
[2024-03-03 20:05] LABS: ALT/SGPT < 14 U/L (13-56); AST/SGOT 15 U/L (15-37); Albumin 3.5 g/dL (3.4-5.0); Albumin/Globulin Ratio 1.3 (1.1-1.8); Alkaline Phosphatase 55 U/L (45-117); Anion Gap 5.5 mEq/L (5.0-15.0); BUN Blood Urea Nitrogen 22 mg/dL (7-18); Bicarbonate 30 mEq/L (21-32); Bilirubin Total 0.8 mg/dL (0.2-1.0); Globulin 2.7 g/dL (2.3-3.5); Glomerular Filtration Rate 77 ml/min (=/>90); Glucose Level 138 mg/dL (74-106); Lipase 16 U/L (13-75); Potassium 3.5 mEq/L (3.5-5.1); Protein, Total 6.2 g/dL (6.4-8.2); Sodium Level 137 mEq/L (136-145)
[2024-03-03 20:37] LABS: Blood Morphology Comment NOT SEEN (NOT SEEN); Platelet Estimate DECR; White Blood Cell Scan OK (OK)
--- NOTE | 2024-03-03 22:53 | RAD REPORT ---
EXAM DESCRIPTION: CT - Abdomen Pelvis W Contrast - 03/03/2024 10:16 pm CLINICAL HISTORY: Abdominal distention;Constipation COMPARISON: Spine Lumbar Wo Con dated 01/15/2023 TECHNIQUE: Thin cut axial CT imaging of the abdomen and pelvis was performed following intravenous a dministration of iodinated contrast. Multiplanar reformats were generated and reviewed. All CT scans are performed using dose optimization technique as appropriate and may include automated exposure control or mA/KV adjustment according to patient size. FINDINGS: No suspicious findings in the lung bases. The liver shows a lobulated posterior right lobe 2.3 cm lesion with some peripheral enhancement, may represent a hemangioma versus a cyst. Spleen and pancreas show no suspicious findings. Nodular thicke cheo of the adrenal glands bilaterally, stable. Gallbladder was surgically removed. Symmetric renal function is seen with no hydronephrosis or suspicious renal mass. Exophytic 2 cm left interpolar benign-appearing cyst. No dilated bowel loops. Segmental bowel wall thickening and mucosal hyperenhancement along the mid de scending colon through the proximal sigmoid, with mild adjacent fat stranding. Mild caliber prominenc e of distal small bowel loops with short-segment air-fluid levels. No free air, fluid collections, or inflammatory stranding. Mild free pelvic ascites No hernia, mass or bulky lymphadenopathy. The urina ry bladder is without significant finding. No suspicious bony findings. Sequelae of vertebral augmentation at L1. Grade 1 anterolisthesis of L4 over L5. Spinal stimulator electrodes in place. IMPRESSION: Segmental distal colonic bowel wall thickening and adjacent fat stranding, most suggesti ve of segmental colitis. Please correlate clinically, and consider short-term follow-up CT imaging to ensure resolution. Mild free pelvic ascites. Mild prominence of the distal small bowel loops, may relate to enteritis or diarrheal state. Other incidental findings as above.
[2024-03-03] MEDS ORDERED: CIPROFLOXACIN HCL 500 MG TAB ONE (23:37)
[2024-03-03] MEDS ORDERED: DICYCLOMINE HCL 20 MG/2 ML AMP IM ONE (23:37)
[2024-03-03] MEDS ORDERED: metroNIDAZOLE 500 MG TABLET ONE (23:37)
--- NOTE | 2024-03-03 23:53 | ER ---
Nurse's Notes [facility] Name: Diana Nava Age: 83 yrs Sex: Female : 1940 Arrival Date: 03/03/2024 Time: 18:29 Bed 6 Private MD: Kalie Yo Diagnosis: Indeterminate colitis Presentation: 03/03 18:49 Chief complaint: Patient states: constipation, last BM was Thursday, pt daughter states aa5 "she has an ongoing issue with constipation but because she had cataract sx today she hasn't been able to take her normal Miralax". 18:49 Coronavirus screen: At this time, the client does not indicate any symptoms associated aa5 with coronavirus-19. Ebola Screen: Patient denies travel to an Ebola-affected area in the 21 days before illness onset. Initial Sepsis Screen: Does the patient meet any 2 criteria? No. Patient's initial sepsis screen is negative. Does the patient have a suspected source of infection? No. Patient's initial sepsis screen is negative. Risk Assessment: Do you want to hurt yourself or someone else? Patient reports no desire to harm self or others. Onset of symptoms was February 2024. 18:49 Acuity: [id number] 3 aa5 18:49 Method Of Arrival: Wheelchair aa5 Historical: - Allergies: 18:52 all calcium channel blockers; aa5 18:52 Daypro; aa5 18:52 Delsym Night Time Cough \\T\\ Cold; aa5 18:52 epinephrine-Denitist office; aa5 18:52 Lodine; aa5 18:52 Plendil; aa5 18:52 Prinivil; aa5 18:52 Procardia; aa5 - PMHx: 18:52 angina pectoris; Back pain; Diabetes - NIDDM; Hyperlipidemia; Hypertension; leg aa5 swelling; Parkinson's disease; Thyroid problem; - PSHx: 18:52 back sx; aa5 - Immunization history:: Adult Immunizations unknown. - Infectious Disease History:: Denies. - Social history:: Smoking status: Patient denies any tobacco usage or history of. Screenin:10 Abuse screen: Denies threats or abuse. Denies injuries from another. jw7 19:10 [facility] ED Fall Risk Assessment (Adult) History of falling in the last 3 months, jw7 including since admission No falls in past 3 months (0 pts) Confusion or Disorientation No (0 pts) Intoxicated or Sedated No (0 pts) Impaired Gait Yes (1 pt) Mobility Assist Device Used Yes (1 pt) Altered Elimination Yes (1 pt) Score/Fall Risk Level 3 or more points = High Risk Oriented to surroundings, Maintained a safe environment, Educated pt \\T\\ family on fall prevention, incl call for assistance when getting out of bed, Assessed \\T\\ reinforced patient's understanding of fall precautions, Provided non-skid footwear. Nutritional screening: No deficits noted. Tuberculosis screening: No symptoms or risk factors identified. Assessment: 19:10 General: Appears in no apparent distress. comfortable, Behavior is calm, cooperative, jw7 anxious. Pain: Denies pain. Neuro: Level of Consciousness is awake, alert, obeys commands, Oriented to person, place, time, situation. 19:10 Cardiovascular: Heart tones S1 S2 present Capillary refill < 3 seconds Clubbing of nail jw7 beds is absent JVD is absent Patient's skin is warm and dry. Respiratory: Airway is patent Trachea midline Respiratory effort is even, unlabored, Respiratory pattern is regular, symmetrical, Breath sounds are clear bilaterally. GI: Abdomen is flat, non-distended, Bowel sounds present X 4 quads. Abd is soft Abdomen is tender to palpation. : No deficits noted. No signs and/or symptoms were reported regarding the genitourinary system. EENT: No signs and/or symptoms were reported regarding the EENT system. Reports Cataract Surgery to right eye. Derm: Skin is healthy with good turgor, is fragile, Skin is dry, Skin is normal, Skin temperature is warm. Musculoskeletal: Circulation, motion, and sensation intact. Range of motion: intact in all extremities. 20:25 Reassessment: Patient appears in no apparent distress at this time. No changes from jw7 previously documented assessment. Patient and/or family updated on plan of care and expected duration. Pain level reassessed. Patient is alert, oriented x 3, equal unlabored respirations, skin warm/dry/pink. 21:30 Reassessment: Patient appears in no apparent distress at this time. No changes from jw7 previously documented assessment. Patient and/or family updated on plan of care and expected duration. Pain level reassessed. Patient is alert, oriented x 3, equal unlabored respirations, skin warm/dry/pink. 22:37 Reassessment: Patient appears in no apparent distress at this time. No changes from jw7 previously documented assessment. Patient and/or family updated on plan of care and expected duration. Pain level reassessed. Patient is alert, oriented x 3, equal unlabored respirations, skin warm/dry/pink. 23:48 Reassessment: Patient appears in no apparent distress at this time. No changes from jw7 previously documented assessment. Patient and/or family updated on plan of care and expected duration. Pain level reassessed. Patient is alert, oriented x 3, equal unlabored respirations, skin warm/dry/pink. Vital Signs: 18:49 BP 153 / 50; Pulse 60; Resp 16 S; Temp 97.8(TE); Pulse Ox 96% on R/A; Weight 60.78 kg aa5 (R); Height 5 ft. 4 in. (R); 19:00 BP 148 / 53; Pulse 65; Resp 17 S; Pulse Ox 99% on R/A; jw7 20:30 BP 152 / 49; Pulse 60; Resp 18 S; Pulse Ox 98% on R/A; jw7 21:30 BP 141 / 54; Pulse 62; Resp 17 S; Pulse Ox 97% on R/A; jw7 22:30 BP 122 / 50; Pulse 72; Resp 16 S; Pulse Ox 98% on R/A; jw7 23:45 BP 125 / 52; Pulse 74; Resp 16 S; Pulse Ox 98% on R/A; jw7 18:49 Body Mass Index 23.00 (60.78 kg, 162.56 cm) aa5 ED Course: 18:31 Patient arrived in ED. mr 18:32 Srinath Kalie is Private Physician. mr 18:37 Darrel Lam PA is PHCP. cp 18:37 Jorge Snow DO is Attending Physician. cp 18:39 Arm band placed on. mb9 18:49 Placed in gown. Bed in low position. Call light in reach. Side rails up X 1. Provided mb9 Education on: press call light if needing anything. Client placed on continuous cardiac and pulse oximetry monitoring. NIBP monitoring applied. Door closed. Noise minimized. Warm blanket given. Pillow given. 18:52 Triage completed. aa5 19:35 No provider procedures requiring assistance completed. Inserted saline lock: 22 gauge pf1 in right antecubital area, using aseptic technique. Blood collected. 19:35 Initial lab(s) drawn, by me, sent to lab. Urine collected: clean catch specimen, clear, pf1 dez colored. 19:39 Urinalysis W/Microscopic Sent. pf1 19:39 CBC with Diff Sent. pf1 19:39 CMP Sent. pf1 19:39 Lipase Sent. pf1 22:18 CT Abd/Pelvis - PO and IV Contrast In Process Unspecified. EDMS 23:53 Kalie Yo is Referral Physician. adeel 03/04 00:13 IV discontinued, intact, bleeding controlled, No redness/swelling at site. Pressure jw7 dressing applied. Administered Medications: 03/03 19:53 Drug: NS 0.9% IV 500 ml IV at 125 ml/hr continuous Route: IV; Rate: 125 ml/hr; Site: [facility] right antecubital; 23:47 Follow up: Response: No adverse reaction; IV Status: Completed infusion; IV Intake: jw7 500ml 19:54 Drug: Ondansetron IVP 4 mg IVP once; over 2 minutes Route: IVP; Site: right antecubital;jw7 23:47 Follow up: Response: No adverse reaction jw7 19:54 Drug: Lactulose PO 20 grams 30 ml PO once Volume: 30 ml; Route: PO; jw7 23:47 Follow up: Response: No adverse reaction jw7 23:47 Drug: Dicyclomine IM 20 mg IM once Route: IM; Site: right deltoid; jw7 03/04 00:13 Follow up: Response: No adverse reaction jw7 03/03 23:47 Drug: Ciprofloxacin PO 500 mg PO once Route: PO; jw7 03/04 00:13 Follow up: Response: No adverse reaction jw7 03/03 23:47 Drug: metroNIDAZOLE PO 500 mg PO once Route: PO; jw7 03/04 00:13 Follow up: Response: No adverse reaction jw7 Medication: 03/03 18:50 VIS not applicable for this client. mb9 Intake: 23:47 IV: 500ml; Total: 500ml. jw7 Outcome: 23:53 Discharge ordered by . adeel 03/04 00:13 Discharged to home via wheelchair, with family, bob Condition: stable Discharge instructions given to patient, family, Instructed on discharge instructions, follow up and referral plans. medication usage, Demonstrated understanding of instructions, follow-up care, medications, Prescriptions given X 4, 00:13 Patient left the ED. jw7 Signatures: Dispatcher [employer] EDCO JermaineMaryam, Reg Reg mr Jaimes, Joanna, RN RN aa5 Darrel Lam PA PA cp Waits, Jodi, RN RN jw7 Maryam Delgado, RN RN mb9 Agnes Sharp RN RN pf1
--- NOTE | 2024-03-03 23:53 | EDPHYS ---
Physician Documentation [facility] Name: Diana Nava Age: 83 yrs Sex: Female : 1940 Arrival Date: 03/03/2024 Time: 18:29 Bed 6 Private MD: Kalie Yo ED Physician Jorge Snow HPI: 03/03 19:15 This 83 yrs old Female presents to ER via Wheelchair with complaints of Constipation. cp 19:15 The patient presents with abdominal pain constipation. Associated signs and symptoms: cp Pertinent negatives: blood in stools, chest pain, diarrhea, fever, vomiting. Severity of pain: in the emergency department the pain is unchanged despite home interventions. Patient reports hx of constipation and last BM was this past Thursday. Historical: - Allergies: 18:52 all calcium channel blockers; aa5 18:52 Daypro; aa5 18:52 Delsym Night Time Cough \T\ Cold; aa5 18:52 epinephrine-Denitist office; aa5 18:52 Lodine; aa5 18:52 Plendil; aa5 18:52 Prinivil; aa5 18:52 Procardia; aa5 - PMHx: 18:52 angina pectoris; Back pain; Diabetes - NIDDM; Hyperlipidemia; Hypertension; leg aa5 swelling; Parkinson's disease; Thyroid problem; - PSHx: 18:52 back sx; aa5 - Immunization history:: Adult Immunizations unknown. - Infectious Disease History:: Denies. - Social history:: Smoking status: Patient denies any tobacco usage or history of. ROS: 19:20 Constitutional: Negative for body aches, chills, fever, poor PO intake, cp 19:20 Eyes: Negative for injury, pain, redness, and discharge, cp 19:20 ENT: Negative for drainage from ear(s), ear pain, sore throat, difficulty swallowing, difficulty handling secretions, 19:20 Cardiovascular: Negative for chest pain, edema, palpitations, 19:20 Respiratory: Negative for cough, shortness of breath, wheezing, 19:20 Abdomen/GI: Positive for abdominal pain, constipation, Negative for vomiting, diarrhea, anorexia, black/tarry stool, rectal bleeding, 19:20 Neuro: Negative for altered mental status, dizziness, headache, weakness, 19:20 All other systems are negative, Exam: 19:25 Constitutional: The patient appears in no acute distress, alert, awake, cp non-diaphoretic, non-toxic, well developed, well nourished, 19:25 Head/Face: Normocephalic, atraumatic. cp 19:25 Eyes: Periorbital structures: appear normal, Conjunctiva: normal, no exudate, no injection, Sclera: no appreciated abnormality, Lids and lashes: appear normal, bilaterally, 19:25 ENT: External ear(s): are unremarkable, Nose: is normal, Mouth: Lips: moist, Oral mucosa: pink and intact, moist, Posterior pharynx: Airway: no evidence of obstruction, patent, 19:25 Chest/axilla: Inspection: normal, 19:25 Cardiovascular: Rate: normal, Rhythm: regular, Edema: is not appreciated, JVD: is not appreciated, 19:25 Respiratory: the patient does not display signs of respiratory distress, Respirations: normal, no use of accessory muscles, no retractions, labored breathing, is not present, Breath sounds: are clear throughout, no decreased breath sounds, no stridor, no wheezing, 19:25 Abdomen/GI: Inspection: abdomen appears normal, Bowel sounds: active, all quadrants, Palpation: soft, in all quadrants, moderate abdominal tenderness, in the left upper quadrant and left lower quadrant, rebound tenderness, is not appreciated, involuntary guarding, is not appreciated, 19:25 Back: CVA tenderness, is absent, 19:25 Neuro: Orientation: to person, place \T\ time. Mentation: is normal, Motor: moves all fours, strength is normal, Vital Signs: 18:49 BP 153 / 50; Pulse 60; Resp 16 S; Temp 97.8(TE); Pulse Ox 96% on R/A; Weight 60.78 kg aa5 (R); Height 5 ft. 4 in. (R); 19:00 BP 148 / 53; Pulse 65; Resp 17 S; Pulse Ox 99% on R/A; jw7 20:30 BP 152 / 49; Pulse 60; Resp 18 S; Pulse Ox 98% on R/A; jw7 21:30 BP 141 / 54; Pulse 62; Resp 17 S; Pulse Ox 97% on R/A; jw7 22:30 BP 122 / 50; Pulse 72; Resp 16 S; Pulse Ox 98% on R/A; jw7 23:45 BP 125 / 52; Pulse 74; Resp 16 S; Pulse Ox 98% on R/A; jw7 18:49 Body Mass Index 23.00 (60.78 kg, 162.56 cm) aa5 MDM: 18:38 Patient medically screened. cp 20:00 Differential diagnosis: bowel obstruction, diverticulitis, non-specific abd pain, cp Pyelonephritis, Ureterolithiasis, urinary tract infection, colitis. 23:29 Data reviewed: vital signs, nurses notes, lab test result(s), radiologic studies, CT cp scan. Special discussion: Based on the patient's Hx, exam, and Dx evaluation, there is no indication for emergent surgery or inpatient Tx. It is understood by the patient/guardian that if the Sx's persist or worsen they need to return immediately for re-evaluation. ED course: VSS. Discussed results of today's testing. Admission offered for pain control. Patient would like to try outpatient oral antibiotics and will return worsening symptoms. 03/03 19:10 Order name: CBC with Diff; Complete Time: 20:43 cp 03/03 20:43 Interpretation: Normal except: PLT 148; TANYA% 88.9; LYM% 5.5; NEUT A 9.7; LYMA 0.6. cp 03/03 19:10 Order name: CMP; Complete Time: 20:43 cp 03/03 23:14 Interpretation: Normal except: GLUC 138; BUN 22; GFR 77; TP 6.2. cp 03/03 19:10 Order name: Lipase; Complete Time: 20:43 cp 03/03 19:11 Order name: Urinalysis W/Microscopic; Complete Time: 20:43 cp 03/03 19:52 Order name: CBC Smear Scan; Complete Time: 20:43 EDMS 03/03 19:10 Order name: CT Abd/Pelvis - PO and IV Contrast; Complete Time: 23:13 cp / 23:13 Interpretation: Report reviewed. 03/03 19:10 Order name: IV Saline Lock; Complete Time: 19:39 cp 03/03 19:10 Order name: Labs collected and sent; Complete Time: 19:39 cp Administered Medications: 19:53 Drug: NS 0.9% IV 500 ml IV at 125 ml/hr continuous Route: IV; Rate: 125 ml/hr; Site: jw7 right antecubital; 23:47 Follow up: Response: No adverse reaction; IV Status: Completed infusion; IV Intake: jw7 500ml 19:54 Drug: Ondansetron IVP 4 mg IVP once; over 2 minutes Route: IVP; Site: right antecubital;jw7 23:47 Follow up: Response: No adverse reaction jw7 19:54 Drug: Lactulose PO 20 grams 30 ml PO once Volume: 30 ml; Route: PO; jw7 23:47 Follow up: Response: No adverse reaction jw7 23:47 Drug: Dicyclomine IM 20 mg IM once Route: IM; Site: right deltoid; jw7 03/04 00:13 Follow up: Response: No adverse reaction 7 03/03 23:47 Drug: Ciprofloxacin PO 500 mg PO once Route: PO; jw7 03/04 00:13 Follow up: Response: No adverse reaction 7 03/03 23:47 Drug: metroNIDAZOLE PO 500 mg PO once Route: PO; jw7 03/04 00:13 Follow up: Response: No adverse reaction jw7 Disposition Summary: 03/03/24 23:53 Discharge Ordered Notes: Location: Home cp Problem: new cp Symptoms: have improved cp Condition: Stable cp Diagnosis - Indeterminate colitis cp Followup: cp - With: Kalie Yo - When: 2 - 3 days - Reason: Recheck today's complaints Discharge Instructions: - Discharge Summary Sheet cp - Colitis cp Forms: - Medication Reconciliation Form cp - Antibiotic Education cp - Prescription Opioid Use cp - Patient Portal Instructions cp - Leadership Thank You Letter cp Prescriptions: - Zofran 4 mg Oral Tablet - take 1 tablet ORAL route every 12 hours As needed; 20 tablet; Refills: 0, cp Product Selection Permitted - Cipro 500 mg Oral Tablet - take 1 tablet ORAL route every 12 hours for 7 days; 14 tablet; Refills: 0, cp Product Selection Permitted - Metronidazole 500 mg Oral Tablet - take 1 tablet ORAL route every 8 hours; 30 tablet; Refills: 0, Product cp Selection Permitted - dicyclomine 20 mg Oral tablet - take 1 tablet ORAL route 4 times per day; 30 tablet; Refills: 0, Product cp Selection Permitted Addendum: 03/07/2024 18:15 I was immediately available on-site in the Emergency Department for consultation in the m s3 care of the patient. Signatures: Dispatcher [employer] EDMS Joanna Jaimes, RN RN aa5 Darrel Lam PA PA cp Sims, Marcus, DO ms3 Marilyn Sheriff, RN RN jw7 Corrections: (The following items were deleted from the chart) 03/03 19:10 19:10 CBC+H.LAB.BRZ ordered. EDMS EDMS 19: 19:10 COMPREHENSIVE METABOLIC PANEL+C.LAB.BRZ ordered. EDMS EDMS 19: 19:10 LIPASE+C.LAB.BRZ ordered. EDMS EDMS 19:11 19:11 Abdomen Pelvis W Con+CT.RAD.BRZ ordered. EDMS EDMS
[2024-03-04 00:33] VITALS: BP 125/52; TEMP 97.8; O2SAT 98
== END 2024-03-04 00:13 | disposition home or self-care (01) ==
LOC: ER 18:29
DX: K52.3 Indeterminate colitis (principal); I10 Essential (primary) hypertension; G20.A1 Parkinson's disease without dyskinesia, without mention of fluctuations; Z88.8 Allergy status to other drugs, medicaments and biological substances
CPT/HCPCS: 96361; 85025; 81001; 36415; 83690; 80053; 74177; 96372; 96374; 99284; Q9967; J0500; J2405; J7040

== ENCOUNTER 2025-05-22 13:51 | Inpatient (IN) | payer OTHER ==
[2025-05-22] MEDS ORDERED: ONDANSETRON 4 MG/2 ML VIAL ONE (14:17)
--- NOTE | 2025-05-22 14:23 | RAD REPORT ---
EXAMINATION: Head C Spine Mpr Wo Con CLINICAL INDICATION: Female, 85 years old. TRAUMA TECHNIQUE: Axial CT images from the skull base to the vertex without intravenous contrast. Axial CT i mages through the cervical spine were obtained without intravenous contrast. Sagittal and coronal reformatted images were created from the data set. Coronal and sagittal reformatted images were creat ed from the data set. One or more of the following dose reduction techniques were used: Automated exposure control, adjustment of the mA and/or kV according to patient size, and/or iterative reconstr uction. Unless otherwise specified, incidental findings do not require dedicated imaging follow-up. [id number]. COMPARISON: No prior exams FINDINGS: Head: INTRACRANIAL: No acute intracranial hemorrhage. No acute large vascular territory infarct. No hydroce phalus. No mass effect or midline shift. No significant white matter disease. VASCULATURE: No visualized abnormalities in the arteries or dural venous sinuses. SCALP/SKULL: No calvarial fracture identified. No acute soft tissue abnormality. SINUSES: The visualized paranasal sinuses are mostly clear. No significant mastoid fluid. Cervical spine: ALIGNMENT: The cervical spine has normal alignment without scoliosis or spondylolisthesis. BONE: Vertebral body heights are maintained. No aggressive osseous lesions. DEGENERATIVE: Multilevel cervical spondylosis with evidence of bilateral neural foraminal narrowing. No high grade central spinal stenosis. SOFT TISSUE: No significant abnormalities in the soft tissue of the neck. The visualized lung apices are clear. IMPRESSION: No acute intracranial abnormality. No acute fracture or traumatic malalignment of the cervical spine.
--- NOTE | 2025-05-22 14:33 | RAD REPORT ---
EXAMINATION: Spine Lumbar Wo Con CLINICAL INDICATION: Female, 85 years old. Trauma TECHNIQUE: Axial CT images were obtained through the lumbar spine in soft tissue and bone windows wit hout intravenous contrast. Coronal and Sagittal reformatted images were created from the data set. One or more of the following dose reduction techniques were used: Automated exposure control, adjustm ent of the mA and/ or kV according to patient size, and/or iterative reconstruction. Unless otherwise specified, incidental findings do not require dedicated imaging follow-up. [id number]. COMPARISON: 05/22/2025 FINDINGS: For purposes of this dictation, it is assumed that there are 5 non rib-bearing lumbar type vertebrae, and the most caudal fully segmented lumbar vertebra is labeled L5. ALIGNMENT: Grade 1/2 anterolisthesis of L4 and L5 which is slightly increased compared with prior. BONES: Vertebroplasty changes at T12. No acute fracture. Spinal stimulator. DEGENERATIVE: Mild diffuse disc height loss. Broad bases bulging noted at L4-5 which has likely progr essed with evidence of severe left and moderate right neural foraminal narrowing. . Vacuum disc phenomenon with increased height loss is present at L4-5. SOFT TISSUE: Left renal cyst. Atherosclerosis. Adrenal thickening. IMPRESSION: No acute lumbar spine abnormalities. Progression of degenerative changes and slight increased anterol isthesis of L4 and L5 compared with 202.
[2025-05-22 14:42] LABS: Absolute Lymphocytes (CBC) 0.8 K/uL (0.7-4.9); Hematocrit 34.4 % (36.0-45.0); Hemoglobin 11.5 g/dL (12.0-15.0); MCH 29.6 pg (27.0-35.0); MCHC 33.6 g/dL (32.0-36.0); MCV 88.3 fL (80-100); MPV 9.3 fL (7.6-11.3); Nucleated RBC Absolute Count 0.0 (0-0); Nucleated Red Blood Cells % 0.1 % (0-0); RBC Red Blood Cell Count 3.90 M/uL (3.86-4.86); White Blood Count 6.80 thou/uL (4.3-10.9)
[2025-05-22 14:51] LABS: PT Prothrombin Time 12.7 SECONDS (10-13.0); Protime INR 1.13
[2025-05-22 15:05] LABS: AST/SGOT 19 U/L (15-37); Albumin 3.6 g/dL (3.4-5.0); Albumin/Globulin Ratio 1.3 (1.1-1.8); Alkaline Phosphatase 42 U/L (45-117); Anion Gap 10.1 mEq/L (5.0-15.0); BUN Blood Urea Nitrogen 20 mg/dL (7-18); Bilirubin Indirect, Calculated 0.6 mg/dL (0.2-0.8); Globulin 2.7 g/dL (2.3-3.5); Glucose Level 145 mg/dL (74-106); Magnesium 1.9 mg/dL (1.6-2.4); NT PRO-BNP 545 pg/mL (<450); Potassium 4.1 mEq/L (3.5-5.1); Troponin High Sensitivity 8.6 pg/mL (<58.9)
[2025-05-22 15:10] LABS: ALT/SGPT < 14 U/L (13-56)
--- NOTE | 2025-05-22 15:15 | RAD REPORT ---
EXAM: Chest Single View HISTORY: 85 years Female syncope/fall COMPARISON: 07/18/2022 FINDINGS: LUNGS/PLEURA: The lungs are clear. No pleural effusions or pneumothorax. No pulmonary edema. Small ca lcifications scattered throughout the lungs bilaterally which may represent broncholiths. These are unchanged. CARDIAC/MEDIASTINUM: Mild cardiomegaly UPPER ABDOMEN: No significant abnormality. BONES: No acute abnormality. LINES/TUBES/OTHER: N/A IMPRESSION: No evidence of acute cardiopulmonary disease.
--- NOTE | 2025-05-22 15:28 | ER ---
Nurse's Notes [facility] Name: Diana Nava Age: 85 yrs Sex: Female : 1940 Arrival Date: 05/22/2025 Time: 13:51 Bed 19 Private MD: Diagnosis: Syncope, hyponatremia, closed head injury, concussion Presentation: 05/22 14:00 Chief complaint: EMS states: Pt from home, fell backwards while ambulating with her ph walker, +LOC, small laceration to back of head, does not remember falling, c/o dizziness and nausea, no blood thinners, IV to RAC, 1000mg Tylenol and 4mg Zofran given. Coronavirus screen: Vaccine status: Patient reports being unvaccinated. Ebola Screen: No symptoms or risks identified at this time. Initial Sepsis Screen: Does the patient meet any 2 criteria? No. Patient's initial sepsis screen is negative. Does the patient have a suspected source of infection? No. Patient's initial sepsis screen is negative. Risk Assessment: Do you want to hurt yourself or someone else? Patient reports no desire to harm self or others. Onset of symptoms was May 22, 2025. 14:00 Method Of Arrival: EMS: [facility] ph 14:00 Acuity: [id number] 2 ph 14:07 Care prior to arrival: Medication(s) given: Tylenol, 1000 mg, zofran 4 mg, IV ph initiated. 18 GA, in the right antecubital area. Mechanism of Injury: Fall from standing position. Trauma event details: Injury occurred in the [facility]. Trauma event details: Injury occurred: at home. Injury occurred: May 22, 2025. Triage Assessment: 14:05 General: Appears in no apparent distress. uncomfortable, Behavior is cooperative, ph appropriate for age. Pain: Complains of pain in scalp. Neuro: Level of Consciousness is awake, alert, obeys commands, Oriented to person, place, time, situation, Reports dizziness. Cardiovascular: Reports lightheadedness, nausea. Respiratory: Airway is patent Respiratory effort is even, unlabored. GI: Reports nausea. Derm: Skin is pink, warm \T\ dry. Musculoskeletal: Circulation, motion, and sensation intact. Range of motion: intact in all extremities. Trauma Activation: Not Applicable Physician: ED Physician; Name: ; Notified At: ; Arrived At: Physician: General Surgeon; Name: ; Notified At: ; Arrived At: Physician: Radiology; Name: ; Notified At: ; Arrived At: Physician: Respiratory; Name: ; Notified At: ; Arrived At: Physician: Lab; Name: ; Notified At: ; Arrived At: Historical: - Allergies: 14:04 all calcium channel blockers; ph 14:04 Daypro; ph 14:04 Delsym Night Time Cough \T\ Cold; ph 14:04 Delsym NightTime Multi-Symptom; ph 14:04 epinephrine-Denitist office; ph 14:04 Lodine; ph 14:04 Plendil; ph 14:04 Prinivil; ph 14:04 Procardia; ph - PMHx: 14:04 angina pectoris; Back pain; Diabetes - NIDDM; Hyperlipidemia; Hypertension; leg ph swelling; Parkinson's disease; Thyroid problem; - PSHx: 14:04 back sx; ph - Immunization history:: Adult Immunizations unknown. - Infectious Disease History:: Denies. - Immunization history: Last tetanus immunization: unknown. - Social history:: Smoking status: Patient denies any tobacco usage or history of. Screenin:06 [facility] ED Fall Risk Assessment (Adult) History of falling in the last 3 months, ph including since admission Yes- physiologic fall (2 pts) Confusion or Disorientation No (0 pts) Intoxicated or Sedated No (0 pts) Impaired Gait No (0 pts) Mobility Assist Device Used Yes (1 pt) Altered Elimination Yes (1 pt) Score/Fall Risk Level 3 or more points = High Risk Oriented to surroundings, Maintained a safe environment, Hourly rounding (assess needs \T\ fall precautionary measures) done, Used ambulatory aids as needed (educated on \T\ assisted with). Abuse screen: Denies threats or abuse. Denies injuries from another. Nutritional screening: No deficits noted. Tuberculosis screening: No symptoms or risk factors identified. Primary Survey: 14:06 NO uncontrolled hemorrhage observed. A: The client is awake and alert. The airway is ph patent. Breathing/Chest: Spontaneous respiratory effort, equal unlabored respirations, breath sounds clear bilaterally, regular pattern, symmetrical chest rise and fall. Circulation: No external hemorrhage present. Regular and strong central pulse, skin warm/dry/normal color. Disability Pupils are equal, round, reactive to light and accommodation. Exposure/Environment: All clothing and personal items were removed. Forensic evidence collection is not deemed to be indicated at this time. Items placed in patient belonging bag. There is no evidence of uncontrolled external bleeding. Obvious injury(ies) are noted at this time: laceration to back of head A warming method has been applied: A warm blanket has been provided to the patient. 18:00 Reassessment Alertness and Airway: Awake and alert. The airway is patent. Breathing: ph Spontaneous respiratory effort, equal unlabored respirations, breath sounds clear bilaterally, regular pattern with symmetrical chest rise and fall. Circulation: No external hemorrhage noted. Regular and strong central pulse, skin warm/dry/normal color. Disability: Pupils Pupils are equal, round, reactive to light and accomodation. Assessment: 14:44 General: SEE TRIAGE ASSESSMENT. ph 16:00 Reassessment: Patient appears in no apparent distress at this time. Patient and/or ph family updated on plan of care and expected duration. Pain level reassessed. Patient is alert, oriented x 3, equal unlabored respirations, skin warm/dry/pink. 18:03 Reassessment: Patient appears in no apparent distress at this time. Patient and/or ph family updated on plan of care and expected duration. Pain level reassessed. Patient is alert, oriented x 3, equal unlabored respirations, skin warm/dry/pink. Vital Signs: 14:00 BP 213 / 58; Pulse 51; Resp 18; Temp 97.9; Pulse Ox 99% on R/A; Weight 62.14 kg; Height ph 5 ft. 3 in. ; 15:04 BP 186 / 54; Pulse 69; Resp 18; Pulse Ox 100% on R/A; ph 16:00 BP 178 / 52; Pulse 71; Resp 18; Pulse Ox 98% on R/A; ph 17:30 BP 172 / 56; Pulse 75; Resp 18; Temp 98; Pulse Ox 98% on R/A; ph 14:00 Body Mass Index 24.27 (62.14 kg, 160.02 cm) ph Aimee Coma Score: 14:06 Eye Response: spontaneous(4). Motor Response: obeys commands(6). Verbal Response: ph oriented(5). Total: 15. 15:04 Eye Response: spontaneous(4). Motor Response: obeys commands(6). Verbal Response: ph oriented(5). Total: 15. 16:00 Eye Response: spontaneous(4). Motor Response: obeys commands(6). Verbal Response: ph oriented(5). Total: 15. 17:30 Eye Response: spontaneous(4). Motor Response: obeys commands(6). Verbal Response: ph oriented(5). Total: 15. Trauma Score (Adult): 14:06 Eye Response: spontaneous(1); Verbal Response: oriented(1); Motor Response: obeys ph commands(2); Systolic BP: > 89 mm Hg(4); Respiratory Rate: 10 to 29 per min(4); Aimee Score: 15; Trauma Score: 12 15:04 Eye Response: spontaneous(1); Verbal Response: oriented(1); Motor Response: obeys ph commands(2); Systolic BP: > 89 mm Hg(4); Respiratory Rate: 10 to 29 per min(4); [place] Score: 15; Trauma Score: 12 16:00 Eye Response: spontaneous(1); Verbal Response: oriented(1); Motor Response: obeys ph commands(2); Systolic BP: > 89 mm Hg(4); Respiratory Rate: 10 to 29 per min(4); Aimee Score: 15; Trauma Score: 12 17:30 Eye Response: spontaneous(1); Verbal Response: oriented(1); Motor Response: obeys ph commands(2); Systolic BP: > 89 mm Hg(4); Respiratory Rate: 10 to 29 per min(4); [place] Score: 15; Trauma Score: 12 ED Course: 13:56 Patient arrived in ED. sp3 13:56 Gigi Jose MD is Attending Physician. sp3 14:00 Kinga Zuñiga, JENISE is Primary Nurse. ph 14:03 Triage completed. ph 14:05 Arm band placed on Patient placed in an exam room, on a stretcher, on recruiter coordinator, ph on pulse oximetry. 14:07 Patient has correct armband on for positive identification. Placed in gown. Bed in low ph position. Call light in reach. Side rails up X2. film booker on. Pulse ox on. NIBP on. Door closed. Noise minimized. Warm blanket given. Pillow given. 14:07 Patient maintains SpO2 saturation greater than 95% on room air. ph 14:07 Thermoregulation: warm blanket given to patient. ph 14:15 CT Head C Spine In Process Unspecified. EDMS 14:16 CT Lumbar Spine Wo Con In Process Unspecified. EDMS 14:44 Initial lab(s) drawn, by me, sent to lab. EKG done, by ED staff, reviewed by Gigi Jose MD. Maintain EMS IV. Dressing intact. Good blood return noted. Site clean \T\ dry. Gauge \T\ site: 18 LAC. Flushed with 10 mL NS. 15:03 XRAY Chest (1 view) In Process Unspecified. EDMS 15:27 Bk Damon is Hospitalizing Provider. sp3 18:00 No provider procedures requiring assistance completed. Patient admitted, IV remains in ph place. Administered Medications: 14:49 Drug: Ondansetron IVP 4 mg IVP once; over 2 minutes Route: IVP; Site: right antecubital;ph 18:07 Follow up: Response: No adverse reaction ph Medication: 14:07 VIS not applicable for this client. ph Intake: 18:02 IV: 1000ml (IV Fluid); Total: 1000ml. ph Outcome: 15:28 Decision to Hospitalize by Provider. sp3 18:02 Admitted to Med/surg accompanied by tech, family with patient, ph 18:02 Condition: stable 18:02 Instructed on the need for admit, 18:06 Patient's length of stay in the Emergency Department was greater than 2 hours. waiting ph for inpatient roomPatient's length of stay extended due to 18:08 Patient left the ED. ph Signatures: Dispatcher [employer] Kinga Bonilla RN RN ph Patel, Setul, MD MD sp3 Corrections: (The following items were deleted from the chart) 14:04 14:00 BP 135 / 61; Pulse 70bpm; Resp 18bpm; Pulse Ox 98%; Temp 97.9F; 62.14 kg; Height ph 5 ft. 3 in.; BMI: 24.2; ph
--- NOTE | 2025-05-22 15:28 | EDPHYS ---
Physician Documentation [facility] Name: Diana Nava Age: 85 yrs Sex: Female : 1940 Arrival Date: 05/22/2025 Time: 13:51 Bed 19 Private MD: ED Physician Gigi Jose HPI: 05/22 14:03 This 85 yrs old Female presents to ER via EMS with complaints of Fall Injury. 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 Patient does not recall any of her events. She does not know whether she tripped or had a medical prodrome prior to the fall. She is concerned that she passed out which caused her to fall. Currently she complains of headache and nausea with active emesis in the EMS ambulance on the way here. She denies any neck pain, chest pain, shortness of breath, abdominal pain, extremity pain but does endorse mild low back pain. She has a spinal stimulator in place as well.. Historical: - Allergies: 14:04 all calcium channel blockers; ph 14:04 Daypro; ph 14:04 Delsym Night Time Cough \T\ Cold; ph 14:04 Delsym NightTime Multi-Symptom; ph 14:04 epinephrine-Denitist office; ph 14:04 Lodine; ph 14:04 Plendil; ph 14:04 Prinivil; ph 14:04 Procardia; ph - PMHx: 14:04 angina pectoris; Back pain; Diabetes - NIDDM; Hyperlipidemia; Hypertension; leg ph swelling; Parkinson's disease; Thyroid problem; - PSHx: 14:04 back sx; ph - Immunization history:: Adult Immunizations unknown. - Infectious Disease History:: Denies. - Immunization history: Last tetanus immunization: unknown. - Social history:: Smoking status: Patient denies any tobacco usage or history of. ROS: 14:04 Constitutional: Negative for fever, chills, and weight loss, Eyes: Negative for injury, sp3 pain, redness, and discharge, ENT: Negative for injury, pain, and discharge, Cardiovascular: Negative for chest pain, palpitations, and edema, Respiratory: Negative for shortness of breath, cough, wheezing, and pleuritic chest pain, Abdomen/GI: Negative for abdominal pain, nausea, vomiting, diarrhea, and constipation, MS/Extremity: Negative for injury and deformity, Skin: Negative for injury, rash, and discoloration, Psych: Negative for depression, anxiety, suicide ideation, homicidal ideation, and hallucinations, Allergy/Immunology: Negative for hives, rash, and allergies, Endocrine: Negative for neck swelling, polydipsia, polyuria, polyphagia, and marked weight changes, Hematologic/Lymphatic: Negative for swollen nodes, abnormal bleeding, and unusual bruising, 14:04 All other systems are negative, Exam: 14:04 Constitutional: This is a well developed, well nourished patient who is awake, alert, sp3 and in no acute distress. Eyes: Pupils equal round and reactive to light, extra-ocular motions intact. Lids and lashes normal. Conjunctiva and sclera are non-icteric and not injected. Cornea within normal limits. Periorbital areas with no swelling, redness, or edema. ENT: Nares patent. No nasal discharge, no septal abnormalities noted. External auditory canals are clear. Oropharynx with no redness, swelling, or masses, exudates, or evidence of obstruction, uvula midline. Mucous membranes moist. Chest/axilla: Normal chest wall appearance and motion. Nontender with no deformity. No lesions are appreciated. Cardiovascular: Regular rate and rhythm with a normal S1 and S2. No gallops, murmurs, or rubs. Normal PMI, no JVD. No pulse deficits. Respiratory: Lungs have equal breath sounds bilaterally, clear to auscultation and percussion. No rales, rhonchi or wheezes noted. No increased work of breathing, no retractions or nasal flaring. Abdomen/GI: Soft, non-tender, with normal bowel sounds. No distension or tympany. No guarding or rebound. No evidence of tenderness throughout. MS/ Extremity: Pulses equal, no cyanosis. Neurovascular intact. Full, normal range of motion. Neuro: Awake and alert, GCS 15, oriented to person, place, time, and situation. Cranial nerves II-XII grossly intact. Motor strength 5/5 in all extremities. Sensory grossly intact. Cerebellar exam normal. Normal gait. Psych: Awake, alert, with orientation to person, place and time. Behavior, mood, and affect are within normal limits. 14:04 Head/face: Posterior occiput abrasion injury with hematoma noted.. 14:04 Abdomen/GI: Patient active dry heaving but no active emesis., 14:04 Skin: Slight jaundice noted on the face. No scleral icterus.. 14:04 Neuro: Patient does have intention tremor consistent with Parkinson's however no focal deficits. Blood pressure 213/58 with heart rate 51., 14:56 ECG was reviewed by the Attending Physician. EKG demonstrates normal sinus rhythm at 60 sp3 bpm with first-degree AV block ND interval 206 ms, QTc of 508 and a right bundle branch block with diffuse nonspecific ST/T changes without evidence of acute ischemia. Vital Signs: 14:00 BP 213 / 58; Pulse 51; Resp 18; Temp 97.9; Pulse Ox 99% on R/A; Weight 62.14 kg; Height ph 5 ft. 3 in. ; 15:04 BP 186 / 54; Pulse 69; Resp 18; Pulse Ox 100% on R/A; ph 16:00 BP 178 / 52; Pulse 71; Resp 18; Pulse Ox 98% on R/A; ph 17:30 BP 172 / 56; Pulse 75; Resp 18; Temp 98; Pulse Ox 98% on R/A; ph 14:00 Body Mass Index 24.27 (62.14 kg, 160.02 cm) ph Aimee Coma Score: 14:06 Eye Response: spontaneous(4). Motor Response: obeys commands(6). Verbal Response: ph oriented(5). Total: 15. 15:04 Eye Response: spontaneous(4). Motor Response: obeys commands(6). Verbal Response: ph oriented(5). Total: 15. 16:00 Eye Response: spontaneous(4). Motor Response: obeys commands(6). Verbal Response: ph oriented(5). Total: 15. 17:30 Eye Response: spontaneous(4). Motor Response: obeys commands(6). Verbal Response: ph oriented(5). Total: 15. Trauma Score (Adult): 14:06 Eye Response: spontaneous(1); Verbal Response: oriented(1); Motor Response: obeys ph commands(2); Systolic BP: > 89 mm Hg(4); Respiratory Rate: 10 to 29 per min(4); Aimee Score: 15; Trauma Score: 12 15:04 Eye Response: spontaneous(1); Verbal Response: oriented(1); Motor Response: obeys ph commands(2); Systolic BP: > 89 mm Hg(4); Respiratory Rate: 10 to 29 per min(4); [place] Score: 15; Trauma Score: 12 16:00 Eye Response: spontaneous(1); Verbal Response: oriented(1); Motor Response: obeys ph commands(2); Systolic BP: > 89 mm Hg(4); Respiratory Rate: 10 to 29 per min(4); [place] Score: 15; Trauma Score: 12 17:30 Eye Response: spontaneous(1); Verbal Response: oriented(1); Motor Response: obeys ph commands(2); Systolic BP: > 89 mm Hg(4); Respiratory Rate: 10 to 29 per min(4); [place] Score: 15; Trauma Score: 12 MDM: 13:56 Medical Screening Exam initiated sp3 14:06 Data reviewed: vital signs, nurses notes, EMS record, old medical records, lab test sp3 result(s), EKG, radiologic studies. ED course: 85-year-old female with head injury and fall with possible medical prodrome syncope prior to the episode. Patient is hypertensive as well. Differential diagnosis includes closed head injury, scalp hematoma, possible intracranial pathology, possible syncope, acute coronary syndrome, electrolyte abnormality or other endocrine abnormality prior to the fall. Broad workup pending including CT scan of the head, C-spine, lumbar spine (patient has mild pain on the lumbar area as well), general labs, chest x-ray and EKG. Continue Zofran for symptomatic control. Disposition pending workup and patient course.. 15:16 ED course: All scans negative. Sodium at 128 patient likely had syncopal episode. Will sp3 place in 23 observation under internal medicine for further evaluation.. 05/22 13:58 Order name: Basic Metabolic Panel; Complete Time: 15:12 sp3 05/22 13:58 Order name: CBC with Diff; Complete Time: 15:12 sp3 05/22 13:58 Order name: LFT's; Complete Time: 15:12 sp3 05/22 13:58 Order name: Magnesium; Complete Time: 15:12 sp3 05/22 13:58 Order name: NT PRO-BNP; Complete Time: 15:12 3 05/22 13:58 Order name: PT-INR; Complete Time: 15:12 3 05/22 13:58 Order name: Troponin HS; Complete Time: 15:12 sp3 05/22 17:00 Order name: Basic Metabolic Panel EDMS 05/22 17:00 Order name: Basic Metabolic Panel EDMS 05/22 17:00 Order name: Basic Metabolic Panel EDMS 05/22 17:00 Order name: Basic Metabolic Panel EDMS 05/22 17:00 Order name: CBC with Automated Diff EDMS 05/22 17:00 Order name: CBC with Automated Diff EDMS 05/22 17:00 Order name: CBC with Automated Diff EDMS 05/22 17:00 Order name: CBC with Automated Diff EDMS 05/22 17:00 Order name: T4 Free EDMS 05/22 17:00 Order name: T4 Free EDMS 05/22 17:00 Order name: Thyroid Stimulating Hormone EDMS 05/22 17:00 Order name: Thyroid Stimulating Hormone EDMS 05/22 17:00 Order name: Troponin High Sensitivity EDMS 05/22 17:00 Order name: Troponin High Sensitivity EDMS 05/22 17:00 Order name: Troponin High Sensitivity EDMS 05/22 13:58 Order name: XRAY Chest (1 view); Complete Time: 15:16 05/22 13:58 Order name: CT Head C Spine; Complete Time: 15:12 05/22 13:58 Order name: CT Lumbar Spine Wo Con; Complete Time: 15:12 3 05/22 13:58 Order name: EKG; Complete Time: 13:58 05/22 17:09 Order name: Physical Therapy Consult [facility] 05/22 13:58 Order name: Cardiac monitoring; Complete Time: 14:08 05/22 13:58 Order name: EKG - Nurse/Tech; Complete Time: 14:49 3 05/22 13:58 Order name: IV Saline Lock; Complete Time: 14:08 05/22 13:58 Order name: Labs collected and sent; Complete Time: 14:49 3 05/22 13:58 Order name: O2 Per Protocol; Complete Time: 14:08 3 05/22 13:58 Order name: O2 Sat Monitoring; Complete Time: 14:08 05/22 13:58 Order name: NPO; Complete Time: 14:08 sp3 Administered Medications: 14:49 Drug: Ondansetron IVP 4 mg IVP once; over 2 minutes Route: IVP; Site: right antecubital;ph 18:07 Follow up: Response: No adverse reaction ph Disposition Summary: 05/22/25 15:28 Hospitalization Ordered Notes: Hospitalization Status: Observation sp3 Provider: Bk Damon sp3 Location: Telemetry/MedSurg (observation) sp3 Condition: Stable sp3 Problem: an acute exacerbation sp3 Symptoms: have worsened sp3 Bed/Room Type: Standard sp3 Room Assignment: 407(05/22/25 17:06) Diagnosis - Syncope, hyponatremia, closed head injury, concussion sp3 Forms: - Medication Reconciliation Form sp3 - SBAR form sp3 - Leadership Thank You Letter sp3 Signatures: Dispatcher [employer] Shawna Silver RN RN ss Kinga Zuñiga RN RN Gigi Jose MD MD sp3 Corrections: (The following items were deleted from the chart) 17:06 15:28 sp3 ss
--- NOTE | 2025-05-22 17:11 | P.HP ---
Certification for Inpatient Patient admitted to: Observation With expected LOS: <2 Midnights Patient will require the following post-hospital care: None Practitioner: I am a practitioner with admitting privileges, knowledge of patient current condition, hospital course, and medical plan of care. Services: Services provided to patient in accordance with Admission requirements found in Title 42 Section 412.3 of the Code of Federal Regulations Patient History Date of Service: 05/22/25 Reason for admission: Syncope History of Present Illness: 85-year-old female with history of hypertension, hyperlipidemia, Parkinson's disease presents emergency department chief complaint of syncope. She reports that she was sitting at her table eating food and next thing she knew she woke up on the floor. She is uncertain if she attempted to stand up or if she passed out from a seated position. She was evaluated in the ER, CT of her head and C- spine was negative for acute findings, chest x-ray showed no acute findings, lumbar spine CT showed no acute findings. Labs were significant for sodium of 128 chloride 96 BNP 545. Discussed recent medication changes with patient and family, she was seen on the by her load dispatcher and medications were adjusted, she was taking hydrochlorothiazide at home and it was reported to the load dispatcher that she was previously taking furosemide 10 mg every other day but she had not been taking that for a while. Patient had swelling in her lower extremities at the time of her appointment on the so she was kept on her hydrochlorothiazide, furosemide Was meant to be increased from 10 mg every other day to 20 mg daily although patient had not been taking it 10 mg every other day prior contradicting her m edication list and spironolactone was also added. She took this for around 9 days and then the furosemide was reduced back to 20 mg every other day and subsequently back down to 10 mg every other day, she is still taking hydrochlorothiazide and spironolactone at this time. She had an episode of what sounds like near syncope recently as well after this medication change, she believes her blood pressure was around 100 systolic earlier today when she checked it. Patient denies any chest pain initial high sensitive troponin is normal at 8.6, symptoms seem to have started after medication change, will hold for now all diuretics including hydrochlorothiazide furosemide and spironolactone. Blood pressure is on the high side during her stay in the ER, will continue Coreg for now and provide gentle hydration for the hyponatremia. Patient was admitted for syncope Allergies dextromethorphan [From Delsym Cough-Cold] Allergy (Verified 02/04/23 15:15) Unknown doxylamine [From Delsym Cough-Cold] Allergy (Verified 02/04/23 15:15) Unknown etodolac Allergy (Verified 02/04/23 15:15) Unknown felodipine [From Plendil] Allergy (Verified 02/04/23 15:15) Head/Body Aches lisinopril [From Prinivil] Allergy (Verified 02/04/23 15:15) Cough nifedipine [From Procardia] Allergy (Verified 02/04/23 15:15) Head/Body Aches oxaprozin [From Daypro] Allergy (Verified 02/04/23 15:15) Unknown epinephrine Adverse Reaction (Verified 02/04/23 15:15) Anxiety Home Medications: Hydrocodone 5/APAP 325 [[place] 5/325*] 1 tab PO BID PRN 05/20/22 Levothyroxine [Synthroid*] 1 tab PO 0630 05/20/22 Pantoprazole [Protonix Tab*] 40 mg PO ACB 05/20/22 Potassium Chloride [Klor-Con 8] 8 meq PO DAILY 05/20/22 Raloxifene HCl [Evista*] 60 mg PO DAILY 05/20/22 hydroCHLOROthiazide [Hydrodiuril*] 25 mg PO DAILY 05/20/22 traMADol HCL [Ultram*] 50 mg PO Q6H PRN 05/20/22 Acetaminophen [Tylenol] 650 mg PO Q4H PRN 01/28/23 Carbidopa/Levodopa 25-100 [Sinemet 25-100*] 1 tab PO 0800,1200,1600 01/28/23 Furosemide [Lasix*] 10 mg PO DAILY 01/28/23 Mirabegron [Myrbetriq] 1 tab PO DAILY 01/28/23 Pregabalin [Lyrica*] 75 mg PO BEDTIME 01/28/23 Senosides [Senokot*] 2 tab PO BEDTIME PRN 01/28/23 carvediloL [Coreg*] 3.125 mg PO BID 01/28/23 Losartan Potassium [Cozaar*] 25 mg PO BID #30 02/04/23 - Past Medical/Surgical History Diabetic: Yes -: HTN -: Diabetic-diet controlled -: Hypothyroid -: L4-L5 decompression -: Hysterectomy -: Gall Bladder Psychosocial/ Personal History: Lives at home with family - Social History Alcohol use: No CD- Drugs: Yes Caffeine use: No Review of Systems 10-point ROS is otherwise unremarkable Cardiovascular: Other (Syncope), As per HPI Physical Examination - Physical Exam General: Alert, In no apparent distress, Oriented x3 HEENT: Atraumatic, PERRLA, EOMI, Sclerae nonicteric Neck: Supple, 2+ carotid pulse no bruit, No LAD Respiratory: Clear to auscultation bilaterally, Normal air movement Cardiovascular: Regular rate/rhythm, Normal S1 S2 Gastrointestinal: Normal bowel sounds, No tenderness Musculoskeletal: No tenderness Integumentary: No rashes Neurological: Normal gait, Normal speech, Normal strength at 5/5 x4 extr, Normal affect - Studies Laboratory Data (last 24 hrs) 05/22/25 05/22/25 05/22/25 14:30 14:30 14:30 WBC 6.80 Hgb 11.5 L Hct 34.4 L Plt Count 151 L PT 12.7 INR 1.13 Sodium 128 L Potassium 4.1 BUN 20 H Creatinine 0.88 Glucose 145 H Magnesium 1.9 Total Bilirubin 0.8 AST 19 ALT < 14 Alkaline Phosphatase 42 L Assessment and Plan - Plan Assessment: Syncope Hyponatremia Parkinson's disease Hypertension Hyperlipidemia Hypothyroidism Diabetes mellitus type 2diet controlled Plan: Syncope Hyponatremia Suspect this is related to volume depletion and recent adjustments in her medications Orthostatic vital signs ordered, PT consultation Hold all diuretics for now, gentle IV fluids overnight Cardiology consultation Trend troponins and monitor on telemetry Unclear when last outpatient echo was, will defer to cardiology on ordering echo Parkinson's disease Continue carbidopalevodopa 100/25 Hypertension Continue Coreg, losartan when dose verified Hold spironolactone, hydrochlorothiazide, furosemide for now Hyperlipidemia Hypothyroidism Diabetes mellitus type 2diet controlled Continue home medications Carb consistent diet DVT PPX: Lovenox Code status: Full code Discharge Plan: Home Plan to discharge in: 24 Hours - Advance Directives Does patient have a Living Will: No Does patient have a Durable POA for Healthcare: No - Code Status/Comfort Care Code Status Assessed: Yes (Full code) Critical Care: No Time Spent Managing Pts Care (In Minutes): 68
[2025-05-22] MEDS: NA CHLORIDE 0.9% 1,000 ML IV SCH (18:42)
[2025-05-22] MEDS: PREGABALIN 75 MG CAP PO SCH (20:52)
[2025-05-22] MEDS: CARBIDOPA/LEVODOPA 25/100 TAB PO SCH (20:52)
[2025-05-22] MEDS ORDERED: SENOSIDES 8.6 MG TAB PO PRN (22:44)
[2025-05-22] MEDS ORDERED: POLYETHYL GLY 3350 17 GM/DOSE PO PRN (22:44)
[2025-05-23] MEDS: LOSARTAN POTASSIUM 50 MG TABLET PO SCH (00:16)
[2025-05-23] MEDS ORDERED: ONDANSETRON 4 MG/2 ML VIAL IV PRN (00:34)
[2025-05-23] MEDS: SENOSIDES 8.6 MG TAB PO SCH (01:15)
[2025-05-23] MEDS: ACETAMINOPHEN 325 MG TABLET PO PRN (02:20)
[2025-05-23] MEDS: MECLIZINE HCL 12.5 MG TAB PO SCH (03:09)
[2025-05-23 04:06] VITALS: BMI 24.3
[2025-05-23 04:35] LABS: Absolute Lymphocytes (CBC) 1.0 K/uL (0.7-4.9); Hematocrit 31.8 % (36.0-45.0); Hemoglobin 11.1 g/dL (12.0-15.0); MCH 30.4 pg (27.0-35.0); MCHC 35.0 g/dL (32.0-36.0); MCV 87.1 fL (80-100); MPV 9.1 fL (7.6-11.3); Nucleated RBC Absolute Count 0.0 (0-0); Nucleated Red Blood Cells % 0.0 % (0-0); RBC Red Blood Cell Count 3.65 M/uL (3.86-4.86); White Blood Count 8.30 thou/uL (4.3-10.9)
[2025-05-23] MEDS: HYDRALAZINE HCL 20 MG/ML VIAL IV PRN (04:36)
[2025-05-23 04:58] LABS: Anion Gap 6.9 mEq/L (5.0-15.0); BUN Blood Urea Nitrogen 15.0 mg/dL (7-18); Glucose Level 108.0 mg/dL (74-106); Potassium 3.9 mEq/L (3.5-5.1); Thyroid Stimulating Hormone 1.25 uIU/mL (0.358-3.740); Troponin High Sensitivity 25.8 pg/mL (<58.9)
[2025-05-23] MEDS ORDERED: MORPHINE 2 MG/ML SYR IV PRN (05:29)
[2025-05-23] MEDS: HYDROCODONE/APAP 5/325 MG TAB PO PRN (05:49)
[2025-05-23] MEDS: LEVOTHYROXINE SOD 0.075 MG TAB PO SCH (05:52)
[2025-05-23] MEDS ORDERED: MECLIZINE HCL 12.5 MG TAB PO SCH (09:00)
[2025-05-23] MEDS: POTASSIUM CL 8 MEQ SA TAB PO SCH (09:00)
[2025-05-23] MEDS ORDERED: hydroCHLOROthiazide 25 MG TAB PO SCH (09:00)
[2025-05-23] MEDS: POTASSIUM CHLORIDE 8 MEQ PO SCH (09:00)
[2025-05-23] MEDS: MIRABEGRON 25 MG PO SCH (09:00)
[2025-05-23] MEDS: ASCORBIC ACID 500 MG TABLET PO SCH ×2 (09:00→10:30)
[2025-05-23] MEDS: BIOTIN 5000 MCG PO SCH (09:00)
[2025-05-23] MEDS ORDERED: SPIRONOLACTONE 25 MG TABLET PO SCH (09:00)
[2025-05-23] MEDS: VITAMIN D 5,000 UNIT CAP PO SCH (09:18)
[2025-05-23] MEDS: PANTOPRAZOLE 40MG TABLET PO SCH (09:18)
[2025-05-23] MEDS: ROSUVASTATIN 5 MG TAB PO SCH (09:19)
[2025-05-23] MEDS: ENOXAPARIN 40 MG/0.4 ML SQ SCH (09:20)
[2025-05-23] MEDS: NA CHLORIDE 0.9% 1,000 ML IV SCH (10:30)
[2025-05-23] MEDS: CARBIDOPA/LEVODOPA 25/100 TAB PO SCH (10:30)
[2025-05-23] MEDS: POTASSIUM 25 MEQ EFFERV TAB PO ONE (12:27)
--- NOTE | 2025-05-23 15:04 | P.PN ---
Date of Service: 05/23/25 Subjective: Dizzy when standing Having some urinary retention today ROS: 10 point ROS as noted above, otherwise negative Physical exam GEN: Alert, oriented, NAD HEENT: Normal conjunctiva, sclera anicteric CV: Regular rate and rhythm, no edema Pulm: Nonlabored respirations on room air ABD: Soft, nontender, nondistended MSK: No joint tenderness Integumentary: No rashes Neuro: Normal speech, normal affect Vitals reviewed Assessment: Syncope Hyponatremia Parkinson's disease Hypertension Hyperlipidemia Hypothyroidism Diabetes mellitus type 2diet controlled Plan: Syncope Hyponatremia Suspect this is related to volume depletion and recent adjustments in her medications Orthostatic vital signs negative, PT consultation-very weak today Hold all diuretics for now, gentle IV fluids overnight Cardiology consultation Trend troponins and monitor on telemetry Parkinson's disease Continue carbidopalevodopa 100/25 2 tabs 3 times daily Hypertension Continue Coreg, losartan when dose verified Hold spironolactone, hydrochlorothiazide, furosemide for now Hyperlipidemia Hypothyroidism Diabetes mellitus type 2diet controlled Continue home medications Carb consistent diet DVT PPX: Lovenox Code status: Full code Discharge Plan: Home Plan to discharge in: 48 to 72 hours Time Spent Managing Pts Care (In Minutes): 35
--- NOTE | 2025-05-23 15:30 | P.CNS ---
Date of Consult: 05/23/25 Chief Complaint: Syncope History of Present Illness: Patient with PMH of diastolic heart failure, was seen in office for worsening HERNANDEZ and her medications has been adjusted, presented with syncopal episode, most likely she got hypotensive, denies chest pain, no palpitations, her breathing status has been stable. Allergies dextromethorphan [From Delsym Cough-Cold] Allergy (Verified 05/22/25 21:54) Unknown doxylamine [From Delsym Cough-Cold] Allergy (Verified 05/22/25 21:54) Unknown etodolac Allergy (Verified 05/22/25 21:54) Unknown felodipine [From Plendil] Allergy (Verified 05/22/25 21:54) Head/Body Aches lisinopril [From Prinivil] Allergy (Verified 05/22/25 21:54) Cough nifedipine [From Procardia] Allergy (Verified 05/22/25 21:54) Head/Body Aches oxaprozin [From Daypro] Allergy (Verified 05/22/25 21:54) Unknown epinephrine Adverse Reaction (Verified 05/22/25 21:54) Anxiety Home medications list reviewed: Yes Home Medications: Levothyroxine [Synthroid*] 1 tab PO 0630 05/20/22 Potassium Chloride [Klor-Con 8] 8 meq PO DAILY 05/20/22 Raloxifene HCl [Evista*] 60 mg PO BEDTIME 05/20/22 Acetaminophen [Tylenol] 650 mg PO Q4H PRN 01/28/23 Carbidopa/Levodopa 25-100 [Sinemet 25-100*] 2 tab PO 0800,1200,1600 01/28/23 Furosemide [Lasix*] 10 mg PO Q48H 01/28/23 Mirabegron [Myrbetriq] 1 tab PO DAILY 01/28/23 Pregabalin [Lyrica*] 75 mg PO BEDTIME 01/28/23 Senosides [Senokot*] 2 tab PO BEDTIME 01/28/23 carvediloL [Coreg*] 3.125 mg PO BID 01/28/23 Ascorbate Calcium [Vitamin C] 1 tab PO DAILY 05/22/25 Biotin 1 tab PO DAILY 05/22/25 Cholecalciferol (Vitamin D3) [Vitamin D3] 1 cap PO DAILY 07/28/25 Lansoprazole 1 cap PO ACB 05/22/25 Losartan Potassium [Cozaar*] 25 mg PO BEDTIME 05/22/25 Polyethylene Glycol 3350 [Miralax] 17 gm PO DAILY PRN 05/22/25 Rosuvastatin [Crestor] 5 mg PO DAILY 05/22/25 Spironolactone [Aldactone] 25 mg PO DAILY 05/22/25 hydroCHLOROthiazide [Hydrochlorothiazide] 1 tab PO DAILY 05/22/25 - Past Medical/Surgical History Diabetic: Yes -: HTN -: Diabetic-diet controlled -: Hypothyroid -: L4-L5 decompression -: Hysterectomy -: Gall Bladder Psychosocial/ Personal History: Lives at home with family - Family History Mother Medical History: Heart disease, Hypertension, Diabetes, Cancer Father Medical History: Heart disease, Hypertension, Diabetes, Cancer - Social History Alcohol use: No CD- Drugs: No Caffeine use: Yes Place of Residence: Home Review of Systems 10-point ROS is otherwise unremarkable Physical Examination Temp Pulse Resp BP Pulse Ox 98.2 F 69 16 140/61 91 05/23/25 12:00 05/23/25 12:00 05/23/25 12:00 05/23/25 12:00 05/23/25 12:00 General: Alert, In no apparent distress HEENT: Atraumatic, PERRLA, Mucous membr. moist/pink, EOMI, Sclerae nonicteric Neck: Supple, 2+ carotid pulse no bruit, No LAD, Without JVD or thyroid abnormality Respiratory: Clear to auscultation bilaterally, Normal air movement Cardiovascular: Regular rate/rhythm, Normal S1 S2 Gastrointestinal: Normal bowel sounds, No tenderness Musculoskeletal: No tenderness Integumentary: No rashes Neurological: Normal gait, Normal speech, Normal tone, Normal affect Lymphatics: No axilla or inguinal lymphadenopathy Laboratory Data (last 24 hrs) 05/23/25 05/23/25 04:12 04:12 WBC 8.30 Hgb 11.1 L Hct 31.8 L Plt Count 148 L Sodium 127 L Potassium 3.9 BUN 15 Creatinine 0.67 Glucose 108 H - Problems (1) Chronic diastolic heart failure Current Visit: Yes Status: Acute Plan: patient is currently euvolumic on exam continue coreg 3.125 mg po BID Continue losartan 25 mg daily continue lasix 20 mg tablet every other day on discharge. no more aldactone or HCTZ. (2) Syncope Current Visit: Yes Status: Acute Plan: most likely secondary to low BP continue to monitor on tele
[2025-05-23] MEDS ORDERED: LOSARTAN POTASSIUM 50 MG TABLET PO SCH (21:00)
[2025-05-23] MEDS: RALOXIFENE HCL 60 MG TAB PO SCH (22:00)
[2025-05-23 23:39] LABS: UR POTASSIUM 56.0 mmol/L (20-40); UR SODIUM 77.0 mmol/L (27-287)
[2025-05-24] MEDS: BIOTIN 5000 MCG PO SCH (08:41)
[2025-05-24] MEDS: MIRABEGRON 50 MG PO SCH (08:42)
[2025-05-24] MEDS ORDERED: FUROSEMIDE 20 MG TABLET PO SCH (09:00)
[2025-05-24 09:20] LABS: Absolute Lymphocytes (CBC) 0.9 K/uL (0.7-4.9); Hematocrit 33.7 % (36.0-45.0); Hemoglobin 11.6 g/dL (12.0-15.0); MCH 29.8 pg (27.0-35.0); MCHC 34.5 g/dL (32.0-36.0); MCV 86.4 fL (80-100); MPV 9.0 fL (7.6-11.3); Nucleated RBC Absolute Count 0.0 (0-0); Nucleated Red Blood Cells % 0.1 % (0-0); RBC Red Blood Cell Count 3.90 M/uL (3.86-4.86); White Blood Count 10.30 thou/uL (4.3-10.9)
[2025-05-24 09:36] LABS: Anion Gap 10.8 mEq/L (5.0-15.0); BUN Blood Urea Nitrogen 13.0 mg/dL (7-18); Glucose Level 100.0 mg/dL (74-106); Potassium 3.8 mEq/L (3.5-5.1)
--- NOTE | 2025-05-24 11:59 | P.PN ---
Subjective Date of Service: 05/24/25 Chief Complaint: Syncope Subjective: No new changes, Tolerating diet Review of Systems 10-point ROS is otherwise unremarkable Physical Examination - Vital Signs Temperature: 97.7 F Blood Pressure: 115/43 Pulse: 63 Respirations: 18 Pulse Ox (%): 97 - Physical Exam General: Alert, In no apparent distress HEENT: Atraumatic, PERRLA, EOMI Neck: Supple, JVD not distended Respiratory: Clear to auscultation bilaterally, Normal air movement Cardiovascular: Regular rate/rhythm, Normal S1 S2 Gastrointestinal: Normal bowel sounds, No tenderness Musculoskeletal: No tenderness Integumentary: No rashes Neurological: Normal speech, Normal tone, Normal affect Lymphatics: No axilla or inguinal lymphadenopathy - Studies Medications List Reviewed: Yes Assessment And Plan - Current Problems (Diagnosis) (1) Chronic diastolic heart failure Current Visit: Yes Status: Acute Plan: patient is currently euvolumic on exam continue coreg 3.125 mg po BID Continue losartan 25 mg daily continue lasix 20 mg tablet every other day on discharge. no more aldactone or HCTZ due to dizziness, low BP and hyponatrmia (2) Syncope Current Visit: Yes Status: Acute Plan: most likely secondary to low BP continue to monitor on tele
[2025-05-24 12:25] LABS: Urine Micro Reflex YN NO BILL MICROSCOPIC; Urine WBC Clump Rare /HPF (None Seen); Urine Yeast (Budding) Trace /HPF (None Seen)
[2025-05-24 12:30] LABS: UR POTASSIUM 74.0 mmol/L (20-40); UR SODIUM 78.0 mmol/L (27-287)
[2025-05-24] MEDS: POTASSIUM 25 MEQ EFFERV TAB PO ONE (12:46)
--- NOTE | 2025-05-24 12:58 | CON ---
Date of Consultation: 05/24/2025 Reason For Consultation: Hyponatremia. History Of Present Illness: This is a pleasant 85-year-old female with significant past medical hist ory of congestive heart failure, diastolic dysfunction, hypertension, Parkinson disease. The patient apparently visit with her log cutter and complaining from leg swelling. For that reason, Lasix vera s been increased from 10 mg every other day to 20 mg daily with spironolactone. The patient apparent ly has medication reconciliation error as she told the physician that she is taking 10 mg every other day, in fact she is not taking it at all. The patient has also been taking hydrochlorothiazide. Th e patient last week has a presyncopal episode. Lab done, did not show any hyponatremia or any other symptoms. For that reason, the patient continued on the diuresis. The patient came to the hospital complaining from weak and syncopal episode. Primary workup showed hyponatremia with sodium of 127 an d the patient was started on hydration. Diuresis has been stopped and sodium trended down. Apparent ly, the patient also complaining from low back pain, taking Tylenol. The patient denied taking any n onsteroidal. After IV fluid being started, sodium is trended down to 122. For that reason, we have been consulted. Workup shows urine sodium 77, but that is on the hydrochlorothiazide. Past Medical History: Includes; 1. Hypertension. 2. Hyperlipidemia. 3. L4-L5 decompression. 4. Parkinson. Past Surgical History: Includes hysterectomy; C4, T3-5 decompression; cholecystectomy. Home Medications: Include hydrocodone, levothyroxine, pantoprazole, KCl, tramadol, Tylenol, carbidop a, Lasix 20 mg daily, losartan, hydrochlorothiazide, and spironolactone. Allergies: TO KETOROLAC, FELODIPINE, LISINOPRIL, NIFEDIPINE, AND EPINEPHRINE. Family History: Positive for hypertension and chronic kidney disease. Social History: Denied smoking, denied drinking, and denied drugs abuse. Review of Systems: Head and Neck: No red eye. No ear pain. GI: Decreased intake. : No polyuria. No dysuria. No hematuria. 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 Respiratory: No shortness of breath. Cardiovascular: No chest pain. Has leg swelling. Endocrine: No polydipsia. Skin: No rash. Neuro: Has neuropathy. Has low back pain. Has presyncopal. Musculoskeletal: Has low back pain. Physical Examination: General: When I saw the patient, the patient is lying in bed. Vital Signs: Blood pressure 135/47, pulse of 69, afebrile. Chest: Clear to auscultation. Heart: S1, S2. Systolic murmur. Abdomen: Soft, nontender. Extremity: Trace edema. Neurologic: Alert. No focality. Laboratory Data: Upon presentation to the hospital, sodium 128; on the , sodium 127; today , sodium 122. Potassium of 3.8, bicarb 25, BUN 13, creatinine 0.5, calcium 8.2. The patient's uric a clay is 2.2, calcium 8.2. Albumin of 3.6. Cortisol 29. TSH 1.2. Urinalysis; specific gravity of 1. 026 as of March 18. Urine sodium 77, urine potassium 56, urine osmolality 467. Current Medications: Include carvedilol, hydralazine, losartan, carbidopa, Lyrica, pantoprazole, lev othyroxine, and IV fluid. Assessment And Plan: 1. 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 Discontinue IV fluid, start the patien t on salt tablet and hold the rest of the diuresis and we will monitor the patient. 2. Hypothyroidism has been ruled out, adrenal insufficiency has been ruled out. 3. Hypertension, controlled, optimal with the presence of hyponatremia. Hold hydrochlorothiazide, sp ironolactone, and Lasix. Continue the rest of the medications. 4. Congestive heart failure, currently normal volume. Hold diuresis. We will follow up. 5. Parkinson as by primary. Thank you, Dr. Maldonado for allowing us to participate in the care of your patient. SILVANA/BRIAN Voice ID: [id number] Report ID: [id number]
--- NOTE | 2025-05-24 15:31 | P.PN ---
Date of Service: 05/24/25 Subjective: Mental status improving Sodium dropped to 122 today No other acute events overnight ROS: 10 point ROS as noted above, otherwise negative Physical exam GEN: Alert, oriented, NAD HEENT: Normal conjunctiva, sclera anicteric CV: Regular rate and rhythm, no edema Pulm: Nonlabored respirations on room air ABD: Soft, nontender, nondistended MSK: No joint tenderness Integumentary: No rashes Neuro: Normal speech, normal affect Vitals reviewed Assessment: Syncope Hyponatremia Parkinson's disease Hypertension Hyperlipidemia Hypothyroidism Diabetes mellitus type 2diet controlled Plan: Syncope Hyponatremia Suspect this is related to volume depletion and recent adjustments in her medications Orthostatic vital signs negative, PT consultation-working with PT Hold all diuretics for now Cardiology and nephrology consulted and following Sodium decreased to 122 Likely SIADH, started on salt tabs and fluid restriction by nephrology repeat sodium in the morning Had some altered mentation, urinary retention yesterday 05/23 likely secondary to meclizine and anticholinergic reaction, this is discontinued Parkinson's disease Continue carbidopalevodopa 100/25 2 tabs 3 times daily Hypertension Continue Coreg, losartan Hold spironolactone, hydrochlorothiazide, furosemide for now Hyperlipidemia Hypothyroidism Diabetes mellitus type 2diet controlled Continue home medications Carb consistent diet DVT PPX: Lovenox Code status: Full code Discharge Plan: Home Plan to discharge in: 48 to 72 hours Time Spent Managing Pts Care (In Minutes): 35
[2025-05-24] MEDS: SODIUM CHLORIDE 1 GM TAB PO SCH (17:23)
[2025-05-25 04:55] LABS: Absolute Lymphocytes (CBC) 0.8 K/uL (0.7-4.9); Hematocrit 30.3 % (36.0-45.0); Hemoglobin 10.8 g/dL (12.0-15.0); MCH 30.6 pg (27.0-35.0); MCHC 35.8 g/dL (32.0-36.0); MCV 85.5 fL (80-100); MPV 8.8 fL (7.6-11.3); Nucleated RBC Absolute Count 0.0 (0-0); Nucleated Red Blood Cells % 0.0 % (0-0); RBC Red Blood Cell Count 3.54 M/uL (3.86-4.86); White Blood Count 8.80 thou/uL (4.3-10.9)
[2025-05-25 05:10] LABS: Albumin 2.8 g/dL (3.4-5.0); Anion Gap 12.9 mEq/L (5.0-15.0); BUN Blood Urea Nitrogen 20.0 mg/dL (7-18); Glucose Level 93.0 mg/dL (74-106); Potassium 3.9 mEq/L (3.5-5.1)
[2025-05-25] MEDS: SODIUM CHLORIDE 1 GM TAB PO SCH (10:00)
[2025-05-25] MEDS: NA CHLORIDE 0.9% 1,000 ML IV ONE (10:08)
--- NOTE | 2025-05-25 11:18 | CON ---
DICTATION ENDS HERE. CRICKET Voice ID: [id number] Report ID: [id number]
[2025-05-25] MEDS: FUROSEMIDE 20 MG TABLET PO SCH (13:05)
[2025-05-25 13:45] LABS: Anion Gap 9.9 mEq/L (5.0-15.0); BUN Blood Urea Nitrogen 23.0 mg/dL (7-18); Glucose Level 116.0 mg/dL (74-106); Potassium 3.9 mEq/L (3.5-5.1)
[2025-05-25] MEDS: TOLVAPTAN 15 MG TABLET PO ONE (14:54)
--- NOTE | 2025-05-25 15:30 | P.PN ---
Date of Service: 05/25/25 Subjective: Still with some abnormal movements /possible hallucinations but less frequent Was able to get some rest overnight, but not all night No significant acute events overnight ROS: 10 point ROS as noted above, otherwise negative Physical exam GEN: Alert, oriented, NAD HEENT: Normal conjunctiva, sclera anicteric CV: Regular rate and rhythm, no edema Pulm: Nonlabored respirations on room air ABD: Soft, nontender, nondistended MSK: No joint tenderness Integumentary: No rashes Neuro: Normal speech, normal affect, some reported hallucinations, abnormal movements of upper extermities, weakness in lower extremities Vitals reviewed Assessment: Syncope Hyponatremia Parkinson's disease Hypertension Hyperlipidemia Hypothyroidism Diabetes mellitus type 2diet controlled Plan: Syncope Hyponatremia Labs consistent with SIADH Hold all diuretics for now Cardiology and nephrology consulted and following Sodium decreased to 117 Likely SIADH, started on salt tabs and fluid restriction by nephrology Sodium lower this morning from 122-121 Given IV fluids, Lasix, salt tabs increased per nephrology Repeat sodium this afternoon dropped to 117 Discussed with nephrology, will dose with tolvaptan 15 mg x 1 and repeat chemistry 6 hours later Nursing staff to report evening sodium to nephrology Repeat sodium 8 PM Had some altered mentation, urinary retention 05/23 likely secondary to meclizine and anticholinergic reaction, this is discontinued, mental status slowly improving Parkinson's disease Continue carbidopalevodopa 100/25 2 tabs 3 times daily Hypertension Continue Coreg, losartan Hold spironolactone, hydrochlorothiazide, furosemide for now Hyperlipidemia Hypothyroidism Diabetes mellitus type 2diet controlled Continue home medications Carb consistent diet DVT PPX: Lovenox Code status: Full code Discharge Plan: Home Plan to discharge in: 48 to 72 hours Time Spent Managing Pts Care (In Minutes): 35
[2025-05-25] MEDS: LOSARTAN POTASSIUM 50 MG TABLET PO SCH (21:02)
[2025-05-25 22:14] LABS: Anion Gap 9.7 mEq/L (5.0-15.0); BUN Blood Urea Nitrogen 23.0 mg/dL (7-18); Glucose Level 117.0 mg/dL (74-106); Potassium 3.7 mEq/L (3.5-5.1)
[2025-05-26 06:20] LABS: Hematocrit 31.7 % (36.0-45.0); Hemoglobin 11.1 g/dL (12.0-15.0); MCH 30.1 pg (27.0-35.0); MCHC 35.0 g/dL (32.0-36.0); MCV 86.0 fL (80-100); MPV 8.9 fL (7.6-11.3); RBC Red Blood Cell Count 3.68 M/uL (3.86-4.86); White Blood Count 9.10 thou/uL (4.3-10.9)
[2025-05-26 06:35] LABS: Albumin 3.0 g/dL (3.4-5.0); Anion Gap 10.0 mEq/L (5.0-15.0); BUN Blood Urea Nitrogen 20.0 mg/dL (7-18); Glucose Level 91.0 mg/dL (74-106); Potassium 4.0 mEq/L (3.5-5.1)
[2025-05-26] MEDS: TOLVAPTAN 15 MG TABLET PO ONE (08:17)
[2025-05-26] MEDS: DEMECLOCYCLINE HCL 150 MG TABLET PO SCH (09:00)
[2025-05-26 12:22] LABS: Anion Gap 10.7 mEq/L (5.0-15.0); BUN Blood Urea Nitrogen 23.0 mg/dL (7-18); Glucose Level 175.0 mg/dL (74-106); Potassium 3.7 mEq/L (3.5-5.1)
--- NOTE | 2025-05-26 14:41 | P.PN ---
Date of Service: 05/26/25 Subjective: Sodium improving Mental status improving but still some episodes of confusion/disorientation ROS: 10 point ROS as noted above, otherwise negative Physical exam GEN: Alert, oriented, NAD HEENT: Normal conjunctiva, sclera anicteric CV: Regular rate and rhythm, no edema Pulm: Nonlabored respirations on room air ABD: Soft, nontender, nondistended MSK: No joint tenderness Integumentary: No rashes Neuro: Normal speech, normal affect, some reported hallucinations, abnormal movements of upper extermities, weakness in lower extremities Vitals reviewed Assessment: Syncope Hyponatremia Parkinson's disease Hypertension Hyperlipidemia Hypothyroidism Diabetes mellitus type 2diet controlled Plan: Syncope Hyponatremia Labs consistent with SIADH Hold all diuretics for now Cardiology and nephrology consulted and following Sodium has improved after tolvaptan x 2, Demeclocycline Also still on salt tabs for now Had some altered mentation, urinary retention 05/23 likely secondary to meclizine and anticholinergic reaction, this is discontinued, mental status improving PT/OT consulted and following Will need IPR at discharge Parkinson's disease Continue carbidopalevodopa 100/25 2 tabs 3 times daily Hypertension Continue Coreg, losartan Hold spironolactone, hydrochlorothiazide, furosemide for now Hyperlipidemia Hypothyroidism Diabetes mellitus type 2diet controlled Continue home medications Carb consistent diet DVT PPX: Lovenox Code status: Full code Discharge Plan: Home Plan to discharge in: 48 to 72 hours Time Spent Managing Pts Care (In Minutes): 35
--- NOTE | 2025-05-26 21:43 | PN ---
Date of Progress Note: 05/26/2025 Chief Complaint: Hyponatremia. Subjective: The patient is an 85-year-old woman with past medical history of congestive heart failur e, diastolic dysfunction, hypertension, Parkinson disease. She is admitted to the hospital because o f severe hyponatremia. She had office visit to see college service officer for progressively worse leg swelling and Lasix was increased from 10 mg every other day to 20 mg daily and spironolactone was also prescr ibed for leg swelling. The patient was taking hydrochlorothiazide. The patient developed some presy ncope and was brought to the hospital. Primary workup showed hyponatremia with sodium of 127. The p atient was started on hydration and sodium level was trending down to 122. Over the last 24 hours, s odium level has gradually improved and patient is asymptomatic. Review of Systems: The patient is feeling better. Physical Examination: Lungs: Clear to auscultation bilaterally. Heart: S1, S2. Abdomen: Soft, benign. Extremities: Trace edema. Impression And Plan: 1. Hyponatremia. Continue to monitor lab work. Uric acid was ordered and the patient is started on sodium chloride tablet. She received also tolvaptan. 2. Hypertension. Avoid HCTZ, spironolactone, and Lasix. 3. Congestive heart failure. Currently normovolemic. Diuretic on hold. Avoid nonsteroidal anti-inf lammatory medication. 4. Hypothyroidism. Workup was done. Adrenal insufficiency has been ruled out. ASHLY/BRIAN Voice ID: [id number] Report ID: [id number]
[2025-05-26 21:52] LABS: Anion Gap 11.9 mEq/L (5.0-15.0); BUN Blood Urea Nitrogen 23.0 mg/dL (7-18); Glucose Level 113.0 mg/dL (74-106); Potassium 3.9 mEq/L (3.5-5.1)
[2025-05-27 07:39] LABS: Hematocrit 31.9 % (36.0-45.0); Hemoglobin 11.2 g/dL (12.0-15.0); MCH 30.3 pg (27.0-35.0); MCHC 34.9 g/dL (32.0-36.0); MCV 86.7 fL (80-100); MPV 8.9 fL (7.6-11.3); RBC Red Blood Cell Count 3.68 M/uL (3.86-4.86); White Blood Count 8.70 thou/uL (4.3-10.9)
[2025-05-27 08:20] LABS: Albumin 3.1 g/dL (3.4-5.0); Anion Gap 11.8 mEq/L (5.0-15.0); BUN Blood Urea Nitrogen 21.0 mg/dL (7-18); Glucose Level 93.0 mg/dL (74-106)
[2025-05-27 08:21] LABS: Potassium 3.8 mEq/L (3.5-5.1)
[2025-05-27 10:53] VITALS: O2SAT 96
--- NOTE | 2025-05-27 16:12 | P.PN ---
Date of Service: 05/27/25 Subjective: Mental status significantly improved although still with periods of confusion Hallucinations have nearly resolved Still very weak, having muscle spasms in the lower extremities No other acute events overnight ROS: 10 point ROS as noted above, otherwise negative Physical exam GEN: Alert, oriented, NAD with periodic confusion HEENT: Normal conjunctiva, sclera anicteric CV: Regular rate and rhythm, no edema Pulm: Nonlabored respirations on room air ABD: Soft, nontender, nondistended MSK: No joint tenderness, muscle stiffness/generalized weakness Integumentary: No rashes Neuro: Normal speech, normal affect,weakness in lower extremities/generalized weakness Vitals reviewed Assessment: Syncope Hyponatremia Parkinson's disease Deconditioning Hypertension Hyperlipidemia Hypothyroidism Diabetes mellitus type 2diet controlled Plan: Syncope Hyponatremia Sodium improved to 133 today Labs consistent with SIADH Hold all diuretics for now Cardiology and nephrology consulted and following Sodium has improved after tolvaptan x 2, Demeclocycline Also still on salt tabs for now Had some altered mentation, urinary retention 05/23 likely secondary to meclizine and anticholinergic reaction, this is discontinued, mental status improving PT/OT consulted and following Will need IPR at discharge Working well with PT Previously living at home alone using a rollator Had somebody coming by a couple times a week to help with bathing Patient now with significant weakness/debility far from her baseline Making daily improvement with PT Requires ongoing monitoring by physician in regards to her hyponatremia, significant weakness/Parkinson's Parkinson's disease Deconditioning Continue carbidopalevodopa 100/25 2 tabs 3 times daily PT consultation Will consult neurology for additional recommendations Hypertension Continue Coreg, losartan Hold spironolactone, hydrochlorothiazide, furosemide for now Hyperlipidemia Hypothyroidism Diabetes mellitus type 2diet controlled Continue home medications Carb consistent diet DVT PPX: Lovenox Code status: Full code Discharge Plan: IPR Plan to discharge in: 48 to 72 hours Time Spent Managing Pts Care (In Minutes): 35
[2025-05-28 04:59] LABS: Hematocrit 28.6 % (36.0-45.0); Hemoglobin 10.0 g/dL (12.0-15.0); MCH 30.5 pg (27.0-35.0); MCHC 35.1 g/dL (32.0-36.0); MCV 86.8 fL (80-100); MPV 8.1 fL (7.6-11.3); RBC Red Blood Cell Count 3.29 M/uL (3.86-4.86); White Blood Count 9.40 thou/uL (4.3-10.9)
[2025-05-28 05:36] LABS: Albumin 2.8 g/dL (3.4-5.0); Anion Gap 9.7 mEq/L (5.0-15.0); BUN Blood Urea Nitrogen 30.0 mg/dL (7-18); Glucose Level 112.0 mg/dL (74-106); Potassium 3.7 mEq/L (3.5-5.1)
--- NOTE | 2025-05-28 08:16 | P.PN ---
Date of Service: 05/28/25 Subjective: Mental status significantly improved although still with periods of confusion Hallucinations have nearly resolved Significant improvement in PT performance/working with PT Family very involved ROS: 10 point ROS as noted above, otherwise negative Physical exam GEN: Alert, oriented, NAD with periodic confusion HEENT: Normal conjunctiva, sclera anicteric CV: Regular rate and rhythm, no edema Pulm: Nonlabored respirations on room air ABD: Soft, nontender, nondistended MSK: No joint tenderness, muscle stiffness/generalized weakness Integumentary: No rashes Neuro: Normal speech, normal affect,weakness in lower extremities/generalized weakness Vitals reviewed Assessment: Syncope Hyponatremia Parkinson's disease Deconditioning Hypertension Hyperlipidemia Hypothyroidism Diabetes mellitus type 2diet controlled Plan: Syncope Hyponatremia Sodium improved to 134 today Labs consistent with SIADH Hold all diuretics for now Cardiology and nephrology consulted and following Sodium has improved after tolvaptan x 2, Demeclocycline also initiated and continued Also still on salt tabs for now Had some altered mentation, urinary retention 05/23 likely secondary to meclizine and anticholinergic reaction, this is discontinued, mental status improving PT/OT consulted and following Will need IPR at discharge Working well with PT Previously living at home alone using a rollator Had somebody coming by a couple times a week to help with bathing Patient now with significant weakness/debility far from her baseline Making daily improvement with PT Requires ongoing monitoring by physician in regards to her hyponatremia, significant weakness/Parkinson's Parkinson's disease Deconditioning Continue carbidopalevodopa 100/25 2 tabs 3 times daily PT consultation Will consult neurology for additional recommendations Hypertension Continue Coreg, losartan Hold spironolactone, hydrochlorothiazide, furosemide for now Hyperlipidemia Hypothyroidism Diabetes mellitus type 2diet controlled Continue home medications Carb consistent diet DVT PPX: Lovenox Code status: Full code Discharge Plan: IPR Plan to discharge in: 48 to 72 hours Time Spent Managing Pts Care (In Minutes): 35
[2025-05-28] MEDS: POTASSIUM CL SA 10 MEQ TAB PO ONE (08:35)
[2025-05-28] MEDS: ACETAMINOPHEN 325 MG TABLET PO SCH (10:00)
--- NOTE | 2025-05-28 10:23 | P.PN ---
Date of Service: 05/28/25 Nephrology Progress Note pt 85-year-old female with significant past medical history of congestive heart failure, diastolic dysfunction, hypertension, Parkinson disease. 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 For that reason, Lasix has been increased from 10 mg every other day to 20 mg daily with spironolactone. The patient apparently has medication reconciliation error as she told the physician that she is taking 10 mg every other day, in fact she is not taking it at all. The patient has also been taking hydrochlorothiazide. The patient last week has a presyncopal episode. Lab done, did not show any hyponatremia or any other sympt oms. For that reason, the patient continued on the diuresis. The patient came to the hospital complaining from weak and syncopal episode. Primary workup showed hyponatremia with sodium of 127 and the patient was started on hydration. Diuresis has been stopped and sodium trended down. Apparently, the patient also complaining from low back pain, taking Tylenol. The patient denied taking any nonsteroidal. After IV fluid being started, sodium is trended down to 121. For that reason, we have been consulted. Physical Examination: Temp Pulse Resp BP Pulse Ox 98.3 F 69 16 145/62 H 99 05/28/25 08:00 05/28/25 08:36 05/28/25 08:40 05/28/25 08:36 05/28/25 08:40 General: When I saw the patient, the patient is lying in bed. Vital Signs: Blood pressure 135/47, pulse of 69, afebrile. Chest: Clear to auscultation. Heart: S1, S2. Systolic murmur. Abdomen: Soft, nontender. Extremity: Trace edema. Neurologic: Alert. No focality. Acetaminophen (Acetaminophen 325 Mg Tablet) 650 mg PO Q6H [facility] Ascorbic Acid (Ascorbic Acid 500 Mg Tablet) 500 mg PO DAILY [facility] Last Admin: 05/28/25 08:36 Dose: 500 mg Carbidopa/Levodopa (Carbidopa/Levodopa 25/100 Tab) 2 tab PO 0800,1200,1600 [facility] Last Admin: 05/28/25 08:40 Dose: 2 tab Carvedilol (Carvedilol 6.25 Mg Tab) 6.25 mg PO BID [facility] Last Admin: 05/28/25 08:36 Dose: 6.25 mg Cholecalciferol (Vitamin D 5,000 Unit Cap) 5,000 unit PO DAILY [facility] Last Admin: 05/28/25 08:37 Dose: 5,000 unit Demeclocycline HCl (Demeclocycline Hcl 150 Mg Tablet) 150 mg PO BID [facility] Last Admin: 05/28/25 08:37 Dose: 150 mg Enoxaparin Sodium (Enoxaparin 40 Mg/0.4 Ml) 40 mg SQ DAILY [facility] Last Admin: 05/28/25 08:35 Dose: 40 mg Home Med (Mirabegron [Myrbetriq]) 1 tab PO DAILY [facility] Last Admin: 05/28/25 08:37 Dose: 1 tab Home Med (Biotin [Biotin]) 1 tab PO DAILY [facility] Last Admin: 05/28/25 08:37 Dose: 1 tab Hydralazine HCl (Hydralazine Hcl 20 Mg/Ml Vial) 10 mg IV Q6HP PRN PRN Reason: FOR SBP>160 OR DBP>100 [facility] Last Admin: 05/25/25 00:25 Dose: 10 mg Levothyroxine Sodium (Levothyroxine Sod 0.075 Mg Tab) 0.075 mg PO 0630 [facility] Last Admin: 05/28/25 05:53 Dose: 0.075 mg Lidocaine (Lidocaine 4% Patch) 1 patch TOP DAILY [facility] Losartan Potassium (Losartan Potassium 50 Mg Tablet) 25 mg PO BEDTIME [facility] Last Admin: 05/27/25 20:45 Dose: 25 mg Ondansetron HCl (Ondansetron 4 Mg/2 Ml Vial) 4 mg IV Q4H PRN PRN Reason: NAUSEA / VOMITING Pantoprazole Sodium (Pantoprazole 40mg Tablet) 40 mg PO ACB [facility] Last Admin: 05/28/25 08:36 Dose: 40 mg Polyethylene Glycol (Polyethyl Gly 3350 17 Gm/Dose) 17 gm PO DAILY PRN PRN Reason: CONSTIPATION Pregabalin (Pregabalin 75 Mg Cap) 75 mg PO BEDTIME [facility] Last Admin: 05/27/25 20:45 Dose: 75 mg Raloxifene HCl (Raloxifene Hcl 60 Mg Tab) 60 mg PO BEDTIME [facility] Last Admin: 05/27/25 20:46 Dose: 60 mg Rosuvastatin Calcium (Rosuvastatin 5 Mg Tab) 5 mg PO DAILY [facility] Last Admin: 05/28/25 08:36 Dose: 5 mg Senna (Senosides 8.6 Mg Tab) 17.2 mg PO BEDTIME [facility] Last Admin: 05/27/25 20:48 Dose: Not Given Sodium Chloride (Sodium Chloride 1 Gm Tab) 1 gm PO TID [facility] Last Admin: 05/28/25 08:36 Dose: 1 gm Laboratory Tests 05/22/25 05/22/25 05/22/25 14:30 14:30 14:30 WBC 6.80 RBC 3.90 Hgb 11.5 L Hct 34.4 L MCV 88.3 MCH 29.6 MCHC 33.6 RDW 13.7 Plt Count 151 L MPV 9.3 Neutrophils % 81.5 H Lymphocytes % 11.8 L Monocytes % 6.2 Eosinophils % 0.1 Basophils % 0.4 Absolute Neutrophils 5.5 Absolute Lymphocytes 0.8 Absolute Monocytes 0.4 Absolute Eosinophils 0.0 Absolute Basophils 0.0 PT 12.7 INR 1.13 Sodium 128 L Potassium 4.1 Chloride 96 L Carbon Dioxide 26 Anion Gap 10.1 BUN 20 H Creatinine 0.88 Est GFR (CKD-EPI) 64 L Glucose 145 H Calcium 8.4 L Magnesium 1.9 Total Bilirubin 0.8 Direct Bilirubin 0.2 Indirect Bilirubin 0.6 AST 19 ALT < 14 Alkaline Phosphatase 42 L Troponin I High Sens 8.6 NT-Pro-B Natriuret Pep 545 H Serum Total Protein 6.3 L Albumin 3.6 Globulin 2.7 Albumin/Globulin Ratio 1.3 TSH Free T4 05/22/25 05/23/25 05/23/25 20:50 04:12 04:12 WBC 8.30 RBC 3.65 L Hgb 11.1 L Hct 31.8 L MCV 87.1 MCH 30.4 MCHC 35.0 RDW 13.4 Plt Count 148 L MPV 9.1 Neutrophils % 78.5 H Lymphocytes % 12.3 L Monocytes % 8.7 Eosinophils % 0.2 Basophils % 0.3 Absolute Neutrophils 6.5 Absolute Lymphocytes 1.0 Absolute Monocytes 0.7 Absolute Eosinophils 0.0 Absolute Basophils 0.0 PT INR Sodium 127 L Potassium 3.9 Chloride 97 L Carbon Dioxide 27 Anion Gap 6.9 BUN 15 Creatinine 0.67 Est GFR (CKD-EPI) 85 L Glucose 108 H Calcium 8.3 L Magnesium Total Bilirubin Direct Bilirubin Indirect Bilirubin AST ALT Alkaline Phosphatase Troponin I High Sens 17.8 25.8 NT-Pro-B Natriuret Pep Serum Total Protein Albumin Globulin Albumin/Globulin Ratio TSH 1.250 Free T4 1.33 Assessment & Plan 1. 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 Patient received 2 doses of tolvaptan last doses was May 27 sodium and trend up appropriately mental status is slightly better but still confused Patient maintained on salt tablet with starting on demeclocycline starting by yesterday I will follow-up with the patient today no need for tolvaptan today continue the patient on demeclocycline twice daily salt tablet 3 times daily if sodium continue to trend up we will maintain her on current regimen we will monitor the patient. 2. Hypothyroidism has been ruled out, adrenal insufficiency has been ruled out. 3. Hypertension, controlled, optimal with the presence of hyponatremia. Hold hydrochlorothiazide, spironolactone, Keep holding Lasix Continue the rest of the medications. 4. Congestive heart failure, currently normal volume. Keep holding the diuresis. We will follow up. 5. Parkinson as by primary. 6-decreased urine output kidney function stable patient does not look dehydrated will do bladder scan Thank you, Dr. Maldonado for allowing us to participate in the care of your patient. Time spent examining the patient [id number] reviewing data lab and the radiology placing order documenting notes discussing the case with the patient and family by bedside discussing the case with the count team clerk including hospitalist and nursing staff more than 55 minute
[2025-05-28] MEDS: ALBUTEROL 2.5 MG/3 ML NEB SOL NEB ONE (10:30)
[2025-05-28] MEDS: LIDOCAINE 4% PATCH TOP SCH (10:58)
--- NOTE | 2025-05-28 18:33 | RAD REPORT ---
EXAMINATION: ONE VIEW CHEST XR CLINICAL INDICATION: Female, 85 years old.,wheezing, dyspnea TECHNIQUE: Frontal chest projection is submitted. Examination is limited by patient positioning and t echnique. COMPARISON: 05/22/2025 FINDINGS: The lungs are diffusely emphysematous but grossly clear. Stable scattered curvilinear calcifications No pneumothorax or sizable effusion. The heart is normal in size. Mediastinal contours are unremarkable. IMPRESSION: No acute intrathoracic abnormalities.
[2025-05-29 06:06] LABS: Hematocrit 25.9 % (36.0-45.0); Hemoglobin 8.8 g/dL (12.0-15.0); MCH 29.8 pg (27.0-35.0); MCHC 34.1 g/dL (32.0-36.0); MCV 87.3 fL (80-100); MPV 8.1 fL (7.6-11.3); RBC Red Blood Cell Count 2.97 M/uL (3.86-4.86); White Blood Count 7.00 thou/uL (4.3-10.9)
[2025-05-29 06:24] LABS: Albumin 2.5 g/dL (3.4-5.0); Anion Gap 9.8 mEq/L (5.0-15.0); BUN Blood Urea Nitrogen 28.0 mg/dL (7-18); Glucose Level 102.0 mg/dL (74-106); Potassium 3.8 mEq/L (3.5-5.1)
[2025-05-29] MEDS ORDERED: LIDOCAINE 4% PATCH TOP SCH (09:00)
[2025-05-29] MEDS: POTASSIUM CL SA 10 MEQ TAB PO ONE (09:12)
--- NOTE | 2025-05-29 09:51 | P.PN ---
Date of Service: 05/29/25 Subjective: Mental status waxes and wanes Seems to be more disoriented in the mornings, more lucid in the afternoon/evening Sodium improved, she is working well with physical therapy Having pain to thighs and right elbow this morning ROS: 10 point ROS as noted above, otherwise negative Physical exam GEN: Alert, oriented, NAD with periodic confusion HEENT: Normal conjunctiva, sclera anicteric CV: Regular rate and rhythm, no edema Pulm: Nonlabored respirations on room air ABD: Soft, nontender, nondistended MSK: No joint tenderness, muscle stiffness/generalized weakness Integumentary: No rashes Neuro: Normal speech, normal affect,weakness in lower extremities/generalized weakness Vitals reviewed Assessment: Syncope Hyponatremia Parkinson's disease Deconditioning Hypertension Hyperlipidemia Hypothyroidism Diabetes mellitus type 2diet controlled Plan: Syncope Hyponatremia Sodium improved to 138 today Labs consistent with SIADH Hold all diuretics for now Cardiology and nephrology consulted and following Sodium has improved after tolvaptan x 2, Demeclocycline also initiated and continued Also still on salt tabs for now Had some altered mentation, urinary retention 05/23 likely secondary to meclizine and anticholinergic reaction, this is discontinued, mental status improving PT/OT consulted and following Will need IPR at discharge Working well with PT Previously living at home alone using a rollator Had somebody coming by a couple times a week to help with bathing Patient now with significant weakness/debility far from her baseline Making daily improvement with PT Requires ongoing monitoring by physician in regards to her hyponatremia, significant weakness/Parkinson's Parkinson's disease Deconditioning Continue carbidopalevodopa 100/25 2 tabs 3 times daily PT consultation Will consult neurology for additional recommendations Hypertension Continue Coreg, losartan Hold spironolactone, hydrochlorothiazide, furosemide for now Hyperlipidemia Hypothyroidism Diabetes mellitus type 2diet controlled Continue home medications Carb consistent diet DVT PPX: Lovenox Code status: Full code Discharge Plan: IPR Plan to discharge in: 48 to 72 hours Time Spent Managing Pts Care (In Minutes): 35
--- NOTE | 2025-05-29 11:53 | P.PN ---
Subjective Date of Service: 05/29/25 Chief Complaint: Syncope Subjective: No new changes, No C/O voiced, Tolerating diet, Ambulating, Improving Review of Systems 10-point ROS is otherwise unremarkable Physical Examination - Vital Signs Temperature: 98.1 F Blood Pressure: 183/59 Pulse: 78 Respirations: 15 Pulse Ox (%): 97 - Physical Exam General: Alert, In no apparent distress HEENT: Atraumatic, PERRLA, EOMI Neck: Supple, JVD not distended Respiratory: Clear to auscultation bilaterally, Normal air movement Cardiovascular: Regular rate/rhythm, Normal S1 S2 Gastrointestinal: Normal bowel sounds, No tenderness Musculoskeletal: No tenderness Integumentary: No rashes Neurological: Normal speech, Normal tone, Normal affect Lymphatics: No axilla or inguinal lymphadenopathy - Studies Medications List Reviewed: Yes Assessment And Plan - Current Problems (Diagnosis) (1) Chronic diastolic heart failure Current Visit: Yes Status: Acute Plan: patient is currently euvolumic on exam continue coreg 6.25 mg po BID increase losartan to 25 mg po BID no more aldactone or HCTZ due to dizziness, low BP and hyponatrmia (2) Syncope Current Visit: Yes Status: Acute Plan: most likely secondary to low BP continue to monitor on tele
--- NOTE | 2025-05-29 23:41 | PN ---
Date of Progress Note: 05/29/2025 Chief Complaint: Hyponatremia, SIADH. Subjective: The patient is an 85-year-old woman with past medical history of congestive heart failure, diastolic dysfunction, hypertension, Parkinson disease. The patient was found to have hyponatremia and Nephrology was consulted. Prior to this admission, Lasix was increased from 10 mg to 20 mg and spironolactone was added. The patient previously was taking HCTZ, all of the diuretics were stopped during this admission. Renal function is stable, although sodium level was 127 and subsequently declined during this admission to 121. At that point, Nephrology was consulted. The patient receive tolvaptan, demeclocycline, and sodium chloride tablets. Sodium level gradually improved. Review of Systems: The patient denies complaints. Physical Examination: General: Normal respiratory effort, not in acute distress. Extremities: Trace edema. Impression And Plan: 1. Hyponatremia, syndrome of inappropriate antidiuretic hormone secretion. Sodium level is improving. Hypothyroidism was ruled out. Adrenal insufficiency was ruled out. 2. Hypertension. Avoid HCTZ. Avoid spironolactone. 3. Congestive heart failure. The patient is euvolemic. Diuretics on hold. 4. Parkinson disease per primary team. ASHLY/BRIAN Voice ID: [id number] Report ID: [id number] NATALIIA
[2025-05-29] MEDS: MORPHINE 2 MG/ML SYR IV ONE (23:45)
[2025-05-30 05:09] LABS: Hematocrit 28.7 % (36.0-45.0); Hemoglobin 9.7 g/dL (12.0-15.0); MCH 29.9 pg (27.0-35.0); MCHC 33.9 g/dL (32.0-36.0); MCV 88.3 fL (80-100); MPV 7.9 fL (7.6-11.3); RBC Red Blood Cell Count 3.26 M/uL (3.86-4.86); White Blood Count 6.70 thou/uL (4.3-10.9)
[2025-05-30 05:28] LABS: Albumin 2.7 g/dL (3.4-5.0); Anion Gap 9.2 mEq/L (5.0-15.0); BUN Blood Urea Nitrogen 27.0 mg/dL (7-18); Glucose Level 112.0 mg/dL (74-106); Potassium 4.2 mEq/L (3.5-5.1)
[2025-05-30] MEDS: DEMECLOCYCLINE HCL 150 MG TABLET PO SCH (09:00)
--- NOTE | 2025-05-30 12:09 | P.PN ---
Subjective Date of Service: 05/30/25 Chief Complaint: Syncope Subjective: No new changes, No C/O voiced, Tolerating diet, Ambulating, Improving Review of Systems 10-point ROS is otherwise unremarkable Physical Examination - Vital Signs Temperature: 98.1 F Blood Pressure: 148/51 Pulse: 64 Respirations: 18 Pulse Ox (%): 97 - Physical Exam General: Alert, In no apparent distress HEENT: Atraumatic, PERRLA, EOMI Neck: Supple, JVD not distended Respiratory: Clear to auscultation bilaterally, Normal air movement Cardiovascular: Regular rate/rhythm, Normal S1 S2 Gastrointestinal: Normal bowel sounds, No tenderness Musculoskeletal: No tenderness Integumentary: No rashes Neurological: Normal speech, Normal tone, Normal affect Lymphatics: No axilla or inguinal lymphadenopathy - Studies Medications List Reviewed: Yes Assessment And Plan - Current Problems (Diagnosis) (1) Chronic diastolic heart failure Current Visit: Yes Status: Acute Plan: patient is currently euvolumic on exam continue coreg 6.25 mg po BID increase losartan to 25 mg po BID no more aldactone or HCTZ due to dizziness, low BP and hyponatrmia (2) Syncope Current Visit: Yes Status: Acute Plan: most likely secondary to low BP continue to monitor on tele Cardiology will sign off, please call with any questions.
--- NOTE | 2025-05-30 12:30 | P.PN ---
Date of Service: 05/30/25 Nephrology Progress Note pt 85-year-old female with significant past medical history of congestive heart failure, diastolic dysfunction, hypertension, Parkinson disease. The patient apparently visit with her magnetic healer and complaining from leg swelling. For that reason, Lasix has been increased from 10 mg every other day to 20 mg daily with spironolactone. The patient apparently has medication reconciliation error as she told the physician that she is taking 10 mg every other day, in fact she is not taking it at all. The patient has also been taking hydrochlorothiazide. The patient last week has a presyncopal episode. Lab done, did not show any hyponatremia or any other sympt oms. For that reason, the patient continued on the diuresis. The patient came to the hospital complaining from weak and syncopal episode. Primary workup showed hyponatremia with sodium of 127 and the patient was started on hydration. Diuresis has been stopped and sodium trended down. Apparently, the patient also complaining from low back pain, taking Tylenol. The patient denied taking any nonsteroidal. After IV fluid being started, sodium is trended down to 121. For that reason, we have been consulted. Physical Examination: Temp Pulse Resp BP Pulse Ox 98.1 F 64 18 148/51 H 97 05/30/25 12:09 05/30/25 12:09 05/30/25 12:09 05/30/25 12:05/30/25 12:09 General: When I saw the patient, the patient is lying in bed. Vital Signs: Blood pressure 135/47, pulse of 69, afebrile. Chest: Clear to auscultation. Heart: S1, S2. Systolic murmur. Abdomen: Soft, nontender. Extremity: Trace edema. Neurologic: Alert. No focality. Laboratory Last Values WBC 8.30 thou/uL (4.3-10.9) 05/23/25 04:12 RBC 3.65 M/uL (3.86-4.86) L 05/23/25 04:12 Hgb 11.1 g/dL (12.0-15.0) L 05/23/25 04:12 Hct 31.8 % (36.0-45.0) L 05/23/25 04:12 MCV 87.1 fL (80-100) 05/23/25 04:12 MCH 30.4 pg (27.0-35.0) 05/23/25 04:12 MCHC 35.0 g/dL (32.0-36.0) 05/23/25 04:12 RDW 13.4 % (12.1-15.2) 05/23/25 04:12 Plt Count 148 thou/uL (152-406) L 05/23/25 04:12 MPV 9.1 fL (7.6-11.3) 05/23/25 04:12 Neutrophils % 78.5 % (41.7-73.7) H 05/23/25 04:12 Lymphocytes % 12.3 % (15.3-44.8) L 05/23/25 04:12 Monocytes % 8.7 % (3.3-12.3) 05/23/25 04:12 Eosinophils % 0.2 % (0-4.4) 05/23/25 04:12 Basophils % 0.3 % (0-1.3) 05/23/25 04:12 Absolute Neutrophils 6.5 K/uL (1.8-8.0) 05/23/25 04:12 Absolute Lymphocytes 1.0 K/uL (0.7-4.9) 05/23/25 04:12 Absolute Monocytes 0.7 K/uL (0.1-1.3) 05/23/25 04:12 Absolute Eosinophils 0.0 K/uL (0-0.5) 05/23/25 04:12 Absolute Basophils 0.0 K/uL (0-0.5) 05/23/25 04:12 PT 12.7 SECONDS (10-13.0) 05/22/25 14:30 INR 1.13 05/22/25 14:30 Sodium 127 mEq/L (136-145) L 05/23/25 04:12 Potassium 3.9 mEq/L (3.5-5.1) 05/23/25 04:12 Chloride 97 mEq/L (98-107) L 05/23/25 04:12 Carbon Dioxide 27 mEq/L (21-32) 05/23/25 04:12 Anion Gap 6.9 mEq/L (5.0-15.0) 05/23/25 04:12 BUN 15 mg/dL (7-18) 05/23/25 04:12 Creatinine 0.67 mg/dL (0.55-1.02) 05/23/25 04:12 Est GFR (CKD-EPI) 85 ml/min (=/>90) L 05/23/25 04:12 Glucose 108 mg/dL (74-106) H 05/23/25 04:12 Calcium 8.3 mg/dL (8.5-10.1) L 05/23/25 04:12 Magnesium 1.9 mg/dL (1.6-2.4) 05/22/25 14:30 Total Bilirubin 0.8 mg/dL (0.2-1.0) 05/22/25 14:30 Direct Bilirubin 0.2 mg/dL (0-0.2) 05/22/25 14:30 Indirect Bilirubin 0.6 mg/dL (0.2-0.8) 05/22/25 14:30 AST 19 U/L (15-37) 05/22/25 14:30 ALT < 14 U/L (13-56) 05/22/25 14:30 Alkaline Phosphatase 42 U/L (45-117) L 05/22/25 14:30 Troponin I High Sens 25.8 pg/mL (<58.9) 05/23/25 04:12 NT-Pro-B Natriuret Pep 545 pg/mL (<450) H 05/22/25 14:30 Serum Total Protein 6.3 g/dL (6.4-8.2) L 05/22/25 14:30 Albumin 3.6 g/dL (3.4-5.0) 05/22/25 14:30 Globulin 2.7 g/dL (2.3-3.5) 05/22/25 14:30 Albumin/Globulin Ratio 1.3 (1.1-1.8) 05/22/25 14:30 TSH 1.250 uIU/mL (0.358-3.740) 05/23/25 04:12 Free T4 1.33 ng/dL (0.76-1.46) 05/23/25 04:12 Acetaminophen (Acetaminophen 325 Mg Tablet) 650 mg PO Q6H [facility]EL[facility] Last Admin: 05/30/25 09:46 Dose: 650 mg Carbidopa/Levodopa (Carbidopa/Levodopa 25/100 Tab) 2 tab PO 0800,1200,1600 [facility] Last Admin: 05/30/25 12:21 Dose: 2 tab Carvedilol (Carvedilol 6.25 Mg Tab) 6.25 mg PO BID [facility] Last Admin: 05/30/25 09:52 Dose: 6.25 mg Cholecalciferol (Vitamin D 5,000 Unit Cap) 5,000 unit PO DAILY [facility] Last Admin: 05/30/25 09:48 Dose: 5,000 unit Demeclocycline HCl (Demeclocycline Hcl 150 Mg Tablet) 150 mg PO DAILY [facility] Last Admin: 05/30/25 09:00 Dose: 150 mg Enoxaparin Sodium (Enoxaparin 40 Mg/0.4 Ml) 40 mg SQ DAILY [facility] Last Admin: 05/30/25 09:00 Dose: 40 mg Home Med (Mirabegron [Myrbetriq]) 1 tab PO DAILY [facility] Last Admin: 05/30/25 09:40 Dose: 1 tab Home Med (Biotin [Biotin]) 1 tab PO DAILY [facility] Last Admin: 05/30/25 09:41 Dose: 1 tab Hydralazine HCl (Hydralazine Hcl 20 Mg/Ml Vial) 10 mg IV Q6HP PRN PRN Reason: FOR SBP>160 OR DBP>100 [facility] Last Admin: 05/25/25 00:25 Dose: 10 mg Levothyroxine Sodium (Levothyroxine Sod 0.075 Mg Tab) 0.075 mg PO 0630 [facility] Last Admin: 05/30/25 06:30 Dose: Not Given Lidocaine (Lidocaine 4% Patch) 1 patch TOP DAILY [facility] Last Admin: 05/30/25 09:00 Dose: 1 patch Losartan Potassium (Losartan Potassium 50 Mg Tablet) 25 mg PO BEDTIME [facility] Last Admin: 05/29/25 20:40 Dose: 25 mg Ondansetron HCl (Ondansetron 4 Mg/2 Ml Vial) 4 mg IV Q4H PRN PRN Reason: NAUSEA / VOMITING Pantoprazole Sodium (Pantoprazole 40mg Tablet) 40 mg PO ACB [facility] Last Admin: 05/30/25 09:49 Dose: 40 mg Polyethylene Glycol (Polyethyl Gly 3350 17 Gm/Dose) 17 gm PO DAILY PRN PRN Reason: CONSTIPATION Pregabalin (Pregabalin 75 Mg Cap) 75 mg PO BEDTIME [facility] Last Admin: 05/29/25 20:41 Dose: 75 mg Raloxifene HCl (Raloxifene Hcl 60 Mg Tab) 60 mg PO BEDTIME [facility] Last Admin: 05/29/25 20:40 Dose: 60 mg Rosuvastatin Calcium (Rosuvastatin 5 Mg Tab) 5 mg PO DAILY [facility] Last Admin: 05/30/25 09:47 Dose: 5 mg Senna (Senosides 8.6 Mg Tab) 17.2 mg PO BEDTIME [facility] Last Admin: 05/29/25 20:40 Dose: 17.2 mg Sodium Chloride (Sodium Chloride 1 Gm Tab) 1 gm PO BIDWM [facility] Assessment & Plan 1. 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 Patient received 2 doses of tolvaptan last doses was May 27 sodium and trend up appropriately mental status is slightly better but still confused Patient maintained on salt tablet with starting on demeclocycline since May 28 I will follow-up with the patient today no need for tolvaptan today continue the patient on demeclocycline twice daily salt tablet 3 times daily if sodium continue to trend up Decrease salt tablet 1 g twice daily we will monitor the patient. 2. Hypothyroidism has been ruled out, adrenal insufficiency has been ruled out. 3. Hypertension, controlled, optimal with the presence of hyponatremia. Hold hydrochlorothiazide, spironolactone, Keep holding Lasix Continue the rest of the medications. 4. Congestive heart failure, currently normal volume. Keep holding the diuresis. We will follow up. 5. Parkinson as by primary. 6-decreased urine output kidney function stable patient does not look dehydrated will do bladder scan Thank you, Dr. Maldonado for allowing us to participate in the care of your patient. Time spent examining the patient [id number] reviewing data lab and the radiology placing order documenting notes discussing the case with the patient and family by bedside discussing the case with the bakery team member including hospitalist and nursing staff more than 55 minute
--- NOTE | 2025-05-30 14:53 | P.PN ---
Date of Service: 05/30/25 Subjective: Awake and conversing well Family at bedside with many questions concerning acute psychosis behavior, confusion, sundowners Continue to hold anticholinergics and narcotics continue clarity of mind Repeat orthostatic vitals Spoke with Dr. Fisher who recommends orthostatic vitals, OTILIA hose and abdominal binder to decrease dizziness when standing ROS: 10 point ROS as noted above, otherwise negative Physical exam GEN: Alert, oriented x2, drowsiness HEENT: Normal conjunctiva, sclera anicteric CV: RRR, no edema Pulm: Nonlabored respirations on room air ABD: Soft and nontender on palpation, active bowel sounds MSK: No joint tenderness, muscle stiffness/generalized weakness Integumentary: No rashes Neuro: Normal speech, normal affect,weakness in lower extremities/generalized weakness Vitals reviewed Assessment: Syncope Hyponatremia Parkinson's disease Deconditioning Hypertension Hyperlipidemia Hypothyroidism Diabetes mellitus type 2diet controlled Plan: Syncope Hyponatremia Sodium improved to 138 today Labs consistent with SIADH Hold all diuretics for now Cardiology and nephrology consulted and following Sodium has improved after tolvaptan x 2, Demeclocycline also initiated and continued Also still on salt tabs for now Had some altered mentation, urinary retention 05/23 likely secondary to meclizine and anticholinergic reaction, this is discontinued, mental status improving PT/OT consulted and following Will need IPR at discharge Working well with PT Previously living at home alone using a rollator Had somebody coming by a couple times a week to help with bathing Patient now with significant weakness/debility far from her baseline Making daily improvement with PT Requires ongoing monitoring by physician in regards to her hyponatremia, significant weakness/Parkinson's Parkinson's disease Deconditioning chronic pain Continue carbidopalevodopa 100/25 2 tabs 3 times daily PT consultation Will consult neurology for additional recommendations Lidocaine patch to right shoulder and left hip Scheduled Tylenol Hypertension Continue Coreg, losartan Hold spironolactone, hydrochlorothiazide, furosemide for now Hyperlipidemia Hypothyroidism Diabetes mellitus type 2diet controlled Continue home medications Carb consistent diet DVT PPX: Lovenox Code status: Full code Discharge Plan: IPR Plan to discharge in: 48 to 72 hours Time Spent Managing Pts Care (In Minutes): 42
[2025-05-30] MEDS: SODIUM CHLORIDE 1 GM TAB PO SCH (16:28)
[2025-05-30] MEDS: LIDOCAINE 4% PATCH TOP SCH (20:13)
[2025-05-31 06:04] LABS: Hematocrit 29.0 % (36.0-45.0); Hemoglobin 10.1 g/dL (12.0-15.0); MCH 30.3 pg (27.0-35.0); MCHC 34.7 g/dL (32.0-36.0); MCV 87.3 fL (80-100); MPV 7.6 fL (7.6-11.3); RBC Red Blood Cell Count 3.32 M/uL (3.86-4.86); White Blood Count 6.90 thou/uL (4.3-10.9)
[2025-05-31 06:29] LABS: Albumin 2.7 g/dL (3.4-5.0); Anion Gap 7.0 mEq/L (5.0-15.0); BUN Blood Urea Nitrogen 26.0 mg/dL (7-18); Glucose Level 117.0 mg/dL (74-106); Potassium 4.0 mEq/L (3.5-5.1)
[2025-05-31 08:50] VITALS: BP 176/90; TEMP 98.2
[2025-05-31] MEDS ORDERED: LIDOCAINE 4% PATCH TOP SCH (09:00)
--- NOTE | 2025-05-31 10:41 | P.DS ---
Admission Date: 05/23/25 Discharge Date: 05/31/25 Disposition: TRANSFER TO INPATIENT REHAB Reason for Admission: Syncope Brief History of Present Illness: Diagnosis Syncope Chronic diastolic heart failure Hyponatremia Parkinson's disease Deconditioning Hypertension Hyperlipidemia Hypothyroidism Diabetes mellitus type 2diet controlled [facility] 05/22/2025 85-year-old female with history of hypertension, hyperlipidemia, Parkinson's disease presents emergency department chief complaint of syncope. She reports that she was sitting at her table eating food and next thing she knew she woke up on the floor. She is uncertain if she attempted to stand up or if she passed out from a seated position. She was evaluated in the ER, CT of her head and C- spine was negative for acute findings, chest x-ray showed no acute findings, lumbar spine CT showed no acute findings. Labs were significant for sodium of 128 chloride 96 BNP 545. Discussed recent medication changes with patient and family, she was seen on the by her motor grader operator and medications were adjusted, she was taking hydrochlorothiazide at home and it was reported to the motor grader operator that she was previously taking furosemide 10 mg every other day but she had not been taking that for a while. Patient had swelling in her lower extremities at the time of her appointment on the so she was kept on her hydrochlorothiazide, furosemide Was meant to be increased from 10 mg every other day to 20 mg daily although patient had not been taking it 10 mg every other day prior contradicting her medication list and spironolactone was also added. She took this for around 9 days and then the furosemide was reduced back to 20 mg every other day and subsequently back down to 10 mg every other day, she is still taking hydrochlorothiazide and spironolactone at this time. She had an episode of what sounds like near syncope recently as well after this medication change, she believes her blood pressure was around 100 systolic earlier today when she checked it. Patient denies any chest pain initial high sensitive troponin is normal at 8.6, symptoms seem to have started after medication change, will hold for now all diuretics including hydrochlorothiazide furosemide and spironolactone. Blood pressure is on the high side during her stay in the ER, will continue Coreg for now and provide gentle hydration for the hyponatremia. Patient was admitted for syncope Hospital Course: Diana was admitted for syncope and hyponatremia. CT lumbar spine reports "Progression of degenerative changes and slight increased anterolisthesis of L4 and L5 compared with 2022". Nephrology consulted to assist hyponatremia which required sodium tablet and gentle hydration. Dr. Mabry consulted for Chronic diastolic heart failure, he recommended stopping aldactone and HCTZ d/t low BP, dizziness, and hyponatremia. Sodium level resolved, she has ambulated with PT, she is ready for discharge to [facility] for continued therapy. She will need to follow up with nephrology and neurology (parkinson's) after discharge for medical management. Family was concerned that changes to her medicaitons are causing decreased mentation, she will need to follow closely with Neurology. Nephrology and cardiology have cleared Diana for discharge. Physical exam GEN: AAO x2, awake HEENT: Normal conjunctiva CV: RRR, no edema Pulm: Symmetrical chest wall movement, on room air ABD: Soft, active bowel sounds MSK: No joint tenderness, muscle stiffness/generalized weakness Integumentary: No rashes Neuro: Normal speech, normal affect,weakness in lower extremities/generalized weakness Vital Signs/Physical Exam: Temp Pulse Resp BP Pulse Ox 98.2 F 70 17 176/90 H 98 05/31/25 08:00 05/31/25 08:00 05/31/25 08:00 05/31/25 08:00 05/31/25 08:00 Laboratory Data at Discharge: WBC 6.90 thou/uL (4.3-10.9) 05/31/25 05:43 Hgb 10.1 g/dL (12.0-15.0) L 05/31/25 05:43 Hct 29.0 % (36.0-45.0) L 05/31/25 05:43 Plt Count 213 thou/uL (152-406) 05/31/25 05:43 PT 12.7 SECONDS (10-13.0) 05/22/25 14:30 INR 1.13 05/22/25 14:30 Sodium 138 mEq/L (136-145) 05/31/25 05:43 Potassium 4.0 mEq/L (3.5-5.1) 05/31/25 05:43 BUN 26 mg/dL (7-18) H 05/31/25 05:43 Creatinine 0.69 mg/dL (0.55-1.02) 05/31/25 05:43 Glucose 117 mg/dL (74-106) H 05/31/25 05:43 Uric Acid 2.2 mg/dL (2.6-6.0) L 05/24/25 10:41 Phosphorus 3.4 mg/dL (2.5-4.9) 05/31/25 05:43 Magnesium 1.9 mg/dL (1.6-2.4) 05/22/25 14:30 Total Bilirubin Cancelled 05/29/25 18:00 AST Cancelled 05/29/25 18:00 ALT Cancelled 05/29/25 18:00 Alkaline Phosphatase Cancelled 05/29/25 18:00 Home Medications: Levothyroxine [Synthroid*] 1 tab PO 0630 05/20/22 Potassium Chloride [Klor-Con 8] 8 meq PO DAILY 05/20/22 Raloxifene HCl [Evista*] 60 mg PO BEDTIME 05/20/22 Acetaminophen [Tylenol] 650 mg PO Q4H PRN 01/28/23 Carbidopa/Levodopa 25-100 [Sinemet 25-100*] 2 tab PO 0800,1200,1600 01/28/23 Pregabalin [Lyrica*] 75 mg PO BEDTIME 01/28/23 Ascorbate Calcium [Vitamin C] 1 tab PO DAILY 05/22/25 Biotin 1 tab PO DAILY 05/22/25 Cholecalciferol (Vitamin D3) [Vitamin D3] 1 cap PO DAILY 05/22/25 Lansoprazole 1 cap PO ACB 05/22/25 Polyethylene Glycol 3350 [Miralax] 17 gm PO DAILY PRN 05/22/25 Mirabegron [Mirabegron ER] 50 mg PO DAILY 05/23/25 Losartan Potassium [Cozaar*] 25 mg PO DAILY 05/31/25 carvediloL [Coreg*] 6.25 mg PO BID 30 Days #6 tab 05/31/25 New Medications: carvediloL [Coreg*] 6.25 mg PO BID 30 Days #6 tab Physician Discharge Instructions: 1. Please call and schedule a follow-up appointment with your PCP in 3-5 days - Please follow-up with your PCP for medication refills/adjustments 2. Please call and schedule a follow-up appointment with Dr. Fisher and Dr. Joseph in 3-5 days 3. Continue regular diet 4. activity restrictions fall precautions, work with PT 5. Return to the ED if symptoms worsen Diet: Regular Activity: Fall precautions Followup: Vianey Joseph MD [ACTIVE - CAN ADMIT] - Nabeel Fisher MD [ASSOCIATE-ACTIVE - CAN ADMIT] - Kalie Yo MD [Primary Care Provider] -
--- NOTE | 2025-05-31 10:50 | P.PN ---
Date of Service: 05/31/25 Nephrology Progress Note pt 85-year-old female with significant past medical history of congestive heart failure, diastolic dysfunction, hypertension, Parkinson disease. The patient apparently visit with her team assembler and complaining from leg swelling. For that reason, Lasix has been increased from 10 mg every other day to 20 mg daily with spironolactone. The patient apparently has medication reconciliation error as she told the physician that she is taking 10 mg every other day, in fact she is not taking it at all. The patient has also been taking hydrochlorothiazide. The patient last week has a presyncopal episode. Lab done, did not show any hyponatremia or any other sympt oms. For that reason, the patient continued on the diuresis. The patient came to the hospital complaining from weak and syncopal episode. Primary workup showed hyponatremia with sodium of 127 and the patient was started on hydration. Diuresis has been stopped and sodium trended down. Apparently, the patient also complaining from low back pain, taking Tylenol. The patient denied taking any nonsteroidal. After IV fluid being started, sodium is trended down to 121. For that reason, we have been consulted. Physical Examination: Temp Pulse Resp BP Pulse Ox 98.2 F 70 17 176/90 H 98 05/31/25 08:00 05/31/25 08:00 05/31/25 08:00 05/31/25 08:00 05/31/25 08:00 General: When I saw the patient, the patient is lying in bed. Vital Signs: Blood pressure 135/47, pulse of 69, afebrile. Chest: Clear to auscultation. Heart: S1, S2. Systolic murmur. Abdomen: Soft, nontender. Extremity: Trace edema. Neurologic: Alert. No focality. Laboratory Last Values WBC 8.30 thou/uL (4.3-10.9) 05/23/25 04:12 RBC 3.65 M/uL (3.86-4.86) L 05/23/25 04:12 Hgb 11.1 g/dL (12.0-15.0) L 05/23/25 04:12 Hct 31.8 % (36.0-45.0) L 05/23/25 04:12 MCV 87.1 fL (80-100) 05/23/25 04:12 MCH 30.4 pg (27.0-35.0) 05/23/25 04:12 MCHC 35.0 g/dL (32.0-36.0) 05/23/25 04:12 RDW 13.4 % (12.1-15.2) 05/23/25 04:12 Plt Count 148 thou/uL (152-406) L 05/23/25 04:12 MPV 9.1 fL (7.6-11.3) 05/23/25 04:12 Neutrophils % 78.5 % (41.7-73.7) H 05/23/25 04:12 Lymphocytes % 12.3 % (15.3-44.8) L 05/23/25 04:12 Monocytes % 8.7 % (3.3-12.3) 05/23/25 04:12 Eosinophils % 0.2 % (0-4.4) 05/23/25 04:12 Basophils % 0.3 % (0-1.3) 05/23/25 04:12 Absolute Neutrophils 6.5 K/uL (1.8-8.0) 05/23/25 04:12 Absolute Lymphocytes 1.0 K/uL (0.7-4.9) 05/23/25 04:12 Absolute Monocytes 0.7 K/uL (0.1-1.3) 05/23/25 04:12 Absolute Eosinophils 0.0 K/uL (0-0.5) 05/23/25 04:12 Absolute Basophils 0.0 K/uL (0-0.5) 05/23/25 04:12 PT 12.7 SECONDS (10-13.0) 05/22/25 14:30 INR 1.13 05/22/25 14:30 Sodium 127 mEq/L (136-145) L 05/23/25 04:12 Potassium 3.9 mEq/L (3.5-5.1) 05/23/25 04:12 Chloride 97 mEq/L (98-107) L 05/23/25 04:12 Carbon Dioxide 27 mEq/L (21-32) 05/23/25 04:12 Anion Gap 6.9 mEq/L (5.0-15.0) 05/23/25 04:12 BUN 15 mg/dL (7-18) 05/23/25 04:12 Creatinine 0.67 mg/dL (0.55-1.02) 05/23/25 04:12 Est GFR (CKD-EPI) 85 ml/min (=/>90) L 05/23/25 04:12 Glucose 108 mg/dL (74-106) H 05/23/25 04:12 Calcium 8.3 mg/dL (8.5-10.1) L 05/23/25 04:12 Magnesium 1.9 mg/dL (1.6-2.4) 05/22/25 14:30 Total Bilirubin 0.8 mg/dL (0.2-1.0) 05/22/25 14:30 Direct Bilirubin 0.2 mg/dL (0-0.2) 05/22/25 14:30 Indirect Bilirubin 0.6 mg/dL (0.2-0.8) 05/22/25 14:30 AST 19 U/L (15-37) 05/22/25 14:30 ALT < 14 U/L (13-56) 05/22/25 14:30 Alkaline Phosphatase 42 U/L (45-117) L 05/22/25 14:30 Troponin I High Sens 25.8 pg/mL (<58.9) 05/23/25 04:12 NT-Pro-B Natriuret Pep 545 pg/mL (<450) H 05/22/25 14:30 Serum Total Protein 6.3 g/dL (6.4-8.2) L 05/22/25 14:30 Albumin 3.6 g/dL (3.4-5.0) 05/22/25 14:30 Globulin 2.7 g/dL (2.3-3.5) 05/22/25 14:30 Albumin/Globulin Ratio 1.3 (1.1-1.8) 05/22/25 14:30 TSH 1.250 uIU/mL (0.358-3.740) 05/23/25 04:12 Free T4 1.33 ng/dL (0.76-1.46) 05/23/25 04:12 Acetaminophen (Acetaminophen 325 Mg Tablet) 650 mg PO Q6H [facility] Last Admin: 05/31/25 08:28 Dose: 650 mg Carbidopa/Levodopa (Carbidopa/Levodopa 25/100 Tab) 2 tab PO 0800,1200,1600 [facility] Last Admin: 05/31/25 08:35 Dose: 2 tab Carvedilol (Carvedilol 6.25 Mg Tab) 6.25 mg PO BID [facility] Last Admin: 05/31/25 08:28 Dose: 6.25 mg Cholecalciferol (Vitamin D 5,000 Unit Cap) 5,000 unit PO DAILY [facility] Last Admin: 05/30/25 09:48 Dose: 5,000 unit Demeclocycline HCl (Demeclocycline Hcl 150 Mg Tablet) 150 mg PO DAILY [facility] Last Admin: 05/31/25 08:26 Dose: 150 mg Enoxaparin Sodium (Enoxaparin 40 Mg/0.4 Ml) 40 mg SQ DAILY [facility] Last Admin: 05/31/25 08:24 Dose: 40 mg Home Med (Mirabegron [Myrbetriq]) 1 tab PO DAILY [facility] Last Admin: 05/31/25 08:25 Dose: 1 tab Home Med (Biotin [Biotin]) 1 tab PO DAILY [facility] Last Admin: 05/31/25 08:24 Dose: 1 tab Hydralazine HCl (Hydralazine Hcl 20 Mg/Ml Vial) 10 mg IV Q6HP PRN PRN Reason: FOR SBP>160 OR DBP>100 [facility] Last Admin: 05/25/25 00:25 Dose: 10 mg Levothyroxine Sodium (Levothyroxine Sod 0.075 Mg Tab) 0.075 mg PO 0630 [facility] Last Admin: 05/31/25 06:05 Dose: 0.075 mg Lidocaine (Lidocaine 4% Patch) 1 patch TOP DAILY [facility] Last Admin: 05/31/25 08:24 Dose: 1 patch Losartan Potassium (Losartan Potassium 50 Mg Tablet) 25 mg PO BEDTIME [facility] Last Admin: 05/30/25 20:16 Dose: 25 mg Ondansetron HCl (Ondansetron 4 Mg/2 Ml Vial) 4 mg IV Q4H PRN PRN Reason: NAUSEA / VOMITING Pantoprazole Sodium (Pantoprazole 40mg Tablet) 40 mg PO ACB [facility] Last Admin: 05/31/25 08:28 Dose: 40 mg Polyethylene Glycol (Polyethyl Gly 3350 17 Gm/Dose) 17 gm PO DAILY PRN PRN Reason: CONSTIPATION Pregabalin (Pregabalin 75 Mg Cap) 75 mg PO BEDTIME [facility] Last Admin: 05/30/25 20:15 Dose: 75 mg Raloxifene HCl (Raloxifene Hcl 60 Mg Tab) 60 mg PO BEDTIME [facility] Last Admin: 05/30/25 20:21 Dose: 60 mg Rosuvastatin Calcium (Rosuvastatin 5 Mg Tab) 5 mg PO DAILY [facility] Last Admin: 05/31/25 08:29 Dose: 5 mg Senna (Senosides 8.6 Mg Tab) 17.2 mg PO BEDTIME [facility] Last Admin: 05/30/25 20:13 Dose: 17.2 mg Sodium Chloride (Sodium Chloride 1 Gm Tab) 1 gm PO BIDWM [facility] Last Admin: 05/31/25 08:29 Dose: 1 gm Assessment & Plan 1. 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 Patient received 2 doses of tolvaptan last doses was May 27 sodium and trend up appropriately mental status is slightly better but still confused Patient maintained on salt tablet with starting on demeclocycline since May 28 I will follow-up with the patient today no need for tolvaptan today continue the patient on demeclocycline twice daily salt tablet twice daily if sodium continue to trend up we will monitor the patient. 2. Hypothyroidism has been ruled out, adrenal insufficiency has been ruled out. 3. Hypertension, controlled, optimal with the presence of hyponatremia. Hold hydrochlorothiazide, spironolactone, Keep holding Lasix Continue the rest of the medications. 4. Congestive heart failure, currently normal volume. Keep holding the diuresis. We will follow up. 5. Parkinson as by primary. 6-decreased urine output kidney function stable patient does not look dehydrated will do bladder scan Thank you, Dr. Maldonado for allowing us to participate in the care of your patient. Time spent examining the patient [id number] reviewing data lab and the radiology placing order documenting notes discussing the case with the patient and family by bedside discussing the case with the steamer gum candy including hospitalist and nursing staff more than 55 minute
== END 2025-05-31 11:42 | DRG 644 ==
LOC: ER 13:51 → ERHOLD 16:53 → 4TH 18:01 → OBSVTOIN 05-23 12:53
PROVIDERS: ADMIT Internal Medicine; ATTEND Internal Medicine
DX: E22.2 Syndrome of inappropriate secretion of antidiuretic hormone (principal); I50.32 Chronic diastolic (congestive) heart failure; I11.0 Hypertensive heart disease with heart failure; E78.5 Hyperlipidemia, unspecified; E03.9 Hypothyroidism, unspecified; I44.30 Unspecified atrioventricular block; I45.10 Unspecified right bundle-branch block; E11.9 Type 2 diabetes mellitus without complications; G20.A1 Parkinson's disease without dyskinesia, without mention of fluctuations; I25.10 Atherosclerotic heart disease of native coronary artery without angina pectoris; R33.9 Retention of urine, unspecified; R55 Syncope and collapse; Z88.8 Allergy status to other drugs, medicaments and biological substances; Z79.02 Long term (current) use of antithrombotics/antiplatelets; Z79.890 Hormone replacement therapy; Z79.899 Other long term (current) drug therapy; Z90.710 Acquired absence of both cervix and uterus
CPT/HCPCS: 36415; 70450; 71045; 72125; 72131; 80048; 80069; 80076; 81001; 82533; 82570; 82947; 83735; 83880; 83930; 83935; 84132; 84300; 84439; 84443; 84484; 84550; 85025; 85027; 85610; 93005; 94640; 96374; 97110; 97116; 97161; 97530; 99285; G0378; J0360; J1650; J2003; J2270; J2405; J7030; J7613; J8499; J8597

== ENCOUNTER 2025-05-31 06:46 | Inpatient (IN) | payer OTHER ==
[2025-05-31] MEDS ORDERED: ONDANSETRON 4 MG (ODT) TAB PO PRN (12:11)
[2025-05-31] MEDS ORDERED: POLYETHYL GLY 3350 17 GM/DOSE PO PRN (12:11)
[2025-05-31] MEDS ORDERED: DOCUSATE NA/SENNA CONC 1 TAB PO PRN (12:11)
[2025-05-31 13:25] LABS: Sqamous Epithelial <5 /HPF (None Seen); Urine Crystals Unidentified Few /HPF (None Seen); Urine Culture Reflex Order REFLEXED; Urine Microscopic Reflex YN ORDER UMIC; Urine WBC Clump Rare /HPF (None Seen); Urine Yeast (Budding) Occasional /HPF (None Seen)
[2025-05-31] MEDS: TRAMADOL HCL 50 MG TAB PO ONE (13:55)
[2025-05-31] MEDS: DEMECLOCYCLINE HCL 150 MG TABLET PO SCH (13:56)
[2025-05-31] MEDS: CARBIDOPA/LEVODOPA 25/100 TAB PO SCH ×2 (14:00→16:22)
[2025-05-31] MEDS: SODIUM CHLORIDE 1 GM TAB PO SCH (16:23)
[2025-05-31] MEDS: RALOXIFENE HCL 60 MG TAB PO SCH (19:54)
[2025-05-31] MEDS: LOSARTAN POTASSIUM 50 MG TABLET PO SCH (19:54)
[2025-05-31] MEDS: PREGABALIN 75 MG CAP PO SCH (19:54)
[2025-05-31] MEDS: MELATONIN 3 MG TABLET PO SCH (19:55)
[2025-05-31] MEDS: INSULIN REGULAR (HUMAN) 100 UNIT/ML SQ SCH (20:38)
--- NOTE | 2025-06-01 03:07 | HP ---
Date of Admission: 05/31/2025 Time Of Service: 1 p.m. Chief Complaint: Per the patient and daughter who are in the room, Parkinson's disease and she has l ow sodium and need to get stronger. History Of Present Illness: Ms. Nava is an 85-year-old patient with Parkinson's disease with dyskine alejandro with fluctuations, hypertension, diabetes mellitus type 2, hypothyroidism, who lives alone, but h as daughter and son-in-law who are checking on her frequently. Yesterday, Life Alert. She reportedl y was placing leftovers in refrigerator when she fell from a standing position. She was able to actu ally press the Life Alert and brought into the hospital, where she was found to have hyponatremia, di abetes mellitus, hypertension, dyslipidemia, and Parkinson's disease with dyskinesia and motor fluctu ations. 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 She had fluid restriction and salt replacement which eventually helped to correct her hypona tremia. She had disorientation and episode of psychosis and that resolved after medication adjustmen ts were made. She was found by Physical Therapy and Occupational Therapy Service to be significantly weak with decreased endurance, decreased functional capacity in addition to anxiety and fear of fall ing. She had worsening retropulsion likely related to worsening Parkinson's. She did require monito ring of her multiple blood parameters including hemoglobin, hematocrit, glomerular filtration rate, a nd blood sugars. Prior to her fall, she functioned independently ambulating with a Rollator. She does have part-time caregiver support several times weekly and an assist with ADLs and additional activities such as shop ping and managing other household tasks. Currently requires moderate assistance for mobility, bed mo bility, zhc-zi-wdotv transfers, ambulation, and only able to take about 3 steps with a rolling walker . She was therefore referred for aggressive inpatient rehabilitation for her to return towards her p rior level of functioning and reduce risk of rehospitalization. Past Medical History: As noted above. Past Surgical History: L4-5 decompression, hysterectomy, cholecystectomy. Allergies: EPINEPHRINE, DULOXETINE, NIFEDIPINE, MECLIZINE, LISINOPRIL, FELODIPINE, ETODOLAC, DOXYLAM INE, AND DEXTROMETHORPHAN IN ADDITION TO OXAPROZIN. X-ray/imaging: Chest x-ray done on 05/28 shows no acute intrathoracic abnormalities. Lumbar spine d one on 05/22, no acute lumbar spine abnormalities. There was progressive degenerative changes, sligh tly increased anterolisthesis of L4 on L5 . CT scan of the head and C-spine on 05/22 shows no acute intrathoracic abnormality. No acute fracture or traumatic malalignment of the cervical spi ne. Laboratory Studies: Urinalysis shows extreme turbidity, pH 7.5, esterase 500, red blood cells 11 to 20, white blood cells greater than 50, occasional budding yeast, otherwise unremarkable. Other Laboratory Studies: White blood cell count 6.7, hemoglobin 9.7, hematocrit 28.7, platelets 208 , potassium 4.2, chloride 112, BUN 27, creatinine 0.65, calcium 9.2, sodium 138. Family History: Noncontributory. Social History: No alcohol, tobacco, or IV drug use. She lives alone with assistance several days w eekly. Review of Systems: Currently, she did report much improved swelling in the lower extremities after she did have diuresis while in acute care. No significant pain. Mild difficulty with sleeping. No bowel movement issues . No active genitourinary issues and no dermatological issues. Mild bruising noted in the extremiti es. Current Level Of Functioning: Currently, she is at supervision for eating and grooming. Bathing, sh e requires maximum assistance, supervision for upper body dressing, moderate assistance for lower bod y dressing and donning and doffing footwear. Moderate assistance for toileting and transferring from bed to wheelchair and back to bed. Moderate assistance for toilet transfers, ambulation 3 feet with moderate assistance. Physical Examination: Vital Signs: Blood pressure 135/53, pulse 66, respiratory rate 16, temperature 97.6, oxygen saturati on 94%. Weight 137 pounds, height 5 feet, BMI 24.3 kg. General: Ms. Nava is resting comfortably in bed, smiling, and having to be in the rehabilitation uni t go around. HEENT: She appears normocephalic, atraumatic. Musculoskeletal: The patient's daughter did note when she fell. She had a swelling in the back of h er head from hematoma where she had fallen backwards, that is significantly improved. She does not h ave any significant edema in the lower extremities at this point, none noticeable. Chest: She has good air movement. Abdomen: Soft. Neurologic: She has masklike face, some bradykinesia noted in upper and lower extremities, but no fo rina neurological deficits identified. Rehab And Medical Assessment And Plan: Ms. Nava is an 85-year-old patient admitted to the inpatient rehabilitation unit with impairment category 06, neurological condition. Impairment group code 03.2, parkinsonism. Etiologic diagnosis is Parkinson's disease with dyskinesia with fluctuations. Her co morbid conditions, diabetes mellitus type 2, hypertension, hypothyroidism, L4-5 decompression, and de creased mobility and decreased physical functioning. In terms of a plan, she will have physical, occ upational, and speech therapy 3.5 hours, 5 of 7 days. She does have a list of medications which incl ude Tylenol 650 mg every 6 hours as needed for pain. She has carbidopa/levodopa 25/100 two tablets a t 8, 12, and 6. She has Coreg 6.25 mg twice daily for hypertension, vitamin D on board 5000 units da michelle. She has a tetracycline antibiotic, demeclocycline 150 mg 3 times daily. She is on Lovenox 40 m g subcutaneously daily for DVT prophylaxis. She has mild insulin sliding scale. She has Synthroid 0 .075 mg daily for hypothyroidism, lidocaine patch apply 1 topically daily to the affected area. She has Cozaar 25 mg at bedtime for hypertension, melatonin 3 mg at night for insomnia. She has midodrin e 5 mg at 7:30 and at 12 for supporting blood pressure, likely due to orthostatic hypotension related to autonomic dysfunction with Parkinson's disease. She does have Zofran 4 mg every 6 hours as neede d for nausea, Protonix 40 mg daily for GE reflux. She has Lyrica 75 mg daily for neuropathic pain. She has Evista 60 mg daily, hormone replacement. She has Crestor 5 mg at bedtime for dyslipidemia. She has Senokot 2 at bedtime for constipation, sodium chloride tablet 1 g twice daily. She has trama dol 50 mg in the morning for pain and 50 mg at noon as scheduled. Comorbidities That Are Impacting Rehabilitation: Given her recent SIADH episode, blood work will be carefully monitored to determine if there is initial hyponatremia for fluid restriction as required a nd for treatment with sodium replacement. She is at significant risk of autonomic dysfunction with P arkinson's disease and if need be will have OTILIA hose in place. She does may have abdominal binders i f able to tolerate that. Midodrine already on board. There was some episode of hallucinations and d isorientation in acute care, that will be watched for and will be addressed with antipsychotic as jose ropriate or removal of medications that may be a triggering factor. Rehab Specific Plan: Ms. Nava will have physical, occupational, and speech therapy 3.5 hours, 5 of 7 days to improve her ability to transfer from bed to chair to use a rolling walker, to go on the toil et, and to get in and out of the shower, to dress upper and lower body. She will complete the activi ties such as toileting and showering. Also, speech will help with good safety awareness and planning for transfers and mobilization, so she can return to a lack of independence to make sound decisions regarding her medications, her followup with physicians, and her activities of daily living. Ms. Nava will have 24 hours a day, 7 days a week, skilled rehabilitation and nursing, daily physician evaluation and management, and social and political studies professor evaluation and management for discharge planning, suki e equipment, and to continue therapy after discharge. If need be, she will have assistance from [facility] Service. Barriers To Discharge: She was living alone, although family is immediately available. The goal camille l be for her to return home safely. If she is unable to do so in the time allotted in inpatient reha bilitation, she may require extended stay and mcc may be considered. Code Status: Full code. Length Of Stay: About 12 days. Rehab Specific Goals: 1. Ms. Nava will be able to ambulate 250 feet with a rolling walker and propel a wheelchair 250 feet with modified independence to independence. 2. She will be able to go up and down 10 steps with bilateral handrails. 3. She will be able to perform upper and lower body dressing, donning and doffing footwear independen tly. 4. Perform ADLs with modified independence to independence. 5. Perform all cognitive functioning with independence to modified independence. Ms. Nava and her daughter are in agreement with the plans as outlined above and she is able to comple te the goals as indicated. By signing this document, I acknowledge I personally performed a full physical examination on Ms. Zeke richards no later than 24 hours after her admission to the inpatient rehabilitation unit and determined that she is able to tolerate the above course of treatment at an intensive level for a reasonable period of time. A detailed individualized plan of care for her will be completed by hospital day 4 based on the preadmission screen, history and physical, and therapy evaluations. KARSTEN Voice ID: [id number]
[2025-06-01] MEDS: ACETAMINOPHEN 325 MG TABLET PO PRN (03:35)
[2025-06-01 06:15] LABS: Absolute Lymphocytes (CBC) 1.1 K/uL (0.7-4.9); Hematocrit 27.5 % (36.0-45.0); Hemoglobin 9.5 g/dL (12.0-15.0); MCH 30.4 pg (27.0-35.0); MCHC 34.7 g/dL (32.0-36.0); MCV 87.5 fL (80-100); MPV 7.6 fL (7.6-11.3); Nucleated RBC Absolute Count 0.0 (0-0); Nucleated Red Blood Cells % 0.1 % (0-0); RBC Red Blood Cell Count 3.14 M/uL (3.86-4.86); White Blood Count 6.90 thou/uL (4.3-10.9)
[2025-06-01 06:39] LABS: ALT/SGPT 42.0 U/L (13-56); AST/SGOT 41.0 U/L (15-37); Albumin 2.5 g/dL (3.4-5.0); Albumin/Globulin Ratio 1.1 (1.1-1.8); Alkaline Phosphatase 30.0 U/L (45-117); Anion Gap 6.9 mEq/L (5.0-15.0); BUN Blood Urea Nitrogen 21.0 mg/dL (7-18); Globulin 2.2 g/dL (2.3-3.5); Glucose Level 104.0 mg/dL (74-106); Magnesium 1.8 mg/dL (1.6-2.4); NT PRO-BNP 1507.0 pg/mL (<450); Potassium 3.9 mEq/L (3.5-5.1); Prealbumin 12.6 mg/dL (20-40)
[2025-06-01] MEDS: LEVOTHYROXINE SOD 0.075 MG TAB PO SCH (06:45)
[2025-06-01] MEDS: CRANBERRY FRUIT EXTRACT 425 MG CAPSULE PO SCH (07:43)
[2025-06-01] MEDS: PANTOPRAZOLE 40MG TABLET PO SCH (07:43)
[2025-06-01] MEDS: VITAMIN D 5,000 UNIT CAP PO SCH (07:43)
[2025-06-01] MEDS: MYRBETRIQ 50 MG PO SCH (07:44)
[2025-06-01] MEDS: LIDOCAINE 4% PATCH TOP SCH (07:44)
[2025-06-01] MEDS: ENOXAPARIN 40 MG/0.4 ML SQ SCH (07:44)
[2025-06-01] MEDS: TRAMADOL HCL 50 MG TAB PO SCH ×2 (07:44→14:08)
[2025-06-01] MEDS: HOME MED 1 EA UNK (Biotin 5,000 MCG) PO SCH (07:45)
[2025-06-01] MEDS ORDERED: MYRBETRIQ 50 MG PO SCH (08:00)
[2025-06-01] MEDS ORDERED: TRAMADOL HCL 50 MG TAB PO PRN (08:00)
[2025-06-01] MEDS ORDERED: HOME MED 1 EA UNK (Biotin 5,000 MCG) PO SCH (08:00)
[2025-06-01] MEDS: MIDODRINE HCL 5 MG TABLET PO SCH (09:45)
[2025-06-01] MEDS: PREGABALIN 50 MG CAP PO SCH (20:10)
[2025-06-01] MEDS: ROSUVASTATIN 5 MG TAB PO SCH (20:10)
[2025-06-01] MEDS: GLUCERNA SHAKE 237 ML CAN PO SCH (20:18)
--- NOTE | 2025-06-01 21:38 | RAD REPORT ---
EXAMINATION: Hip Left 2 View CLINICAL INDICATION: Female, 85 years old. [facility] MAIN pain left hip TECHNIQUE: 2 view radiograph of the left hip were obtained. COMPARISON: No prior exam. FINDINGS: No evidence of fracture or dislocation. Normal alignment. Moderate left hip arthropathy. No other focal bone lesion. Soft tissues are unremarkable. IMPRESSION: No acute osseous abnormalities. Moderate left hip arthropathy
--- NOTE | 2025-06-01 22:18 | PN ---
Date of Progress Note: 06/01/2025 Subjective: Ms. Nava is resting comfortably in bed. She denies any new complaints. She still has P arkinson's with dyskinesia with fluctuations. There is a question of pain in the patient's left hip. There was imaging of the lower back, neck, cervical spine, and head, but not the hip. She will hav e 2 view x-rays of the hip to evaluate for any significant abnormalities. Objective: No fevers, chills. Some pain in left hip. No myalgias, arthralgias. Still has the appe arance of Parkinson disease with bradykinesia and masklike face. Physical Examination: Vital Signs: Blood pressure is 184/106, pulse 82, respiratory rate 18, temperature 97.6, oxygen satu ration 99%. General: Ms. Nava is resting comfortably in bed, completed therapy today. HEENT: She appears normocephalic, atraumatic. Sclerae anicteric. Oropharynx moist. Neck: Supple. Chest: Clear. Laboratory Studies: White blood cell count 6.9, hemoglobin 9.5, platelets of 217. Sodium 138, potas sium 3.9, chloride 106, carbon dioxide 21, BUN 21, creatinine 0.51, glucose ranged from 103 to 124. Hemoglobin A1c 5.7. Calcium 8.2, magnesium 1.8. Her AST is 41, ALT is 42, alkaline phosphatase 30. B-natriuretic peptide is 1507. Albumin 2.5. Her prealbumin is 12.6. Urinalysis showed 500 esteras e, 11-20 red blood cells, greater than 50 white blood cells, occasional budding yeast, extreme turbid ity, pH 7. She does have a pending urine culture. X-ray/imaging: No new x-rays or imaging. Medications: She has carbidopa/levodopa 25/100 two tablets at 8, 12, and 6; Tylenol 650 mg every 6 h ours as needed for pain; Coreg 6.25 mg twice daily; vitamin D 5000 units daily; demeclocycline 150 mg 3 times daily; Lovenox 40 mg subcutaneously daily; Glucerna 237 mL twice daily; Synthroid 0.075 mg d aily; lidocaine 1 patch daily. She has Cozaar 25 mg daily, melatonin 3 mg at bedtime, midodrine 10 m g daily, and she did have some episodes of hypotension earlier in the day and she has Protonix ____ mg daily. It is noted she may consider Florinef 0.1 mg daily. The blood pressure is low. She does have abdominal binder and OTILIA hose. Also, due to sedation from tramadol, she will be put on Lyr ica increased to 100 mg from 75 mg at night and tramadol in the morning may be discontinued. Evista 60 mg at bedtime. Crestor 5 mg orally daily, Senokot-S 2 tablets at bedtime. She has sodium chlorid e 1 g twice daily. She did have SIADH, which resolved. Sodium is now in normal range. She has tram adol again, which will be discontinued at 8 in the morning. Progress Made With Physical, Occupational, And Speech Therapy: With physical therapy, bed mobility w ith maximal assistance, multiple eyx-eu-epyva transfers and yubnx-wz-avcaw transfers also with maximu m assistance. She ambulated 10 feet and 4 feet with maximum assistance, mobilized wheelchair 250 fee t and feet twice with moderate assistance required. She did have again a drop in blood pr essure down to 94/46, heart rate of 63 and midodrine is adjusted to 10 mg daily. Regarding her occup ational therapy, completed strength activity in the upper and lower extremities with Thera-Band and s he did oral hygiene 100% with supervision. She did take extra time to complete the task due to weakn ess . She is working with speech and long-term goals. With speech, she improved her SLUMS score 27+ and that is being speech goal. Assessment And Plan: Ms. Nava is an 85-year-old patient in rehabilitation unit with Parkinson's with dyskinesia with fluctuations; has decreased mobility and decreased physical functioning. She did vera ve some left hip pain. X-rays will be pending. She had SIADH. As a result, she was on sodium chlor dany tablets 1 g twice daily. She has dyslipidemia. In addition to neuropathic pain, she had likely a sedating response when on tramadol that is discontinued in the morning. for pressure hernadez pport, 10 mg in the morning, 5 mg at noon; Synthroid for hypothyroidism. Continue vitamin D suppleme ntation. Continue carbidopa/levodopa and she will continue with physical, occupational, and speech therapy for 3-1/2 vicki rs, 5 of 7 days. POLO/BRIAN Voice ID: [id number] Report ID: [id number]
[2025-06-02] MEDS: MIDODRINE HCL 5 MG TABLET PO SCH ×2 (07:44→12:18)
--- NOTE | 2025-06-02 13:48 | P.RH.PN ---
Estimated Length of Stay: 16 Expected Discharge Date: 06/14/25 Discharge Disposition Plan: Home Family Support: Yes [facility] Goal: Mobility, Transfers, Self Care Vital Signs: Last Vital Signs Temp 98.0 F 06/02/25 07:05 Pulse 67 06/02/25 07:05 Resp 16 06/02/25 07:05 BP 183/82 H 06/02/25 07:05 Pulse Ox 97 06/02/25 07:05 Laboratory: Laboratory Last Values WBC 6.90 thou/uL (4.3-10.9) 06/01/25 05:41 RBC 3.14 M/uL (3.86-4.86) L 06/01/25 05:41 Hgb 9.5 g/dL (12.0-15.0) L 06/01/25 05:41 Hct 27.5 % (36.0-45.0) L 06/01/25 05:41 MCV 87.5 fL (80-100) 06/01/25 05:41 MCH 30.4 pg (27.0-35.0) 06/01/25 05:41 MCHC 34.7 g/dL (32.0-36.0) 06/01/25 05:41 RDW 14.0 % (12.1-15.2) 06/01/25 05:41 Plt Count 217 thou/uL (152-406) 06/01/25 05:41 MPV 7.6 fL (7.6-11.3) 06/01/25 05:41 Neutrophils % 74.5 % (41.7-73.7) H 06/01/25 05:41 Lymphocytes % 16.0 % (15.3-44.8) 06/01/25 05:41 Monocytes % 8.3 % (3.3-12.3) 06/01/25 05:41 Eosinophils % 1.0 % (0-4.4) 06/01/25 05:41 Basophils % 0.2 % (0-1.3) 06/01/25 05:41 Absolute Neutrophils 5.2 K/uL (1.8-8.0) 06/01/25 05:41 Absolute Lymphocytes 1.1 K/uL (0.7-4.9) 06/01/25 05:41 Absolute Monocytes 0.6 K/uL (0.1-1.3) 06/01/25 05:41 Absolute Eosinophils 0.1 K/uL (0-0.5) 06/01/25 05:41 Absolute Basophils 0.0 K/uL (0-0.5) 06/01/25 05:41 Sodium 138 mEq/L (136-145) 06/01/25 05:41 Potassium 3.9 mEq/L (3.5-5.1) 06/01/25 05:41 Chloride 106 mEq/L (98-107) 06/01/25 05:41 Carbon Dioxide 29 mEq/L (21-32) 06/01/25 05:41 Anion Gap 6.9 mEq/L (5.0-15.0) 06/01/25 05:41 BUN 21 mg/dL (7-18) H 06/01/25 05:41 Creatinine 0.51 mg/dL (0.55-1.02) L 06/01/25 05:41 Est GFR (CKD-EPI) 91 ml/min (=/>90) 06/01/25 05:41 Glucose 104 mg/dL (74-106) 06/01/25 05:41 POC Glucose 103 mg/dL (65-120) 06/01/25 06:53 Hemoglobin A1c 5.7 % (4.2-6.3) 06/01/25 05:41 Calcium 8.8 mg/dL (8.5-10.1) 06/01/25 05:41 Magnesium 1.8 mg/dL (1.6-2.4) 06/01/25 05:41 Total Bilirubin 1.0 mg/dL (0.2-1.0) 06/01/25 05:41 AST 41 U/L (15-37) H 06/01/25 05:41 ALT 42 U/L (13-56) 06/01/25 05:41 Alkaline Phosphatase 30 U/L (45-117) L 06/01/25 05:41 NT-Pro-B Natriuret Pep 1507 pg/mL (<450) H 06/01/25 05:41 Serum Total Protein 4.7 g/dL (6.4-8.2) L 06/01/25 05:41 Albumin 2.5 g/dL (3.4-5.0) L 06/01/25 05:41 Globulin 2.2 g/dL (2.3-3.5) L 06/01/25 05:41 Albumin/Globulin Ratio 1.1 (1.1-1.8) 06/01/25 05:41 Prealbumin 12.6 mg/dL (20-40) L 06/01/25 05:41 Urine Color Yellow (Yellow) 05/31/25 13:11 Urine Clarity Extremely turbid (Clear) H 05/31/25 13:11 Urine pH 7.5 (5.0-7.0) H 05/31/25 13:11 Ur Specific Sharples 1.014 (1.005-1.030) 05/31/25 13:11 Glucose (UA)(Auto) Negative (Negative) 05/31/25 13:11 Urine Ketones Negative (Negative) 05/31/25 13:11 Urine Blood Negative (Negative) 05/31/25 13:11 Urine Nitrite Negative (Negative) 05/31/25 13:11 Urine Bilirubin Negative (Negative) 05/31/25 13:11 Urine Urobilinogen Normal (Normal) 05/31/25 13:11 Ur Leukocyte Esterase 500 Vera/uL (Negative) H 05/31/25 13:11 Urine RBC 11-20 /HPF (None Seen) H 05/31/25 13:11 Urine WBC >50 /HPF (<5) H 05/31/25 13:11 Urine WBC Clumps Rare /HPF (None Seen) 05/31/25 13:11 Ur Squamous Epith Cells <5 /HPF (None Seen) 05/31/25 13:11 U Non-Squamous Epi Cells <5 /HPF (None Seen) 05/31/25 13:11 Triple Phos Crystals Few /HPF (None Seen) 05/31/25 13:11 Unidentified Crystals Few /HPF (None Seen) 05/31/25 13:11 Urine Bacteria <20 /HPF (<20) 05/31/25 13:11 Urine Mucus Slight /HPF (None Seen) 05/31/25 13:11 Urine Yeast (Budding) Occasional /HPF (None Seen) H 05/31/25 13:11 Urine Culture Reflexed Reflexed 05/31/25 13:11 Urine Total Protein Negative (Negative) 05/31/25 13:11 Weight: 137 lb Wound Present: No Closed Surgical Incision Present: No Negative Pressure Wound Therapy Present: No Physician Update: Labs reviewed and are stable except mildly low prealbumin and Hgb. Pain is managed with multiple modalities. She has orthostatic hypotension. BIMS 15, SLUMS 26, mild cognitive deficits. Min to mod assit, limited by fear of falling. Will try florinef 0.1 mg daily. Summary: Patient's care plan and salvage determiner goals have been reviewed and revised as necessary. Please see the Rehabilitation Signature page for all necessary signatures.
[2025-06-02] MEDS: TRAMADOL HCL 50 MG TAB PO SCH (21:26)
[2025-06-03] MEDS: FLUDROCORTISONE 0.1 MG TAB PO SCH (07:31)
[2025-06-03] MEDS ORDERED: FLUDROCORTISONE 0.1 MG TAB PO SCH (08:00)
--- NOTE | 2025-06-06 01:44 | PN ---
Date of Progress Note: 06/05/2025 Subjective: Ms. Nava is sitting in a chair beside the bed. She has an abdominal binder and gait bel t. The patient's daughter is there. She has significant concerns about her being able to go home as she has the orthostatic dysfunction associated with Parkinson disease and we want her to be in a [facility] [facility] where she has 24 hours supervision and care. It was discussed with the patient's daughter and the patient present, and the decision will be made depending on how she is doing as we got 1 more wee k left to improve with therapy. If she is showing the ability to be safely discharged home, that camille l be done. If not, may recommend prison continue therapy. Objective: Denies any fevers, chills, nausea, vomiting. Did have mild transient dizziness with mobi lization today, but did well despite that. Physical Examination: Vital Signs: Blood pressure 173/70, pulse 70, respiratory rate 18, temperature 97.4, oxygen saturati on 98%. GENERAL: Ms. Nava is waiting for occupational therapy to continue. She has abdominal binder, gait b elt, and OTILIA hose on up to the knees, HEENT: She does appear normocephalic, atraumatic. Sclerae anicteric. Oropharynx pink and moist. Neck: Supple. Chest: Clear. Neuro: She does have a masklike face with bradykinesia noted. Laboratory Studies: No new laboratory studies. X-ray/imaging: No new x-rays or imaging. Medications: Have been reviewed and essentially are unchanged. Progress Made With Physical, Occupational, And Speech: With physical therapy, bed mobility done with moderate assistance, completed multiple zyh-uw-vdjil transfers and agmxz-bu-ymuxz transfers with min imum to moderate assistance. She ambulated 90 feet with moderate and maximum assistance required, an d she did go up and down 3 steps with moderate to maximum assistance. Wheelchair mobilization 85 fee t and 75 feet with bilateral upper extremities and low speed of mobilization. In terms of orthostati cs, she was seated in a wheelchair. No compression garments. She had 135/55. After compression gar ments and abdominal binder, 119/55 and heart rate 62. While standing, she does have 87/41, pulse 67. After a minute of standing, 93/42, pulse 65, and while sitting back in the wheelchair 163/64, heart rate of 65. Regarding the occupational therapy, supervision for donning and doffing shirt, contact guard assistan ce for bathing using assistive device to wash bilateral lower extremities, max assistance for lower b maurice dressing. She did have some dizziness when taking a shower and likely related to the drop in blo od pressures. With speech, she recalled 4/4 unrelated pictures after 5 and 7 minute increments. Abs tract divergent naming used to target word retrieval. She named 7 items for concrete category with m inimum assistance. Assessment And Plan: Ms. Nava is an 85-year-old patient in rehabilitation unit with Parkinson diseas e, dyskinesia. She does have bradykinesia, masklike face, orthostatic hypotension is a part of the P arkinson syndrome. She has some chloride tablets. She has midodrine 10 mg scheduled in the morning and 5 mg at noon. She has melatonin for insomnia, Cozaar for blood pressure management, Protonix for gastroesophageal reflux, Zofran for nausea, Lyrica for neuropathic pain, Synthroid for hypothyroidis m, Florinef also added for blood pressure control, Lovenox for DVT prophylaxis. Continues on Coreg a nd Sinemet 25/100 two tablets 3 times daily and Tylenol 650 mg every 6 hours. In terms of plan, she will continue with physical, occupational, and speech therapy 3-1/2 hours, 5 of 7 days. She has a li st of comorbid conditions and medications which will be continued in terms of management. The patien t has 1 more week and potential discharge. If she is able to do well, will be home. If not, recomme nd prison. LB/MODL Voice ID: [id number] Report ID: [id number]
--- NOTE | 2025-06-06 23:59 | RAD REPORT ---
EXAMINATION: XR Hip Right 2 View CLINICAL INDICATION: Female, 85 years old. [facility] MAIN pain to right hip TECHNIQUE: 2 view radiograph of the right hip were obtained. COMPARISON: No prior exam. FINDINGS: No evidence of fracture or dislocation. Normal alignment. Moderate hip joint degenerative c hanges with osseous remodeling. Mild periosteal reaction along the right superior pubic ramus, may relate to additional stress injury. No other focal bone lesion. Soft tissues are unremarkable. IMPRESSION: No acute osseous abnormalities. Chronic findings as above..
--- NOTE | 2025-06-07 02:00 | PN ---
Date of Progress Note: 06/06/2025 Time Of Service: 1:20 p.m. Subjective: Ms. Nava is doing well, sitting with abdominal binder on. She is donning the OTILIA hose a ellen the knee. She is very happy, smiling in therapy. She did report some more pain in the right hi p today. The other day she mentioned pain in the left hip. As a result, two-view x-rays done on the right hip, results are still pending. Review of Systems: Again, some mild pain in the right hip with mobilization. Otherwise, no fevers, chills, nausea, vomi ting. No rash. No psychiatric complaints. Physical Examination: Vital Signs: Blood pressure 166/70, pulse of 62, respiratory rate 18, temperature 98.1, oxygen satur ation 94%. General: Again, Ms. Nava is sitting in a chair. Therapist sat next to her. She has abdominal binde r on, OTILIA hose on. Neuro: She is normocephalic. She does have bradykinesia with masklike face, but still has fair init iation of movement of upper and lower extremities. Laboratory Studies: No new laboratory studies. X-ray/imaging: As noted, hip x-ray on the right pending. Medications: Medications have been reviewed and remained unchanged. Progress With Physical, Occupational, And Speech Therapy: Today, she ambulated 75 feet twice with mo derate to min assist. She was up and down 1 step 6 inches tall. She was very anxious about falling and mobilized a wheelchair 100 feet twice with minimum assistance using bilateral upper extremities. With occupational therapy, she did use an assistive device to don and doff her pants. She required partial assistance for lower body dressing. Completed 5 times 2 sets of aod-nd-twazy transfers with minimum assistance. She worked with speech today. She recalled 5 of 5 unrelated pictures after 3, 5 , and 7 minute delay. No cues were required. She had a problem solving, used abstract re asoning with minimum assistance. Convergent thinking was done for abstract categories with 100% accu racy and minimal verbal cues. Assessment And Plan: Ms. Nava is an 85-year-old patient who is making excellent progress with speech . She has Parkinson disease with dyskinesia and fluctuations. She is making less excellent, but sti ll good progress with occupational and physical therapy. She has comorbids, dyslipidemia, moderate p ain. She is scheduled pain medications. She has had an episode of SIADH. Her sodium is in good sha pe. Continue sodium supplementation. She has Lyrica for neuropathic pain, Protonix for GE reflux, m idodrine for autonomic dysfunction regarding the Parkinson disease. She has Florinef to help support blood pressure. Low vitamin D is addressed with vitamin D supplementation, and the carbidopa/levodo pa 25/100 2 tablets at 8:00, noon, and 4:00 p.m. In terms of plan, she will continue with physical, occupational, and speech every 3.5 hours, 5 of 7 days. Her list of comorbid conditions has been ment ioned and comorbid conditions are managed and she has again DVT prophylaxis on board, making great pr ogress and is now improved previously with speech. KARSTEN Voice ID: [id number] Report ID: [id number]
[2025-06-07 05:32] LABS: Absolute Lymphocytes (CBC) 1.1 K/uL (0.7-4.9); Hematocrit 28.2 % (36.0-45.0); Hemoglobin 9.7 g/dL (12.0-15.0); MCH 30.7 pg (27.0-35.0); MCHC 34.2 g/dL (32.0-36.0); MCV 89.8 fL (80-100); MPV 8.5 fL (7.6-11.3); Nucleated RBC Absolute Count 0.0 (0-0); Nucleated Red Blood Cells % 0.1 % (0-0); RBC Red Blood Cell Count 3.14 M/uL (3.86-4.86); White Blood Count 7.10 thou/uL (4.3-10.9)
[2025-06-07 06:02] LABS: Albumin 2.6 g/dL (3.4-5.0); Anion Gap 5.7 mEq/L (5.0-15.0); BUN Blood Urea Nitrogen 27.0 mg/dL (7-18); Glucose Level 89.0 mg/dL (74-106); Magnesium 1.9 mg/dL (1.6-2.4); Potassium 3.7 mEq/L (3.5-5.1); Prealbumin 13.5 mg/dL (20-40)
[2025-06-07] MEDS: FUROSEMIDE 40 MG/4 ML VIAL IV ONE (11:21)
[2025-06-07] MEDS: FUROSEMIDE 40 MG TABLET PO ONE (12:42)
[2025-06-07] MEDS: POTASSIUM CL SA 10 MEQ TAB PO ONE (12:43)
--- NOTE | 2025-06-07 13:25 | CON ---
Date of Consultation: 06/07/2025 Reason For Consultation: Hyponatremia. History Of Present Illness: This is a pleasant 85-year-old female with significant past medical hist ory of hypertension, Parkinson disease, hyperlipidemia, admitted to the hospital with syncope, found to have hyponatremia secondary to SIADH, secondary to pain. Patient was started on tolvaptan and swi tched to demeclocycline and salt tablet, responding very well. The patient transferred to rehab. Past Medical History: Include: 1. Hypertension. 2. Diabetes. 3. Hypothyroidism. 4. L4-L5 decompression. Past Surgical History: Include bladder surgery, hysterectomy. Home Medications: Include pantoprazole, levothyroxine, hydrocodone, carbidopa, Lasix, carvedilol, lo sartan, hydrochlorothiazide, and spironolactone. Social History: Denied smoking. Denied drinking. Denied drugs abuse. Review of Systems: Head and Neck: No red eye. No ear pain. GI: No nausea. No vomiting. : No polyuria. No dysuria. No hematuria. PERINATAL DIRECTOR: No vaginal discharge. Respiratory: No shortness of breath. Cardiovascular: Has leg swelling. Endocrine: No polydipsia. Skin: No rash. Neuro: Has neuropathy. Musculoskeletal: Generalized ache, pain, low back pain. Physical Examination: Vital Signs: Blood pressure 115/57, pulse of 59, afebrile. Chest: Clear to auscultation. Heart: S1, S2. Systolic murmur. Abdomen: Soft, nontender. Extremities: +2 edema. Neurologic: Alert. No focality. Laboratory Data: WBC 7.1, hemoglobin 9.7, sodium 139, potassium 3.7, bicarb 30, BUN 27, creatinine 0 .6, calcium 8.5, phosphorus 3.7, magnesium 1.9. Current Medications: The patient on demeclocycline 150 b.i.d., midodrine, carvedilol 6.25 b.i.d., __ , carbidopa, Florinef, and salt tablet. Assessment And Plan: 1. Hyponatremia secondary to SIADH. I am going to continue demeclocycline. We will decrease salt ta blet to once a day. We will give single dose of Lasix. 2. Hypertension, currently had occasional low blood pressure. I am going to go ahead and decrease he r carvedilol . We will give the patient single dose of Lasix, and we will follow up the wan finn. 3. Hypokalemia. We will supplement. CRICKET Voice ID: [id number] Report ID: [id number]
[2025-06-07] MEDS: DOCUSATE NA/SENNA CONC 1 TAB PO SCH (20:55)
--- NOTE | 2025-06-08 00:45 | PN ---
Date of Progress Note: 06/07/2025 Time Of Service: 1:20 p.m. Subjective: Ms. Nava is doing very well today has abdominal binder, OTILIA hose on. She has midodrine, Florinef, hydration, blood pressure support and has very minimal transient dizziness as s he goes from lying to sitting to standing. No loss of balance as she is doing her mobilization with wheelchair and with a walker. Review of Systems: No fevers, chills, nausea, vomiting. No myalgias, arthralgias. No rash. Physical Examination: Vital Signs: Blood pressure 118/66, pulse 60, respiratory rate 16, temperature 97.4, oxygen saturati on 98%. The hospitalist will see the patient as the automotive electrical fitter sodium today to 1 g twice daily a nd gave her a mild amount of diabetic today. Laboratory Studies: White blood cell count 7.1, hemoglobin 9.7, platelets 205. Sodium 139, potassiu m 3.7, chloride 107, carbon dioxide 30, BUN 27, creatinine 0.66, glucose 89, calcium 8.5. Magnesium 1.9. Albumin 2.6, prealbumin 13.5. X-rays/imaging: No new x-rays or imaging. The patient was seen by Dr. Joseph and has recommendations for the SIADH and managing di uresis. Progress Made With Physical, Occupational, And Speech Therapy: With physical therapy today, she did multiple imw-zj-ricig transfers with a rolling walker with moderate to maximum assistance, stand and pivot transfers with maximum assistance. She mobilized wheelchair 60 feet twice with rest breaks and ambulated 75 feet and 100 feet and 75 feet with a rolling walker with minimum to moderate assistance . With occupational therapy, required minimum assistance for sit to stand, maximum assistance for to ilet hygiene, wearing up and down underwear and clothes. With speech, she did use problem solving skills to get 2 causes for household scenarios with 100% acc uracy and minimum assistance. Low frequency words were provided by her 98% accuracy when provided a description and first letter of the word. Assessment And Plan: Ms. Nava is an 85-year-old patient with Parkinson disease with dyskinesia, fluc tuations. She was doing very well with physical, occupational, and speech therapy. Still making fa irly slow progress, however. She still has decreased mobility, decreased physical functioning. She has multiple comorbid conditions. She had SIADH. She is managed by the service for Parki nson disease with autonomic dysfunction. She has risk of stroke. She has blood pressure support med ications on board for autonomic dysfunction. She has dyslipidemia. Pain is managed as well. Plan w ill be to continue with physical, occupational, and speech therapy 3.5 hours, 5 of 7 days and continu e the list of medications with the help of management from the cardiology service. POLO/BRINA Voice ID: [id number] Report ID: [id number]
[2025-06-08 04:46] LABS: Anion Gap 11.5 mEq/L (5.0-15.0); BUN Blood Urea Nitrogen 33.0 mg/dL (7-18); Glucose Level 104.0 mg/dL (74-106); Potassium 3.5 mEq/L (3.5-5.1)
[2025-06-08] MEDS: SODIUM CHLORIDE 1 GM TAB PO SCH (08:00)
[2025-06-08] MEDS: PANTOPRAZOLE 40MG TABLET PO SCH (08:35)
--- NOTE | 2025-06-08 12:46 | P.RH.PN ---
Estimated Length of Stay: 16 Discharge Disposition Plan: Home Family Support: Yes Set Painter Goal: Mobility, Transfers, Self Care Vital Signs: Last Vital Signs Temp 97.7 F 06/08/25 07:03 Pulse 68 06/08/25 08:35 Resp 16 06/08/25 07:03 BP 100/36 L 06/08/25 08:35 Pulse Ox 92 06/08/25 07:03 Laboratory: Laboratory Last Values WBC 7.10 thou/uL (4.3-10.9) 06/07/25 05:01 RBC 3.14 M/uL (3.86-4.86) L 06/07/25 05:01 Hgb 9.7 g/dL (12.0-15.0) L 06/07/25 05:01 Hct 28.2 % (36.0-45.0) L 06/07/25 05:01 MCV 89.8 fL (80-100) 06/07/25 05:01 MCH 30.7 pg (27.0-35.0) 06/07/25 05:01 MCHC 34.2 g/dL (32.0-36.0) 06/07/25 05:01 RDW 14.6 % (12.1-15.2) 06/07/25 05:01 Plt Count 205 thou/uL (152-406) 06/07/25 05:01 MPV 8.5 fL (7.6-11.3) 06/07/25 05:01 Neutrophils % 74.9 % (41.7-73.7) H 06/07/25 05:01 Lymphocytes % 14.8 % (15.3-44.8) L 06/07/25 05:01 Monocytes % 8.7 % (3.3-12.3) 06/07/25 05:01 Eosinophils % 1.3 % (0-4.4) 06/07/25 05:01 Basophils % 0.3 % (0-1.3) 06/07/25 05:01 Absolute Neutrophils 5.3 K/uL (1.8-8.0) 06/07/25 05:01 Absolute Lymphocytes 1.1 K/uL (0.7-4.9) 06/07/25 05:01 Absolute Monocytes 0.6 K/uL (0.1-1.3) 06/07/25 05:01 Absolute Eosinophils 0.1 K/uL (0-0.5) 06/07/25 05:01 Absolute Basophils 0.0 K/uL (0-0.5) 06/07/25 05:01 Sodium 143 mEq/L (136-145) 06/08/25 04:16 Potassium 3.5 mEq/L (3.5-5.1) 06/08/25 04:16 Chloride 106 mEq/L (98-107) 06/08/25 04:16 Carbon Dioxide 29 mEq/L (21-32) 06/08/25 04:16 Anion Gap 11.5 mEq/L (5.0-15.0) 06/08/25 04:16 BUN 33 mg/dL (7-18) H 06/08/25 04:16 Creatinine 0.78 mg/dL (0.55-1.02) 06/08/25 04:16 Est GFR (CKD-EPI) 74 ml/min (=/>90) L 06/08/25 04:16 Glucose 104 mg/dL (74-106) 06/08/25 04:16 POC Glucose 103 mg/dL (65-120) 06/01/25 06:53 Hemoglobin A1c 5.7 % (4.2-6.3) 06/01/25 05:41 Calcium 8.1 mg/dL (8.5-10.1) L 06/08/25 04:16 Phosphorus 3.7 mg/dL (2.5-4.9) 06/07/25 05:01 Magnesium 1.9 mg/dL (1.6-2.4) 06/07/25 05:01 Total Bilirubin 1.0 mg/dL (0.2-1.0) 06/01/25 05:41 AST 41 U/L (15-37) H 06/01/25 05:41 ALT 42 U/L (13-56) 06/01/25 05:41 Alkaline Phosphatase 30 U/L (45-117) L 06/01/25 05:41 NT-Pro-B Natriuret Pep 1507 pg/mL (<450) H 06/01/25 05:41 Serum Total Protein 4.7 g/dL (6.4-8.2) L 06/01/25 05:41 Albumin 2.6 g/dL (3.4-5.0) L 06/07/25 05:01 Globulin 2.2 g/dL (2.3-3.5) L 06/01/25 05:41 Albumin/Globulin Ratio 1.1 (1.1-1.8) 06/01/25 05:41 Prealbumin 13.5 mg/dL (20-40) L 06/07/25 05:01 Urine Color Yellow (Yellow) 05/31/25 13:11 Urine Clarity Extremely turbid (Clear) H 05/31/25 13:11 Urine pH 7.5 (5.0-7.0) H 05/31/25 13:11 Ur Specific [place] 1.014 (1.005-1.030) 05/31/25 13:11 Glucose (UA)(Auto) Negative (Negative) 05/31/25 13:11 Urine Ketones Negative (Negative) 05/31/25 13:11 Urine Blood Negative (Negative) 05/31/25 13:11 Urine Nitrite Negative (Negative) 05/31/25 13:11 Urine Bilirubin Negative (Negative) 05/31/25 13:11 Urine Urobilinogen Normal (Normal) 05/31/25 13:11 Ur Leukocyte Esterase 500 Vera/uL (Negative) H 05/31/25 13:11 Urine RBC 11-20 /HPF (None Seen) H 05/31/25 13:11 Urine WBC >50 /HPF (<5) H 05/31/25 13:11 Urine WBC Clumps Rare /HPF (None Seen) 05/31/25 13:11 Ur Squamous Epith Cells <5 /HPF (None Seen) 05/31/25 13:11 U Non-Squamous Epi Cells <5 /HPF (None Seen) 05/31/25 13:11 Triple Phos Crystals Few /HPF (None Seen) 05/31/25 13:11 Unidentified Crystals Few /HPF (None Seen) 05/31/25 13:11 Urine Bacteria <20 /HPF (<20) 05/31/25 13:11 Urine Mucus Slight /HPF (None Seen) 05/31/25 13:11 Urine Yeast (Budding) Occasional /HPF (None Seen) H 05/31/25 13:11 Urine Culture Reflexed Reflexed 05/31/25 13:11 Urine Total Protein Negative (Negative) 05/31/25 13:11 Weight: 146 lb 9.6 oz Wound Present: No Closed Surgical Incision Present: No Negative Pressure Wound Therapy Present: No Physician Update: Labs reviewed and are stable. She is improving with the orthostatic hypotension. SLUMS 26, recalling up to 5 unrelated items after 5 minutes. Improved problem solving. She is able to text with her family. Mod assist bed mobility, pivot transfers. RW 250' with SBA, WC 100' x 2 with min assist. Assistance supervision with ADLs, max assist toileting. Summary: Patient's care plan and rn long term care goals have been reviewed and revised as necessary. Please see the Rehabilitation Signature page for all necessary signatures.
[2025-06-08 16:23] LABS: Urine Crystals Unidentified Few /HPF (None Seen); Urine Culture Reflex Order REFLEXED; Urine Microscopic Reflex YN ORDER UMIC; Urine WBC Clump Occasional /HPF (None Seen); Urine Yeast (Budding) Occasional /HPF (None Seen)
[2025-06-08 16:24] LABS: UR POTASSIUM 89.0 mmol/L (20-40)
[2025-06-08 16:25] LABS: UR SODIUM < 15 mmol/L (27-287)
[2025-06-09] MEDS ORDERED: TURMERIC CURCUMIN PO SCH (08:00)
[2025-06-09] MEDS: TURMERIC CURCUMIN PO SCH (08:11)
--- NOTE | 2025-06-09 18:54 | P.PN ---
Subjective Date of Service: 06/09/25 Patient denies any new complaint. No issues overnight. Patient remains awake alert and interactive. No reported agitation. Physical Examination - Vital Signs Temperature: 97.4 F Blood Pressure: 111/53 Pulse: 76 Respirations: 16 Pulse Ox (%): 92 Assessment And Plan - Plan Physical examination General: Alert and oriented x 3, NAD, Neck: Supple, no elevated JVD Heart: Heart sounds 1 and 2 normal, regular rhythm, normal rate, no pedal edema Lungs: Clear to auscultation bilaterally, adequate breath sounds bilaterally, no rhonchi or crackles. Abdomen: Soft, nondistended, nontender, normal bowel sounds. Extremities: No tenderness, no deformity Skin: Normal skin turgor, no rash, no nodules or ulcers. Neuro: No focal motor deficit. Normal speech. Psychiatry: Normal mood, no agitation. X-ray/imaging: No new imaging studies. Medications: Her medications have been reviewed today. Progress Made With Physical And Occupational Therapy: Pt. completed multiple sit<>stand transfers and stand pivot transfers with CGA to Min A. Pt. completed upright standing posture training both standing supported and unsupported. Pt. completed gait training for 300' with CGA and RW. Pt. completed wheelchair mobility training for 250' with SPV/DE. pt required SBA for W/C > shower bench and CGA for shower bench > W/C due to fatigue with the use of grab bars. pt required extra time for ADLs. pt doffed shirt with SUP and required min to don shirt with assist to pull shirt down trunk due to fatigue after shower. pt SUP for bathing with assist to CASTANEDA/ washing glove and soap. pt doffed/donned pants with max with the use of AE due to fatigue and impaired standing balance. pt required max to doff socks with the use of AE due to lack of strength. Assessment: Diagnosis: Parkinson disease with dyskinesia Plan: 1. Continue with physical, occupational, and speech therapy for 3.5 hours, 5 of 7 days. 2. She has multiple comorbid conditions and those are addressed by continuing all of her medications including medications for SIADH. Comorbidities That Are Impacting Her Rehabilitation: UTI-urinalysis suggestive presence of UTI. Will start ciprofloxacin and follow urine culture. Orthostatic hypotension: Patient is getting blood pressure support with midodrine. Will need to monitor blood pressure closely and monitor orthostatic vitals.
[2025-06-09] MEDS: CIPROFLOXACIN HCL 250 MG TAB PO SCH (20:00)
--- NOTE | 2025-06-10 03:37 | PN ---
Date of Progress Note: 06/09/2025 Chief Complaint: Hyponatremia. Subjective: The patient is an 85-year-old woman with past medical history of hypertension, Parkinson disease, hyperlipidemia. She was admitted to the hospital with syncope. She was found to have hypo natremia secondary to SIADH and due to pain, patient was started on tolvaptan and switched to demeclo cycline and salt tablets. Review of Systems: The patient denies fever, chills. Physical Examination: Lungs: Clear to auscultation bilaterally. Heart: S1, S2. Abdomen: Soft. Extremities: Edema present. Impression And Plan: 1. Syndrome of inappropriate antidiuretic hormone secretion, hyponatremia. Monitor electrolytes clos ann marie. Recent sodium level is 139. 2. Hypertension. Currently, blood pressure is overall controlled. Continue current treatment. 3. Hypokalemia. Supplementation as needed. 4. Legs edema. The patient received Lasix. Monitor fluid balance. Resume Lasix as needed. ASHLY/BRIAN Voice ID: [id number] Report ID: [id number]
[2025-06-10 05:09] VITALS: BMI 26.2
[2025-06-10 06:14] LABS: Absolute Lymphocytes (CBC) 0.9 K/uL (0.7-4.9); Hematocrit 30.5 % (36.0-45.0); Hemoglobin 10.1 g/dL (12.0-15.0); MCH 29.8 pg (27.0-35.0); MCHC 33.2 g/dL (32.0-36.0); MCV 89.8 fL (80-100); MPV 9.2 fL (7.6-11.3); Nucleated RBC Absolute Count 0.0 (0-0); Nucleated Red Blood Cells % 0.0 % (0-0); RBC Red Blood Cell Count 3.39 M/uL (3.86-4.86); White Blood Count 4.30 thou/uL (4.3-10.9)
[2025-06-10 06:19] LABS: ALT/SGPT 30.0 U/L (13-56); AST/SGOT 38.0 U/L (15-37); Albumin 2.8 g/dL (3.4-5.0); Albumin/Globulin Ratio 1.3 (1.1-1.8); Alkaline Phosphatase 47.0 U/L (45-117); Anion Gap 7.9 mEq/L (5.0-15.0); BUN Blood Urea Nitrogen 30.0 mg/dL (7-18); Globulin 2.1 g/dL (2.3-3.5); Glucose Level 95.0 mg/dL (74-106); Potassium 3.9 mEq/L (3.5-5.1)
[2025-06-10] MEDS: FUROSEMIDE 20 MG TABLET PO ONE (09:10)
[2025-06-10] MEDS ORDERED: DEMECLOCYCLINE HCL 150 MG TABLET PO SCH (18:00)
[2025-06-10] MEDS: DEMECLOCYCLINE HCL 150 MG TABLET PO SCH (18:00)
--- NOTE | 2025-06-11 03:12 | PN ---
Date of Progress Note: 06/10/2025 Chief Complaint: Hyponatremia. Subjective: The patient is an 85-year-old woman with past medical history of hypertension, Parkinson disease, hyperlipidemia, SIADH. She was found to have severe hyponatremia due to SIADH on _ and she was started on tolvaptan, demeclocycline and salt tablets. The patient developed legs jcarlos a, sodium level although is within normal limits. Review of Systems: Denies chest pain, palpitations. Physical Examination: Lungs: Clear to auscultation bilaterally. Heart: S1, S2. Abdomen: Soft. Extremities: Edema present. Impression And Plan: 1. Syndrome of inappropriate antidiuretic hormone secretion, hyponatremia. Sodium level stabilized, to adjust medications. 2. Hypertension. Continue current treatment. Blood pressure is controlled. 3. supplementation as needed. 4. Leg edema. Resume Lasix. LIMON/BRIAN Voice ID: [id number] Report ID: [id number]
[2025-06-11] MEDS: FUROSEMIDE 20 MG TABLET PO SCH (08:56)
[2025-06-11] MEDS: CARBIDOPA/LEVODOPA 25/100 TAB PO SCH (17:07)
[2025-06-11 19:31] LABS: Urine Micro Reflex YN NO BILL MICROSCOPIC; Urine Yeast (Budding) Trace /HPF (None Seen)
[2025-06-11 20:13] LABS: UR CREAT 98.0 mg/dL (20-320); UR MICROALBUMIN 0.5 mg/dL (< 1.9)
--- NOTE | 2025-06-11 20:32 | RAD REPORT ---
EXAMINATION: US RETROPERITONEUM CLINICAL INDICATION: hematuria TECHNIQUE: Real-time ultrasonography of the abdomen was performed. COMPARISON: No prior exams FINDINGS: RIGHT KIDNEY: Right renal length measurement: 9 cm. Echogenicity is normal. No calculus or solid mas s. No hydronephrosis. . LEFT KIDNEY: Left renal length measurement: 8.7 cm. Echogenicity is normal. No calculus or solid ma ss. No hydronephrosis. . Left interpolar renal cyst measuring 2.5 cm. ADDITIONAL FINDINGS: N/A IMPRESSION: No acute findings identified. No evidence of hydronephrosis.
--- NOTE | 2025-06-12 00:57 | PN ---
Date of Progress Note: 06/11/2025 Chief Complaint: Hyponatremia. Subjective: Patient is an 85-year-old woman with past medical history of hypertension, Parkinson dis ease, hyperlipidemia, SIADH. She was found to have severe hyponatremia due to SIADH and she was wander annabella with tolvaptan, demeclocycline, and salt tablets were started. The patient was taking sodium chl oride tablets. The patient developed legs edema. Sodium level currently is within normal limits and patient was started on Lasix. Review of Systems: Denies chest pain, palpitations. Physical Examination: Lungs: Clear to auscultation bilaterally. Heart: S1, S2. Abdomen: Soft. Extremities: Edema in both ankles. Overall improved over last 2 days. Impression And Plan: 1. Syndrome of inappropriate antidiuretic hormone secretion, hyponatremia. Sodium level stabilized. Plan is to continue to adjust medication. Monitor lab work. 2. Hypertension. Continue current blood pressure medication. 3. Legs edema. Resume Lasix. Monitor electrolytes including potassium and magnesium. 4. Microscopic hematuria. ANCA test was checked. Results are pending. The plan is to check renal u ltrasound in view of hematuria. 5. Hypoalbuminemia. Plan is to check urine protein-creatinine ratio to rule out proteinuria. EB/MODL Voice ID: [id number] Report ID: [id number]
[2025-06-12 05:45] LABS: Absolute Lymphocytes (CBC) 0.8 K/uL (0.7-4.9); Hematocrit 28.8 % (36.0-45.0); Hemoglobin 9.7 g/dL (12.0-15.0); MCH 30.2 pg (27.0-35.0); MCHC 33.7 g/dL (32.0-36.0); MCV 89.5 fL (80-100); MPV 8.7 fL (7.6-11.3); Nucleated RBC Absolute Count 0.0 (0-0); Nucleated Red Blood Cells % 0.0 % (0-0); RBC Red Blood Cell Count 3.22 M/uL (3.86-4.86); White Blood Count 4.30 thou/uL (4.3-10.9)
[2025-06-12 06:00] LABS: ALT/SGPT 24.0 U/L (13-56); AST/SGOT 34.0 U/L (15-37); Albumin 2.5 g/dL (3.4-5.0); Albumin/Globulin Ratio 1.1 (1.1-1.8); Alkaline Phosphatase 44.0 U/L (45-117); Anion Gap 7.4 mEq/L (5.0-15.0); BUN Blood Urea Nitrogen 28.0 mg/dL (7-18); Globulin 2.2 g/dL (2.3-3.5); Glucose Level 107.0 mg/dL (74-106); Magnesium 2.0 mg/dL (1.6-2.4); Potassium 3.4 mEq/L (3.5-5.1)
[2025-06-12] MEDS: CARBIDOPA/LEVODOPA 25/100 TAB PO SCH ×2 (06:32→12:00)
[2025-06-12] MEDS: FUROSEMIDE 20 MG TABLET PO SCH (07:09)
--- NOTE | 2025-06-12 08:46 | RAD REPORT ---
Stone Protocol CLINICAL INDICATION: Female, 85 years old.hematuria TECHNIQUE: CT abdomen and pelvis was performed, without IV contrast, as per department protocol using a CT stone protocol. Axial, sagittal and coronal reconstructions were obtained. One or more of the following dose reduction techniques were used: Automated exposure control, adjustment of the mA and/o r kV according to the patient size, and/or iterative reconstruction. Unless otherwise specified, incidental findings do not require dedicated imaging follow-up. [id number]. IV CONTRAST: Not administered. COMPARISON: 03/03/2024 FINDINGS: The lack of intravenous contrast limits the sensitivity of this exam for evaluation of solid visceral organs, vascular structures, and retroperitoneum. LOWER CHEST: Small left pleural effusion and likely underlying atelectasis.Mild cardiomegaly. Mild ci rcumferential thickening of the distal esophagus which could reflect esophagitis. UPPER GI: No significant abnormality. LIVER: No significant focal abnormality. GALLBLADDER/BILE DUCTS: Cholecystectomy. Moderate extrahepatic biliary ductal dilatation. This could be secondary to the post-cholecystectomy state. Recommend correlation with LFT's. If abnormal, consider MRCP for further evaluation. ? PANCREAS: Atrophy but no acute findings. SPLEEN: Unremarkable. ADRENALS: Adrenal nodularity is unchanged since 2023. No suspicious adrenal mass. KIDNEYS AND URETERS: No hydronephrosis.Low density and/or too small to characterize renal lesions whi ch are statistically benign.No renal calculi.No ureteral calculi. ABDOMINAL AORTA AND OTHER VESSELS: Mild atherosclerotic changes. PERITONEUM: No abnormal free fluid. No free air. LYMPH NODES: No pathologic lymphadenopathy. ABDOMINAL WALL: Mild body wall edema. SMALL BOWEL/COLON: Small bowel has normal course and caliber. No colonic wall thickening or pericolon ic inflammatory changes. URINARY BLADDER: Underdistended but grossly unremarkable. REPRODUCTIVE ORGANS: No pathologic process. MUSCULOSKELETAL: T12 kyphoplasty. Grade 1 anterolisthesis of L4 and L5. ADDITIONAL FINDINGS: None. IMPRESSION: No specific CT findings to explain hematuria. No renal or ureteral calculi. If hematuria persists, co nsider hematuria protocol CT and cystoscopy.
--- NOTE | 2025-06-12 10:54 | P.CNS ---
Date of Consult: 06/12/25 Allergies dextromethorphan [From Delsym Cough-Cold] Allergy (Verified 05/22/25 21:54) Unknown doxylamine [From Delsym Cough-Cold] Allergy (Verified 05/22/25 21:54) Unknown etodolac Allergy (Verified 05/22/25 21:54) Unknown felodipine [From Plendil] Allergy (Verified 05/22/25 21:54) Head/Body Aches lisinopril [From Prinivil] Allergy (Verified 05/22/25 21:54) Cough meclizine Allergy (Verified 05/30/25 09:59) HALLUCINATIONS nifedipine [From Procardia] Allergy (Verified 05/22/25 21:54) Head/Body Aches oxaprozin [From Daypro] Allergy (Verified 05/22/25 21:54) Unknown duloxetine [From Cymbalta] Adverse Reaction (Verified 05/31/25 15:24) Itching epinephrine Adverse Reaction (Verified 05/22/25 21:54) Anxiety Home Medications: Levothyroxine [Synthroid*] 1 tab PO 0630 05/20/22 Potassium Chloride [Klor-Con 8] 8 meq PO DAILY 05/20/22 Raloxifene HCl [Evista*] 60 mg PO BEDTIME 05/20/22 Acetaminophen [Tylenol] 650 mg PO Q4H PRN 01/28/23 Carbidopa/Levodopa 25-100 [Sinemet 25-100*] 2 tab PO 0800,1200,1600 01/28/23 Pregabalin [Lyrica*] 75 mg PO BEDTIME 01/28/23 Ascorbate Calcium [Vitamin C] 1 tab PO DAILY 05/22/25 Biotin 1 tab PO DAILY 05/22/25 Cholecalciferol (Vitamin D3) [Vitamin D3] 1 cap PO DAILY 05/22/25 Lansoprazole 1 cap PO ACB 05/22/25 Polyethylene Glycol 3350 [Miralax] 17 gm PO DAILY PRN 05/22/25 Mirabegron [Mirabegron ER] 50 mg PO DAILY 05/23/25 Losartan Potassium [Cozaar*] 25 mg PO DAILY 05/31/25 carvediloL [Coreg*] 6.25 mg PO BID 30 Days #6 tab 05/31/25 - Past Medical/Surgical History Diabetic: Yes -: Parkinsons -: HTN -: Diabetic-diet controlled -: Hypothyroid -: CHF -: CAD -: Orthostatic hypotension -: L4-L5 decompression -: Hysterectomy -: Gall Bladder -: Spine stimulator Psychosocial/ Personal History: Lives at home with family - Family History Mother Medical History: Heart disease, Hypertension, Diabetes, Cancer Father Medical History: Heart disease, Hypertension, Diabetes, Cancer - Social History Alcohol use: No CD- Drugs: No Caffeine use: Yes Place of Residence: Home Review of Systems 10-point ROS is otherwise unremarkable Physical Examination Temp Pulse Resp BP Pulse Ox 97.5 F 61 16 112/53 L 96 06/12/25 07:19 06/12/25 09:41 06/12/25 07:19 06/12/25 09:41 06/12/25 07:19 General: Alert, In no apparent distress, Oriented x3 Cardiovascular: Edema, Abnormal pulses (nonpalpable pulses bilateral lower extremity due to edema) Capillary refill: <2 Seconds Musculoskeletal: No clubbing, No swelling, No contractures, No erythema, No tenderness, No warmth Integumentary: No rashes, No breakdown, No significant lesion, No tenderness/swelling, No erythema, No warmth, No cyanosis, Other (Thickened hypertrophic toenails with subungual debris x 10) Neurological: Sensation intact Laboratory Data (last 24 hrs) 06/12/25 06/12/25 06/12/25 08:00 05:28 05:28 WBC 4.30 Hgb 9.7 L Hct 28.8 L Plt Count 207 Sodium Cancelled 142 Potassium Cancelled 3.4 L BUN Cancelled 28 H Creatinine Cancelled 0.60 Glucose Cancelled 107 H Magnesium Cancelled 2.0 Total Bilirubin 0.8 AST 34 ALT 24 Alkaline Phosphatase 44 L - Problems (1) Generalized atherosclerosis Current Visit: Yes Status: Acute (2) Tinea unguium Current Visit: Yes Status: Acute Conclusions/Impression: Mechanical debridement of toenails at bedside
[2025-06-12] MEDS: POTASSIUM CL SA 10 MEQ TAB PO ONE (14:07)
--- NOTE | 2025-06-12 20:05 | RAD REPORT ---
EXAMINATION: US bilateral LOWER EXTREMITY VENOUS DOPPLER CLINICAL INDICATION: Leg pain TECHNIQUE: Sonographic evaluation of the veins of the lower extremity bilaterally formed.Grayscale, c olor and spectral analysis performed on all vessels COMPARISON: 2021 FINDINGS: The common femoral, superficial femoral, greater saphenous, popliteal and posterior tibial veins bila terally are compressible and demonstrate augmentation. Doppler demonstrates good flow. IMPRESSION: No evidence of deep venous thrombosis involving either lower extremity
--- NOTE | 2025-06-12 22:24 | PN ---
Date of Progress Note: 06/12/2025 Chief Complaint: SIADH and hyponatremia. Subjective: Patient is an 85-year-old woman with past medical history of hypertension, Parkinson dis ease, hyperlipidemia, SIADH. She was found to have severe hyponatremia due to SIADH complicated by d iuretic treatment. The patient was taken off HCTZ, spironolactone. She is currently on Lasix for le gs edema and she has history of lymphedema and Lasix dose was decreased. Today, she developed some o rthostatic hypotension, and Lasix was stopped. Patient also had hypokalemia and is on potassium supp lementation and patient was treated with tolvaptan, demeclocycline, and salt tablets and sodium level improved and stabilized over last several days. Sodium level is stable. Review of Systems: Denies chest pain, palpitation. Physical Examination: Lungs: Clear to auscultation bilaterally. Heart: S1, S2. Extremities: Edema in both legs. Impression And Plan: 1. Syndrome of inappropriate antidiuretic hormone secretion, hyponatremia. Sodium level stable. Con tinue to adjust medication and demeclocycline dose was decreased. Patient will continue p.o. fluid r estriction as needed. 2. Hypertension. Patient is on the patient will be evaluated by press machine operator. Continue m edication for orthostatic hypotension. The patient was started on midodrine and Florinef. 3. Legs edema. Lasix as needed. Monitor magnesium and potassium. 4. History of microscopic hematuria, etiology not clear. The patient did not have urinary tract infe ction. ANCA test was ordered and renal ultrasound and CT scan per stone protocol was ordered. 5. Hypoalbuminemia. Plan is to check urine protein-creatinine ratio to rule out proteinuria. EB/MODL Voice ID: [id number] Report ID: [id number]
--- NOTE | 2025-06-13 09:04 | PN ---
Date of Progress Note: 06/12/2025 Time: 1:20. Subjective: Ms. Nava is sitting in a chair beside the bed. She is smiling. Her daughter is at the bedside. She is happy so far with progress. There was discussion about where the patient should go after discharge. It is recognized that she will likely need a significant amount of assistance due t o marked orthostatic hypotension, which has improved with multiple modality treatments including [facility] anical and pharmacological means. The patient is likely to go to a skilled facility with improvement to go in an assisted living part of the alf. Review of Systems: She denies any fevers, chills, nausea, vomiting. No significant myalgias, arthralgias, or rash. Physical Examination: Vital Signs: Blood pressure is 163/69, pulse 73, respiratory rate 18, temperature 97.8, oxygen satur ation 97%, General: Ms. Nava again is sitting in a chair comfortably. HEENT: She is normocephalic, atraumatic. Sclerae anicteric. Oropharynx pink and moist. Neck: Supple. Chest: Clear. Neuro: She still has some bradykinesia in upper and lower extremities. She does have mild to modera te edema noted in the ankles and in the legs. She does have OTILIA hose, abdominal binder in place, and she does have again some moderate edema in the lower extremities. Laboratory Studies: White blood cell count 4.3, hemoglobin 9.7, platelets 207. Sodium 142, potassiu m 3.4, chloride 107, carbon dioxide 31, BUN 28, creatinine 0.6, glucose 107, calcium 9.0. Magnesium 2.0. ALT 34, AST 24, alkaline phosphatase 44. Her albumin is 2.5. Random urine protein is 18.5. U rinalysis from the shows extreme turbidity, 10-20 hyaline casts, trace budding yeast, negative t otal protein. Anti-proteinase 3 and anti-myeloperoxidase are pending. Progress Made With Physical, Occupational, And Speech Therapy: With physical therapy, she ambulated 325 feet with a rolling walker with contact guard to standby assistance requiring frequent cuing for upright posture and sitting close with a rolling walker. She mobilized wheelchair 150 feet with sven dby assistance and then ambulated another 110 feet with contact guard assistance using a rolling walk er. With occupational therapy, standby assistance for toilet hygiene. Her daughter was working with her. She helps her to properly place her hands when pulling up her undergarments. She was independ ent with washing her hands and performing oral hygiene. With speech, she was independent and recalli ng 1 set of 4 of 4 unrelated items after 3 minutes and 5 minutes delay. She was only able to recall 3 of 4 unrelated items after another 3 minutes. She needed minimum assistance, and she was 90% accur ate for word finding inductive reasoning. She did recall a passage details with 80% accuracy and min imum assistance. Assessment And Plan: Ms. Nava is an 85-year-old patient in the rehabilitation unit with Parkinson di sease with dyskinesia and fluctuations. She has decreased mobility, decreased physical functioning. Still has orthostatic hypotension addressed what multimodality approaches. In addition to her decre ased mobility, decreased physical functioning. She does have hypotension when lying. She had urinar y tract infection, treated with Cipro. She has Lovenox for DVT prophylaxis, Synthroid for hypothyroi dism, melatonin for insomnia. Currently, midodrine for pressure support. She has Protonix for gastr oesophageal reflux, Lyrica for neuropathic pain, Crestor for dyslipidemia, tramadol also for pain. P andreea will be to continue with physical, occupational, and speech therapy to continue with comorbid con dition medications as noted and plan is to go to alf and to home or to assisted living. POLO/BRIAN Voice ID: [id number] Report ID: [id number]
--- NOTE | 2025-06-13 11:36 | P.CNS ---
Date of Consult: 06/13/25 Chief Complaint: dizziness History of Present Illness: Patient with PMH of DD, Parkinson, HTN, Orthostatic hypotension, chronic kidney disease, SIADH secretion, is in rehab now, patient denies any chest pain, no palpitations, but report dizzy spells upon standing with big variation in BP between lying down and standing, also she started developing BLE edema. Allergies dextromethorphan [From Delsym Cough-Cold] Allergy (Verified 05/22/25 21:54) Unknown doxylamine [From Delsym Cough-Cold] Allergy (Verified 05/22/25 21:54) Unknown etodolac Allergy (Verified 05/22/25 21:54) Unknown felodipine [From Plendil] Allergy (Verified 05/22/25 21:54) Head/Body Aches lisinopril [From Prinivil] Allergy (Verified 05/22/25 21:54) Cough meclizine Allergy (Verified 05/30/25 09:59) HALLUCINATIONS nifedipine [From Procardia] Allergy (Verified 05/22/25 21:54) Head/Body Aches oxaprozin [From Daypro] Allergy (Verified 05/22/25 21:54) Unknown duloxetine [From Cymbalta] Adverse Reaction (Verified 05/31/25 15:24) Itching epinephrine Adverse Reaction (Verified 05/22/25 21:54) Anxiety Home medications list reviewed: Yes Home Medications: RX: Levothyroxine [Synthroid*] 1 tab PO 0630 05/20/22 RX: Potassium Chloride [Klor-Con 8] 8 meq PO DAILY 05/20/22 RX: Raloxifene HCl [Evista*] 60 mg PO BEDTIME 05/20/22 RX: Acetaminophen [Tylenol] 650 mg PO Q4H PRN 01/28/23 RX: Carbidopa/Levodopa 25-100 [Sinemet 25-100*] 2 tab PO 0800,1200,1600 01/28/23 RX: Pregabalin [Lyrica*] 75 mg PO BEDTIME 01/28/23 RX: Ascorbate Calcium [Vitamin C] 1 tab PO DAILY 05/22/25 RX: Biotin 1 tab PO DAILY 05/22/25 RX: Cholecalciferol (Vitamin D3) [Vitamin D3] 1 cap PO DAILY 05/22/25 RX: Lansoprazole 1 cap PO ACB 05/22/25 RX: Polyethylene Glycol 3350 [Miralax] 17 gm PO DAILY PRN 05/22/25 RX: Mirabegron [Mirabegron ER] 50 mg PO DAILY 05/23/25 RX: Losartan Potassium [Cozaar*] 25 mg PO DAILY 05/31/25 RX: carvediloL [Coreg*] 6.25 mg PO BID 30 Days #6 tab 05/31/25 - Past Medical/Surgical History Diabetic: Yes -: Parkinsons -: HTN -: Diabetic-diet controlled -: Hypothyroid -: CHF -: CAD -: Orthostatic hypotension -: L4-L5 decompression -: Hysterectomy -: Gall Bladder -: Spine stimulator Psychosocial/ Personal History: Lives at home with family - Family History Mother Medical History: Heart disease, Hypertension, Diabetes, Cancer Father Medical History: Heart disease, Hypertension, Diabetes, Cancer - Social History Alcohol use: No CD- Drugs: No Caffeine use: Yes Place of Residence: Home Review of Systems 10-point ROS is otherwise unremarkable Physical Examination Temp Pulse Resp BP Pulse Ox 97.6 F 73 16 163/69 H 93 06/13/25 07:00 06/13/25 07:01 06/13/25 07:00 06/13/25 07:01 06/13/25 07:00 General: Alert, In no apparent distress HEENT: Atraumatic, PERRLA, Mucous membr. moist/pink, EOMI, Sclerae nonicteric Neck: Supple, 2+ carotid pulse no bruit, No LAD, Without JVD or thyroid abnormality Respiratory: Clear to auscultation bilaterally, Normal air movement Cardiovascular: Regular rate/rhythm, Normal S1 S2 Gastrointestinal: Normal bowel sounds, No tenderness Musculoskeletal: No tenderness Integumentary: No rashes Neurological: Normal gait, Normal speech, Normal tone, Normal affect Lymphatics: No axilla or inguinal lymphadenopathy Laboratory Data (last 24 hrs) 06/13/25 06/13/25 05:00 05:00 WBC Cancelled Hgb Cancelled Hct Cancelled Plt Count Cancelled Sodium Cancelled Potassium Cancelled BUN Cancelled Creatinine Cancelled Glucose Cancelled Magnesium Cancelled - Problems (1) Orthostatic hypotension Current Visit: Yes Status: Acute Plan: it is difficult to control with her parkinson disease. lower down Midodrine to 5 mg po BID Continue fludrocortison at 0.1 mg daily encourage patient to wear support socks (2) HTN (hypertension) Current Visit: Yes Status: Acute Plan: continue coreg 3.125 mg po BID Continue Losartan 25 mg po BID (3) Chronic diastolic heart failure Current Visit: No Status: Acute Plan: patient is building up fluids again start lasix 20 mg po BID Continue salt and fluids restrictions continue to monitor input and output.
[2025-06-13] MEDS: FUROSEMIDE 20 MG TABLET PO SCH (21:17)
[2025-06-13] MEDS: MIDODRINE HCL 5 MG TABLET PO SCH (21:17)
--- NOTE | 2025-06-14 00:49 | PN ---
Date of Progress Note: 06/13/2025 Chief Complaint: SIADH and hyponatremia. Subjective: The patient is an 85-year-old woman with past medical history of hypertension, Parkinson 's disease, hyperlipidemia. She recently was found to have SIADH. She developed severe hyponatremia due to SIADH complicated by diuretic treatment. The patient was taken off HCTZ and spironolactone. She is currently on Lasix for legs edema. She has history of lymphedema and Lasix dose was decrease d. She developed some orthostatic hypotension and subsequently Lasix was stopped. The patient also had hypokalemia and is on potassium supplementation. Recently, she was treated with tolvaptan, demec locycline, and salt tablets. Sodium level improved and recently sodium level has been stable. Review of Systems: Denies chest pain, palpitation. Physical Examination: Lungs: Clear to auscultation bilaterally. Heart: S1, S2. Abdomen: Soft, benign. Extremities: Edema in both legs. Impression And Plan: 1. Syndrome of inappropriate antidiuretic hormone secretion, hyponatremia. Sodium level normalized, improved, and has been stable. The patient was taking demeclocycline, and demeclocycline dose will d ecrease. Continue to adjust medication. 2. Hypertension. Blood pressure is controlled, although the patient has orthostatic hypotension and she is on midodrine and Florinef. 3. Legs edema. Lasix as needed. Monitor magnesium and potassium level. 4. History of microscopic hematuria, etiology not clear. The patient may need Urology followup. The patient did not have urinary tract infection. ANCA test was ordered and pending. Renal ultrasound and CT scan per stone protocol was ordered. 5. Hypoalbuminemia. Plan is to check urine protein-creatinine ratio to rule out proteinuria. EB/MODL Voice ID: [id number] Report ID: [id number]
--- NOTE | 2025-06-14 01:50 | PN ---
Date of Progress Note: 06/13/2025 Time Of Service: 7:14 p.m. Subjective: Ms. Nava is sitting in a chair beside the bed. Daughter at bedside. The daughter had s ome questions about where the mom will be going. Given her progress, she potentially is able to go h ome and tentatively be set for Thursday and continuously if she is unable to do well enough, skilled nu rsing is also being considered. Objective: No fevers or chills. No nausea or vomiting. No myalgias or arthralgias. She still has swelling in the lower extremities. She will have SCDs on at night and elevate the legs. The OTILIA hos e was removed as it was causing some areas of ulceration on the legs. Physical Examination: Vital Signs: Blood pressure is 162/69, pulse 73, respiratory rate 16, temperature 97.6, oxygen satur ation 93%. General: Ms. Nava again is sitting in a chair, leg is slightly elevated. HEENT: She is normocephalic, atraumatic. Sclerae are anicteric. Oropharynx pink and moist. Neck: Supple. Chest: Clear. Extremities: She does have some moderate edema in the lower extremities bilaterally. Laboratory Studies: White blood cell count 4.3, hemoglobin 9.7, platelets 207. Sodium 142, potassiu m 3.4, chloride 107, carbon dioxide 31, BUN 28, creatinine 0.6, glucose 107, calcium 9.0, magnesium 2 .0. AST 24, ALT 24, alkaline phosphatase 44, total serum protein 4.7, albumin 2.5. Random urine-pro tein on the was 18.5. Progress Made With Physical, Occupational, And Speech Therapy: With physical therapy today, she did complete multiple [id number] transfers with contact guard to standby assistance, stand to pivot tra nsfers also done with contact guard assistance. She did ambulate 200 feet with standby assistance. Also completed wheelchair mobility 150 feet with standby assistance and she was moving slower that e therapist noted. She did have an ice pack placed on the right hip, which did stop. Imaging of the right hip did not show any fractures, but arthritic changes, degenerative joint disease. [facility], supine to sit at edge of bed was done with partial assistance, transferring from whe elchair to rolling walker and shower done with moderate assistance using grab bars. With speech, she scored 15/15 on the BIMS and 28/30 on the SLUMS indicating normal cognitive functioning. Assessment: Ms. Nava is an 85-year-old patient in rehabilitation unit with Parkinson disease, dyskin esia, and fluctuations. She still has mild decreased mobility, decreased physical functioning, but i s doing very well. She has significant orthostatic hypotension that is addressed with multiple modal ities. Now, she actually did have a little more fluid and the Renal Service and Cardiology Service h as been monitoring and making changes to her medication regimen including diabetic regimen and blood pressure medications. Florinef will be discontinued plus midodrine will go from 10 mg in morning and 5 at noon to 5 in the morning and 5 at noon. Those changes were made to decrease actually the edema and elevation of blood pressures. Plan: She will continue again with physical, occupational, and speech therapy 3.5 hours, 5 of 7 days . Continue with the list of medication with changes that have been noted. POLO/BRIAN Voice ID: [id number] Report ID: [id number]
[2025-06-14 17:26] LABS: C-ANCA Anti-Proteinase 3 <1.0 AI (<1.0); P-ANCA Anti-Myeloperoxidase Ab <1.0 AI (<1.0)
--- NOTE | 2025-06-15 02:16 | PN ---
Date of Progress Note: 06/14/2025 Time: 1:35 p.m. Subjective: Ms. Nava is resting in bed. Today, her daughter has not arrived at bedside yet, but antwon ht be coming later. She says she feels somewhat tired after working out this morning. Otherwise, no new complaints. Objective: No fevers, chills, nausea, or vomiting. Mild significant myalgias and arthralgias. Dewayne fan has the orthostatic issues and low blood pressures were noted today. Physical Examination: Vital Signs: Blood pressure 126/66, pulse 67, respiratory rate 18, temperature 97.6, oxygen saturati on 94%. General: Again, Ms. Nava is resting in bed therapy session. She did have low blood press ures. blood pressure is much better at this point. Otherwise, no new findings. Still vera s bradykinesia and masklike face from Parkinson's disease. Laboratory Studies: No new laboratory studies. X-ray/imaging: No new x-rays or imaging. She is followed by the Cardiology Service and the Renal Service, and Dr. Mabry. The patient's daughter had concerns about the possibility of different physicians adjusting her diuretic medications which may produce some significant issues of fluid overload. At this point, she does hav e a moderate amount of edema in the lower extremities in the foot and the ankles. She is having SCDs at night and diuresis also on board, managed by the Renal and Cardiology Service. Of note, she does have again edema about 2+ in feet and legs bilaterally. Progress With Physical, Occupational, And Speech Therapy: With physical therapy today, she did bicyc le ergometer to improve strength tolerance. She did exercise for 15 minutes without a rest break. S he did require encouragement to continue. She mobilized a wheelchair tool setter covering 75 feet with minimum to contact guard assistance. With occupational therapy, minimum assistance for toilet h ygiene, to pullup pants. She did require partial assistance for vvemmn-ts-fmg transfers, standby ass istance for web-ht-phgiq transfers, ambulated from room to the toilet with a rolling walker with supe rvision. With speech, she worked on word finding skills, inductive reasoning, could recall 4 of 4 un related items after 3-minute today and minimum assistance. She needed minimum assistance for word fi nding and did have reasoning tasks and was at a 90% accuracy level. Assessment And Plan: Ms. Nava is an 85-year-old patient with Parkinson's disease, dyskinesia, fluctu ations, who also has decreased mobility, decreased physical functioning, hypertension, finishing wander tment for urinary tract infection. She had DVT risk, mild malnutrition, insomnia, orthostatic hypote nsion, GE reflux, neuropathic pain, dyslipidemia, and she will continue in terms of plan with her phy sical, occupational, and speech therapy 3.5 hours, 5 of 7 days. List of medicines noted above will b e continued to address her comorbid conditions. The plan is for the patient to go home. The patient 's daughter is very involved in her care and will likely be there to help. Caregiver also may be hir ed. The patient is unsafe to be home. She may at least temporarily be in group home to continu e therapy in a safe place. POLO/BRIAN Voice ID: [id number] Report ID: [id number]
[2025-06-15 06:01] LABS: Absolute Lymphocytes (CBC) 1.2 K/uL (0.7-4.9); Hematocrit 29.3 % (36.0-45.0); Hemoglobin 9.9 g/dL (12.0-15.0); MCH 30.6 pg (27.0-35.0); MCHC 33.8 g/dL (32.0-36.0); MCV 90.4 fL (80-100); MPV 8.8 fL (7.6-11.3); Nucleated RBC Absolute Count 0.0 (0-0); Nucleated Red Blood Cells % 0.0 % (0-0); RBC Red Blood Cell Count 3.25 M/uL (3.86-4.86); White Blood Count 4.30 thou/uL (4.3-10.9)
[2025-06-15 06:22] LABS: Albumin 2.6 g/dL (3.4-5.0); Anion Gap 4.6 mEq/L (5.0-15.0); BUN Blood Urea Nitrogen 21.0 mg/dL (7-18); Glucose Level 95.0 mg/dL (74-106); Magnesium 1.8 mg/dL (1.6-2.4); Potassium 3.6 mEq/L (3.5-5.1); Prealbumin 12.1 mg/dL (20-40)
[2025-06-15] MEDS: MIDODRINE HCL 5 MG TABLET PO SCH (12:10)
--- NOTE | 2025-06-15 12:48 | P.RH.PN ---
Estimated Length of Stay: 16 Expected Discharge Date: 06/15/25 Discharge Disposition Plan: Home Family Support: Yes Jail Goal: Mobility, Transfers, Self Care Vital Signs: Last Vital Signs Temp 97.7 F 06/15/25 06:49 Pulse 68 06/15/25 06:49 Resp 16 06/15/25 06:49 BP 155/67 H 06/15/25 06:49 Pulse Ox 96 06/15/25 06:49 Laboratory: Laboratory Last Values WBC 4.30 thou/uL (4.3-10.9) 06/15/25 05:34 RBC 3.25 M/uL (3.86-4.86) L 06/15/25 05:34 Hgb 9.9 g/dL (12.0-15.0) L 06/15/25 05:34 Hct 29.3 % (36.0-45.0) L 06/15/25 05:34 MCV 90.4 fL (80-100) 06/15/25 05:34 MCH 30.6 pg (27.0-35.0) 06/15/25 05:34 MCHC 33.8 g/dL (32.0-36.0) 06/15/25 05:34 RDW 15.4 % (12.1-15.2) H 06/15/25 05:34 Plt Count 203 thou/uL (152-406) 06/15/25 05:34 MPV 8.8 fL (7.6-11.3) 06/15/25 05:34 Plt Distribution Width Cancelled 06/13/25 05:00 Absolute Nucleated RBC Cancelled 06/13/25 05:00 Neutrophils % 58.1 % (41.7-73.7) 06/15/25 05:34 Lymphocytes % 26.5 % (15.3-44.8) 06/15/25 05:34 Monocytes % 13.2 % (3.3-12.3) H 06/15/25 05:34 Eosinophils % 1.6 % (0-4.4) 06/15/25 05:34 Basophils % 0.6 % (0-1.3) 06/15/25 05:34 Nucleated RBC % Cancelled 06/13/25 05:00 Absolute Neutrophils 2.5 K/uL (1.8-8.0) 06/15/25 05:34 Absolute Lymphocytes 1.2 K/uL (0.7-4.9) 06/15/25 05:34 Absolute Monocytes 0.6 K/uL (0.1-1.3) 06/15/25 05:34 Absolute Eosinophils 0.1 K/uL (0-0.5) 06/15/25 05:34 Absolute Basophils 0.0 K/uL (0-0.5) 06/15/25 05:34 Diff Path Review Cancelled 06/13/25 05:00 Sodium 143 mEq/L (136-145) 06/15/25 05:34 Potassium 3.6 mEq/L (3.5-5.1) 06/15/25 05:34 Chloride 107 mEq/L (98-107) 06/15/25 05:34 Carbon Dioxide 35 mEq/L (21-32) H 06/15/25 05:34 Anion Gap 4.6 mEq/L (5.0-15.0) L 06/15/25 05:34 BUN 21 mg/dL (7-18) H 06/15/25 05:34 Creatinine 0.71 mg/dL (0.55-1.02) 06/15/25 05:34 Est GFR (CKD-EPI) 83 ml/min (=/>90) L 06/15/25 05:34 Glucose 95 mg/dL (74-106) 06/15/25 05:34 POC Glucose 103 mg/dL (65-120) 06/01/25 06:53 Hemoglobin A1c 5.7 % (4.2-6.3) 06/01/25 05:41 Calcium 8.4 mg/dL (8.5-10.1) L 06/15/25 05:34 Phosphorus 3.7 mg/dL (2.5-4.9) 06/07/25 05:01 Magnesium 1.8 mg/dL (1.6-2.4) 06/15/25 05:34 Total Bilirubin 0.8 mg/dL (0.2-1.0) 06/12/25 05:28 AST 34 U/L (15-37) 06/12/25 05:28 ALT 24 U/L (13-56) 06/12/25 05:28 Alkaline Phosphatase 44 U/L (45-117) L 06/12/25 05:28 NT-Pro-B Natriuret Pep 1507 pg/mL (<450) H 06/01/25 05:41 Serum Total Protein 4.7 g/dL (6.4-8.2) L 06/12/25 05:28 Albumin 2.6 g/dL (3.4-5.0) L 06/15/25 05:34 Globulin 2.2 g/dL (2.3-3.5) L 06/12/25 05:28 Albumin/Globulin Ratio 1.1 (1.1-1.8) 06/12/25 05:28 Prealbumin 12.1 mg/dL (20-40) L 06/15/25 05:34 Urine Color Yellow (Yellow) 06/11/25 19:00 Urine Clarity Extremely turbid (Clear) H 06/11/25 19:00 Urine pH 5.0 (5.0-7.0) 06/11/25 19:00 Ur Specific Willis 1.018 (1.005-1.030) 06/11/25 19:00 Glucose (UA)(Auto) Negative (Negative) 06/11/25 19:00 Urine Ketones Negative (Negative) 06/11/25 19:00 Urine Blood Negative (Negative) 06/11/25 19:00 Urine Nitrite Negative (Negative) 06/11/25 19:00 Urine Bilirubin Negative (Negative) 06/11/25 19:00 Urine Urobilinogen Normal (Normal) 06/11/25 19:00 Ur Leukocyte Esterase Negative Vera/uL (Negative) 06/11/25 19:00 Urine RBC <5 /HPF (None Seen) 06/11/25 19:00 Urine WBC <5 /HPF (<5) 06/11/25 19:00 Urine WBC Clumps Occasional /HPF (None Seen) H 06/08/25 16:00 Ur Squamous Epith Cells 5-10 /HPF (None Seen) 06/11/25 19:00 U Non-Squamous Epi Cells <5 /HPF (None Seen) 06/11/25 19:00 Triple Phos Crystals Few /HPF (None Seen) 05/31/25 13:11 Unidentified Crystals Few /HPF (None Seen) 06/08/25 16:00 Urine Bacteria <20 /HPF (<20) 06/11/25 19:00 Hyaline Casts 10-20 /LPF (None Seen) H 06/11/25 19:00 Urine Mucus Slight /HPF (None Seen) 06/11/25 19:00 Urine Yeast (Budding) Trace /HPF (None Seen) H 06/11/25 19:00 Urine Culture Reflexed Reflexed 06/08/25 16:00 Ur Random Microalbumin 0.5 mg/dL (< 1.9) 06/11/25 19:00 U Random Total Protein 18.5 mg/dL (<11.9) H 06/11/25 19:00 Ur Random Sodium < 15 mmol/L (27-287) L 06/08/25 16:00 Ur Random Potassium 89.0 mmol/L (20-40) H 06/08/25 16:00 Urine Creatinine 98.0 mg/dL (20-320) 06/11/25 19:00 Urine Total Protein Negative (Negative) 06/11/25 19:00 Anti-Proteinase 3 <1.0 AI (<1.0) 06/12/25 05:28 Anti-Myeloperoxidase <1.0 AI (<1.0) 06/12/25 05:28 Weight: 149 lb 14.4 oz Wound Present: No Closed Surgical Incision Present: No Negative Pressure Wound Therapy Present: No Physician Update: Labs reviewed. Still has moderate swelling in her legs. She is approved for SNF close to home. Plan to D/C in AM. BIMS 15, SLUMS 28. BP dropped yesterday AM. She has SCD at night and recommend zip up compression stocking. Transfers contact, RW 100' with rollator. Fatigues easily. WC 250' SBA. Min to CGA functional transfers. Independent upper body dressing. Worsening right leg blister requires wound care. Comment: weeping legs and worsening blisters Summary: Patient's care plan and [facility] goals have been reviewed and revised as necessary. Please see the Rehabilitation Signature page for all necessary signatures.
--- NOTE | 2025-06-15 17:51 | PN ---
Date of Progress Note: 06/15/2025 Subjective: Patient was admitted with hyponatremia secondary to hydrochlorothiazide. The patient tr eated, recovered. The patient was diagnosed with deconditioning, transferred to rehab. The patient received tolvaptan and then placed on demeclocycline and salt tablet has been discontinued. Physical Examination: General: I saw the patient, patient is comfortable. Vital Signs: Blood pressure 126/60, pulse of 78. Chest: Clear to auscultation. Heart: S1, S2, regular. Abdomen: Soft, nontender. Extremities: +2 edema. Laboratory Data: WBC 4.3, hemoglobin 9.9. Sodium 143, potassium 3.6, bicarb 35, BUN 21, creatinine 0.7, calcium 8.4, magnesium 1.8. Current Medications: The patient on include demeclocycline, ciprofloxacin, midodrine. Carvedilol 3. 25, losartan, , carbidopa. Lyrica, pantoprazole, levothyroxine. Assessment/plan: 1. Hyponatremia secondary to dilutional history superimposed with hydrochlorothiazide, resolved. Dis continue demeclocycline. Continue diuresis. 2. Hypertension, controlled. Continue current treatment. We will consider using midodrine only befo re of physical therapy. 3. Orthostatic hypotension use midodrine all before physical therapy. 4. Edema. Continue diuresis. 5. Hypokalemia. We will supplement. The patient cleared from the Renal standpoint for discharge alcira HARLEY Voice ID: [id number] Report ID: [id number]
[2025-06-15 19:17] LABS: Urine Crystals Unidentified Few /HPF (None Seen); Urine Culture Reflex Order REFLEXED; Urine Microscopic Reflex YN ORDER UMIC; Urine Yeast (Budding) Trace /HPF (None Seen)
[2025-06-15 19:27] LABS: UR POTASSIUM 48.0 mmol/L (20-40); UR SODIUM 77.0 mmol/L (27-287)
[2025-06-15 20:04] VITALS: TEMP 97.9
[2025-06-16 06:24] LABS: Albumin 2.6 g/dL (3.4-5.0); Anion Gap 8.0 mEq/L (5.0-15.0); BUN Blood Urea Nitrogen 23.0 mg/dL (7-18); Glucose Level 111.0 mg/dL (74-106); Potassium 3.0 mEq/L (3.5-5.1)
[2025-06-16] MEDS: MIDODRINE HCL 5 MG TABLET PO SCH ×2 (07:37→12:00)
[2025-06-16] MEDS ORDERED: MIDODRINE HCL 5 MG TABLET PO SCH (08:00)
[2025-06-16 09:12] VITALS: BP 98/50
[2025-06-16] MEDS: POTASSIUM CL SA 10 MEQ TAB PO ONE (13:11)
--- NOTE | 2025-06-16 13:17 | P.PN ---
Subjective Date of Service: 06/16/25 Chief Complaint: dizziness Subjective: No new changes, No C/O voiced, Tolerating diet, Ambulating, Improving Review of Systems 10-point ROS is otherwise unremarkable Physical Examination - Vital Signs Temperature: 97.9 F Blood Pressure: 98/50 Pulse: 71 Respirations: 18 Pulse Ox (%): 99 - Physical Exam General: Alert, In no apparent distress HEENT: Atraumatic, PERRLA, EOMI Neck: Supple, JVD not distended Respiratory: Clear to auscultation bilaterally, Normal air movement Cardiovascular: Regular rate/rhythm, Normal S1 S2 Gastrointestinal: Normal bowel sounds, No tenderness Musculoskeletal: No tenderness Integumentary: No rashes Neurological: Normal speech, Normal tone, Normal affect Lymphatics: No axilla or inguinal lymphadenopathy - Studies Laboratory Data (last 24 hrs) 06/16/25 05:52 Sodium 142 Potassium 3.0 L D BUN 23 H Creatinine 0.61 Glucose 111 H Phosphorus 3.3 Medications List Reviewed: Yes Assessment And Plan - Current Problems (Diagnosis) (1) Orthostatic hypotension Current Visit: Yes Status: Acute Plan: it is difficult to control with her parkinson disease. D/C scheduled midodrine, it only to be used prior to PT therapy. encourage patient to wear support socks (2) HTN (hypertension) Current Visit: Yes Status: Acute Plan: continue coreg 3.125 mg po BID Continue Losartan 25 mg po BID (3) Chronic diastolic heart failure Current Visit: No Status: Acute Plan: continue lasix 20 mg po BID Continue salt and fluids restrictions continue to monitor input and output.
[2025-06-16] MEDS ORDERED: ENOXAPARIN 40 MG/0.4 ML SQ SCH (17:00)
[2025-06-16] MEDS ORDERED: POTASSIUM CL SA 10 MEQ TAB PO SCH (20:00)
== END 2025-06-16 13:45 | DRG 57 ==
LOC: 5TH 11:33
PROVIDERS: ADMIT Psychiatry & Neurology Neurology with Special Qualifications in Child Neurology; ATTEND Psychiatry & Neurology Neurology with Special Qualifications in Child Neurology
PROC: 0HBRXZZ Excision of Toe Nail, External Approach (ICD-10-PCS; principal; 2025-06-12)
PROC: 0HBRXZZ Excision of Toe Nail, External Approach (ICD-10-PCS; 2025-06-12)
PROC: 0HBRXZZ Excision of Toe Nail, External Approach (ICD-10-PCS; 2025-06-12)
PROC: 0HBRXZZ Excision of Toe Nail, External Approach (ICD-10-PCS; 2025-06-12)
PROC: 0HBRXZZ Excision of Toe Nail, External Approach (ICD-10-PCS; 2025-06-12)
PROC: 0HBRXZZ Excision of Toe Nail, External Approach (ICD-10-PCS; 2025-06-12)
PROC: 0HBRXZZ Excision of Toe Nail, External Approach (ICD-10-PCS; 2025-06-12)
PROC: 0HBRXZZ Excision of Toe Nail, External Approach (ICD-10-PCS; 2025-06-12)
PROC: 0HBRXZZ Excision of Toe Nail, External Approach (ICD-10-PCS; 2025-06-12)
PROC: 0HBRXZZ Excision of Toe Nail, External Approach (ICD-10-PCS; 2025-06-12)
DX: G20.B2 Parkinson's disease with dyskinesia, with fluctuations (principal); E22.2 Syndrome of inappropriate secretion of antidiuretic hormone; E44.1 Mild protein-calorie malnutrition; N39.0 Urinary tract infection, site not specified; I13.0 Hypertensive heart and chronic kidney disease with heart failure and stage 1 through stage 4 chronic kidney disease, or unspecified chronic kidney disease; I50.32 Chronic diastolic (congestive) heart failure; G31.84 Mild cognitive impairment of uncertain or unknown etiology; R53.83 Other fatigue; N18.9 Chronic kidney disease, unspecified; I95.1 Orthostatic hypotension; R42 Dizziness and giddiness; R60.0 Localized edema; M25.552 Pain in left hip; M54.50 Low back pain, unspecified; G62.9 Polyneuropathy, unspecified; E87.6 Hypokalemia; B35.1 Tinea unguium; E11.22 Type 2 diabetes mellitus with diabetic chronic kidney disease; G47.00 Insomnia, unspecified; E03.9 Hypothyroidism, unspecified; K59.00 Constipation, unspecified; I25.10 Atherosclerotic heart disease of native coronary artery without angina pectoris; E78.5 Hyperlipidemia, unspecified; E88.09 Other disorders of plasma-protein metabolism, not elsewhere classified; R01.1 Cardiac murmur, unspecified; I70.91 Generalized atherosclerosis
CPT/HCPCS: 36415; 74176; 76377; 76770; 80048; 80053; 80069; 81001; 82040; 82043; 82570; 82947; 83036; 83735; 83880; 84132; 84134; 84156; 84300; 85025; 86021; 87086; 87088; 92523; 93970; 97110; 97116; 97129; 97163; 97165; 97530; 97542; J1650; J2003

== ENCOUNTER 2025-08-02 07:21 | Emergency (ER) | payer OTHER ==
--- NOTE | 2025-08-02 08:45 | RAD REPORT ---
EXAM: CT brain without contrast HISTORY: fall COMPARISON: 1 TECHNIQUE: Multiple contiguous axial images were obtained and a CT of the brain without contrast. Sag ittal and coronal reformats were performed. FINDINGS: No evidence of hydrocephalus, intracranial hemorrhage, or extra-axial fluid collection. The brain is normal in morphology. The calvarium is intact. Right parieto-occipital scalp swelling and hematoma. The visualized paranasa l sinuses and mastoid air cells are essentially clear. IMPRESSION: No evidence of acute intracranial abnormality. Right parieto-occipital scalp swelling and hematoma. EXAM: CT of the cervical spine without contrast HISTORY: fall COMPARISON: None TECHNIQUE: Multiple contiguous axial images were obtained in a CT of the cervical spine without contr ast. Sagittal and coronal reformats were performed. FINDINGS: The vertebral bodies demonstrate normal height and alignment. No evidence of acute fracture or subluxation.. No degenerative changes are present. No prevertebral soft tissue swelling is seen. The posterior facets are well aligned. Normal alignment of the skull base with the cervical spine is seen. The lung apices are unremarkable. IMPRESSION: No evidence of acute osseous abnormality of the cervical spine.
[2025-08-02] MEDS ORDERED: LIDOCAINE 2% W/EPI 1:200,000 MPF 20 ML VIAL IM ONE (09:08)
--- NOTE | 2025-08-02 10:06 | EDPHYS ---
Physician Documentation [facility] Name: Diana Nava Age: 85 yrs Sex: Female : 1940 Arrival Date: 08/02/2025 Time: 07:21 Bed 18 Private MD: ED Physician Jorge Snow HPI: 08/02 17:12 This 85 yrs old Female presents to ER via EMS with complaints of Fall Injury. ms3 17:12 85-year-old female with past medical history of angina pectoris, hypothyroidism, back ms3 pain, diabetes, hyperlipidemia presents to the emergency department via EMS after fall. Patient states she wakes every morning to wear herself and today leaned too far back with her walker and fell backwards. Patient denies loss of consciousness, blood thinners, pain.. Historical: - Allergies: 07:36 all calcium channel blockers; jp5 07:36 Daypro; jp5 07:36 Delsym Night Time Cough \T\ Cold; jp5 07:36 Delsym NightTime Multi-Symptom; jp5 07:36 epinephrine-Denitist office; jp5 07:36 Lodine; jp5 07:36 Plendil; jp5 07:36 Prinivil; jp5 07:36 Procardia; jp5 - PMHx: 07:36 angina pectoris; Thyroid problem; Back pain; leg swelling; Diabetes - NIDDM; jp5 Hyperlipidemia; Hypertension; Parkinson's disease; - PSHx: 07:36 back sx; jp5 - Immunization history:: Adult Immunizations up to date. - Infectious Disease History:: Denies. - Immunization history: Last tetanus immunization: unknown. - Social history:: Smoking status: Patient denies any tobacco usage or history of. ROS: 17:12 Constitutional: Negative for fever, and chills. Cardiovascular: Negative for chest ms3 pain, and palpitations. Respiratory: Negative for shortness of breath, cough, wheezing, and pleuritic chest pain, Abdomen/GI: Negative for abdominal pain, nausea, vomiting, diarrhea, and constipation, MS/Extremity: Negative for injury and deformity, 17:12 Skin: Positive for abrasion(s), Exam: 17:12 Constitutional: This is a well developed, well nourished patient who is awake, alert, ms3 and in no acute distress. Cardiovascular: Regular rate and rhythm with a normal S1 and S2. No gallops, murmurs, or rubs. Normal PMI, no JVD. No pulse deficits. Respiratory: Lungs have equal breath sounds bilaterally, clear to auscultation and percussion. No rales, rhonchi or wheezes noted. No increased work of breathing, no retractions or nasal flaring. Abdomen/GI: Soft, non-tender, with normal bowel sounds. No distension or tympany. No guarding or rebound. No evidence of tenderness throughout. 17:12 Skin: Skin tear left forearm, 3 cm scalp laceration right occipital. Vital Signs: 07:12 BP 203 / 100; Pulse 72; Resp 18; Temp 98.2; Pulse Ox 99% on R/A; jp5 07:45 BP 202 / 68; Pulse 71; Resp 18; Pulse Ox 99% on R/A; jp5 08:30 BP 197 / 58; Pulse 68; Resp 18; Pulse Ox 100% on R/A; jp5 09:30 BP 174 / 53; Pulse 66; Resp 18; Temp 98; Pulse Ox 99% on R/A; Pain 0/10; jp5 10:30 BP 141 / 58; Pulse 62; Resp 18; Temp 98.1(O); Pulse Ox 100% on R/A; Pain 0/10; jp5 09:30 Pain Scale: Adult jp5 10:30 Pain Scale: Adult jp5 [place] Coma Score: 11:00 Eye Response: spontaneous(4). Motor Response: obeys commands(6). Verbal Response: jp5 oriented(5). Total: 15. Trauma Score (Adult): 07:12 Eye Response: spontaneous(1); Verbal Response: oriented(1); Motor Response: obeys jp5 commands(2); Systolic BP: > 89 mm Hg(4); Respiratory Rate: 10 to 29 per min(4); [place] Score: 15; Trauma Score: 12 Laceration: 10:04 Wound Repair of 3cm ( 1.2in ) subcutaneous laceration to scalp. Linear shaped.. Distal ms3 neuro/vascular/tendon intact. Anesthesia: Local anesthetic administered with 4 mls of 2% Lidocaine with epinepherine. Wound prep: Moderate cleansing by nurse by nd. Skin closed with 6 1-0 Eldred using simple sutures and sterile technique. Dressed with pressure dressing. Patient tolerated well. MDM: 07:33 Medical Screening Exam initiated ms3 20:05 Differential diagnosis: abrasion, closed head injury, contusion, fracture, sprain, ms3 strain. Data reviewed: vital signs, nurses notes, radiologic studies, and as a result, I will discharge patient. I considered the following discharge prescriptions or medication management in the emergency department Medications were administered in the Emergency Department. See MAR. Independent interpretation of the following test(s) in the Emergency Department CT Scan: My interpretation is CT head without contrast images were reviewed by me and did not reveal subdural hemorrhage. Counseling: I had a detailed discussion with the patient and/or guardian regarding the historical points, exam findings, and any diagnostic results supporting the discharge/admit diagnosis, radiology results, the need for outpatient follow up, to return to the emergency department if symptoms worsen or persist or if there are any questions or concerns that arise at home. Special discussion: I discussed with the patient/guardian in detail that at this point there is no indication for admission to the hospital. It is understood, however, that if the symptoms persist or worsen the patient needs to return immediately for re-evaluation. ED course: Discussed imaging results with patient, her caregiver, and her daughter (via phone). Patient to follow-up with primary care physician in 5 days for staple removal. Patient understands agrees with plan. All questions were answered. Return precautions were discussed include worsening symptoms, or any other concerns. 08/02 07:33 Order name: CT Head C Spine; Complete Time: 08:45 ms3 Administered Medications: 09:55 Drug: Lidocaine-Epinephrine Infiltration -1%: (1:100,000) 10 ml 20 ml Infiltration jp5 once; to bedside Volume: 20 ml; Route: Infiltration; 10:20 Follow up: Response: No adverse reaction jp5 10:47 Drug: Boostrix Tdap IM 0.5 ml IM once; as a single dose Route: IM; Site: left deltoid; jp5 11:00 Follow up: Response: No adverse reaction jp5 Disposition Summary: 08/02/25 10:06 Discharge Ordered Notes: Location: Home ms3 Condition: Stable ms3 Diagnosis - Fall on same level, unspecified ms3 - Scalp Laceration/ Open wound of scalp ms3 Followup: ms3 - With: Private Physician - When: 5 - 6 days - Reason: Staple/Suture removal Discharge Instructions: - Discharge Summary Sheet ms3 - Laceration Care, Adult, [id number] ms3 Forms: - Medication Reconciliation Form ms3 - Antibiotic Education ms3 - Prescription Opioid Use ms3 - Patient Portal Instructions ms3 - Leadership Thank You Letter ms3 Signatures: Dispatcher [employer] EDMS Jorge Snow DO DO ms3 Cynthia Wolf, RN RN jp5 Corrections: (The following items were deleted from the chart) 07:34 07:34 Head C Spine MPR Wo Con+[id number].[id number] ordered. EDMS EDMS 17:23 17:12 Skin: Skin tear left forearm, 2 cm scalp laceration right occipital. ms3 ms3
--- NOTE | 2025-08-02 10:06 | ER ---
Nurse's Notes [facility] Name: Diana Nava Age: 85 yrs Sex: Female : 1940 Arrival Date: 08/02/2025 Time: 07:21 Bed 18 Private MD: Diagnosis: Fall on same level, unspecified;Scalp Laceration/ Open wound of scalp Presentation: 08/02 07:12 Chief complaint: EMS states: Pt was weighing herself this morning and leaned to far 5 back, falling onto her back hitting the back of her head on hardwood miguel, pt has no LOC and is not on blood thinners. Pt has 0 complaints of pain. C collar in place from EMS and 20g LAC. Pt noted to have a skin tear to left forearm area and 2cm laceration to back of head. Coronavirus screen: Client denies travel out of the [place] in the last 14 days. At this time, the client does not indicate any symptoms associated with coronavirus-19. Ebola Screen: No symptoms or risks identified at this time. Initial Sepsis Screen: Does the patient meet any 2 criteria? No. Patient's initial sepsis screen is negative. Does the patient have a suspected source of infection? No. Patient's initial sepsis screen is negative. Risk Assessment: Do you want to hurt yourself or someone else? Patient reports no desire to harm self or others. 07:12 Method Of Arrival: EMS: [facility]5 07:12 Acuity: [id number] 3 5 07:12 Care prior to arrival: None. Mechanism of Injury: Fall from standing position. Trauma 5 event details: Injury occurred in the [facility], Injury occurred: at home. Injury occurred: August 02, 2025 Injury occurred at: 06:30. 07:12 Onset of symptoms was August 02, 2025 at 06:30. jp5 Triage Assessment: 07:13 General: Appears in no apparent distress. Behavior is calm, cooperative, appropriate 5 for age. Pain: Denies pain. Neuro: No deficits noted. Level of Consciousness is awake, alert, obeys commands, Oriented to person, place, time, situation, Appropriate for age Pupils are PERRLA. Cardiovascular: No deficits noted. Respiratory: No deficits noted. Injury Description: Head injury sustained to occipital area is open, bleeding, did not have loss of consciousness, Laceration sustained to occipital area is moderate bleeding noted at this time. Trauma Activation: Not Applicable Physician: ED Physician; Name: ; Notified At: ; Arrived At: Physician: General Surgeon; Name: ; Notified At: ; Arrived At: Physician: Radiology; Name: ; Notified At: ; Arrived At: Physician: Respiratory; Name: ; Notified At: ; Arrived At: Physician: Lab; Name: ; Notified At: ; Arrived At: Historical: - Allergies: 07:36 all calcium channel blockers; jp5 07:36 Daypro; jp5 07:36 Delsym Night Time Cough \T\ Cold; jp5 07:36 Delsym NightTime Multi-Symptom; jp5 07:36 epinephrine-Denitist office; jp5 07:36 Lodine; jp5 07:36 Plendil; jp5 07:36 Prinivil; jp5 07:36 Procardia; jp5 - PMHx: 07:36 angina pectoris; Thyroid problem; Back pain; leg swelling; Diabetes - NIDDM; jp5 Hyperlipidemia; Hypertension; Parkinson's disease; - PSHx: 07:36 back sx; jp5 - Immunization history:: Adult Immunizations up to date. - Infectious Disease History:: Denies. - Immunization history: Last tetanus immunization: unknown. - Social history:: Smoking status: Patient denies any tobacco usage or history of. Screenin:15 [facility] ED Fall Risk Assessment (Adult) History of falling in the last 3 months, jp5 including since admission Yes- single mechanical fall (1 pt) Confusion or Disorientation No (0 pts) Intoxicated or Sedated No (0 pts) Impaired Gait Yes (1 pt) Mobility Assist Device Used Yes (1 pt) Altered Elimination Yes (1 pt) Score/Fall Risk Level 3 or more points = High Risk Oriented to surroundings, Maintained a safe environment, Educated pt \T\ family on fall prevention, incl call for assistance when getting out of bed, Assessed \T\ reinforced patient's understanding of fall precautions, Provided non-skid footwear, Hourly rounding (assess needs \T\ fall precautionary measures) done, Used ambulatory aids as needed (educated on \T\ assisted with), Used gait belt as appropriate Implemented a Fall Risk Plan of Care, Apply high fall risk patient identification: yellow non skid footwear/ fall signage, Remained w/in arm's length of patient and in sight while toileting, Offered frequent toileting (1:1 observation), Remained with patient while ambulating, Utilized family, sitter, or virtual senior stock plan administrator as indicated. Nutritional screening: No deficits noted. 07:41 Abuse screen: Denies threats or abuse. Denies injuries from another. Tuberculosis jp5 screening: No symptoms or risk factors identified. Primary Survey: 07:12 NO uncontrolled hemorrhage observed. A: The client is awake and alert. The airway is jp5 patent. The client is alert. Airway: patent. Breathing/Chest: Spontaneous respiratory effort, equal unlabored respirations, breath sounds clear bilaterally, regular pattern, symmetrical chest rise and fall. Respiratory effort: spontaneous, unlabored, Breath sounds: clear, bilaterally. Respiratory pattern: regular, Chest inspection: symmetrical rise and fall of the chest. Circulation: No external hemorrhage present. Regular and strong central pulse, skin warm/dry/normal color. Skin color: pink. Disability Pupils are equal, round, reactive to light and accommodation. Client is alert. Exposure/Environment: Obvious injury(ies) are noted at this time: laceration to back of head and skin tear to left forearm A warming method has been applied: A warm blanket has been provided to the patient. 08:00 Reassessment Breathing: Spontaneous respiratory effort, equal unlabored respirations, jp5 breath sounds clear bilaterally, regular pattern with symmetrical chest rise and fall. Secondary Survey: 07:40 HEENT: Head Other laceration to back of scalp Face No injury/deformity Eyes: No injury jp5 or deformity noted. to bilateral eyes. Ears: clear bilaterally. Nose: clear to bilateral nares. Throat: No injury or deformity noted. Gastrointestinal: No deficits noted. : No deficits noted. Musculoskeletal: No deficits noted. Assessment: 07:42 General: view triage. jp5 09:00 Reassessment: Patient appears in no apparent distress at this time. No changes from jp5 previously documented assessment. Patient and/or family updated on plan of care and expected duration. Pain level reassessed. Patient is alert, oriented x 3, equal unlabored respirations, skin warm/dry/pink. Patient denies pain at this time. Vital Signs: 07:12 BP 203 / 100; Pulse 72; Resp 18; Temp 98.2; Pulse Ox 99% on R/A; jp5 07:45 BP 202 / 68; Pulse 71; Resp 18; Pulse Ox 99% on R/A; jp5 08:30 BP 197 / 58; Pulse 68; Resp 18; Pulse Ox 100% on R/A; jp5 09:30 BP 174 / 53; Pulse 66; Resp 18; Temp 98; Pulse Ox 99% on R/A; Pain 0/10; jp5 10:30 BP 141 / 58; Pulse 62; Resp 18; Temp 98.1(O); Pulse Ox 100% on R/A; Pain 0/10; jp5 09:30 Pain Scale: Adult jp5 10:30 Pain Scale: Adult jp5 Timnath Coma Score: 11:00 Eye Response: spontaneous(4). Motor Response: obeys commands(6). Verbal Response: jp5 oriented(5). Total: 15. Trauma Score (Adult): 07:12 Eye Response: spontaneous(1); Verbal Response: oriented(1); Motor Response: obeys jp5 commands(2); Systolic BP: > 89 mm Hg(4); Respiratory Rate: 10 to 29 per min(4); Timnath Score: 15; Trauma Score: 12 ED Course: 07:12 Thermoregulation: warm blanket given to patient. jp5 07:15 Arm band placed on right wrist. jp5 07:15 Pulse ox on. NIBP on. Warm blanket given. jp5 07:20 Irrigation of laceration on scalp irrigated with normal saline Patient tolerated well. jp5 07:23 Patient arrived in ED. iw 07:25 Jorge Snow DO is Attending Physician. ms3 07:32 Cynthia Wolf, JENISE is Primary Nurse. jp5 07:36 Triage completed. jp5 07:41 Patient maintains SpO2 saturation greater than 95% on room air. jp5 07:42 Patient has correct armband on for positive identification. Bed in low position. Call jp5 light in reach. Side rails up X 1. Adult w/ patient. Provided Education on: call light use. 07:42 No provider procedures requiring assistance completed. jp5 07:43 Maintain EMS IV. Dressing intact. Good blood return noted. Site clean \T\ dry. Gauge \T\ diana 5 site: 20g L AC. Flushed with 10 mL NS. 08:[address] via stretcher. jp5 08:08 CT Head C Spine In Process Unspecified. EDMS 08:30 Assisted with bedpan. jp5 09:00 Assisted with bedpan. jp5 10:05 Wound care: to laceration located on scalp was dressed with 4X4s, Kerlix, ABD pads, jp5 Patient tolerated well. ER MD placed staple to laceration, pressure dressing applied. 10:08 IV discontinued, intact, bleeding controlled, No redness/swelling at site. Pressure jp5 dressing applied. Administered Medications: 09:55 Drug: Lidocaine-Epinephrine Infiltration -1%: (1:100,000) 10 ml 20 ml Infiltration jp5 once; to bedside Volume: 20 ml; Route: Infiltration; 10:20 Follow up: Response: No adverse reaction jp5 10:47 Drug: Boostrix Tdap IM 0.5 ml IM once; as a single dose Route: IM; Site: left deltoid; jp5 11:00 Follow up: Response: No adverse reaction jp5 Medication: 07:20 VIS not applicable for this client. jp5 Intake: 11:00 PO: 0ml; IV: 0ml; Tubes: 0ml (); Total: 0ml. jp5 Output: 11:00 Urine: 200ml (Voided); Gastric: 0ml; Stool: 0; EBL: 0ml; Drainage: 0ml; Other: 0; jp5 Total: 200ml. Outcome: 10:06 Discharge ordered by MD. ms3 10:56 Discharged to home via wheelchair, with family, jp5 10:56 Condition: stable 10:56 Discharge instructions given to patient, final rail cutter, Instructed on discharge instructions, follow up and referral plans. wound care, Demonstrated understanding of instructions, follow-up care, wound care, Prescriptions given X 11:00 Patient's length of stay in the Emergency Department was greater than 2 hours. jp5 11:12 Patient left the ED. jp5 Signatures: Dispatcher [employer] Ruthie Rea, Jorge Lam RN, DO DO ms3 Cynthia Wolf RN RN jp5
[2025-08-02] MEDS ORDERED: TDAP (DIPHTH,PERTUSS(ACELL),TET VAC) 0.5 ML VIAL IMVAC ONE (10:46)
[2025-08-02 11:42] VITALS: BP 141/58; TEMP 98.1; O2SAT 100
== END 2025-08-02 11:12 | disposition home or self-care (01) ==
LOC: ER 07:21
DX: S01.01XA Laceration without foreign body of scalp, initial encounter (principal); W18.30XA Fall on same level, unspecified, initial encounter; Z23 Encounter for immunization
CPT/HCPCS: 12002; 70450; 72125; 90715; 96372; 99285